=== PATIENT | male | born 1950 | race Caucasian/White ===

== ENCOUNTER 2016-11-04 14:41 | Emergency (ER) | payer OTHER, MEDICARE ==
--- NOTE | 2016-11-04 15:11 | ER Document Report ---
ED Medical Screen (RME) - General Chief Complaint: Possible Kidney Stone Stated Complaint: FLANK PAIN Notes: Patient states he started having left flank pain 3 days ago. Pain is now radiating around to the left side down towards the left groin. Denies nausea or vomiting. Patient states he has stage III kidney disease, and has also had a history of kidney stones. Denies fever. He was sent to the emergency room by the [place] [facility]. I have greeted and performed a rapid initial assessment of this patient. A comprehensive ED assessment and evaluation of the patient, analysis of test results and completion of the medical decision making process will be conducted by additional ED providers. - Related Data Allergies/Adverse Reactions: No Known Allergies Allergy (Unverified 03/01/11 22:25) Physical Exam - Vital signs Vitals: Temp Pulse Resp BP Pulse Ox 98.3 F 85 20 160/66 H 92 11/04/16 14:44 11/04/16 14:44 11/04/16 14:44 11/04/16 14:44 11/04/16 14:44 - General General appearance: Appears well, Alert In distress: None Notes: Patient in no acute distress at this time states, pain to left flank is mild. Course - Vital Signs Vital signs: Temp Pulse Resp BP Pulse Ox 98.3 F 85 20 160/66 H 92 11/04/16 14:44 11/04/16 14:44 11/04/16 14:44 11/04/16 14:44 11/04/16 14:44
[2016-11-04 16:47] LABS: ABSOLUTE BASOPHILS # (AUTO) 0.1 10^3/uL (0.0-0.2); ABSOLUTE EOSINOPHILS # (AUTO) 0.2 10^3/uL (0.0-0.6); ABSOLUTE LYMPHOCYTES (AUTO) 2.1 10^3/uL (0.5-4.7); ABSOLUTE MONOCYTES (AUTO) 0.6 10^3/uL (0.1-1.4); ABSOLUTE NEUT (AUTO) 5.3 10^3/uL (1.7-8.2); BASOPHILS % (AUTO) 0.7 % (0-2); EOSINOPHILS % (AUTO) 2.5 % (0-6); HEMATOCRIT 45.8 % (37.9-51.0); HEMOGLOBIN 15.7 g/dL (13.5-17.0); HGB HCT DIFFERENCE 1.3; LYMPHOCYTES % (AUTO) 25.2 % (13-45); MEAN CORPUSCULAR HEMOGLOBIN 30.1 pg (27.0-33.4); MEAN CORPUSCULAR HGB CONC 34.4 g/dL (32.0-36.0); MEAN CORPUSCULAR VOLUME 88 fl (80-97); MONOCYTES % (AUTO) 7.5 % (3-13); RED BLOOD COUNT 5.22 10^6/uL (4.35-5.55); RED CELL DISTRIBUTION WIDTH 15.1 % (11.5-14.0); SEGMENTED NEUTROPHILS % (AUTO) 64.1 % (42-78); WHITE BLOOD COUNT 8.3 10^3/uL (4.0-10.5)
[2016-11-04 17:02] LABS: ALANINE AMINOTRANSFERASE 73 U/L (21-72); ALBUMIN 4.6 g/dL (3.5-5.0); ALKALINE PHOSPHATASE 66 U/L (38-126); ANION GAP 15 (5-19); ASPARTATE AMINO TRANSFERASE 70 U/L (17-59); BILIRUBIN,TOTAL 0.9 mg/dL (0.2-1.3); BLOOD UREA NITROGEN 27 mg/dL (7-20); CALCIUM 10.3 mg/dL (8.4-10.2); CARBON DIOXIDE 28 mmol/L (22-30); CHLORIDE 103 mmol/L (98-107); CREATININE RESULT 1.57 mg/dL (0.52-1.25); GLUCOSE 129 mg/dL (75-110); POTASSIUM 4.4 mmol/L (3.6-5.0); TOTAL PROTEIN 7.7 g/dL (6.3-8.2)
[2016-11-04 18:30] LABS: APPEARANCE,URINE CLEAR; BILIRUBIN,URINE NEGATIVE (NEGATIVE); GLUCOSE, URINE 50 mg/dL (NEGATIVE); KETONES,URINE NEGATIVE (NEGATIVE); LEUKOCYTE ESTERASE,URINE NEGATIVE (NEGATIVE); NITRITE,URINE NEGATIVE (NEGATIVE); PROTEIN,URINE 30 mg/dL (NEGATIVE); URINE SPECIFIC GRAVITY 1.015; UROBILINOGEN,URINE NEGATIVE mg/dL (<2.0)
--- NOTE | 2016-11-04 20:44 | ER Document Report ---
ED General - General Chief Complaint: Possible Kidney Stone Stated Complaint: FLANK PAIN Information source: Patient Notes: 58-year-old male presents with complaints of left flank pain rating to the groin. Patient notes similar episode one year ago, which was imaged and lab work noted no significant abnormality. Patient notes pain has been ongoing for 3 days Flank today went to his groin denies any testicular pain penile discharge TRAVEL OUTSIDE OF THE [place] IN LAST 30 DAYS: No - HPI Onset: Other Onset/Duration: Intermittent Quality of pain: Sharp Severity: Mild Pain Level: 1 Associated symptoms: Other Exacerbated by: Denies Relieved by: Denies Similar symptoms previously: Yes Recently seen / treated by doctor: Yes - Related Data Allergies/Adverse Reactions: No Known Allergies Allergy (Unverified 03/01/11 22:25) Past Medical History - Social History Smoking Status: Never Smoker Cigarette use (# per day): No Chew tobacco use (# tins/day): No Smoking Education Provided: No Frequency of alcohol use: None Drug Abuse: None Family History: Reviewed & Not Pertinent Patient has suicidal ideation: No Patient has homicidal ideation: No Renal/ Medical History: Denies: Hx Peritoneal Dialysis Review of Systems - Review of Systems Notes: REVIEW OF SYSTEMS: CONSTITUTIONAL : Denies fever, chills, or sweats. Denies recent illness. EENT: Denies eye, ear, throat, or mouth pain or symptoms. Denies nasal or sinus congestion or discharge. Denies throat, tongue, or mouth swelling or difficulty swallowing. CARDIOVASCULAR: Denies chest pain. Denies palpitations or racing or irregular heart beat. Denies ankle edema. RESPIRATORY: Denies cough, cold, or chest congestion. Denies shortness of breath, difficulty breathing, or wheezing. GASTROINTESTINAL: Denies abdominal pain or distention. Denies nausea, vomiting , or diarrhea. Denies blood in vomitus, stools, or per rectum. Denies black, tarry stools. Denies constipation. GENITOURINARY: Denies difficulty urinating, painful urination, burning, frequency, blood in urine, or discharge. MUSCULOSKELETAL: Left flank pain rating to the groin SKIN: Denies rash, lesions or sores. HEMATOLOGIC : Denies easy bruising or bleeding. LYMPHATIC: Denies swollen, enlarged glands. NEUROLOGICAL: Denies confusion or altered mental status. Denies passing out or loss of consciousness. Denies dizziness or lightheadedness. Denies headache. Denies weakness or paralysis or loss of use of either side. Denies problems with gait or speech. Denies sensory loss, numbness, or tingling. Denies seizures. PSYCHIATRIC: Denies anxiety or stress. Denies depression, suicidal ideation, or homicidal ideation. ALL OTHER SYSTEMS REVIEWED AND NEGATIVE. Dictation was performed using [employer] voice recognition software PHYSICAL EXAMINATION: GENERAL: Well-appearing, well-nourished and in no acute distress. HEAD: Atraumatic, normocephalic. EYES: Pupils equal round and reactive to light, extraocular movements intact, sclera anicteric, conjunctiva are normal. ENT: Nares patent, oropharynx clear without exudates. Moist mucous membranes. NECK: Normal range of motion, supple without lymphadenopathy LUNGS: Breath sounds clear to auscultation bilaterally and equal. No wheezes rales or rhonchi. HEART: Regular rate and rhythm without murmurs ABDOMEN: Soft, nontender, nondistended abdomen. No guarding, no rebound. No masses appreciated. Musculoskeletal: Normal range of motion, no pitting or edema. No cyanosis. NEUROLOGICAL: Cranial nerves grossly intact. Normal speech, normal gait. Normal sensory, motor exams PSYCH: Normal mood, normal affect. SKIN: Warm, Dry, normal turgor, no rashes or lesions noted. Physical Exam - Vital signs Vitals: Temp Pulse Resp BP Pulse Ox 98.3 F 85 20 160/66 H 92 11/04/16 14:44 11/04/16 14:44 11/04/16 14:44 11/04/16 14:44 11/04/16 14:44 Course - Re-evaluation Re-evalutation: 11/05/16 00:09 Patient is completely pain-free at this time, his creatinine is noted to be consistent with his previous presentations. Patient's otherwise in no distress. A CT was performed acute abnormality was noted. Patient was made aware of these results. I will have him follow-up with his process steward for reevaluation of his renal colic Urinalysis was negative After performing a Medical Screening Examination, I estimate there is LOW risk for ACUTE APPENDICITIS, BOWEL OBSTRUCTION, ACUTE CHOLECYSTITIS, PERFORATED DIVERTICULITIS, INCARCERATED HERNIA, PANCREATITIS, or PERFORATED ULCER, thus I consider the discharge disposition reasonable. Also, there is no evidence or peritonitis, sepsis, or toxicity. The patient and I have discussed the diagnosis and risks, and we agree with discharging home with close follow-up with the understanding that symptoms and presentations can change. We also discussed returning to the Emergency Department immediately if new or worsening symptoms occur. We have discussed the symptoms which are most concerning (e.g., bloody stool, fever, changing or worsening pain, intractable vomiting - standard verbal up date) that necessitate immediate return. - Vital Signs Vital signs: Temp Pulse Resp BP Pulse Ox 98.3 F 85 20 160/66 H 92 11/04/16 14:44 11/04/16 14:44 11/04/16 14:44 11/04/16 14:44 11/04/16 14:44 - Laboratory Result Diagrams: 11/04/16 15:45 11/04/16 15:45 Laboratory results interpreted by me: 11/04/16 11/04/16 11/04/16 15:45 15:45 15:45 RDW 15.1 H Sodium 146.0 H BUN 27 H Creatinine 1.57 H Est GFR ( Amer) 53 L Est GFR (Non-Af Amer) 44 L Glucose 129 H Calcium 10.3 H AST 70 H ALT 73 H Urine Protein 30 H Urine Glucose (UA) 50 H - Diagnostic Test Radiology reviewed: Image reviewed, Reports reviewed - Report given to patient Discharge - Discharge Clinical Impression: Flank pain Chronic kidney disease Qualifiers: Chronic kidney disease stage: stage 2 (mild) Qualified Code(s): N18.2 - Chronic kidney disease, stage 2 (mild) Hypertension Qualifiers: Hypertension type: essential hypertension Qualified Code(s): I10 - Essential ( primary) hypertension Condition: Stable Disposition: HOME, SELF-CARE Instructions: Flank Pain ([facility]) Additional Instructions: Please follow-up with your process steward for reevaluation or return immediately if there are any other concerns Prescriptions: Hydrocodone/Acetaminophen [Orange 5-325 mg Tablet] 1 tab PO Q6 #10 tablet Ondansetron [Zofran Odt] 8 mg PO Q8 #10 tab.rapdis
[2016-11-05 00:19] VITALS: BP 154/60
== END 2016-11-04 22:10 | disposition home or self-care (01) ==
LOC: ER 14:41
DX: N23 Unspecified renal colic (principal); I12.9 Hypertensive chronic kidney disease with stage 1 through stage 4 chronic kidney disease, or unspecified chronic kidney disease; N18.2 Chronic kidney disease, stage 2 (mild)
CPT/HCPCS: 36415; 76380; 80053; 81001; 85025; 99284

== ENCOUNTER 2018-12-11 13:40 | Inpatient (IN) | payer OTHER, MEDICARE ==
--- NOTE | 2018-12-11 14:17 | ER Document Report ---
ED Medical Screen (RME) - General Chief Complaint: Breathing Difficulty Stated Complaint: DIFFICULTY BREATHING Time Seen by Provider: 12/11/18 14:04 Mode of Arrival: Ambulatory Information source: Patient TRAVEL OUTSIDE OF THE [place] IN LAST 30 DAYS: No - HPI Patient complains to provider of: Short of breath Notes: 12/11/18 14:15 Patient here with complaints of shortness of breath. Shortness of breath been going on for the last few days. He also complains of pain in the lower chest/upper abdomen. He has a history of kidney disease, diabetes, hypertension, CAD with stents. He denies any recent long trips or surgeries, he does have bilateral leg swelling, but this is chronic. No known cancer, no history of DVT or PE. He did recently have a a thyroid mass biopsy that came back inconclusive, and further testing is currently be done at this time. No history of COPD. Quit smoking 9 years ago. Exam Mild tachypnea, hypoxia which improved on nasal cannula. Lungs are clear and equal throughout. Heart sounds are normal. +1 pitting edema to the bilateral lower extremities. Plan Patient was placed on oxygen, his O2 levels improved. CBC, CMP, troponin, BNP, chest x-ray, EKG. Patient will be taken to room as soon as possible. An initial examination was made on the patient as part of the triage process, and it was determined a more comprehensive evaluation was necessary. Initial labs were ordered and patient was transferred to another provider in the ED who assumed care and finished evaluation and plan. - Related Data Allergies/Adverse Reactions: No Known Allergies Allergy (Verified 12/11/18 13:42) Past Medical History Renal/ Medical History: Denies: Hx Peritoneal Dialysis Physical Exam - Vital signs Vitals: Temp Pulse Resp BP Pulse Ox 98.3 F 105 H 24 H 125/72 84 L 12/11/18 13:52 12/11/18 13:52 12/11/18 13:52 12/11/18 13:52 12/11/18 13:52 Course - Vital Signs Vital signs: Temp Pulse Resp BP Pulse Ox 98.3 F 105 H 24 H 125/72 84 L 12/11/18 13:52 12/11/18 13:52 12/11/18 13:52 12/11/18 13:52 12/11/18 13:52
[2018-12-11 15:21] LABS: ABSOLUTE BASOPHILS # (AUTO) 0.1 10^3/uL (0.0-0.2); ABSOLUTE EOSINOPHILS # (AUTO) 0.1 10^3/uL (0.0-0.6); ABSOLUTE LYMPHOCYTES (AUTO) 1.2 10^3/uL (0.5-4.7); ABSOLUTE MONOCYTES (AUTO) 0.5 10^3/uL (0.1-1.4); ABSOLUTE NEUT (AUTO) 6.4 10^3/uL (1.7-8.2); BASOPHILS % (AUTO) 0.6 % (0-2); EOSINOPHILS % (AUTO) 0.8 % (0-6); HEMATOCRIT 44.6 % (37.9-51.0); HEMOGLOBIN 15.2 g/dL (13.5-17.0); LYMPHOCYTES % (AUTO) 14.2 % (13-45); MEAN CORPUSCULAR HEMOGLOBIN 30.1 pg (27.0-33.4); MEAN CORPUSCULAR HGB CONC 34.1 g/dL (32.0-36.0); MEAN CORPUSCULAR VOLUME 88 fl (80-97); MONOCYTES % (AUTO) 6.3 % (3-13); PLATELET COUNT 159 10^3/uL (150-450); RED BLOOD COUNT 5.05 10^6/uL (4.35-5.55); RED CELL DISTRIBUTION WIDTH 14.7 % (11.5-14.0); SEGMENTED NEUTROPHILS % (AUTO) 78.1 % (42-78); TOTAL CELLS COUNTED % (AUTO) 100 %; WHITE BLOOD COUNT 8.2 10^3/uL (4.0-10.5)
--- NOTE | 2018-12-11 15:22 | RADIOLOGY REPORT (SQ) ---
EXAM DESCRIPTION: CHEST 2 VIEWS COMPLETED DATE/TIME: 12/11/2018 3:00 pm REASON FOR STUDY: dyspnea, hypoxia COMPARISON: None. EXAM PARAMETERS: NUMBER OF VIEWS: two views TECHNIQUE: Digital Frontal and Lateral radiographic views of the chest acquired. RADIATION DOSE: NA LIMITATIONS: none FINDINGS: LUNGS AND PLEURA: Rounded masslike opacity of the right upper lobe with adjacent heterogen eous airspace opacity. Findings are highly concerning for primary malignancy. MEDIASTINUM AND HILAR STRUCTURES: No masses or contour abnormalities. HEART AND VASCULAR STRUCTURES: Cardiomegaly. BONES: No acute findings. HARDWARE: None in the chest. OTHER: No other significant finding. IMPRESSION: 1. Rounded masslike opacity of the right upper lobe with adjacent heterogeneous airspace opacity. Findings are highly concerning for primary malignancy. Recommend CT to further evaluate. 2. Cardiomegaly. TECHNICAL DOCUMENTATION: JOB ID: [id number] [employer]- All Rights Reserved Reading location - IP/workstation name: [email or web address]
[2018-12-11 15:38] LABS: ALANINE AMINOTRANSFERASE 204 U/L (21-72); ALBUMIN 4.2 g/dL (3.5-5.0); ALKALINE PHOSPHATASE 86 U/L (38-126); ANION GAP 12 (5-19); ASPARTATE AMINO TRANSFERASE 131 U/L (17-59); BILIRUBIN,DIRECT 0.6 mg/dL (0.0-0.4); BILIRUBIN,TOTAL 1.1 mg/dL (0.2-1.3); BLOOD UREA NITROGEN 40 mg/dL (7-20); CALCIUM 9.5 mg/dL (8.4-10.2); CARBON DIOXIDE 26 mmol/L (22-30); CHLORIDE 100 mmol/L (98-107); GLUCOSE 374 mg/dL (75-110); POTASSIUM 5.1 mmol/L (3.6-5.0); SODIUM 137.8 mmol/L (137-145); TOTAL PROTEIN 7.5 g/dL (6.3-8.2)
[2018-12-11 15:51] LABS: TROPONIN I 0.114 ng/mL
--- NOTE | 2018-12-11 16:12 | RADIOLOGY REPORT (SQ) ---
EXAM DESCRIPTION: CHEST 2 VIEWS COMPLETED DATE/TIME: 12/11/2018 4:01 pm REASON FOR STUDY: with nipple markers COMPARISON: 12/11/2018. EXAM PARAMETERS: NUMBER OF VIEWS: two views TECHNIQUE: Digital Frontal and Lateral radiographic views of the chest acquired. RADIATION DOSE: NA LIMITATIONS: none FINDINGS: LUNGS AND PLEURA: Again seen is rounded density in the right mid lung. Left lung clear. No pleural effusion or pneumothorax. MEDIASTINUM AND HILAR STRUCTURES: No masses or contour abnormalities. HEART AND VASCULAR STRUCTURES: Heart upper limits of normal size. No evidence for failure. BONES: No acute findings. HARDWARE: None in the chest. OTHER: No other significant finding. IMPRESSION: ROUNDED DENSITY IN THE RIGHT MIDLUNG AGAIN SEEN. CONCERNING FOR UNDERLYING PULMONARY MA SS. RECOMMEND FOLLOW-UP CHEST CT. TECHNICAL DOCUMENTATION: JOB ID: [id number] [employer]- All Rights Reserved Reading location - IP/workstation name: [email or web address]
--- NOTE | 2018-12-11 16:52 | RADIOLOGY REPORT (SQ) ---
EXAM DESCRIPTION: CT CHEST WITHOUT COMPLETED DATE/TIME: 12/11/2018 4:35 pm REASON FOR STUDY: Suspect right lung airspace disease, RUL mass COMPARISON: Chest x-ray dated 12/11/2018. TECHNIQUE: CT scan performed of the chest without intravenous contrast. Images reviewed with lung, soft tissue and bone windows. Reconstructed coronal and sagittal MPR images reviewed. All images st ored on PACS. All CT scanners at this facility use dose modulation, iterative reconstruction, and/or weight based d osing when appropriate to reduce radiation dose to as low as reasonably achievable (ALARA). [facility]: Dose Right [facility]: CareDose [facility]: Dose Right [facility]: Teradose 4D [facility]: [employer] RADIATION DOSE: CT Rad equipment meets quality standard of care and radiation dose reduction techniq ues were employed. CTDIvol: 21.1 mGy. DLP: 858 mGy-cm. mGy. LIMITATIONS: No technical limitations. FINDINGS: LUNGS AND PLEURA: Nodular lobulated mass in the lateral right lung, measuring 3.0 x 3.6 cm , which corresponds with the finding on chest x-ray. This abuts the pleura. There is mild pleural r etraction. There are additional nodular masses extending medially to the hilum, measuring 1 to 2 cm. Patchy airspace disease in the anterior right middle lobe. Right pleural effusion. Left lung emigdio r. HILAR AND MEDIASTINAL STRUCTURES: Right hilar mass measuring approximately 3 cm. Borderline mediasti nal adenopathy. HEART AND VASCULAR STRUCTURES: No aneurysm. Coronary artery calcifications. No pericardial effusion . UPPER ABDOMEN: No significant findings. Limited exam. THYROID AND OTHER SOFT TISSUES: Heterogenous enlarged left lobe of the thyroid which extends in a sub sternal direction. Transverse measurement 4.2 cm, AP measurement 4.6 cm, and craniocaudal measuremen t 5.0 cm. BONES: No significant finding. Degenerative changes in the spine. HARDWARE: None in the chest. OTHER: No other significant findings. IMPRESSION: 1. LOBULATED MASS IN THE LATERAL RIGHT LUNG CONSISTENT WITH MALIGNANCY. ADDITIONAL SMALLER NODULAR M ASSES EXTENDING MEDIALLY TO THE RIGHT HILUM. RIGHT HILAR MASS PRESUMED SECONDARY TO ADENOPATHY. PAT SANTIAGO AIRSPACE DISEASE IN THE ADJACENT RIGHT LUNG. THIS MAY BE DUE TO PNEUMONITIS OR ATELECTASIS ALTHO UGH LYMPHATIC SPREAD OF TUMOR COULD BE ANOTHER POSSIBILITY. RIGHT PLEURAL EFFUSION. LEFT LUNG CLEAR . 2. HETEROGENOUS ENLARGED LEFT LOBE OF THE THYROID WHICH EXTENDS IN A SUBSTERNAL DIRECTION DESCRIBE D. TECHNICAL DOCUMENTATION: JOB ID: [id number] Quality ID # [id number]: Final reports with documentation of one or more dose reduction techniques (e.g., Au tomated exposure control, adjustment of the mA and/or kV according to patient size, use of iterative reconstruction technique) 2010 [employer]- All Rights Reserved Reading location - IP/workstation name: [email or web address]
--- NOTE | 2018-12-11 17:03 | ER Document Report ---
Entered by PATRICIA JACKMAN SCRIBE 12/11/18 1507 Acting as scribe for:MOODY ARAUJO MD ED Respiratory Problem - General Chief Complaint: Breathing Difficulty Stated Complaint: DIFFICULTY BREATHING Time Seen by Provider: 12/11/18 14:04 Primary Care Provider: DEYSI KENT DO [Primary Care Provider] - Follow up as needed Mode of Arrival: Ambulatory Information source: Patient Notes: 68-year-old male with coronary artery disease, [place] x2, with 2 stents placed that presents to the emergency department today with complaints of shortness of br eath with exertional epigastric/chest pain. Patient states he seems to only notice the pain after exertion. Patient's dyspnea becomes much worse on exertion as well. Patient states that after resting his pain usually goes away after about 5 minutes. Patient denies a cough. TRAVEL OUTSIDE OF THE [place] IN LAST 30 DAYS: No - Related Data Allergies/Adverse Reactions: No Known Allergies Allergy (Verified 12/11/18 13:42) Past Medical History - General Information source: Patient - Social History Smoking Status: Former Smoker Cigarette use (# per day): No Frequency of alcohol use: None Drug Abuse: None Lives with: Family Family History: Reviewed & Not Pertinent Patient has suicidal ideation: No Patient has homicidal ideation: No - Past Medical History Cardiac Medical History: Reports: Hx Coronary Artery Disease, Hx Heart Attack, Hx Hypercholesterolemia, Hx Hypertension Endocrine Medical History: Reports: Hx Diabetes Mellitus Type 2 Past Surgical History: Reports: Other - Thyroid mass biopsy Review of Systems - Review of Systems Constitutional: No symptoms reported EENT: No symptoms reported Cardiovascular: No symptoms reported Respiratory: See HPI, Short of breath. denies: Cough Gastrointestinal: See HPI, Abdominal pain Genitourinary: No symptoms reported Male Genitourinary: No symptoms reported Musculoskeletal: No symptoms reported Skin: No symptoms reported Hematologic/Lymphatic: No symptoms reported Neurological/Psychological: No symptoms reported -: Yes All other systems reviewed and negative Physical Exam - Vital signs Vitals: Temp Pulse Resp BP Pulse Ox 98.3 F 105 H 24 H 125/72 84 L 12/11/18 13:52 12/11/18 13:52 12/11/18 13:52 12/11/18 13:52 12/11/18 13:52 - Notes Notes: Physical Exam: General: Alert, appears well. HEENT: Normocephalic. Atraumatic. PERRL. Extraocular movements intact. Oropharynx clear. Neck: Supple. Non-tender. Respiratory: No respiratory distress. Clear and equal breath sounds bilaterally. Cardiovascular: Regular rate and rhythm. Abdominal: Normal Inspection. Non-tender, no epigastric tenderness with palpation. No distension. Normal Bowel Sounds. Back: Non-tender. No deformity or step off. Extremities: Moves all four extremities. Upper extremities: Normal inspection. Normal ROM. Lower extremities: Pitting edema. Thickened skin to lower extremities. Neurological: Normal cognition. AAOx4. Normal speech. Psychological: Normal affect. Normal Mood. Skin: Warm. Dry. Normal color. Course - Re-evaluation Re-evalutation: 12/11/18 18:54 At this time the patient is sitting up in a chair on monitor. He has oxygen at 2 L by nasal cannula. He is smiling and feels quite well. He has had no further epigastric chest discomfort and no shortness of breath as long as he is sitting at rest. I did review all of the findings with the patient and his family and they understand that at this time the cardiac issue is the primary concern, and the new lung findings can be dealt with later. - Vital Signs Vital signs: Temp Pulse Resp BP Pulse Ox 98.3 F 105 H 16 125/72 95 12/11/18 13:52 12/11/18 13:52 12/11/18 16:00 12/11/18 13:52 12/11/18 14:37 - Laboratory Result Diagrams: 12/11/18 14:45 12/11/18 14:45 Laboratory results interpreted by me: 12/11/18 12/11/18 14:45 14:45 RDW 14.7 H Seg Neutrophils % 78.1 H Potassium 5.1 H BUN 40 H Creatinine 1.80 H Est GFR ( Amer) 45 L Est GFR (Non-Af Amer) 37 L Glucose 374 H Direct Bilirubin 0.6 H AST 131 H ALT 204 H - Diagnostic Test Radiology reviewed: Image reviewed, Reports reviewed - Chest x-ray shows a round masslike opacity in the right upper lung with adjacent airspace disease. - EKG Interpretation by Me EKG shows normal: Sinus rhythm, [place], Intervals, ST-T Waves. abnormal: QRS Complexes - Old anterior, lateral, inferior infarct Rate: Normal - 90 Rhythm: NSR When compared to previous EKG there are: Previous EKG unavailable - Consults Dr. Bergman Time consulted: 18:28 Consulted provider: other - IMCU admission. He will notify the night hospitalis t about the patient. Critical Care Note - Critical Care Note Total time excluding time spent on procedures (mins): 40 Discharge - Discharge Clinical Impression: Unstable angina, Dyspnea on exertion, Elevated troponin, Mass of upper lobe of right lung, Renal insufficiency, Non-ST elevation myocardial infarction (NSTEMI) Condition: Stable Disposition: ADMITTED INPATIENT Admitting Provider: Pacheco (Hospitalist) Unit Admitted: IMCU Referrals: DEYSI KENT DO [Primary Care Provider] - Follow up as needed Scribe Attestation: 12/11/18 15:23 I personally performed the services described in the documentation, reviewed and edited the documentation which was dictated to the scribe in my presence, and it accurately records my words and actions. I personally performed the services described in the documentation, reviewed and edited the documentation which was dictated to the scribe in my presence, and it accurately records my words and actions.
[2018-12-11] MEDS ORDERED: ENOXAPARIN SODIUM INJ 100 MG/1 ML DISP.SYRIN SUBCUT ONE (18:37)
[2018-12-11] MEDS ORDERED: NITROGLYCERIN 2% OINTMENT 1 GM PACKET TP ONE ×2 (18:37→21:00)
[2018-12-11] MEDS ORDERED: ASPIRIN 81 MG TABLET, CHEWABLE PO ONE ×2 (18:38→21:00)
[2018-12-11 19:19] LABS: INTERNATIONAL RATION (INR) 1.06; PROTHROMBIN TIME 14.4 SEC (11.4-15.4)
[2018-12-11] MEDS ORDERED: ONDANSETRON HCL INJ/PF 4 MG/2 ML SDV IV PRN (19:22)
[2018-12-11] MEDS ORDERED: ONDANSETRON 4 MG TAB.RAPDIS PO PRN (19:22)
[2018-12-11] MEDS ORDERED: MAG HYDROX/AL HYDROX/SIMETH SUSP 30 ML UDCUP PO PRN (19:22)
[2018-12-11] MEDS ORDERED: TEMAZEPAM 15 MG CAPSULE PO PRN (19:22)
[2018-12-11] MEDS ORDERED: NICOTINE 21 MG/24 HR PATCH.TD24 TD PRN (19:35)
[2018-12-11] MEDS ORDERED: MORPHINE SULFATE 10 MG/ML INJ IV PRN ×4 (19:35→20:02)
[2018-12-11] MEDS ORDERED: NITROGLYCERIN 0.4 MG/TAB 25 TAB/BOTTLE SL PRN (19:35)
[2018-12-11] MEDS ORDERED: DEXTROSE 40% GEL 15 GM TUBE PO PRN ×2 (19:35)
[2018-12-11] MEDS ORDERED: DEXTROSE 50%-WATER 25 GM/50 ML DISP.SYRIN IV PRN ×2 (19:35)
[2018-12-11] MEDS ORDERED: GLUCAGON,HUMAN RECOMB 1 MG INJ IM PRN (19:35)
[2018-12-11] MEDS ORDERED: ACETAMINOPHEN 325 MG TABLET PO PRN (19:35)
--- NOTE | 2018-12-11 19:49 | EKG REPORT ---
SEVERITY:- ABNORMAL ECG - SINUS RHYTHM PROBABLE LEFT ATRIAL ABNORMALITY INFERIOR INFARCT, AGE INDETERMINATE LATERAL INFARCT, OLD ANTERIOR INFARCT, AGE INDETERMINATE : Confirmed by: Syl Davis MD 11-Dec-2018 19:49:17
[2018-12-11] MEDS ORDERED: NORMAL SALINE 1000 ML 1,000 ML IV ONE (20:00)
[2018-12-11 22:14] LABS: CREATINE KINASE MB 1.36 ng/mL (<4.55); TROPONIN I 0.111 ng/mL
[2018-12-11] MEDS: FAMOTIDINE 20 MG TABLET PO SCH (22:33)
[2018-12-11] MEDS: HEPARIN SOD (PORCINE) 5,000 UNIT/ML 1 ML SYRINGE SUBCUT SCH (22:33)
[2018-12-11] MEDS: INSULIN REG, HUMAN 100 UNIT/ML 3 ML VIAL (PYX) SUBCUT SCH (22:33)
[2018-12-11] MEDS: BUDESONIDE NEB 0.5 MG/2 ML AMPUL NEB SCH (22:50)
[2018-12-11 23:51] LABS: APPEARANCE,URINE CLEAR; BILIRUBIN,URINE NEGATIVE (NEGATIVE); COLOR,URINE YELLOW; GLUCOSE, URINE >=500 mg/dL (NEGATIVE); KETONES,URINE NEGATIVE (NEGATIVE); LEUKOCYTE ESTERASE,URINE NEGATIVE (NEGATIVE); NITRITE,URINE NEGATIVE (NEGATIVE); PROTEIN,URINE 30 mg/dL (NEGATIVE); URINE SPECIFIC GRAVITY 1.018
[2018-12-12] MEDS: IPRATROPIUM BROMIDE 0.02% NEB 0.5 MG/2.5 ML AMPUL NEB SCH ×4 (00:42→23:55)
[2018-12-12] MEDS: LEVALBUTEROL HCL NEB 1.25 MG/3 ML AMPUL NEB SCH ×4 (00:42→23:55)
--- NOTE | 2018-12-12 02:02 | PDOC H&P ---
History of Present Illness Admission Date/PCP: 12/11/18 19:01 DEYSI KENT DO Patient complains of: Epigastric pain and dyspnea History of Present Illness: VICTOR MANUEL HALL is a 68 year old male who presented to the emergency room with a 4-day history of episodic dyspnea at rest and on exertion. Patient acknowledges moderate to severe dyspnea episodes worsened with any exertion, several times per day over the weekend but better on Monday. His symptoms returned again early this morning and were much more severe with the dyspnea and abdominal discomfort being present and not resolving with a short period of rest and controlled breathing. His dyspnea was accompanied by a mild to moderate epigastric/lower anterior chest pressure-like discomfort. Patient's dyspnea and chest/abdomen discomfort was relieved by rest after a few minutes until today when it became persistent resulting in his trip to the emergency room. He also admits an associated symptom of bilateral leg swelling which is a little worse than his normal chronic swelling. He denies prior similar episodes. He denies identification of other aggravating or ameliorating factors for his dyspnea and chest/abdominal pain. In the emergency room he was noted to have dyspnea with exertion and required supplemental oxygen at 2 L/min via nasal cannula to remain dyspnea free and pain-free even at rest. Chest x-ray showed a right midlung mass suspicious for neoplasm with probable right perihilar lymphadenopathy. Because of the patient's acute respiratory failure, chest/abdominal pain, worsening peripheral edema and dyspnea with exertion he was admitted for further evaluation and treatment. Past Medical History Cardiac Medical History: Reports: Congestive Heart Failure, Coronary Artery Disease, Myocardial Infarction, Hyperlipidema, Hypertension Pulmonary Medical History: Denies: Asthma, Chronic Obstructive Pulmonary Disease (COPD) Neurological Medical History: Denies: Hemorrhagic CVA, Ischemic CVA, Seizures Endocrine Medical History: Reports: Diabetes Mellitus Type 2 Denies: Diabetes Mellitus Type 1, Hyperthyroidism, Hypothyroidism Renal/ Medical History: Reports: Chronic Kidney Disease Denies: Nephrolithiasis Malignancy Medical History: Reports: None GI Medical History: Denies: Cirrhosis, Hepatitis Musculoskeltal Medical History: Denies: Arthritis, Gout Skin Medical History: Denies: Eczema, Psoriasis Psychiatric Medical History: Denies: Alcohol Dependency, Substance Abuse, Tobacco Dependency Traumatic Medical History: Reports: None Hematology: Denies: Anemia, Bleeding Tendencies Infectious Medical History: Reports: None Past Surgical History Past Surgical History: Reports: Other - Thyroid mass biopsy Social History Information Source: Patient Lives with: Family Smoking Status: Former Smoker Frequency of Alcohol Use: None Hx Recreational Drug Use: No Drugs: None Hx Prescription Drug Abuse: No - Advance Directive Resuscitation Status: Full Code Surrogate healthcare decision maker:: Barbie Bravo, daughter Family History Family History: Hypertension, Malignancy. denies: CAD, DM Parental Family History Reviewed: Yes Children Family History Reviewed: No Sibling(s) Family History Reviewed.: Yes Medication/Allergy Allergies/Adverse Reactions: No Known Allergies Allergy (Verified 12/11/18 13:42) Review of Systems Constitutional: ABSENT: chills, fever(s) Eyes: ABSENT: visual disturbances, other - Eye pain Ears: ABSENT: hearing changes, other - Ear pain Nose, Mouth, and Throat: ABSENT: headache(s), mouth pain, sore throat Cardiovascular: PRESENT: as per HPI, chest pain, dyspnea on exertion, edema. ABSENT: orthropnea, palpitations Respiratory: PRESENT: as per HPI, dyspnea. ABSENT: cough, hemoptysis Gastrointestinal: PRESENT: abdominal pain. ABSENT: as per HPI, constipation, diarrhea, nausea, vomiting Genitourinary: ABSENT: dysuria, hematuria Musculoskeletal: ABSENT: joint swelling, muscle weakness Integumentary: ABSENT: pruritus, rash Neurological: ABSENT: confusion, convulsions, focal weakness, memory loss Psychiatric: ABSENT: anxiety, depression Endocrine: ABSENT: cold intolerance, heat intolerance Hematologic/Lymphatic: ABSENT: easy bleeding, easy bruising Physical Exam Vital Signs: Temp Pulse Resp BP Pulse Ox 98.3 F 105 H 16 125/72 95 12/11/18 13:52 12/11/18 13:52 12/11/18 16:00 12/11/18 13:52 12/11/18 14:37 Intake & Output 12/09/18 12/10/18 12/11/18 23:59 23:59 23:59 Weight 142.7 kg General appearance: PRESENT: no acute distress, cooperative, morbidly obese Head exam: PRESENT: atraumatic, normocephalic Eye exam: ABSENT: conjunctival injection, nystagmus Ear exam: PRESENT: normal external ear exam. ABSENT: drainage Mouth exam: PRESENT: dry mucosa, neck supple Neck exam: ABSENT: JVD, thyromegaly, tracheal deviation Respiratory exam: PRESENT: rhonchi - Scattered in the right lung steinberg, symmetrical, unlabored. ABSENT: prolonged expiratory phas, wheezes Cardiovascular exam: PRESENT: RRR. ABSENT: clicks, gallop, rubs Pulses: PRESENT: normal radial pulses, normal dorsalis pedis pul Vascular exam: PRESENT: normal capillary refill. ABSENT: pallor GI/Abdominal exam: PRESENT: normal bowel sounds, soft. ABSENT: tenderness Rectal exam: PRESENT: deferred Extremities exam: PRESENT: pedal edema, +1 edema - Bilateral pretibial regions. ABSENT: joint swelling Musculoskeletal exam: ABSENT: deformity, dislocation Neurological exam: PRESENT: alert, awake, oriented to person, oriented to place, oriented to time, oriented to situation, CN II-XII grossly intact. ABSENT: motor sensory deficit Psychiatric exam: PRESENT: appropriate affect, normal mood Skin exam: PRESENT: dry, intact, warm. ABSENT: jaundice, rash, urticaria Results Laboratory Results: 12/11/18 14:45 12/11/18 14:45 12/11/18 12/11/18 14:45 14:45 WBC 8.2 RBC 5.05 Hgb 15.2 Hct 44.6 MCV 88 MCH 30.1 MCHC 34.1 RDW 14.7 H Plt Count 159 Seg Neutrophils % 78.1 H Lymphocytes % 14.2 Monocytes % 6.3 Eosinophils % 0.8 Basophils % 0.6 Absolute Neutrophils 6.4 Absolute Lymphocytes 1.2 Absolute Monocytes 0.5 Absolute Eosinophils 0.1 Absolute Basophils 0.1 Sodium 137.8 Potassium 5.1 H Chloride 100 Carbon Dioxide 26 Anion Gap 12 BUN 40 H Creatinine 1.80 H Est GFR ( Amer) 45 L Est GFR (Non-Af Amer) 37 L Glucose 374 H Calcium 9.5 Total Bilirubin 1.1 AST 131 H ALT 204 H Alkaline Phosphatase 86 Total Protein 7.5 Albumin 4.2 12/11/18 12/11/18 14:45 17:14 Troponin I 0.114 0.150 NT-Pro-B Natriuret Pep 749 Impressions: Chest X-Ray 12/11/18 15:38 IMPRESSION: ROUNDED DENSITY IN THE RIGHT MIDLUNG AGAIN SEEN. CONCERNING FOR UNDERLYING PULMONARY MASS. RECOMMEND FOLLOW-UP CHEST CT. Chest CT 12/11/18 16:11 IMPRESSION: 1. LOBULATED MASS IN THE LATERAL RIGHT LUNG CONSISTENT WITH MALIGNANCY. A DDITIONAL SMALLER NODULAR MASSES EXTENDING MEDIALLY TO THE RIGHT HILUM. RIGHT HILAR MASS PRESUMED SECONDARY TO ADENOPATHY. PATCHY AIRSPACE DISEASE IN THE ADJACENT RIGHT LUNG. THIS MAY BE DUE TO PNEUMONITIS OR ATELECTASIS ALTHOUGH LYMPHATIC SPREAD OF TUMOR COULD BE ANOTHER POSSIBILITY. RIGHT PLEURAL EFFUSION. LEFT LUNG CLEAR. 2. HETEROGENOUS ENLARGED LEFT LOBE OF THE THYROID WHICH EXTENDS IN A SUBSTERNAL DIRECTION DESCRIBED. Assessment and Plan - Diagnosis (1) Chest pain Qualifiers: Chest pain type: unspecified Qualified Code(s): R07.9 - Chest pain, unspecified Is this a current diagnosis for this admission?: Yes Plan: We will obtain serial cardiac enzymes and EKG evaluations. Patient will have morphine 2-4 mg IV every 2 hours as needed for chest pain on a sliding scale basis. Further evaluation will be determined based on the results of his cardiac enzymes. (2) Dyspnea on exertion Is this a current diagnosis for this admission?: Yes Plan: Patient will be treated with supplemental oxygen initially and his dyspnea can be further evaluated when pulmonology services are available. (3) Acute respiratory failure Qualifiers: Respiratory failure complication: hypoxia Qualified Code(s): J96.01 - Acute respiratory failure with hypoxia Is this a current diagnosis for this admission?: Yes Plan: Patient be treated with supplemental oxygen as required to maintain an oxygen saturation of 93% or greater. (4) Elevated troponin Is this a current diagnosis for this admission?: Yes Plan: The patient has known renal insufficiency and an elevated troponin is not an expected however serial troponins will be obtained to evaluate for deviation from the baseline or increase to a level of significant concern. (5) Mass of upper lobe of right lung Is this a current diagnosis for this admission?: Yes Plan: Patient will undergo further evaluation of his right midlung mass following his cardiac evaluation. He will need evaluation by pulmonology and a biopsy specimen will need to be obtained to evaluate the mass. (6) Renal insufficiency Is this a current diagnosis for this admission?: Yes Plan: Patient is noted to have chronic renal insufficiency and his renal functions will be evaluated on a regular basis during his hospital course. (7) Morbid obesity Is this a current diagnosis for this admission?: Yes Plan: Patient is advised to eat a heart healthy diet with weight reduction as a goal to improve his overall health. - Time Time Spent with patient: 35 or more minutes Medications reviewed and adjusted accordingly: Yes Anticipated discharge: Home, T[facility] Hospital - Inpatient Certification Based on my medical assessment, after consideration of the patient's comorbidities, presenting symptoms, or acuity I expect that the services needed warrant INPATIENT care.: Yes I certify that my determination is in accordance with my understanding of Medicare's requirements for reasonable and necessary INPATIENT services [42 CFR 412.3e].: Yes Medical Necessity: Significant Comorbidiites Make Outpatient Treatment Too Risky, Need Close Monitoring Due to Risk of Patient Decompensation, Need For Continuous Telemetry Monitoring, Need for Nebulizer Therapy and Monitoring of Response, Risk of Complication if Not Cared For in Hospital
[2018-12-12 03:28] LABS: ABSOLUTE EOSINOPHILS # (AUTO) 0.1 10^3/uL (0.0-0.6); ABSOLUTE LYMPHOCYTES (AUTO) 1.6 10^3/uL (0.5-4.7); ABSOLUTE MONOCYTES (AUTO) 0.6 10^3/uL (0.1-1.4); BASOPHILS % (AUTO) 0.6 % (0-2); EOSINOPHILS % (AUTO) 1.9 % (0-6); HEMATOCRIT 39.3 % (37.9-51.0); HEMOGLOBIN 13.6 g/dL (13.5-17.0); LYMPHOCYTES % (AUTO) 21.7 % (13-45); MEAN CORPUSCULAR HEMOGLOBIN 30.5 pg (27.0-33.4); MEAN CORPUSCULAR HGB CONC 34.6 g/dL (32.0-36.0); MEAN CORPUSCULAR VOLUME 88 fl (80-97); MONOCYTES % (AUTO) 7.7 % (3-13); PLATELET COUNT 133 10^3/uL (150-450); RED BLOOD COUNT 4.46 10^6/uL (4.35-5.55); RED CELL DISTRIBUTION WIDTH 14.5 % (11.5-14.0); SEGMENTED NEUTROPHILS % (AUTO) 68.1 % (42-78); TOTAL CELLS COUNTED % (AUTO) 100 %; WHITE BLOOD COUNT 7.4 10^3/uL (4.0-10.5)
[2018-12-12 03:54] LABS: ANION GAP 11 (5-19); BLOOD UREA NITROGEN 38 mg/dL (7-20); CALCIUM 9.3 mg/dL (8.4-10.2); CARBON DIOXIDE 21 mmol/L (22-30); CHLORIDE 105 mmol/L (98-107); CHOLESTEROL 136.44 mg/dL (0-200); CREATINE KINASE MB 1.37 ng/mL (<4.55); GLUCOSE 290 mg/dL (75-110); LIPASE 38.4 U/L (23-300); POTASSIUM 4.3 mmol/L (3.6-5.0); SODIUM 137.3 mmol/L (137-145); TRIGLYCERIDES 260 mg/dL (<150); TROPONIN I 0.083 ng/mL
[2018-12-12 04:06] LABS: DIRECT LDL 81 mg/dL (<100)
[2018-12-12 04:11] LABS: FREE T3 4.16 pg/mL (2.77-5.27); FREE T4 (FREE THYROXINE) 1.43 ng/dL (0.78-2.19)
[2018-12-12 04:12] LABS: AMYLASE < 30 U/L (30-110)
[2018-12-12 04:24] LABS: THYROID STIMULATING HORMONE 0.72 uIU/mL (0.47-4.68)
[2018-12-12] MEDS: HEPARIN SOD (PORCINE) 5,000 UNIT/ML 1 ML SYRINGE SUBCUT SCH ×3 (05:06→21:18)
[2018-12-12] MEDS: BUDESONIDE NEB 0.5 MG/2 ML AMPUL NEB SCH ×2 (07:50→20:13)
--- NOTE | 2018-12-12 08:31 | EKG REPORT ---
SEVERITY:- DEFECTIVE ECG - UNABLE TO INTERPRET : Confirmed by: Syl Davis MD 12-Dec-2018 08:31:07
[2018-12-12] MEDS: INSULIN REG, HUMAN 100 UNIT/ML 3 ML VIAL (PYX) SUBCUT SCH ×3 (08:52→21:20)
[2018-12-12] MEDS: DOCUSATE SODIUM 100 MG CAPSULE PO SCH ×2 (10:09→17:58)
[2018-12-12] MEDS: FAMOTIDINE 20 MG TABLET PO SCH ×2 (10:09→21:20)
[2018-12-12 10:43] LABS: CREATINE KINASE MB 1.14 ng/mL (<4.55); TROPONIN I 0.059 ng/mL
[2018-12-12] MEDS ORDERED: CILOSTAZOL 100 MG TABLET PO SCH (18:00)
[2018-12-12] MEDS ORDERED: INSULIN, REGULAR 100 UNIT/100 ML NORMAL SALINE IV PRN ×2 (19:00)
--- NOTE | 2018-12-12 19:06 | PDOC PROGRESS REPORT ---
Subjective Progress Note for:: 12/12/18 Subjective:: VICTOR MANUEL HALL is a 68 year old male who presented to the emergency room with a 4-day history of episodic dyspnea at rest and on exertion. Patient acknowledges moderate to severe dyspnea episodes worsened with any exertion, several times per day over the weekend but better on Monday. His symptoms returned again early this morning and were much more severe with the dyspnea and abdominal discomfort being present and not resolving with a short period of rest and c ontrolled breathing. His dyspnea was accompanied by a mild to moderate epigastric/lower anterior chest pressure-like discomfort. Patient's dyspnea and chest/abdomen discomfort was relieved by rest after a few minutes until today when it became persistent resulting in his trip to the emergency room. He also admits an associated symptom of bilateral leg swelling which is a little worse than his normal chronic swelling. He denies prior similar episodes. He denies identification of other aggravating or ameliorating factors for his dyspnea and chest/abdominal pain. In the emergency room he was noted to have dyspnea with exertion and required supplemental oxygen at 2 L/min via nasal cannula to remain dyspnea free and pain-free even at rest. Chest x-ray showed a right midlung mass suspicious for neoplasm with probable right perihilar lymphadenopathy. Because of the patient's acute respiratory failure, chest/abdominal pain, worsening peripheral edema and dyspnea with exertion he was admitted for further evaluation and treatment. 12/12/2018. Shortness of breath with mild improvement but patient still having dyspnea on exertion associated with epigastric pressure-like chest pain. P atient denies any fever, chills, nausea, vomiting, diarrhea, constipation or any urinary symptoms. Reason For Visit: DYSPNEA Physical Exam Vital Signs: Temp Pulse Resp BP Pulse Ox 98.1 F 102 H 16 141/66 H 94 12/12/18 15:06 12/12/18 18:45 12/12/18 16:20 12/12/18 15:06 12/12/18 16:20 Intake & Output 12/11/18 12/12/18 12/13/18 06:59 06:59 06:59 Intake Total 1000 1025 Output Total 400 Balance 600 1025 Weight 135 kg 142.201 kg General appearance: PRESENT: morbidly obese Head exam: PRESENT: atraumatic, normocephalic Respiratory exam: PRESENT: clear to auscultation nancy, prolonged expiratory phas. ABSENT: rales, rhonchi, wheezes Pulses: PRESENT: normal dorsalis pedis pul GI/Abdominal exam: PRESENT: normal bowel sounds, soft. ABSENT: distended, guarding, mass, organolmegaly, rebound, tenderness Extremities exam: PRESENT: full ROM. ABSENT: calf tenderness, clubbing, pedal edema Neurological exam: PRESENT: alert, awake, oriented to person, oriented to place, oriented to time, oriented to situation, CN II-XII grossly intact. ABSENT: motor sensory deficit Results Laboratory Results: 12/12/18 03:00 12/12/18 03:00 12/11/18 12/12/18 12/12/18 23:29 03:00 03:00 WBC 7.4 RBC 4.46 Hgb 13.6 Hct 39.3 MCV 88 MCH 30.5 MCHC 34.6 RDW 14.5 H Plt Count 133 L Seg Neutrophils % 68.1 Lymphocytes % 21.7 Monocytes % 7.7 Eosinophils % 1.9 Basophils % 0.6 Absolute Neutrophils 5.0 Absolute Lymphocytes 1.6 Absolute Monocytes 0.6 Absolute Eosinophils 0.1 Absolute Basophils 0.0 Sodium 137.3 Potassium 4.3 Chloride 105 Carbon Dioxide 21 L Anion Gap 11 BUN 38 H Creatinine 1.42 H Est GFR ( Amer) > 60 Est GFR (Non-Af Amer) 49 L Glucose 290 H Calcium 9.3 Magnesium 2.2 Triglycerides 260 H Cholesterol 136.44 LDL Cholesterol Direct 81 VLDL Cholesterol 52.0 H HDL Cholesterol 21 L Amylase < 30 L Lipase 38.4 TSH Free T4 Free T3 pg/mL Urine Color YELLOW Urine Appearance CLEAR Urine pH 5.0 Ur Specific [place] 1.018 Urine Protein 30 H Urine Glucose (UA) >=500 H Urine Ketones NEGATIVE Urine Blood NEGATIVE Urine Nitrite NEGATIVE Ur Leukocyte Esterase NEGATIVE 12/12/18 03:00 WBC RBC Hgb Hct MCV MCH MCHC RDW Plt Count Seg Neutrophils % Lymphocytes % Monocytes % Eosinophils % Basophils % Absolute Neutrophils Absolute Lymphocytes Absolute Monocytes Absolute Eosinophils Absolute Basophils Sodium Potassium Chloride Carbon Dioxide Anion Gap BUN Creatinine Est GFR ( Amer) Est GFR (Non-Af Amer) Glucose Calcium Magnesium Triglycerides Cholesterol LDL Cholesterol Direct VLDL Cholesterol HDL Cholesterol Amylase Lipase TSH 0.72 Free T4 1.43 Free T3 pg/mL 4.16 Urine Color Urine Appearance Urine pH Ur Specific [place] Urine Protein Urine Glucose (UA) Urine Ketones Urine Blood Urine Nitrite Ur Leukocyte Esterase 12/11/18 12/11/18 12/11/18 14:45 17:14 21:07 Creatine Kinase 59 CK-MB (CK-2) Troponin I 0.114 0.150 NT-Pro-B Natriuret Pep 749 12/11/18 12/12/18 12/12/18 21:07 03:00 03:00 Creatine Kinase 56 CK-MB (CK-2) 1.36 1.37 Troponin I 0.111 0.083 NT-Pro-B Natriuret Pep 12/12/18 12/12/18 09:52 09:52 Creatine Kinase 51 L CK-MB (CK-2) 1.14 Troponin I 0.059 NT-Pro-B Natriuret Pep Impressions: Chest X-Ray 12/11/18 15:38 IMPRESSION: ROUNDED DENSITY IN THE RIGHT MIDLUNG AGAIN SEEN. CONCERNING FOR UNDERLYING PULMONARY MASS. RECOMMEND FOLLOW-UP CHEST CT. Chest CT 12/11/18 16:11 IMPRESSION: 1. LOBULATED MASS IN THE LATERAL RIGHT LUNG CONSISTENT WITH MALIGNANCY. ADDITIONAL SMALLER NODULAR MASSES EXTENDING MEDIALLY TO THE RIGHT HILUM. RIGHT HILAR MASS PRESUMED SECONDARY TO ADENOPATHY. PATCHY AIRSPACE DISEASE IN THE ADJACENT RIGHT LUNG. THIS MAY BE DUE TO PNEUMONITIS OR ATELECTASIS ALTHOUGH LYMPHATIC SPREAD OF TUMOR COULD BE ANOTHER POSSIBILITY. RIGHT PLEURAL EFFUSION. LEFT LUNG CLEAR. 2. HETEROGENOUS ENLARGED LEFT LOBE OF THE THYROID WHICH EXTENDS IN A SUBSTERNAL DIRECTION DESCRIBED. Assessment and Plan - Diagnosis (1) Non-ST elevation myocardial infarction (NSTEMI) Is this a current diagnosis for this admission?: Yes Plan: History of CAD status post stent placement in 2000. Troponins 0.114, 0.150, 0.11, 0.08, 0.05 Aspirin, subcutaneous heparin, beta-blockers, EMORY, high intensity statins. As needed nitrates and morphine. Cardiology consulted. We will not recommendations. (2) Elevated troponin Is this a current diagnosis for this admission?: Yes Plan: The patient has known renal insufficiency and an elevated troponin is not an expected however serial troponins will be obtained to evaluate for deviation from the baseline or increase to a level of significant concern. (3) CKD (chronic kidney disease) stage 2, GFR 60-89 ml/min Is this a current diagnosis for this admission?: No Plan: Stable. Monitor electrolytes and volume status. Avoid nephrotoxic meds. (4) Unstable angina Is this a current diagnosis for this admission?: Yes Plan: As per problem #1. (5) Diabetes type 2, uncontrolled Qualifiers: Glycemic state: with hyperglycemia Qualified Code(s): E11.65 - Type 2 diabetes mellitus with hyperglycemia Is this a current diagnosis for this admission?: Yes Plan: Resistant. Patient is on highly concentrated insulin form. Has been followed by several crystal attacher. Not well managed by sliding scale. We do not carry his form of insulin in the hospital. Will start on insulin drip meanwhile. Cardiac and diabetic diet. (6) CAD (coronary artery disease) Is this a current diagnosis for this admission?: No Plan: Continue ASA, statins, EMORY, beta-blockers.
[2018-12-12] MEDS: LOSARTAN POTASSIUM 50 MG TABLET PO SCH (20:19)
[2018-12-12 20:27] LABS: ANION GAP 10 (5-19); BLOOD UREA NITROGEN 28 mg/dL (7-20); CALCIUM 9.7 mg/dL (8.4-10.2); CARBON DIOXIDE 26 mmol/L (22-30); CHLORIDE 100 mmol/L (98-107); GLUCOSE 386 mg/dL (75-110); POTASSIUM 4.8 mmol/L (3.6-5.0)
[2018-12-12] MEDS ORDERED: DEXTROSE 40% GEL 15 GM TUBE X 2 PO PRN (21:00)
[2018-12-12] MEDS ORDERED: GLUCAGON,HUMAN RECOMB 1 MG INJ IM PRN (21:00)
[2018-12-12] MEDS ORDERED: DEXTROSE 50%-WATER SYRINGE 12.5 GM/25 ML DOSE IV PRN (21:00)
[2018-12-12] MEDS ORDERED: DEXTROSE 50%-WATER SYRINGE 25 GM/50 ML DOSE IV PRN (21:00)
[2018-12-12] MEDS ORDERED: DEXTROSE 40% GEL 15 GM TUBE PO PRN (21:00)
[2018-12-12] MEDS: GABAPENTIN 300 MG CAPSULE PO SCH (21:20)
[2018-12-12] MEDS: MONTELUKAST SODIUM 10 MG TABLET PO SCH (21:20)
[2018-12-12] MEDS: ATORVASTATIN CALCIUM 40 MG TABLET PO SCH (21:20)
--- NOTE | 2018-12-12 21:52 | EKG REPORT ---
SEVERITY:- ABNORMAL ECG - SINUS RHYTHM INFERIOR INFARCT, AGE INDETERMINATE APICAL LATERAL INFARCT, AGE INDETERMINATE ANTERIOR INFARCT, AGE INDETERMINATE BORDERLINE PROLONGED QT INTERVAL : Confirmed by: Syl Davis MD 12-Dec-2018 21:51:42
[2018-12-12] MEDS ORDERED: METOPROLOL SUCCINATE 25 MG TAB.SR.24H PO SCH (22:00)
--- NOTE | 2018-12-12 23:08 | PDOC CONSULTATION ---
Consultation-Blank Consultation: CARDIOLOGY CONSULTATION by Dr. Syl Davis on 12/12/2018. Patient seen at 7:45 PM on 12/12/2018. 60 minutes spent on this patient with more than 50% time spent in direct patient care. REASON FOR CONSULTATION: Patient with history of coronary artery disease, prior history of TX and history of proximal and mid LAD stents in 2001, with recent exertional shortness of breath and chest pain/pressure and elevated troponin I consistent with a non-ST elevation TX. HISTORY of PRESENT ILLNESS: Small TX prior to that, with the stent in the proximal and mid LAD in 2001 after the second TX, history of hypertension and diabetes mellitus who states he stopped smoking a few years ago. He states since the past 1 year he has been feeling without energy and had stopped exercising and has gained weight. Recently the patient states that [facility] and [facility] told that [facility] was okay and was said was okay for him to begin exercising to lose weight. The patient states that last Monday night he started having exertional shortness of breath with severe chest pressure and pain lasting for several minutes at a time occurring only with exertion and relieved at rest. He also did not sleep on Monday night. Subsequently the pain subsided and the patient went to sleep the whole day on Monday and woke up on Monday morning and he felt fine. Subsequently again after some time he had similar exertional shortness of breath without wheezing, and with chest pain/pressure like an elephant sitting on his chest, and diaphoresis especially with exertion and relieved with rest. His daughter asked him to ski seek medical advice attention, but he did not seek medical attention since he felt better on Monday. Subsequently on Monday, that is yesterday, he started having similar symptoms and came to the emergency room where his initial troponin was slightly elevated and subsequently peaked at 0.150. Incidentally he also had a CT scan of the chest which showed a right lung mass suspicious for malignancy. Note that the patient is a smoker and quit smoking some years ago. He has symptoms suggestive of sleep apnea, and this is watched by the patient's daughter, but has not had a sleep study, and does not want a CPAP or BiPAP. He has no history of TIA or CVA. There is no history of anxiety or depression. There is no history of thyroid disease, but recent CAT scan shows an enlarged left lobe of the thyroid. He also has a history of chronic kidney disease stage III. His medical illness is followed by the [place] [facility]. He denies any palpitations or syncope. There is orthopnea present but no PND. The patient does have some mild leg edema especially if he walks a lot. But the patient denies any history of congestive heart failure. PAST MEDICAL HISTORY: He states in the remote in the he had a mild heart attack when he was in [place]. He was treated medically at that time. Subsequently had a second TX in 2001 which was severe with the severe chest pressure and subsequently had a cardiac catheterization which led to a Cordis stent being placed in the proximal and mid LAD. Since then he has been pain- free. As mentioned earlier about a year ago he had decreased energy levels, and stopped exercising and gained weight. He has a history of hypertension. He has a history of diabetes mellitus. There is no history of thyroid disease. He also has a history of chronic kidney disease stage III. He has no history of TIA or CVA. There is no history of asthma or COPD. The patient quit smoking some years ago. PAST SURGICAL HISTORY is possible cardiac catheterization and stent placement. Also had a biopsy of a thyroid mass. SOCIAL HISTORY: Former smoker. There is no history of EtOH abuse. FAMILY HISTORY: Is positive for hypertension and malignancy. Denies CAD or diabetes. ALLERGIES: He has no known allergies. DISPOSITION: The patient is a full code. His daughter Ms. Barbie Bravo his surrogate healthcare decision maker. REVIEW SYSTEMS: CONSTITUTIONAL: Denies any fever chills or rigors. COMPLAINS OF GENERALIZED FATIGUE AND WEAKNESS. HEAD: DENIES HEADACHES OR HEAD INJURY. EYES: No amblyopia or diplopia. No history of amaurosis fugax. EARS: No history of tinnitus. No history of vertigo. No history of hearing loss. NOSE: No history of deviated nasal septum. No nosebleeds. No bleeding from the nose. No history of hayfever. MOUTH: No history of altered taste sensation. No ulcers in the mouth. No bleeding from the gums. THROAT: No odynophagia or dysphagia. No recurrent sore throats. SKIN: No history of skin cancer. No history of psoriasis. No history of pruritus. No history of yellowish discoloration of th e skin. NECK: History of enlarged left lobe of thyroid. No neck pain. MUSCULOSKELETAL: No history of arthritis or collagen vascular disease. LUNGS: No history of asthma or COPD. No recent cough or sputum production. No wheezing. No pleuritic chest pain. No hemoptysis. Recent finding of a lung mass as mentioned in above. The patient is a former smoker. No history of pulmonary embolism. Symptoms suggestive of sleep apnea. HEART: History of coronary artery disease, history of prior MIs, history of stents in the proximal mid LAD in 2001. Denies history of congestive heart failure. No history of palpitations or syncope. Recent symptoms of exertional shortness of breath and exertional chest pressure/heaviness consistent with unstable angina, with non-ST elevation TX with the patient's biomarkers be going up. GI: No history of GI bleed. No history of ascites. No history of jaundice. No history of hepatitis. No history of fatty food intolerance.. No history of altered bowel movements. ENDOCRINE: Although he has had a thyroid mass in the past which he said was benign by biopsy, he has no history of hypo-or hyperthyroidism. He has a history of diabetes mellitus with diabetic kidney complication. No polydipsia polyuria. No history of heat or cold intolerance. RENAL: The patient has chronic kidney disease stage III. No symptoms of UTI. No hematuria pyuria or dysuria. 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 No history of headaches migraines or seizures. PSYCHIATRIC: No history of anxiety or depression. No history of suicidal ideation. No history of homicidal ideation. METABOLIC: History of morbid obesity present. History of hyperlipidemia present. No history of gout. VASCULAR: No history of calf or buttock claudication. No history of DVT. HEMATOLOGICAL: No history of bleeding diathesis. No history of clotting disorders. Rest of the review of symptoms are positive for since the past 1 year is as he has had decreased energy levels and decreased effort tolerance. PHYSICAL EXAMINATION: The patient is morbidly obese. At present in no acute distress with no symptoms at rest. The patient states that if he walks to the bathroom then he gets his shortness of breath and also his chest pressure/heaviness. He is well-groomed. Selected Entries 12/12/18 19:55 Temperature 98.3 F Temperature Oral Source Pulse Rate 107 H Respiratory 20 Rate Blood Pressure 148/93 H Blood Pressure 111 Mean BP Location Left Arm BP Position Sitting O2 Sat by Pulse 97 Oximetry Oxygen Flow 3.00 Rate Oxygen Delivery Nasal Cannula Method HEAD: Is atraumatic normocephalic. EYES: Pupils are equal round regular reactive to light accommodation. Extraocular movements are normal. There is no conjunctival pallor. There is no scleral icterus. EARS: Tympanic memories are intact. External auditory canals are clear. NOSE: There is no deviated nasal septum. There is no inflammation of the nasal mucous membranes. MOUTH: Mucous membranes of mouth are moist. Tongue is moist. There is no bleeding from the gums. THROAT: There is no redness of the oropharynx. There is no exudates. SKIN: There is no skin rashes or skin lesions. There is no petechia or ecchymosis. NECK: Is supple. There is no JVD. Carotids are equal there is no bruit there is fullness in the left thyroid lobe area. There is no lymphadenopathy. There is no accessory muscles of respiration use. Trachea central. LUNGS: Left lung is clear without any rhonchi rales or wheezing. There is diffuse dry crackles in the right upper lobe with a few scattered rhonchi. There is no wheezing. On palpation there is no chest wall tenderness. HEART: S1-S2 is heard. S1 is of normal intensity. There is no S3 gallop. There is no S4 gallop. There is systolic murmur left sternal border and the apex there is no rub. ABDOMEN: Is obese. Nontender. There is no hepatosplenic megaly. Bowel sounds are well heard. There is no tender areas masses. EXTRE MITIES: Femorals are deep. Femorals are diminished. There is no femoral bruits. Leg pulses slightly diminished. There is trace pedal edema. There is no DVT or cellulitis. There is no calf tenderness. There is no cyanosis or clubbing. 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 PSYCHIATRIC: The patient judgment insight are intact his affect is normal. Current Medications Discontinued Medications Generic Name Dose Route Start Last Admin Trade Name Freq PRN Reason Stop Dose Admin Aspirin 324 mg 12/11/18 18:38 Aspirin 81 Mg Chewable Tablet PO 12/11/18 18:39 NOW ONE Aspirin 324 mg 12/11/18 21:00 12/11/18 20:57 Aspirin 81 Mg Chewable Tablet PO 12/11/18 21:01 324 mg NOW ONE Administration Cilostazol 50 mg 12/12/18 18:00 Pletal 100 Mg Tablet PO 01/11/19 17:59 BID JESSICA Dextrose 12.5 gm 12/11/18 19:35 Dextrose Inj 50% Syringe (25 Gm/50 Ml) IV 01/10/19 19:34 PRN PRN FOR BG 50-69 IN ALERT PATIENT Protocol Dextrose 25 gm 12/11/18 19:35 Dextrose Inj 50% Syringe (25 Gm/50 Ml) IV 01/10/19 19:34 PRN PRN PER PROTOCOL Protocol Enoxaparin Sodium 100 mg 12/11/18 18:37 12/11/18 20:44 Lovenox Inj 100 Mg/1 Ml Disp.Syrin SUBCUT 12/11/18 18:38 Not Given NOW ONE Glucagon 1 mg 12/11/18 19:35 Glucagen Inj 1 Mg Vial IM 01/10/19 19:34 PRN PRN Evaluate for BG < 70 Protocol Glucose 30 gm 12/11/18 19:35 Glutose 40% Gel 15 Gm Tube PO 01/10/19 19:34 PRN PRN FOR BG < 50 IN ALERT PATIENT Protocol Glucose 15 gm 12/11/18 19:35 Glutose 40% Gel 15 Gm Tube PO 01/10/19 19:34 PRN PRN FOR BG 50-69 IN ALERT PATIENT Protocol Sodium Chloride 1,000 mls @ 0 mls/hr 12/11/18 20:00 12/11/18 22:44 Nacl 0.9% 1000 Ml Iv Soln IV 12/11/18 20:01 Infused BOLUS ONE Infusion Wide Open Insulin Human Regular 100 unit 100 mls @ mls/hr 12/12/18 19:00 / Sodium Chloride IV 01/11/19 18:59 .CONTINUOUS PRN THIS MED IS NOT "PRN" Protocol Titrate Insulin Human Regular 0 - 15 unit 12/11/18 22:00 12/12/18 12:01 Humulin R (Pyxis) Insulin 100 Unit/Ml 3ml SUBCUT 01/10/19 21:59 9 unit ACHS JESSICA Administration Protocol Isosorbide Mononitrate 30 mg 12/13/18 10:00 Imdur 30 Mg Tablet.Er PO 01/12/19 09:59 DAILY JESSICA Nitroglycerin 1 gm 12/11/18 18:37 Nitrol 2% Ointment 1gm Packet TP 12/11/18 18:38 NOW ONE Nitroglycerin 1 gm 12/11/18 21:00 12/11/18 20:56 Nitrol 2% Ointment 1gm Packet TP 12/11/18 21:01 1 gm NOW ONE Administration Patient Own Medication 175 units 12/13/18 16:00 Insulin Regular, Human [Humulin R U-500 Kwikpen] SQ 01/12/19 15:59 [facility] Patient Own Medication 175 units 12/13/18 12:00 Insulin Regular, Human [Humulin R U-500 Kwikpen] SQ 01/12/19 11:59 [facility] Patient Own Medication 225 unit 12/13/18 08:00 Insulin Regular, Human [Humulin R U-500 Kwikpen] SQ 01/12/19 07:59 [facility] MEDICATIONS: Acetaminophen with Codeine [Tylenol #3 Tablet] 1 each PO Q8HP PRN 12/12/18 Aspirin [Ecotrin] 81 mg PO DAILY 12/12/18 Atorvastatin Calcium [Lipitor 40 mg Tablet] 40 mg PO QHS 12/12/18 Calcitriol [Rocaltrol 0.25 Mcg Capsule] 2 cap PO NOON 12/12/18 Cilostazol [Pletal 100 Mg Tablet] 50 mg PO BID 12/12/18 Fluticasone Propionate [Flonase Nasal [place] 50 Mcg/[place] 16 gm] 2 sprays NASL DAILY 12/12/18 Furosemide [Lasix 20 mg Tablet] 60 mg PO QAM 12/12/18 Gabapentin [Neurontin 300 mg Capsule] 300 mg PO Q8 12/12/18 Insulin Regular, Human [Humulin R U-500 Kwikpen] 175 units SQ [facility] 12/12/18 Insulin Regular, Human [Humulin R U-500 Kwikpen] 175 units SQ [facility] 12/12/18 Insulin Regular, Human [Humulin R U-500 Kwikpen] 225 unit SQ QA 12/12/18 Isosorbide Mononitrate [Imdur 30 mg Tablet.er] 30 mg PO DAILY 12/12/18 Loratadine [Claritin 10 mg Tablet] 10 mg PO DAILY 12/12/18 Losartan Potassium [Cozaar 100 mg Tablet] 100 mg PO DAILY 12/12/18 Metoprolol Succinate [Toprol Xl] 200 mg PO BID 12/12/18 Montelukast Sodium [Singulair 10 mg Tablet] 10 mg PO QHS 12/12/18 Potassium Chloride [Klor-Con 10 Meq Capsule ER] 10 meq PO DAILY 12/12/18 Sodium Fluoride [Prevident] 1 applic PO .TO BRUSH TEETH 12/12/18 Labs- Entire Visit 12/11/18 12/11/18 12/11/18 14:45 14:45 14:45 WBC 8.2 RBC 5.05 Hgb 15.2 Hct 44.6 MCV 88 MCH 30.1 MCHC 34.1 RDW 14.7 H Plt Count 159 Seg Neutrophils % 78.1 H Lymphocytes % 14.2 Monocytes % 6.3 Eosinophils % 0.8 Basophils % 0.6 Absolute Neutrophils 6.4 Absolute Lymphocytes 1.2 Absolute Monocytes 0.5 Absolute Eosinophils 0.1 Absolute Basophils 0.1 PT INR Sodium 137.8 Potassium 5.1 H Chloride 100 Carbon Dioxide 26 Anion Gap 12 BUN 40 H Creatinine 1.80 H Est GFR ( Amer) 45 L Est GFR (Non-Af Amer) 37 L Glucose 374 H POC Glucose Hemoglobin A1c % Calcium 9.5 Magnesium Total Bilirubin 1.1 Direct Bilirubin 0.6 H Neonat Total Bilirubin Not Reportable Neonat Direct Bilirubin Not Reportable Neonat Indirect Bili Not Reportable AST 131 H ALT 204 H Alkaline Phosphatase 86 Creatine Kinase CK-MB (CK-2) Troponin I 0.114 NT-Pro-B Natriuret Pep 749 Total Protein 7.5 Albumin 4.2 Triglycerides Cholesterol LDL Cholesterol Direct VLDL Cholesterol HDL Cholesterol Amylase Lipase TSH Free T4 Free T3 pg/mL Urine Color Urine Appearance Urine pH Ur Specific [place] Urine Protein Urine Glucose (UA) Urine Ketones Urine Blood Urine Nitrite Urine Bilirubin Urine Urobilinogen Ur Leukocyte Esterase U Hyaline Cast (Auto) Urine Mucus (Auto) Urine Ascorbic Acid 12/11/18 12/11/18 12/11/18 14:45 17:14 21:07 WBC RBC Hgb Hct MCV MCH MCHC RDW Plt Count Seg Neutrophils % Lymphocytes % Monocytes % Eosinophils % Basophils % Absolute Neutrophils Absolute Lymphocytes Absolute Monocytes Absolute Eosinophils Absolute Basophils PT 14.4 INR 1.06 Sodium Potassium Chloride Carbon Dioxide Anion Gap BUN Creatinine Est GFR ( Amer) Est GFR (Non-Af Amer) Glucose POC Glucose Hemoglobin A1c % Calcium Magnesium Total Bilirubin Direct Bilirubin Neonat Total Bilirubin Neonat Direct Bilirubin Neonat Indirect Bili AST ALT Alkaline Phosphatase Creatine Kinase 59 CK-MB (CK-2) Troponin I 0.150 NT-Pro-B Natriuret Pep Total Protein Albumin Triglycerides Cholesterol LDL Cholesterol Direct VLDL Cholesterol HDL Cholesterol Amylase Lipase TSH Free T4 Free T3 pg/mL Urine Color Urine Appearance Urine pH Ur Specific [place] Urine Protein Urine Glucose (UA) Urine Ketones Urine Blood Urine Nitrite Urine Bilirubin Urine Urobilinogen Ur Leukocyte Esterase U Hyaline Cast (Auto) Urine Mucus (Auto) Urine Ascorbic Acid 12/11/18 12/11/18 12/11/18 21:07 22:22 23:29 WBC RBC Hgb Hct MCV MCH MCHC RDW Plt Count Seg Neutrophils % Lymphocytes % Monocytes % Eosinophils % Basophils % Absolute Neutrophils Absolute Lymphocytes Absolute Monocytes Absolute Eosinophils Absolute Basophils PT INR Sodium Potassium Chloride Carbon Dioxide Anion Gap BUN Creatinine Est GFR ( Amer) Est GFR (Non-Af Amer) Glucose POC Glucose 394 H Hemoglobin A1c % Calcium Magnesium Total Bilirubin Direct Bilirubin Neonat Total Bilirubin Neonat Direct Bilirubin Neonat Indirect Bili AST ALT Alkaline Phosphatase Creatine Kinase CK-MB (CK-2) 1.36 Troponin I 0.111 NT-Pro-B Natriuret Pep Total Protein Albumin Triglycerides Cholesterol LDL Cholesterol Direct VLDL Cholesterol HDL Cholesterol Amylase Lipase TSH Free T4 Free T3 pg/mL Urine Color YELLOW Urine Appearance CLEAR Urine pH 5.0 Ur Specific [place] 1.018 Urine Protein 30 H Urine Glucose (UA) >=500 H Urine Ketones NEGATIVE Urine Blood NEGATIVE Urine Nitrite NEGATIVE Urine Bilirubin NEGATIVE Urine Urobilinogen 2.0 H Ur Leukocyte Esterase NEGATIVE U Hyaline Cast (Auto) 1 Urine Mucus (Auto) RARE Urine Ascorbic Acid NEGATIVE 12/12/18 12/12/18 12/12/18 03:00 03:00 03:00 WBC 7.4 RBC 4.46 Hgb 13.6 Hct 39.3 MCV 88 MCH 30.5 MCHC 34.6 RDW 14.5 H Plt Count 133 L Seg Neutrophils % 68.1 Lymphocytes % 21.7 Monocytes % 7.7 Eosinophils % 1.9 Basophils % 0.6 Absolute Neutrophils 5.0 Absolute Lymphocytes 1.6 Absolute Monocytes 0.6 Absolute Eosinophils 0.1 Absolute Basophils 0.0 PT INR Sodium Potassium Chloride Carbon Dioxide Anion Gap BUN Creatinine Est GFR ( Amer) Est GFR (Non-Af Amer) Glucose POC Glucose Hemoglobin A1c % Calcium Magnesium Total Bilirubin Direct Bilirubin Neonat Total Bilirubin Neonat Direct Bilirubin Neonat Indirect Bili AST ALT Alkaline Phosphatase Creatine Kinase 56 CK-MB (CK-2) 1.37 Troponin I 0.083 NT-Pro-B Natriuret Pep Total Protein Albumin Triglycerides Cholesterol LDL Cholesterol Direct VLDL Cholesterol HDL Cholesterol Amylase Lipase TSH Free T4 Free T3 pg/mL Urine Color Urine Appearance Urine pH Ur Specific [place] Urine Protein Urine Glucose (UA) Urine Ketones Urine Blood Urine Nitrite Urine Bilirubin Urine Urobilinogen Ur Leukocyte Esterase U Hyaline Cast (Auto) Urine Mucus (Auto) Urine Ascorbic Acid 12/12/18 12/12/18 12/12/18 03:00 03:00 03:00 WBC RBC Hgb Hct MCV MCH MCHC RDW Plt Count Seg Neutrophils % Lymphocytes % Monocytes % Eosinophils % Basophils % Absolute Neutrophils Absolute Lymphocytes Absolute Monocytes Absolute Eosinophils Absolute Basophils PT INR Sodium 137.3 Potassium 4.3 Chloride 105 Carbon Dioxide 21 L Anion Gap 11 BUN 38 H Creatinine 1.42 H Est GFR ( Amer) > 60 Est GFR (Non-Af Amer) 49 L Glucose 290 H POC Glucose Hemoglobin A1c % 8.2 H Calcium 9.3 Magnesium 2.2 Total Bilirubin Direct Bilirubin Neonat Total Bilirubin Neonat Direct Bilirubin Neonat Indirect Bili AST ALT Alkaline Phosphatase Creatine Kinase CK-MB (CK-2) Troponin I NT-Pro-B Natriuret Pep Total Protein Albumin Triglycerides 260 H Cholesterol 136.44 LDL Cholesterol Direct 81 VLDL Cholesterol 52.0 H HDL Cholesterol 21 L Amylase < 30 L Lipase 38.4 TSH 0.72 Free T4 1.43 Free T3 pg/mL 4.16 Urine Color Urine Appearance Urine pH Ur Specific [place] Urine Protein Urine Glucose (UA) Urine Ketones Urine Blood Urine Nitrite Urine Bilirubin Urine Urobilinogen Ur Leukocyte Esterase U Hyaline Cast (Auto) Urine Mucus (Auto) Urine Ascorbic Acid 12/12/18 12/12/18 12/12/18 08:45 09:52 09:52 WBC RBC Hgb Hct MCV MCH MCHC RDW Plt Count Seg Neutrophils % Lymphocytes % Monocytes % Eosinophils % Basophils % Absolute Neutrophils Absolute Lymphocytes Absolute Monocytes Absolute Eosinophils Absolute Basophils PT INR Sodium Potassium Chloride Carbon Dioxide Anion Gap BUN Creatinine Est GFR ( Amer) Est GFR (Non-Af Amer) Glucose POC Glucose 334 H Hemoglobin A1c % Calcium Magnesium Total Bilirubin Direct Bilirubin Neonat Total Bilirubin Neonat Direct Bilirubin Neonat Indirect Bili AST ALT Alkaline Phosphatase Creatine Kinase 51 L CK-MB (CK-2) 1.14 Troponin I 0.059 NT-Pro-B Natriuret Pep Total Protein Albumin Triglycerides Cholesterol LDL Cholesterol Direct VLDL Cholesterol HDL Cholesterol Amylase Lipase TSH Free T4 Free T3 pg/mL Urine Color Urine Appearance Urine pH Ur Specific [place] Urine Protein Urine Glucose (UA) Urine Ketones Urine Blood Urine Nitrite Urine Bilirubin Urine Urobilinogen Ur Leukocyte Esterase U Hyaline Cast (Auto) Urine Mucus (Auto) Urine Ascorbic Acid 12/12/18 12/12/18 12/12/18 10:58 19:14 19:50 WBC RBC Hgb Hct MCV MCH MCHC RDW Plt Count Seg Neutrophils % Lymphocytes % Monocytes % Eosinophils % Basophils % Absolute Neutrophils Absolute Lymphocytes Absolute Monocytes Absolute Eosinophils Absolute Basophils PT INR Sodium Potassium Chloride Carbon Dioxide Anion Gap BUN Creatinine Est GFR ( Amer) Est GFR (Non-Af Amer) Glucose POC Glucose 337 H 386 H Hemoglobin A1c % Calcium Magnesium Total Bilirubin Direct Bilirubin Neonat Total Bilirubin Neonat Direct Bilirubin Neonat Indirect Bili AST ALT Alkaline Phosphatase Creatine Kinase CK-MB (CK-2) Troponin I 0.066 NT-Pro-B Natriuret Pep Total Protein Albumin Triglycerides Cholesterol LDL Cholesterol Direct VLDL Cholesterol HDL Cholesterol Amylase Lipase TSH Free T4 Free T3 pg/mL Urine Color Urine Appearance Urine pH Ur Specific [place] Urine Protein Urine Glucose (UA) Urine Ketones Urine Blood Urine Nitrite Urine Bilirubin Urine Urobilinogen Ur Leukocyte Esterase U Hyaline Cast (Auto) Urine Mucus (Auto) Urine Ascorbic Acid 12/12/18 12/12/18 19:50 21:00 WBC RBC Hgb Hct MCV MCH MCHC RDW Plt Count Seg Neutrophils % Lymphocytes % Monocytes % Eosinophils % Basophils % Absolute Neutrophils Absolute Lymphocytes Absolute Monocytes Absolute Eosinophils Absolute Basophils PT INR Sodium 136.0 L Potassium 4.8 Chloride 100 Carbon Dioxide 26 Anion Gap 10 BUN 28 H Creatinine 1.45 H Est GFR ( Amer) 58 L Est GFR (Non-Af Amer) 48 L Glucose 386 H POC Glucose 390 H Hemoglobin A1c % Calcium 9.7 Magnesium Total Bilirubin Direct Bilirubin Neonat Total Bilirubin Neonat Direct Bilirubin Neonat Indirect Bili AST ALT Alkaline Phosphatase Creatine Kinase CK-MB (CK-2) Troponin I NT-Pro-B Natriuret Pep Total Protein Albumin Triglycerides Cholesterol LDL Cholesterol Direct VLDL Cholesterol HDL Cholesterol Amylase Lipase TSH Free T4 Free T3 pg/mL Urine Color Urine Appearance Urine pH Ur Specific [place] Urine Protein Urine Glucose (UA) Urine Ketones Urine Blood Urine Nitrite Urine Bilirubin Urine Urobilinogen Ur Leukocyte Esterase U Hyaline Cast (Auto) Urine Mucus (Auto) Urine Ascorbic Acid Chest X-Ray 12/11/18 14:11 IMPRESSION: 1. Rounded masslike opacity of the right upper lobe with adjacent heterogeneous airspace opacity. Findings are highly concerning for primary malignancy. Recommend CT to further evaluate. 2. Cardiomegaly. Chest X-Ray 12/11/18 15:38 IMPRESSION: ROUNDED DENSITY IN THE RIGHT MIDLUNG AGAIN SEEN. CONCERNING FOR UNDERLYING PULMONARY MASS. RECOMMEND FOLLOW-UP CHEST CT. Chest CT 12/11/18 16:11 IMPRESSION: 1. LOBULATED MASS IN THE LATERAL RIGHT LUNG CONSISTENT WITH MALIGNANCY. ADDITIONAL SMALLER NODULAR MASSES EXTENDING MEDIALLY TO THE RIGHT HILUM. RIGHT HILAR MASS PRESUMED SECONDARY TO ADENOPATHY. PATCHY AIRSPACE DISEASE IN THE ADJACENT RIGHT LUNG. THIS MAY BE DUE TO PNEUMONITIS OR ATELECTASIS ALTHOUGH LYMPHATIC SPREAD OF TUMOR COULD BE ANOTHER POSSIBILITY. RIGHT PLEURAL EFFUSION. LEFT LUNG CLEAR. 2. HETEROGENOUS ENLARGED LEFT LOBE OF THE THYROID WHICH EXTENDS IN A SUBSTERNAL DIRECTION DESCRIBED. SINUS RHYTHM PROBABLE LEFT ATRIAL ABNORMALITY INFERIOR INFARCT, AGE INDETERMINATE Apical LATERAL INFARCT, OLD ANTERIOR INFARCT, AGE INDETERMINATE His EKG of today is similar. IMPRESSION/RECOMMENDATION: 1. Non-ST elevation TX: Patient with exertional chest pressure/shortness of breath. At present at rest the patient is stable. Will restart the patient's metoprolol at her lower dose. Will increase the patient's Imdur. Continue the patient's aspirin. Since the patient is not acutely having any chest pains at rest, and since the patient's troponin is trending down. Would recommend to hold off on full dose Lovenox, especially in view of the patient's renal disease. Will discuss with tertiary care center key worker asked to whether the patient should undergo cardiac catheterization, especially in the light of the fact that the patient also has a right lung mass which even though has not been fully worked up, most likely is malignant with metastasis. 2.Coronary artery disease: History of prior to myocardial infarctions. History of proximal and mid LAD stent in 2001. Continue medications as mentioned above. 3. Right lung mass, most likely malignant, especially since the patient is a former smoker. With possible metastasis.. Would recommend pulmonary and oncology consults. 4. Hypertension: Continue the patient on beta-fredo and losartan. 5. Diabetes mellitus type 2 with chronic kidney disease: Avoid nephrotoxic d rugs 6. History of smoking the past. Would recommend discontinuing the patient's NicoDerm patch. 7. Chronic kidney disease stage III: Avoid nephrotoxic drug. This would make the patient high risk for contrast-induced nephropathy if cardiac catheterization is done. 8. Hyperlipidemia: With low HDL level, good LDL level, and high triglyceride level. Recommend continue the patient on statin. 9. Morbid obesity. 10. Symptoms highly suggestive of obstructive sleep apnea. Would recommend empiric use of BiPAP here in the hospital. Later as an outpatient the patient would be recommended to have a sleep study. Occasions reviewed medications added and adjusted. Medical decision making is of high complexity. 60 minutes spent on this patient more than 50% of time spent in direct patient care. Discussed the patient's current condition labs and EKGs and CT scan reports with the patient and patient's daughter with the patient's permission. Discussed management plan with attending physician. Will discuss the case with the tertiary care center key worker, as to the timing of the cardiac catheterization on this patient. Will follow.
[2018-12-13] MEDS: INSULIN REG, HUMAN 100 UNIT/ML 3 ML VIAL (PYX) SUBCUT SCH ×3 (01:05→09:46)
[2018-12-13] MEDS: HEPARIN SOD (PORCINE) 5,000 UNIT/ML 1 ML SYRINGE SUBCUT SCH ×3 (05:07→22:00)
[2018-12-13] MEDS: GABAPENTIN 300 MG CAPSULE PO SCH ×3 (05:10→21:31)
[2018-12-13 06:15] LABS: ABSOLUTE EOSINOPHILS # (AUTO) 0.1 10^3/uL (0.0-0.6); ABSOLUTE MONOCYTES (AUTO) 0.6 10^3/uL (0.1-1.4); ABSOLUTE NEUT (AUTO) 6.9 10^3/uL (1.7-8.2); BASOPHILS % (AUTO) 0.6 % (0-2); EOSINOPHILS % (AUTO) 0.7 % (0-6); HEMATOCRIT 42.5 % (37.9-51.0); HEMOGLOBIN 14.5 g/dL (13.5-17.0); LYMPHOCYTES % (AUTO) 11.7 % (13-45); MEAN CORPUSCULAR HGB CONC 34.2 g/dL (32.0-36.0); MEAN CORPUSCULAR VOLUME 88 fl (80-97); MONOCYTES % (AUTO) 6.9 % (3-13); PLATELET COUNT 136 10^3/uL (150-450); RED BLOOD COUNT 4.85 10^6/uL (4.35-5.55); RED CELL DISTRIBUTION WIDTH 14.3 % (11.5-14.0); SEGMENTED NEUTROPHILS % (AUTO) 80.1 % (42-78); TOTAL CELLS COUNTED % (AUTO) 100 %; WHITE BLOOD COUNT 8.6 10^3/uL (4.0-10.5)
[2018-12-13 06:39] LABS: ALANINE AMINOTRANSFERASE 116 U/L (21-72); ALKALINE PHOSPHATASE 80 U/L (38-126); ANION GAP 13 (5-19); ASPARTATE AMINO TRANSFERASE 44 U/L (17-59); BILIRUBIN,DIRECT 0.5 mg/dL (0.0-0.4); BLOOD UREA NITROGEN 25 mg/dL (7-20); CALCIUM 9.4 mg/dL (8.4-10.2); CARBON DIOXIDE 23 mmol/L (22-30); CHLORIDE 101 mmol/L (98-107); GLUCOSE 315 mg/dL (75-110); POTASSIUM 4.6 mmol/L (3.6-5.0); SODIUM 137.2 mmol/L (137-145); TOTAL PROTEIN 7.2 g/dL (6.3-8.2)
[2018-12-13] MEDS ORDERED: INSULIN REGULAR HUMAN SQ SCH (08:00)
[2018-12-13] MEDS ORDERED: [UNRECOGNIZED DRUG - OTHER] SQ SCH (08:00)
[2018-12-13] MEDS ORDERED: INSULIN REGULAR SQ SCH ×3 (08:00→16:00)
[2018-12-13] MEDS: BUDESONIDE NEB 0.5 MG/2 ML AMPUL NEB SCH ×2 (08:31→21:24)
[2018-12-13] MEDS: IPRATROPIUM BROMIDE 0.02% NEB 0.5 MG/2.5 ML AMPUL NEB SCH ×2 (08:31→16:45)
[2018-12-13] MEDS: LEVALBUTEROL HCL NEB 1.25 MG/3 ML AMPUL NEB SCH ×2 (08:31→16:45)
[2018-12-13] MEDS: METOPROLOL SUCCINATE 50 MG TAB.SR.24H PO SCH ×2 (09:44→21:31)
[2018-12-13] MEDS: LOSARTAN POTASSIUM 50 MG TABLET PO SCH (09:44)
[2018-12-13] MEDS: FAMOTIDINE 20 MG TABLET PO SCH ×2 (09:44→21:30)
[2018-12-13] MEDS: ISOSORBIDE MONONITRATE 30 MG TAB.ER.24H PO SCH (09:45)
[2018-12-13] MEDS: ASPIRIN 81 MG TABLET, CHEWABLE PO SCH (09:45)
[2018-12-13] MEDS: DOCUSATE SODIUM 100 MG CAPSULE PO SCH ×2 (09:47→17:17)
[2018-12-13] MEDS ORDERED: ISOSORBIDE MONONITRATE 30 MG TAB.ER.24H PO SCH (10:00)
[2018-12-13] MEDS ORDERED: [UNRECOGNIZED DRUG - OTHER] SQ SCH ×2 (12:00→16:00)
[2018-12-13] MEDS ORDERED: INSULIN, REGULAR 100 UNIT/100 ML NORMAL SALINE IV PRN ×2 (12:00)
[2018-12-13] MEDS ORDERED: CALCITRIOL 0.25 MCG CAPSULE PO SCH (12:00)
[2018-12-13] MEDS ORDERED: INSULIN REGULAR HUMAN 130 UNIT SQ SCH ×2 (12:00→16:00)
[2018-12-13] MEDS: CALCITRIOL 0.25 MCG CAPSULE PO SCH (13:35)
--- NOTE | 2018-12-13 17:01 | PDOC PROGRESS REPORT ---
Subjective Progress Note for:: 12/13/18 Subjective:: VICTOR MANUEL HALL is a 68 year old male who presented to the emergency room with a 4-day history of episodic dyspnea at rest and on exertion. Patient acknowledges moderate to severe dyspnea episodes worsened with any exertion, several times per day over the weekend but better on Monday. His symptoms returned again early this morning and were much more severe with the dyspnea and abdominal discomfort being present and not resolving with a short period of rest and c ontrolled breathing. His dyspnea was accompanied by a mild to moderate epigastric/lower anterior chest pressure-like discomfort. Patient's dyspnea and chest/abdomen discomfort was relieved by rest after a few minutes until today when it became persistent resulting in his trip to the emergency room. He also admits an associated symptom of bilateral leg swelling which is a little worse than his normal chronic swelling. He denies prior similar episodes. He denies identification of other aggravating or ameliorating factors for his dyspnea and chest/abdominal pain. In the emergency room he was noted to have dyspnea with exertion and required supplemental oxygen at 2 L/min via nasal cannula to remain dyspnea free and pain-free even at rest. Chest x-ray showed a right midlung mass suspicious for neoplasm with probable right perihilar lymphadenopathy. Because of the patient's acute respiratory failure, chest/abdominal pain, worsening peripheral edema and dyspnea with exertion he was admitted for further evaluation and treatment. 12/12/2018. Shortness of breath with mild improvement but patient still having dyspnea on exertion associated with pressure-like chest pain. Patient denies any fever, chills, nausea, vomiting, diarrhea, constipation or any urinary symptoms. 12/13/2018. Patient still having dyspnea on exertion, chest pain has not recurred since yesterday. Was able to ambulate to the bathroom having any chest pain. Denies any fever, chills, nausea, vomiting, diarrhea, constipation or any urinary symptoms. Reason For Visit: DYSPNEA Physical Exam Vital Signs: Temp Pulse Resp BP Pulse Ox 98.4 F 86 16 137/67 H 95 12/13/18 15:48 12/13/18 15:48 12/13/18 15:48 12/13/18 15:48 12/13/18 15:48 Intake & Output 12/12/18 12/13/18 12/14/18 06:59 06:59 06:59 Intake Total 1000 1425 16 Output Total 400 Balance 600 1425 16 Weight 135 kg 142.201 kg General appearance: PRESENT: mild distress, morbidly obese Head exam: PRESENT: atraumatic, normocephalic Respiratory exam: PRESENT: accessory muscle use, clear to auscultation nancy, symmetrical. ABSENT: rales, rhonchi, wheezes Cardiovascular exam: PRESENT: RRR. ABSENT: diastolic murmur, rubs, systolic murmur GI/Abdominal exam: PRESENT: normal bowel sounds, soft. ABSENT: distended, guarding, mass, organolmegaly, rebound, tenderness Extremities exam: PRESENT: +1 edema Neurological exam: PRESENT: alert, awake, oriented to person, oriented to place, oriented to time, oriented to situation, CN II-XII grossly intact. ABSENT: motor sensory deficit Results Laboratory Results: 12/13/18 05:13 12/13/18 14:45 12/12/18 12/13/18 12/13/18 19:50 05:13 05:13 WBC 8.6 RBC 4.85 Hgb 14.5 Hct 42.5 MCV 88 MCH 30.0 MCHC 34.2 RDW 14.3 H Plt Count 136 L Seg Neutrophils % 80.1 H Lymphocytes % 11.7 L Monocytes % 6.9 Eosinophils % 0.7 Basophils % 0.6 Absolute Neutrophils 6.9 Absolute Lymphocytes 1.0 Absolute Monocytes 0.6 Absolute Eosinophils 0.1 Absolute Basophils 0.0 Sodium 136.0 L 137.2 Potassium 4.8 4.6 Chloride 100 101 Carbon Dioxide 26 23 Anion Gap 10 13 BUN 28 H 25 H Creatinine 1.45 H 1.27 H Est GFR ( Amer) 58 L > 60 Est GFR (Non-Af Amer) 48 L 56 L Glucose 386 H 315 H Calcium 9.7 9.4 Magnesium 2.3 Total Bilirubin 1.0 AST 44 ALT 116 H Alkaline Phosphatase 80 Total Protein 7.2 Albumin 4.0 12/13/18 14:45 WBC RBC Hgb Hct MCV MCH MCHC RDW Plt Count Seg Neutrophils % Lymphocytes % Monocytes % Eosinophils % Basophils % Absolute Neutrophils Absolute Lymphocytes Absolute Monocytes Absolute Eosinophils Absolute Basophils Sodium Potassium Chloride Carbon Dioxide Anion Gap BUN Creatinine Est GFR ( Amer) Est GFR (Non-Af Amer) Glucose 419 H* Calcium Magnesium Total Bilirubin AST ALT Alkaline Phosphatase Total Protein Albumin 04/12/11/18 12/11/18 14:45 17:14 21:07 Creatine Kinase 59 CK-MB (CK-2) Troponin I 0.114 0.150 NT-Pro-B Natriuret Pep 749 12/11/18 12/12/18 12/12/18 21:07 03:00 03:00 Creatine Kinase 56 CK-MB (CK-2) 1.36 1.37 Troponin I 0.111 0.083 NT-Pro-B Natriuret Pep 12/12/18 12/12/18 12/12/18 09:52 09:52 19:50 Creatine Kinase 51 L CK-MB (CK-2) 1.14 Troponin I 0.059 0.066 NT-Pro-B Natriuret Pep Impressions: Chest X-Ray 12/11/18 15:38 IMPRESSION: ROUNDED DENSITY IN THE RIGHT MIDLUNG AGAIN SEEN. CONCERNING FOR UNDERLYING PULMONARY MASS. RECOMMEND FOLLOW-UP CHEST CT. Chest CT 12/11/18 16:11 IMPRESSION: 1. LOBULATED MASS IN THE LATERAL RIGHT LUNG CONSISTENT WITH MALIGNANCY. ADDITIONAL SMALLER NODULAR MASSES EXTENDING MEDIALLY TO THE RIGHT HILUM. RIGHT HILAR MASS PRESUMED SECONDARY TO ADENOPATHY. PATCHY AIRSPACE DISEASE IN THE ADJACENT RIGHT LUNG. THIS MAY BE DUE TO PNEUMONITIS OR ATELECTASIS ALTHOUGH LYMPHATIC SPREAD OF TUMOR COULD BE ANOTHER POSSIBILITY. RIGHT PLEURAL EFFUSION. LEFT LUNG CLEAR. 2. HETEROGENOUS ENLARGED LEFT LOBE OF THE THYROID WHICH EXTENDS IN A SUBSTERNAL DIRECTION DESCRIBED. Assessment and Plan - Diagnosis (1) Non-ST elevation myocardial infarction (NSTEMI) Is this a current diagnosis for this admission?: Yes Plan: Chest pain has resolved still complaining of dyspnea on exertion and orthopnea. History of CAD status post stent placement in 2000. Troponins 0.114, 0.150, 0.11, 0.08, 0.05 Aspirin, subcutaneous heparin, beta-blockers, EMORY, high intensity statins. As needed nitrates and morphine. Cardiology consulted, considering possible transfer to tertiary care for left heart cath. We will follow-up cardiology recommendation. (2) Unstable angina Is this a current diagnosis for this admission?: Yes Plan: As per problem #1. (3) Mass of upper lobe of right lung Is this a current diagnosis for this admission?: Yes Plan: Denies any history of previous malignancy. Positive family history of colon cancer. Last colonoscopy 5 years ago status post polypectomy reported as normal per patient. PTHrP pending. Pulmonary and oncology consulted. Pending recommendations. Maryfaviola will order CT abdomen and pelvis for staging. (4) CKD (chronic kidney disease) stage 2, GFR 60-89 ml/min Is this a current diagnosis for this admission?: No Plan: Stable. Monitor electrolytes and volume status. Avoid nephrotoxic meds. (5) Diabetes type 2, uncontrolled Qualifiers: Glycemic state: with hyperglycemia Qualified Code(s): E11.65 - Type 2 diabetes mellitus with hyperglycemia Is this a current diagnosis for this admission?: Yes Plan: Resistant. Patient is on highly concentrated insulin form. Has been followed by several poultry hatchery man in the past. Not well managed by sliding scale. We do not carry his form of insulin in the hospital. Patient brought his own insulin supplies pending pharmacy confirmation. Meanwhile we will continue insulin drip. Cardiac and diabetic diet. (6) CAD (coronary artery disease) Is this a current diagnosis for this admission?: No Plan: Continue ASA, statins, EMORY, beta-blockers. (7) PADMINI (obstructive sleep apnea) Is this a current diagnosis for this admission?: No Plan: Has not been evaluated by pulmonology. Nocturnal CPAP. Outpatient nocturnal polysomnography. Pulmonology follow-up. Weight loss advised. (8) Morbid obesity with BMI of 40.0-44.9, adult Is this a current diagnosis for this admission?: No Plan: Diet and lifestyle modifications.
[2018-12-13] MEDS ORDERED: DEXTROSE 40% GEL 15 GM TUBE PO PRN (19:00)
[2018-12-13] MEDS ORDERED: DEXTROSE 50%-WATER SYRINGE 12.5 GM/25 ML DOSE IV PRN (19:00)
[2018-12-13] MEDS ORDERED: DEXTROSE 50%-WATER SYRINGE 25 GM/50 ML DOSE IV PRN (19:00)
[2018-12-13] MEDS ORDERED: GLUCAGON,HUMAN RECOMB 1 MG INJ IM PRN (19:00)
[2018-12-13] MEDS ORDERED: DEXTROSE 40% GEL 15 GM TUBE X 2 PO PRN (19:00)
[2018-12-13 19:13] LABS: ANION GAP 13 (5-19); BLOOD UREA NITROGEN 23 mg/dL (7-20); CALCIUM 9.5 mg/dL (8.4-10.2); CARBON DIOXIDE 25 mmol/L (22-30); CHLORIDE 100 mmol/L (98-107); GLUCOSE 339 mg/dL (75-110); POTASSIUM 4.5 mmol/L (3.6-5.0); SODIUM 137.6 mmol/L (137-145)
--- NOTE | 2018-12-13 20:13 | PDOC CONSULTATION ---
Consultation Consult Date: 12/13/18 Consult reason:: Hematology/Oncology consultation was requested for patient with new lung mass. History of Present Illness Admission Date/PCP: 12/11/18 19:01 DEYSI KENT DO History of Present Illness: VICTOR MANUEL HALL is a 68 year old male with no prior history of cancer who was found to have a thyroid mass a few months ago. He underwent a thyroid biopsy about 3 weeks ago, but pathology is still pending. He states that 6 days ago, he had a very restless night. He has insomnia, but no other significant complaints. 4 days ago, he developed chest pain which was unlike prior pain f rom [place]. He then also developed extreme fatigue and weakness with dyspnea. He presented to the hospital and was found to have an acute [place] and a new lung mass highly suspicious for cancer. Today, he is feeling better, but is still weak. 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 Past Medical History Cardiac Medical History: Reports: Congestive Heart Failure, Coronary Artery Disease, Myocardial Infarction, Hyperlipidema, Hypertension Pulmonary Medical History: Denies: Asthma, Chronic Obstructive Pulmonary Disease (COPD) Neurological Medical History: Denies: Hemorrhagic CVA, Ischemic CVA, Seizures Endocrine Medical History: Reports: Diabetes Mellitus Type 2 Denies: Diabetes Mellitus Type 1, Hyperthyroidism, Hypothyroidism Renal/ Medical History: Reports: Chronic Kidney Disease Denies: Nephrolithiasis Malignancy Medical History: Reports: None GI Medical History: Denies: Cirrhosis, Hepatitis Musculoskeltal Medical History: Denies: Arthritis, Gout Skin Medical History: Denies: Eczema, Psoriasis Psychiatric Medical History: Denies: Alcohol Dependency, Substance Abuse, Tobacco Dependency Traumatic Medical History: Reports: None Hematology: Denies: Anemia, Bleeding Tendencies Infectious Medical History: Reports: None Past Surgical History Past Surgical History: Reports: Other - Thyroid mass biopsy. Catarct surgery Social History Information Source: Patient Lives with: Alone Smoking Status: Former Smoker Last Time Smoked: 8 1/2 years ago Frequency of Alcohol Use: None Hx Recreational Drug Use: No Drugs: None Hx Prescription Drug Abuse: No - Advance Directive Resuscitation Status: Full Code Family History Family History: Hypertension, Malignancy. denies: CAD, DM Parental Family History Reviewed: Yes - Mom cancer. Children Family History Reviewed: Yes - 1 daughter, good health Sibling(s) Family History Reviewed.: No Medication/Allergy Home Medications: Acetaminophen with Codeine [Tylenol #3 Tablet] 1 each PO Q8HP PRN 12/12/18 Aspirin [Ecotrin] 81 mg PO DAILY 12/12/18 Atorvastatin Calcium [Lipitor 40 mg Tablet] 40 mg PO QHS 12/12/18 Calcitriol [Rocaltrol 0.25 Mcg Capsule] 2 cap PO NOON 12/12/18 Cilostazol [Pletal 100 Mg Tablet] 50 mg PO BID 12/12/18 Fluticasone Propionate [Flonase Nasal Prospect 50 Mcg/Prospect 16 gm] 2 sprays NASL DAILY 12/12/18 Furosemide [Lasix 20 mg Tablet] 60 mg PO QAM 12/12/18 Gabapentin [Neurontin 300 mg Capsule] 300 mg PO Q8 12/12/18 Insulin Regular, Human [Humulin R U-500 Kwikpen] 175 units SQ ACSUPPER 12/12/18 Insulin Regular, Human [Humulin R U-500 Kwikpen] 175 units SQ WLUNCH 12/12/18 Insulin Regular, Human [Humulin R U-500 Kwikpen] 225 unit SQ QAM 12/12/18 Isosorbide Mononitrate [Imdur 30 mg Tablet.er] 30 mg PO DAILY 12/12/18 Loratadine [Claritin 10 mg Tablet] 10 mg PO DAILY 12/12/18 Losartan Potassium [Cozaar 100 mg Tablet] 100 mg PO DAILY 12/12/18 Metoprolol Succinate [Toprol Xl] 200 mg PO BID 12/12/18 Montelukast Sodium [Singulair 10 mg Tablet] 10 mg PO QHS 12/12/18 Potassium Chloride [Klor-Con 10 Meq Capsule ER] 10 meq PO DAILY 12/12/18 Sodium Fluoride [Prevident] 1 applic PO .TO BRUSH TEETH 12/12/18 Allergies/Adverse Reactions: No Known Allergies Allergy (Verified 12/11/18 13:42) Review of Systems Constitutional: PRESENT: weakness. ABSENT: fever(s), headache(s) Eyes: ABSENT: visual disturbances Ears: ABSENT: hearing changes Nose, Mouth, and Throat: ABSENT: sore throat Cardiovascular: PRESENT: chest pain, dyspnea on exertion Respiratory: PRESENT: dyspnea Gastrointestinal: ABSENT: diarrhea, nausea Genitourinary: ABSENT: dysuria Musculoskeletal: ABSENT: back pain Integumentary: ABSENT: rash Neurological: PRESENT: weakness. ABSENT: dizziness Hematologic/Lymphatic: ABSENT: lymphadenopathy Physical Exam Vital Signs: Temp Pulse Resp BP Pulse Ox 98.4 F 88 16 137/67 H 97 12/13/18 15:48 12/13/18 16:45 12/13/18 16:45 12/13/18 15:48 12/13/18 16:45 Intake & Output 12/12/18 12/13/18 12/14/18 06:59 06:59 06:59 Intake Total 1000 1425 748 Output Total 400 Balance 600 1425 748 Weight 135 kg 142.201 kg General appearance: PRESENT: no acute distress, obese, well-developed Head exam: PRESENT: normocephalic Eye exam: PRESENT: EOMI Mouth exam: PRESENT: tongue midline Neck exam: ABSENT: lymphadenopathy, tenderness Respiratory exam: PRESENT: clear to auscultation nancy, unlabored Cardiovascular exam: PRESENT: RRR GI/Abdominal exam: PRESENT: soft. ABSENT: tenderness Extremities exam: PRESENT: +1 edema Musculoskeletal exam: PRESENT: normal inspection Neurological exam: PRESENT: alert, awake, oriented to person, oriented to place, oriented to time, oriented to situation, normal gait Psychiatric exam: PRESENT: appropriate affect Skin exam: PRESENT: normal color Results Laboratory Results: 12/13/18 05:13 12/13/18 18:19 12/12/18 12/13/18 12/13/18 19:50 05:13 05:13 WBC 8.6 RBC 4.85 Hgb 14.5 Hct 42.5 MCV 88 MCH 30.0 MCHC 34.2 RDW 14.3 H Plt Count 136 L Seg Neutrophils % 80.1 H Lymphocytes % 11.7 L Monocytes % 6.9 Eosinophils % 0.7 Basophils % 0.6 Absolute Neutrophils 6.9 Absolute Lymphocytes 1.0 Absolute Monocytes 0.6 Absolute Eosinophils 0.1 Absolute Basophils 0.0 Sodium 136.0 L 137.2 Potassium 4.8 4.6 Chloride 100 101 Carbon Dioxide 26 23 Anion Gap 10 13 BUN 28 H 25 H Creatinine 1.45 H 1.27 H Est GFR ( Amer) 58 L > 60 Est GFR (Non-Af Amer) 48 L 56 L Glucose 386 H 315 H Calcium 9.7 9.4 Magnesium 2.3 Total Bilirubin 1.0 AST 44 ALT 116 H Alkaline Phosphatase 80 Total Protein 7.2 Albumin 4.0 12/13/18 12/13/18 14:45 18:19 WBC RBC Hgb Hct MCV MCH MCHC RDW Plt Count Seg Neutrophils % Lymphocytes % Monocytes % Eosinophils % Basophils % Absolute Neutrophils Absolute Lymphocytes Absolute Monocytes Absolute Eosinophils Absolute Basophils Sodium 137.6 Potassium 4.5 Chloride 100 Carbon Dioxide 25 Anion Gap 13 BUN 23 H Creatinine 1.35 H Est GFR ( Amer) > 60 Est GFR (Non-Af Amer) 52 L Glucose 419 H* 339 H Calcium 9.5 Magnesium Total Bilirubin AST ALT Alkaline Phosphatase Total Protein Albumin 12/11/18 12/11/18 12/11/18 14:45 17:14 21:07 Creatine Kinase 59 CK-MB (CK-2) Troponin I 0.114 0.150 NT-Pro-B Natriuret Pep 749 12/11/18 12/12/18 12/12/18 21:07 03:00 03:00 Creatine Kinase 56 CK-MB (CK-2) 1.36 1.37 Troponin I 0.111 0.083 NT-Pro-B Natriuret Pep 12/12/18 12/12/18 12/12/18 09:52 09:52 19:50 Creatine Kinase 51 L CK-MB (CK-2) 1.14 Troponin I 0.059 0.066 NT-Pro-B Natriuret Pep Impressions: Chest X-Ray 12/11/18 15:38 IMPRESSION: ROUNDED DENSITY IN THE RIGHT MIDLUNG AGAIN SEEN. CONCERNING FOR UNDERLYING PULMONARY MASS. RECOMMEND FOLLOW-UP CHEST CT. Chest CT 12/11/18 16:11 IMPRESSION: 1. LOBULATED MASS IN THE LATERAL RIGHT LUNG CONSISTENT WITH MALIGNANCY. ADDITIONAL SMALLER NODULAR MASSES EXTENDING MEDIALLY TO THE RIGHT HILUM. RIGHT HILAR MASS PRESUMED SECONDARY TO ADENOPATHY. PATCHY AIRSPACE DISEASE IN THE ADJACENT RIGHT LUNG. THIS MAY BE DUE TO PNEUMONITIS OR ATELECTASIS ALTHOUGH LYMPHATIC SPREAD OF TUMOR COULD BE ANOTHER POSSIBILITY. RIGHT PLEURAL EFFUSION. LEFT LUNG CLEAR. 2. HETEROGENOUS ENLARGED LEFT LOBE OF THE THYROID WHICH EXTENDS IN A SUBSTERNAL DIRECTION DESCRIBED. Status: Image reviewed by me Assessment & Plan - Diagnosis (1) Mass of upper lobe of right lung Is this a current diagnosis for this admission?: Yes Plan: We discussed he fact that this is very suspicious for cancer, but I cannot be sure without biopsy. He has also had a thyroid biopsy recently. This may be metastatic thyroid or primary lung, or other diagnosis entirely. Patient is agreeable to having biopsy in interventional radiology of the lung mass. I discussed this with Dr. Farias. He will try to arrange this in the morning. (2) Non-ST elevation myocardial infarction (NSTEMI) Is this a current diagnosis for this admission?: Yes Plan: Per Cardiology. Will check with them before ordering the biopsy of the lung. (3) Morbid obesity Is this a current diagnosis for this admission?: Yes Plan: He has started a new exercise program. He understands he needs to loose weight.
[2018-12-13] MEDS: MONTELUKAST SODIUM 10 MG TABLET PO SCH (21:31)
[2018-12-13] MEDS: ATORVASTATIN CALCIUM 40 MG TABLET PO SCH (21:31)
--- NOTE | 2018-12-13 21:58 | RADIOLOGY REPORT (SQ) ---
EXAM DESCRIPTION: [facility]: CT ABDOMEN PELVIS WITH IV CONTRAST CLINICAL HISTORY: 68 years Male; Rt Lung Mass TECHNIQUE: CT of the abdomen and pelvis using intravenous 100 mL Omnip[address] scans at this facility use dose modulation, iterative reconstruction, and/or weight based dosing when appropriate to reduce radiation dose to as low as reasonably achievable. COMPARISON: CT chest without contrast 12/11/2018. CT abdomen pelvis without contrast 11/04/2016 FINDINGS: Right pleural effusion is approximately 1.5 cm thick. There are filling defects in right lower lobe pulmonary arteries. Right hilar mass is partially visualized Abdomen: Liver:No focal lesions. No intrahepatic ductal distention. Gallbladder: Nondistended. Pancreas:Within normal limits Spleen:Within normal limits Right kidney:No hydronephrosis. No focal lesion. Left kidney:No hydronephrosis. No focal lesion. Adrenal glands:Within normal limits Vascular structures: Scattered aortic and branch calcifications. No aneurysm or dissection. No major branch occlusion. Pelvis: Small bowel:No significant distention. Appendix:Within normal limits Colon:No distention or acute pericolonic edema. No free intraperitoneal fluid or air. No pelvic adenopathy. Chronic degenerative changes are noted throughout the lumbar spine. No focal suspicious bone lesion. IMPRESSION: 1. Partially visualized filling defects in right lower lobe arteries, suspicious for pulmonary embolism. Consider CTA chest. 2. Small right pleural effusion as on prior exam. Right hilar mass is partially visualized, as on 12/11/[address] evidence for metastatic disease in the abdomen or pelvis. 4. No acute findings in the abdomen or pelvis.
[2018-12-13] MEDS ORDERED: INSULIN REG, HUMAN 100 UNIT/ML 3 ML VIAL (PYX) SUBCUT SCH (22:00)
[2018-12-13 23:21] LABS: ANION GAP 10 (5-19); BLOOD UREA NITROGEN 23 mg/dL (7-20); CALCIUM 9.5 mg/dL (8.4-10.2); CARBON DIOXIDE 24 mmol/L (22-30); CHLORIDE 102 mmol/L (98-107); GLUCOSE 252 mg/dL (75-110); POTASSIUM 4.6 mmol/L (3.6-5.0); SODIUM 136.2 mmol/L (137-145)
[2018-12-14] MEDS: LEVALBUTEROL HCL NEB 1.25 MG/3 ML AMPUL NEB SCH ×3 (00:31→16:21)
[2018-12-14] MEDS: IPRATROPIUM BROMIDE 0.02% NEB 0.5 MG/2.5 ML AMPUL NEB SCH ×3 (00:31→16:21)
[2018-12-14] MEDS ORDERED: ENOXAPARIN SODIUM INJ 150 MG/1 ML DISP.SYRIN SUBCUT ONE (01:00)
[2018-12-14 03:25] LABS: ANION GAP 10 (5-19); BLOOD UREA NITROGEN 22 mg/dL (7-20); CALCIUM 9.4 mg/dL (8.4-10.2); CARBON DIOXIDE 26 mmol/L (22-30); CHLORIDE 104 mmol/L (98-107); GLUCOSE 197 mg/dL (75-110); POTASSIUM 4.4 mmol/L (3.6-5.0); SODIUM 139.9 mmol/L (137-145)
[2018-12-14] MEDS: GABAPENTIN 300 MG CAPSULE PO SCH ×3 (05:12→22:27)
[2018-12-14 07:34] LABS: ABSOLUTE EOSINOPHILS # (AUTO) 0.2 10^3/uL (0.0-0.6); ABSOLUTE LYMPHOCYTES (AUTO) 1.3 10^3/uL (0.5-4.7); ABSOLUTE MONOCYTES (AUTO) 0.6 10^3/uL (0.1-1.4); ABSOLUTE NEUT (AUTO) 5.4 10^3/uL (1.7-8.2); BASOPHILS % (AUTO) 0.6 % (0-2); EOSINOPHILS % (AUTO) 2.4 % (0-6); HEMATOCRIT 40.2 % (37.9-51.0); HEMOGLOBIN 13.8 g/dL (13.5-17.0); LYMPHOCYTES % (AUTO) 16.7 % (13-45); MEAN CORPUSCULAR HEMOGLOBIN 30.1 pg (27.0-33.4); MEAN CORPUSCULAR HGB CONC 34.4 g/dL (32.0-36.0); MEAN CORPUSCULAR VOLUME 87 fl (80-97); MONOCYTES % (AUTO) 7.9 % (3-13); PLATELET COUNT 138 10^3/uL (150-450); RED CELL DISTRIBUTION WIDTH 14.4 % (11.5-14.0); SEGMENTED NEUTROPHILS % (AUTO) 72.4 % (42-78); TOTAL CELLS COUNTED % (AUTO) 100 %; WHITE BLOOD COUNT 7.5 10^3/uL (4.0-10.5)
[2018-12-14 08:00] LABS: ALANINE AMINOTRANSFERASE 88 U/L (21-72); ALBUMIN 3.6 g/dL (3.5-5.0); ALKALINE PHOSPHATASE 68 U/L (38-126); ANION GAP 8 (5-19); ASPARTATE AMINO TRANSFERASE 30 U/L (17-59); BILIRUBIN,DIRECT 0.4 mg/dL (0.0-0.4); BILIRUBIN,TOTAL 0.7 mg/dL (0.2-1.3); BLOOD UREA NITROGEN 21 mg/dL (7-20); CALCIUM 9.6 mg/dL (8.4-10.2); CARBON DIOXIDE 26 mmol/L (22-30); CHLORIDE 105 mmol/L (98-107); GLUCOSE 155 mg/dL (75-110); POTASSIUM 4.3 mmol/L (3.6-5.0); SODIUM 138.8 mmol/L (137-145); TOTAL PROTEIN 6.6 g/dL (6.3-8.2)
[2018-12-14] MEDS: BUDESONIDE NEB 0.5 MG/2 ML AMPUL NEB SCH ×2 (08:36→20:26)
[2018-12-14] MEDS: INSULIN REG, HUMAN 100 UNIT/ML 3 ML VIAL (PYX) SUBCUT SCH ×4 (09:30→22:28)
[2018-12-14] MEDS ORDERED: ENOXAPARIN SODIUM INJ 150 MG/1 ML DISP.SYRIN SUBCUT SCH (10:00)
[2018-12-14 10:27] LABS: INTERNATIONAL RATION (INR) 1.08; PROTHROMBIN TIME 14.6 SEC (11.4-15.4)
[2018-12-14 10:28] LABS: PARTIAL THROMBOPLASTIN TIME 30.7 SEC (23.5-35.8)
[2018-12-14] MEDS: HEPARIN SODIUM,PORCINE/D5W 25,000 UNIT/250 ML RTUINJ IV PRN ×2 (11:34→22:45)
[2018-12-14] MEDS: LOSARTAN POTASSIUM 50 MG TABLET PO SCH (11:38)
[2018-12-14] MEDS: ISOSORBIDE MONONITRATE 30 MG TAB.ER.24H PO SCH (11:39)
[2018-12-14] MEDS: FAMOTIDINE 20 MG TABLET PO SCH ×2 (11:39→22:27)
[2018-12-14] MEDS: CALCITRIOL 0.25 MCG CAPSULE PO SCH (11:39)
[2018-12-14] MEDS: ASPIRIN 81 MG TABLET, CHEWABLE PO SCH (11:39)
[2018-12-14] MEDS: METOPROLOL SUCCINATE 50 MG TAB.SR.24H PO SCH ×2 (11:39→22:28)
[2018-12-14] MEDS: DOCUSATE SODIUM 100 MG CAPSULE PO SCH ×2 (11:43→18:00)
--- NOTE | 2018-12-14 11:54 | PDOC PROGRESS REPORT ---
Subjective Progress Note for:: 12/14/18 Subjective:: Reviewed CT of the abdomen pelvis read, there is PE noted, CT of the chest is pending today. Patient is about to be started on heparin drip. Clinically seems a little bit better, still short of breath and having other issues. But looks better today. Reason For Visit: DYSPNEA Physical Exam Vital Signs: Temp Pulse Resp BP Pulse Ox 97.6 F 82 16 128/71 H 94 12/14/18 07:35 12/14/18 08:36 12/14/18 08:36 12/14/18 07:35 12/14/18 08:36 Intake & Output 12/13/18 12/14/18 12/15/18 06:59 06:59 06:59 Intake Total 1425 1398 Balance 1425 1398 Weight 142.201 kg 135.6 kg General appearance: PRESENT: no acute distress, well-developed, well-nourished Head exam: PRESENT: atraumatic, normocephalic Eye exam: PRESENT: conjunctiva pink, EOMI, PERRLA. ABSENT: scleral icterus Ear exam: PRESENT: normal external ear exam Mouth exam: PRESENT: moist, tongue midline Neck exam: ABSENT: carotid bruit, JVD, lymphadenopathy, thyromegaly Respiratory exam: PRESENT: clear to auscultation nancy. ABSENT: rales, rhonchi, wheezes Cardiovascular exam: PRESENT: RRR. ABSENT: diastolic murmur, rubs, systolic murmur Pulses: PRESENT: normal dorsalis pedis pul Vascular exam: PRESENT: normal capillary refill GI/Abdominal exam: PRESENT: normal bowel sounds, soft. ABSENT: distended, guarding, mass, organolmegaly, rebound, tenderness Rectal exam: PRESENT: deferred Extremities exam: PRESENT: full ROM. ABSENT: calf tenderness, clubbing, pedal edema Neurological exam: PRESENT: alert, awake, oriented to person, oriented to place, oriented to time, oriented to situation, CN II-XII grossly intact. ABSENT: motor sensory deficit Psychiatric exam: PRESENT: appropriate affect, normal mood. ABSENT: homicidal ideation, suicidal ideation Skin exam: PRESENT: dry, intact, warm. ABSENT: cyanosis, rash Results Laboratory Results: 12/14/18 07:10 12/14/18 07:10 12/13/18 12/13/18 12/13/18 14:45 18:19 22:48 WBC RBC Hgb Hct MCV MCH MCHC RDW Plt Count Seg Neutrophils % Lymphocytes % Monocytes % Eosinophils % Basophils % Absolute Neutrophils Absolute Lymphocytes Absolute Monocytes Absolute Eosinophils Absolute Basophils Sodium 137.6 136.2 L Potassium 4.5 4.6 Chloride 100 102 Carbon Dioxide 25 24 Anion Gap 13 10 BUN 23 H 23 H Creatinine 1.35 H 1.32 H Est GFR ( Amer) > 60 > 60 Est GFR (Non-Af Amer) 52 L 54 L Glucose 419 H* 339 H 252 H Calcium 9.5 9.5 Magnesium Total Bilirubin AST ALT Alkaline Phosphatase Total Protein Albumin 12/14/18 12/14/18 12/14/18 02:58 07:10 07:10 WBC 7.5 RBC 4.60 Hgb 13.8 Hct 40.2 MCV 87 MCH 30.1 MCHC 34.4 RDW 14.4 H Plt Count 138 L Seg Neutrophils % 72.4 Lymphocytes % 16.7 Monocytes % 7.9 Eosinophils % 2.4 Basophils % 0.6 Absolute Neutrophils 5.4 Absolute Lymphocytes 1.3 Absolute Monocytes 0.6 Absolute Eosinophils 0.2 Absolute Basophils 0.0 Sodium 139.9 138.8 Potassium 4.4 4.3 Chloride 104 105 Carbon Dioxide 26 26 Anion Gap 10 8 BUN 22 H 21 H Creatinine 1.27 H 1.24 Est GFR ( Amer) > 60 > 60 Est GFR (Non-Af Amer) 56 L 58 L Glucose 197 H 155 H Calcium 9.4 9.6 Magnesium 2.4 H Total Bilirubin 0.7 AST 30 ALT 88 H Alkaline Phosphatase 68 Total Protein 6.6 Albumin 3.6 12/11/18 12/11/18 12/11/18 14:45 17:14 21:07 Creatine Kinase 59 CK-MB (CK-2) Troponin I 0.114 0.150 NT-Pro-B Natriuret Pep 749 12/11/18 12/12/18 12/12/18 21:07 03:00 03:00 Creatine Kinase 56 CK-MB (CK-2) 1.36 1.37 Troponin I 0.111 0.083 NT-Pro-B Natriuret Pep 12/12/18 12/12/18 12/12/18 09:52 09:52 19:50 Creatine Kinase 51 L CK-MB (CK-2) 1.14 Troponin I 0.059 0.066 NT-Pro-B Natriuret Pep Impressions: Chest X-Ray 12/11/18 15:38 IMPRESSION: ROUNDED DENSITY IN THE RIGHT MIDLUNG AGAIN SEEN. CONCERNING FOR UNDERLYING PULMONARY MASS. RECOMMEND FOLLOW-UP CHEST CT. Chest CT 12/11/18 16:11 IMPRESSION: 1. LOBULATED MASS IN THE LATERAL RIGHT LUNG CONSISTENT WITH MALIGNANCY. ADDITIONAL SMALLER NODULAR MASSES EXTENDING MEDIALLY TO THE RIGHT HILUM. RIGHT HILAR MASS PRESUMED SECONDARY TO ADENOPATHY. PATCHY AIRSPACE DISEASE IN THE ADJACENT RIGHT LUNG. THIS MAY BE DUE TO PNEUMONITIS OR ATELECTASIS ALTHOUGH LYMPHATIC SPREAD OF TUMOR COULD BE ANOTHER POSSIBILITY. RIGHT PLEURAL EFFUSION. LEFT LUNG CLEAR. 2. HETEROGENOUS ENLARGED LEFT LOBE OF THE THYROID WHICH EXTENDS IN A SUBSTERNAL DIRECTION DESCRIBED. Abdomen/Pelvis CT 12/13/18 00:00 IMPRESSION: 1. Partially visualized filling defects in right lower lobe arteries, suspicious for pulmonary embolism. Consider CTA chest. 2. Small right pleural effusion as on prior exam. Right hilar mass is partially visualized, as on 12/11/[address] evidence for metastatic disease in the abdomen or pelvis. 4. No acute findings in the abdomen or pelvis. Status: Image reviewed by me Assessment & Plan - Diagnosis (1) Mass of upper lobe of right lung Is this a current diagnosis for this admission?: Yes Plan: Concerning for either primary lung cancer, he does have a [id number] history of tobacco, or possibly something related to the thyroid issue that is ongoing, we do not have the pathology from the thyroid yet but if there is a thyroid carcinoma ongoing, the possibility of a metastatic deposit from the lung surely would be there. Agree with CT-guided biopsy. (2) Other pulmonary embolism without acute cor pulmonale Qualifiers: Chronicity: acute Qualified Code(s): I26.99 - Other pulmonary embolism without acute cor pulmonale Is this a current diagnosis for this admission?: Yes Plan: Patient does appear to have a PE, agree with heparin drip, agree with CTA of the chest. - Time Time Spent with patient: 35 or more minutes - Inpatient Certification Based on my medical assessment, after consideration of the patient's comorbidities, presenting symptoms, or acuity I expect that the services needed warrant INPATIENT care.: Yes I certify that my determination is in accordance with my understanding of Medicare's requirements for reasonable and necessary INPATIENT services [42 CFR 412.3e].: Yes Medical Necessity: Need For Continuous Telemetry Monitoring, Need for Surgery, Risk of Complication if Not Cared For in Hospital
--- NOTE | 2018-12-14 14:03 | PDOC PROGRESS REPORT ---
Subjective Progress Note for:: 12/14/18 Subjective:: VICTOR MANUEL HALL is a 68 year old male who presented to the emergency room with a 4-day history of episodic dyspnea at rest and on exertion. Patient acknowledges moderate to severe dyspnea episodes worsened with any exertion, several times per day over the weekend but better on Monday. His symptoms returned again early this morning and were much more severe with the dyspnea and abdominal discomfort being present and not resolving with a short period of rest and c ontrolled breathing. His dyspnea was accompanied by a mild to moderate epigastric/lower anterior chest pressure-like discomfort. Patient's dyspnea and chest/abdomen discomfort was relieved by rest after a few minutes until today when it became persistent resulting in his trip to the emergency room. He also admits an associated symptom of bilateral leg swelling which is a little worse than his normal chronic swelling. He denies prior similar episodes. He denies identification of other aggravating or ameliorating factors for his dyspnea and chest/abdominal pain. In the emergency room he was noted to have dyspnea with exertion and required supplemental oxygen at 2 L/min via nasal cannula to remain dyspnea free and pain-free even at rest. Chest x-ray showed a right midlung mass suspicious for neoplasm with probable right perihilar lymphadenopathy. Because of the patient's acute respiratory failure, chest/abdominal pain, worsening peripheral edema and dyspnea with exertion he was admitted for further evaluation and treatment. 12/12/2018. Shortness of breath with mild improvement but patient still having dyspnea on exertion associated with pressure-like chest pain. Patient denies any fever, chills, nausea, vomiting, diarrhea, constipation or any urinary symptoms. 12/13/2018. Patient still having dyspnea on exertion, chest pain has not recurred since yesterday. Was able to ambulate to the bathroom having any chest pain. Denies any fever, chills, nausea, vomiting, diarrhea, constipation or any urinary symptoms. 12/14/2018. No acute events overnight. Patient is very pleasant cooperative with physical examination. Shortness of breath has improved since yesterday s till requiring supplemental oxygen. Has not had any more chest pain since yesterday. Able to ambulate to the restroom on supplemental oxygen does not report any chest pain on ambulation. Denies any fever, chills, nausea, vomiting, diarrhea, constipation or any urinary symptoms. Reason For Visit: DYSPNEA Physical Exam Vital Signs: Temp Pulse Resp BP Pulse Ox 97.6 F 82 16 128/71 H 94 12/14/18 07:35 12/14/18 08:36 12/14/18 08:36 12/14/18 07:35 12/14/18 08:36 Intake & Output 12/13/18 12/14/18 12/15/18 06:59 06:59 06:59 Intake Total 1425 1398 Balance 1425 1398 Weight 142.201 kg 135.6 kg General appearance: PRESENT: mild distress, obese Head exam: PRESENT: atraumatic, normocephalic Respiratory exam: PRESENT: decreased breath sounds, prolonged expiratory phas. ABSENT: rales, rhonchi, wheezes Cardiovascular exam: PRESENT: RRR. ABSENT: diastolic murmur, rubs, systolic murmur GI/Abdominal exam: PRESENT: normal bowel sounds, soft. ABSENT: distended, guarding, mass, organolmegaly, rebound, tenderness Neurological exam: PRESENT: alert, awake, oriented to person, oriented to place, oriented to time, oriented to situation, CN II-XII grossly intact. ABSENT: motor sensory deficit Results Laboratory Results: 12/14/18 07:10 12/14/18 07:10 12/13/18 12/13/18 12/13/18 14:45 18: 22:48 WBC RBC Hgb Hct MCV MCH MCHC RDW Plt Count Seg Neutrophils % Lymphocytes % Monocytes % Eosinophils % Basophils % Absolute Neutrophils Absolute Lymphocytes Absolute Monocytes Absolute Eosinophils Absolute Basophils Sodium 137.6 136.2 L Potassium 4.5 4.6 Chloride 100 102 Carbon Dioxide 25 24 Anion Gap 13 10 BUN 23 H 23 H Creatinine 1.35 H 1.32 H Est GFR ( Amer) > 60 > 60 Est GFR (Non-Af Amer) 52 L 54 L Glucose 419 H* 339 H 252 H Calcium 9.5 9.5 Magnesium Total Bilirubin AST ALT Alkaline Phosphatase Total Protein Albumin 12/14/18 12/14/18 12/14/18 02:58 07:10 07:10 WBC 7.5 RBC 4.60 Hgb 13.8 Hct 40.2 MCV 87 MCH 30.1 MCHC 34.4 RDW 14.4 H Plt Count 138 L Seg Neutrophils % 72.4 Lymphocytes % 16.7 Monocytes % 7.9 Eosinophils % 2.4 Basophils % 0.6 Absolute Neutrophils 5.4 Absolute Lymphocytes 1.3 Absolute Monocytes 0.6 Absolute Eosinophils 0.2 Absolute Basophils 0.0 Sodium 139.9 138.8 Potassium 4.4 4.3 Chloride 104 105 Carbon Dioxide 26 26 Anion Gap 10 8 BUN 22 H 21 H Creatinine 1.27 H 1.24 Est GFR ( Amer) > 60 > 60 Est GFR (Non-Af Amer) 56 L 58 L Glucose 197 H 155 H Calcium 9.4 9.6 Magnesium 2.4 H Total Bilirubin 0.7 AST 30 ALT 88 H Alkaline Phosphatase 68 Total Protein 6.6 Albumin 3.6 12/11/18 12/11/18 12/11/18 14:45 17:14 21:07 Creatine Kinase 59 CK-MB (CK-2) Troponin I 0.114 0.150 NT-Pro-B Natriuret Pep 749 12/11/18 12/12/18 12/12/18 21:07 03:00 03:00 Creatine Kinase 56 CK-MB (CK-2) 1.36 1.37 Troponin I 0.111 0.083 NT-Pro-B Natriuret Pep 12/12/18 12/12/18 12/12/18 09:52 09:52 19:50 Creatine Kinase 51 L CK-MB (CK-2) 1.14 Troponin I 0.059 0.066 NT-Pro-B Natriuret Pep Impressions: Chest X-Ray 12/11/18 15:38 IMPRESSION: ROUNDED DENSITY IN THE RIGHT MIDLUNG AGAIN SEEN. CONCERNING FOR UNDERLYING PULMONARY MASS. RECOMMEND FOLLOW-UP CHEST CT. Chest CT 12/11/18 16:11 IMPRESSION: 1. LOBULATED MASS IN THE LATERAL RIGHT LUNG CONSISTENT WITH MALIGNANCY. ADDITIONAL SMALLER NODULAR MASSES EXTENDING MEDIALLY TO THE RIGHT HILUM. RIGHT HILAR MASS PRESUMED SECONDARY TO ADENOPATHY. PATCHY AIRSPACE DISEASE IN THE ADJACENT RIGHT LUNG. THIS MAY BE DUE TO PNEUMONITIS OR ATELECTASIS ALTHOUGH LYM PHATIC SPREAD OF TUMOR COULD BE ANOTHER POSSIBILITY. RIGHT PLEURAL EFFUSION. LEFT LUNG CLEAR. 2. HETEROGENOUS ENLARGED LEFT LOBE OF THE THYROID WHICH EXTENDS IN A SUBSTERNAL DIRECTION DESCRIBED. Abdomen/Pelvis CT 12/13/18 00:00 IMPRESSION: 1. Partially visualized filling defects in right lower lobe arteries, suspicious for pulmonary embolism. Consider CTA chest. 2. Small right pleural effusion as on prior exam. Right hilar mass is partially visualized, as on 12/11/[address] evidence for metastatic disease in the abdomen or pelvis. 4. No acute findings in the abdomen or pelvis. Assessment and Plan - Diagnosis (1) Non-ST elevation myocardial infarction (NSTEMI) Is this a current diagnosis for this admission?: Yes Plan: Chest pain has resolved still complaining of dyspnea on exertion and orthopnea. History of CAD status post stent placement in 2000. Troponins 0.114, 0.150, 0.11, 0.08, 0.05 Aspirin, heparin drip, beta-blockers, EMORY, high intensity statins. As needed nitrates and morphine. . He is scheduled to have a CT-guided biopsy on Monday as per my conversation with Dr. 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 (2) Pulmonary emboli Qualifiers: Chronicity: unspecified Is this a current diagnosis for this admission?: Yes Plan: This was observed on CT abdomen pelvis with and without contrast for restaging of his lung mass. On admission patient had a CT chest without contrast. Patient will need a CTA to confirm and localize his pulmonary emboli, but because of the fact that he had received IV contrast yesterday for CT abdomen and pelvis and he may receive IV contrast on Monday for CT-guided biopsy a possible left heart cath on Monday at [facility], would be safer to treat his PE empirically and get a bilateral lower extremity ultrasound order to minimize risk of contrast-induced nephropathy. (3) Unstable angina Is this a current diagnosis for this admission?: Yes Plan: As per problem #1. (4) Mass of upper lobe of right lung Is this a current diagnosis for this admission?: Yes Plan: Denies any history of previous malignancy. Former heavy smoker. Status post thyroid mass biopsy as outpatient. Pathology pending. Positive family history of colon cancer. Last colonoscopy 5 years ago status post polypectomy reported as normal per patient. PTHrP pending. Pulmonary consulted unfortunately no coverage available at this week. Oncology on board agrees with CT-guided biopsy. Scheduled for CT-guided biopsy on Monday as radiology is not able to do a biopsy today due to staff shortage. CT abdomen and pelvis contrast did not show any abdominal metastasis. (5) CKD (chronic kidney disease) stage 2, GFR 60-89 ml/min Is this a current diagnosis for this admission?: No Plan: Stable. Improving. Monitor electrolytes and volume status. Avoid nephrotoxic meds. (6) Diabetes type 2, uncontrolled Qualifiers: Glycemic state: with hyperglycemia Qualified Code(s): E11.65 - Type 2 diabetes mellitus with hyperglycemia Is this a current diagnosis for this admission?: Yes Plan: Resistant. Patient is on highly concentrated insulin form. Has been followed by several b2b sales professional in the past. Not well managed by sliding scale. We do not carry his form of insulin in the hospital. Patient brought his own insulin supplies, verified by pharmacy and restarted. DC insulin drip. Continue sliding scale insulin. Cardiac and diabetic diet. (7) CAD (coronary artery disease) Is this a current diagnosis for this admission?: No Plan: Continue ASA, statins, EMORY, beta-blockers. (8) PADMINI (obstructive sleep apnea) Is this a current diagnosis for this admission?: No Plan: Has not been evaluated by pulmonology. Nocturnal CPAP. Outpatient nocturnal polysomnography. Pulmonology follow-up. Weight loss advised. (9) Morbid obesity with BMI of 40.0-44.9, adult Is this a current diagnosis for this admission?: No Plan: Diet and lifestyle modifications.
[2018-12-14] MEDS: NORMAL SALINE 1000 ML 1,000 ML IV PRN (15:00)
[2018-12-14] MEDS: HEPARIN SOD (PORCINE) 1,000 UNIT/ML 10 ML VIAL IV PRN (18:32)
--- NOTE | 2018-12-14 20:15 | XCELERA REPORT ---
[address] [address] Transthoracic Echocardiogram Report Name: VICTOR MANUEL HALL Age: 68 yrs Gender: Male : 1950 Patient Status: Inpatient Patient Location: [address] [place] [address] Study Date: 12/14/2018 03:19 PM Height: 71 in Weight: 298 lb BSA: 2.5 m2 Procedure: A two-dimensional transthoracic echocardiogram with color flow and Doppler was performed. Study Quality: Poor. The study was technically difficult with many images being suboptimal in quality. Images were not obtained from all of the standard acoustic windows due to the limited scope of the study. Reason For Study: CAD / NSTEMI / MURMUR History: CAD / NSTEMI / MURMUR. Ordering Physician: SYL LEONARDO Performed By: Coby Linton Interpretation Summary The left ventricle is normal in size. There is mild concentric left ventricular hypertrophy. LV diastolic function not assessed. No True apical 2 chamber views obtained.Hence cannot comment on the apical anterior , the basal anterior, the basal inferior and apical inferior burdick.The mid anterior , the mid inferior and the rest of the LV burdick contract normally. .Normal LVEF is normal and is normal and greater than 60%,in the limited views. There is no thrombus. The right ventricle is not well visualized secondary to technical limitations Suspect a RV enlargement.There is an artifact in RV.Doubt that this is a clot.But cannot entirely exclude this. There is an artifact in the RA.Ra is mildly dilated. The left atrial size is normal. Unable to asses for ASD,VSD , or PFO. There is no evidence of mitral valve prolapse. There is no mitral valve stenosis. There is no vegetation seen on the mitral valve. There is no mitral regurgitation noted. There is no aortic valvular vegetation. There is no aortic valve stenosis There is aortic sclerosis without aortic stenosis. No aortic regurgitation is present. There is no tricuspid stenosis. There is a mild amount of tricuspid regurgitation There is moderate pulmonary hypertension by echo RVSP is 49 mm of Hg , with RA mean of 10. There is no pulmonic valvular stenosis. There is no pulmonic valvular regurgitation. The aortic root is not well visualized but is probably normal size. The inferior vena cava was not well visualized Cannot exclude trace pericardial effusion i behind the RA. MMode/2D Measurements & Calculations RVDd: 2.9 cm LVIDd: 4.3 cm FS: 28.7 % Ao root diam: 2.8 cm IVSd: 1.2 cm LVIDs: 3.1 cm EDV(Teich): 84.4 ml Ao root area: 6.0 cm2 LVPWd: 1.3 cm ESV(Teich): 37.5 ml LA dimension: 3.5 cm EF(Teich): 55.6 % Doppler Measurements & Calculations MV E max frankie: MV P1/2t max frankie: Ao V2 max: LV V1 max P.4 cm/sec 129.1 cm/sec 130.3 cm/sec 2.8 mmHg MV P1/2t: 51.4 msec Ao max P.8 mmHgLV V1 max: MVA(P1/2t): 4.3 cm2 83.9 cm/sec MV dec slope: 735.3 cm/sec2 MV dec time: 0.15 sec PA V2 max: TR max frankie: MV P1/2t-pr_phl: 58.5 cm/sec 312.5 cm/sec 51.4 msec PA max P.4 mmHg TR max P.1 mmHg Left Ventricle The left ventricle is normal in size. There is mild concentric left ventricular hypertrophy. No True apical 2 chamber views obtained.Hence cannot comment on the apical anterior , the basal anterior, the basal inferior and apical inferior burdick.The mid anterior , the mid inferior and the rest of the LV burdick contract normally. .Normal LVEF is normal and is normal and greater than 60%,in the limited views. LV diastolic function not assessed. There is no thrombus. Right Ventricle The right ventricle is not well visualized secondary to technical limitations. Suspect a RV enlargement.There is an artifact in RV.Doubt that this is a clot.But cannot entirely exclude this. Atria There is an artifact in the RA.Ra is mildly dilated. The left atrial size is normal. Unable to asses for ASD,VSD , or PFO. Mitral Valve There is no evidence of mitral valve prolapse. There is no vegetation seen on the mitral valve. There is no mitral valve stenosis. There is no mitral regurgitation noted. Aortic Valve There is no aortic valvular vegetation. There is no LVOT obstruction. There is no aortic valve stenosis. There is aortic sclerosis without aortic stenosis. No aortic regurgitation is present. Tricuspid Valve There is no tricuspid stenosis. There is a mild amount of tricuspid regurgitation. There is moderate pulmonary hypertension by echo. RVSP is 49 mm of Hg , with RA mean of 10. Pulmonic Valve There is no pulmonic valvular stenosis. There is no pulmonic valvular regurgitation. Great Vessels The aortic root is not well visualized but is probably normal size. The inferior vena cava was not well visualized. Effusions Cannot exclude trace pericardial effusion i behind the RA. : SYL LEONARDO > Syl Leonardo
[2018-12-14] MEDS: MONTELUKAST SODIUM 10 MG TABLET PO SCH (22:27)
[2018-12-14] MEDS: ATORVASTATIN CALCIUM 40 MG TABLET PO SCH (22:27)
--- NOTE | 2018-12-14 23:08 | Progress Note ---
Provider Note Provider Note: CARDIOLOGY PROGRESS NOTE by Dr. Syl Henderson on 12/14/2018. SUBJECTIVE: The patient states he has no further chest pressure with exertion, and his shortness of breath with exertion is much improved. He states he has minimal shortness of breath on exertion on walking to the bathroom, and has some discomfort in the front of the right chest is CT of the chest with contrast shows that the lung mass has not better metastasized. Also there is high suspicion for pulmonary emboli. In view of the patient's multiple risk factors for his having a pulmonary emboli namely the malignancy, namely the patient's sedentary lifestyle would treat the patient with full dose heparin, and have the biopsy done on Monday on a heparin free window. There is no arrhythmia seen on the monitor. The patient does have orthopnea which is chronic. There is no PND. He denies any leg pain or leg swelling although there is trace pedal edema bilaterally. PHYSICAL EXAMINATION: The patient is morbidly obese. In no acute distress. He is asymptomatic sitting on the recliner. Selected Entries 12/14/18 11:38 Temperature 98.2 F Temperature Oral Source Pulse Rate 102 H Respiratory 16 Rate Blood Pressure 125/63 Blood Pressure 83 Mean BP Location Right Arm BP Position Supine O2 Sat by Pulse 92 Oximetry Oxygen Flow 4.00 Rate Oxygen Delivery Nasal Cannula Method HEAD: Is atraumatic normocephalic. EYES: Pupils are equal round regular reactive to light accommodation. Extraocular movements are normal. There is no conjunctival pallor. There is no scleral icterus. EARS: Tympanic memories are intact. External auditory canals are clear. NOSE: There is no deviated nasal septum. There is no inflammation of the nasal mucous membranes. MOUTH: Mucous membranes of mouth are moist. Tongue is moist. There is no bleeding from the gums. THROAT: There is no redness of the oropharynx. There is no exudates. SKIN: There is no skin rashes or skin lesions. There is no petechia or ecchymosis. NECK: Is supple. There is no JVD. Carotids are equal there is no bruit there is fullness in the left thyroid lobe area. There is no lymphadenopathy. There is no accessory muscles of respiration use. Trachea central. LUNGS: Left lung is clear without any rhonchi rales or wheezing. T here is diffuse dry crackles in the right upper lobe with a few scattered rhonchi. There is no wheezing. On palpation there is no chest wall tenderness. HEART: S1-S2 is heard. S1 is of normal intensity. There is no S3 gallop. There is no S4 gallop. There is systolic murmur left sternal border and the apex there is no rub. ABDOMEN: Is obese. Nontender. There is no hepatosplenic megaly. Bowel sounds are well heard. There is no tender areas masses. EXTREMITIES: Femorals are deep. Femorals are diminished. There is no femoral bruits. Leg pulses slightly diminished. There is trace pedal edema. There is no DVT or cellulitis. There is no calf tenderness. There is no cyanosis or clubbing. 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 PSYCHIATRIC: The patient judgment insight are intact his affect is normal. Labs- All tests 24 hr 12/14/18 12/14/18 12/14/18 02:58 07:10 07:10 WBC 7.5 RBC 4.60 Hgb 13.8 Hct 40.2 MCV 87 MCH 30.1 MCHC 34.4 RDW 14.4 H Plt Count 138 L Seg Neutrophils % 72.4 Lymphocytes % 16.7 Monocytes % 7.9 Eosinophils % 2.4 Basophils % 0.6 Absolute Neutrophils 5.4 Absolute Lymphocytes 1.3 Absolute Monocytes 0.6 Absolute Eosinophils 0.2 Absolute Basophils 0.0 PT INR APTT Sodium 139.9 138.8 Potassium 4.4 4.3 Chloride 104 105 Carbon Dioxide 26 26 Anion Gap 10 8 BUN 22 H 21 H Creatinine 1.27 H 1.24 Est GFR ( Amer) > 60 > 60 Est GFR (Non-Af Amer) 56 L 58 L Glucose 197 H 155 H POC Glucose Calcium 9.4 9.6 Magnesium 2.4 H Total Bilirubin 0.7 Direct Bilirubin 0.4 Neonat Total Bilirubin Not Reportable Neonat Direct Bilirubin Not Reportable Neonat Indirect Bili Not Reportable AST 30 ALT 88 H Alkaline Phosphatase 68 Total Protein 6.6 Albumin 3.6 12/14/18 12/14/18 12/14/18 07:36 09:17 11:39 WBC RBC Hgb Hct MCV MCH MCHC RDW Plt Count Seg Neutrophils % Lymphocytes % Monocytes % Eosinophils % Basophils % Absolute Neutrophils Absolute Lymphocytes Absolute Monocytes Absolute Eosinophils Absolute Basophils PT 14.6 INR 1.08 APTT 30.7 Sodium Potassium Chloride Carbon Dioxide Anion Gap BUN Creatinine Est GFR ( Amer) Est GFR (Non-Af Amer) Glucose POC Glucose 154 H 329 H Calcium Magnesium Total Bilirubin Direct Bilirubin Neonat Total Bilirubin Neonat Direct Bilirubin Neonat Indirect Bili AST ALT Alkaline Phosphatase Total Protein Albumin 12/14/18 12/14/18 12/14/18 16:00 17:28 21:16 WBC RBC Hgb Hct MCV MCH MCHC RDW Plt Count Seg Neutrophils % Lymphocytes % Monocytes % Eosinophils % Basophils % Absolute Neutrophils Absolute Lymphocytes Absolute Monocytes Absolute Eosinophils Absolute Basophils PT INR APTT 51.4 H Sodium Potassium Chloride Carbon Dioxide Anion Gap BUN Creatinine Est GFR ( Amer) Est GFR (Non-Af Amer) Glucose POC Glucose 359 H 310 H Calcium Magnesium Total Bilirubin Direct Bilirubin Neonat Total Bilirubin Neonat Direct Bilirubin Neonat Indirect Bili AST ALT Alkaline Phosphatase Total Protein Albumin Chest X-Ray 12/11/18 14:11 IMPRESSION: 1. Rounded masslike opacity of the right upper lobe with adjacent heterogeneous airspace opacity. Findings are highly concerning for primary malignancy. Recommend CT to further evaluate. 2. Cardiomegaly. Chest X-Ray 12/11/18 15:38 IMPRESSION: ROUNDED DENSITY IN THE RIGHT MIDLUNG AGAIN SEEN. CONCERNING FOR UNDERLYING PULMONARY MASS. RECOMMEND FOLLOW-UP CHEST CT. Chest CT 12/11/18 16:11 IMPRESSION: 1. LOBULATED MASS IN THE LATERAL RIGHT LUNG CONSISTENT WITH MALIGNANCY. ADDITIONAL SMALLER NODULAR MASSES EXTENDING MEDIALLY TO THE RIGHT HILUM. RIGHT HILAR MASS PRESUMED SECONDARY TO ADENOPATHY. PATCHY AIRSPACE DISEASE IN THE ADJACENT RIGHT LUNG. THIS MAY BE DUE TO PNEUMONITIS OR ATELECTASIS ALTHOUGH LYMPHATIC SPREAD OF TUMOR COULD BE ANOTHER POSSIBILITY. RIGHT PLEURAL EFFUSION. LEFT LUNG CLEAR. 2. HETEROGENOUS ENLARGED LEFT LOBE OF THE THYROID WHICH EXTENDS IN A SUBSTERNAL DIRECTION DESCRIBED. Abdomen/Pelvis CT 12/13/18 00:00 IMPRESSION: 1. Partially visualized filling defects in right lower lobe arteries, suspicious for pulmonary embolism. Consider CTA chest. 2. Small right pleural effusion as on prior exam. Right hilar mass is partially visualized, as on 12/11/[address] evidence for metastatic disease in the abdomen or pelvis. 4. No acute findings in the abdomen or pelvis. Patient's echocardiogram: There is no true apical 2 chamber views. Hence cannot comment of the apical anterior, basal anterior, apical inferior, and the basal inferior burdick. The mid anterior of the mid inferior and rest of the LV wall contract normally in the LV ejection fraction is greater than. There is moderate pulmonary hypertension. This seems to be an artifact in the right ventricle, doubt that this is a clot. There is also artifact in the right atrium. This has been discussed in detail with the patient. IMPRESSION/RECOMMENDATION: 1. Non-ST elevation [place]: Patient with exertional chest pressure/shortness of breath. Now rethinking the case probably this is not a non-ST elevation [place], and just a leak from the pulmonary emboli and the lung mass. This is due to the fact that at present the patient has no exertional chest pressure. He has still some degree of shortness of breath, but much less than before, and also has discomfort in the right side of the chest. Hence this may be a type 2 myocardial infarction due to supply demand mismatch. But in view of the patient's significant coronary artery disease will maximize the patient's anti- CAD medication. 2.Coronary artery disease: History of prior to myocardial infarctions. History of proximal and mid LAD stent in 2001. Continue medications as mentioned above. 3. Right lung mass, most likely malignant, especially since the patient is a former smoker. With possible metastasis.. Would recommend pulmonary and oncology consults. 4. Hypertension: Continue the patient on beta-fredo and losartan. 5. Diabetes mellitus type 2 with chronic kidney disease: Avoid nephrotoxic drugs 6. History of smoking the past. Would recommend discontinuing the patient's NicoDerm patch. 7. Chronic kidney disease stage III: Avoid nephrotoxic drug. His GFR is improved. The patient did have a CT of the chest with contrast. Hence would try to avoid another CTA. 8. Hyperlipidemia: With low HDL level, good LDL level, and high triglyceride level. Recommend continue the patient on statin. 9. High suspicion for pulmonary embolism by CT of the chest. I feel that the patient does have risk factors for PE and hence we will go ahead and treat the patient with heparin. Would do the biopsy of the lung mass on a heparin free window., And restart the patient's heparin when safe after the biopsy. 10. Left thyroid mass: Status post biopsy. The patient states that the initial results were said to be inconclusive, and the slides have been sent to pathology for review. The results of this have not been obtained. The patient will try to get [facility] to see if he can get any further information on the tissue diagnosis of the thyroid mass. 11. Morbid obesity. 12 the patient states he has no further chest pressure on exertion or walking to the bathroom. He shortness of breath with the exertion is much improved. He states that he has a discomfort in the right front of the chest, but this is not pleuritic. Most likely this is due to the lung mass and possible pulmonary embolism.. Symptoms highly suggestive of obstructive sleep apnea. Would recommend empiric use of BiPAP here in the hospital. Later as an outpatient the patient would be recommended to have a sleep study. Medications reviewed. Management plan discussed with the attending physician and other caregiving providers on the case. Medical decision making is of high complexity. Discussed this complex case with the interventional cardiology chief in [facility] in [place]. He agrees that the patient should be on heparin, and a biopsy needs to be done as to this is paramount to further management plan in treating the patient's coronary artery disease. We need to know a tissue biopsy of the lung mass. We will not subject the patient to cardiac catheterization unless the biopsy of the lung mass is noted.
[2018-12-15] MEDS: LEVALBUTEROL HCL NEB 1.25 MG/3 ML AMPUL NEB SCH ×3 (00:46→15:59)
[2018-12-15] MEDS: IPRATROPIUM BROMIDE 0.02% NEB 0.5 MG/2.5 ML AMPUL NEB SCH ×3 (00:46→15:59)
[2018-12-15] MEDS: NORMAL SALINE 1000 ML 1,000 ML IV PRN ×2 (05:56→19:30)
[2018-12-15] MEDS: GABAPENTIN 300 MG CAPSULE PO SCH ×3 (06:35→21:30)
[2018-12-15 06:39] LABS: ABSOLUTE BASOPHILS # (AUTO) 0.1 10^3/uL (0.0-0.2); ABSOLUTE EOSINOPHILS # (AUTO) 0.1 10^3/uL (0.0-0.6); ABSOLUTE LYMPHOCYTES (AUTO) 1.5 10^3/uL (0.5-4.7); ABSOLUTE MONOCYTES (AUTO) 0.8 10^3/uL (0.1-1.4); ABSOLUTE NEUT (AUTO) 7.9 10^3/uL (1.7-8.2); BASOPHILS % (AUTO) 0.9 % (0-2); EOSINOPHILS % (AUTO) 0.6 % (0-6); HEMATOCRIT 41.9 % (37.9-51.0); HEMOGLOBIN 14.2 g/dL (13.5-17.0); LYMPHOCYTES % (AUTO) 14.4 % (13-45); MEAN CORPUSCULAR HEMOGLOBIN 30.1 pg (27.0-33.4); MEAN CORPUSCULAR HGB CONC 33.8 g/dL (32.0-36.0); MEAN CORPUSCULAR VOLUME 89 fl (80-97); PLATELET COUNT 145 10^3/uL (150-450); RED BLOOD COUNT 4.71 10^6/uL (4.35-5.55); RED CELL DISTRIBUTION WIDTH 14.4 % (11.5-14.0); SEGMENTED NEUTROPHILS % (AUTO) 76.1 % (42-78); TOTAL CELLS COUNTED % (AUTO) 100 %; WHITE BLOOD COUNT 10.4 10^3/uL (4.0-10.5)
[2018-12-15] MEDS: BUDESONIDE NEB 0.5 MG/2 ML AMPUL NEB SCH ×2 (08:23→20:25)
[2018-12-15] MEDS: INSULIN REG, HUMAN 100 UNIT/ML 3 ML VIAL (PYX) SUBCUT SCH ×4 (08:42→21:29)
[2018-12-15 08:52] LABS: ALANINE AMINOTRANSFERASE 82 U/L (21-72); ALBUMIN 3.6 g/dL (3.5-5.0); ALKALINE PHOSPHATASE 76 U/L (38-126); ANION GAP 10 (5-19); ASPARTATE AMINO TRANSFERASE 38 U/L (17-59); BILIRUBIN,DIRECT 0.4 mg/dL (0.0-0.4); BILIRUBIN,TOTAL 0.8 mg/dL (0.2-1.3); BLOOD UREA NITROGEN 24 mg/dL (7-20); CALCIUM 9.4 mg/dL (8.4-10.2); CARBON DIOXIDE 26 mmol/L (22-30); CHLORIDE 103 mmol/L (98-107); GLUCOSE 117 mg/dL (75-110); POTASSIUM 4.4 mmol/L (3.6-5.0); SODIUM 138.7 mmol/L (137-145); TOTAL PROTEIN 6.7 g/dL (6.3-8.2)
[2018-12-15 09:21] LABS: APPEARANCE,URINE CLOUDY; BILIRUBIN,URINE NEGATIVE (NEGATIVE); COLOR,URINE AMBER; GLUCOSE, URINE 150 mg/dL (NEGATIVE); KETONES,URINE NEGATIVE (NEGATIVE); LEUKOCYTE ESTERASE,URINE NEGATIVE (NEGATIVE); NITRITE,URINE NEGATIVE (NEGATIVE); PROTEIN,URINE 100 mg/dL (NEGATIVE); URINE SPECIFIC GRAVITY 1.027
[2018-12-15] MEDS: ASPIRIN 81 MG TABLET, CHEWABLE PO SCH (09:40)
[2018-12-15] MEDS: LOSARTAN POTASSIUM 50 MG TABLET PO SCH (09:40)
[2018-12-15] MEDS: FAMOTIDINE 20 MG TABLET PO SCH ×2 (09:40→21:30)
[2018-12-15] MEDS: ISOSORBIDE MONONITRATE 30 MG TAB.ER.24H PO SCH (09:40)
[2018-12-15] MEDS: DOCUSATE SODIUM 100 MG CAPSULE PO SCH ×2 (09:42→19:00)
[2018-12-15] MEDS ORDERED: METOPROLOL SUCCINATE 50 MG TAB.SR.24H PO SCH (10:00)
[2018-12-15] MEDS ORDERED: INSULIN GLARGINE,HUM.REC.ANLOG 1,000 UNIT/10 ML VIAL SUBCUT SCH (10:00)
--- NOTE | 2018-12-15 10:28 | PDOC PROGRESS REPORT ---
Subjective Progress Note for:: 12/15/18 Subjective:: Patient without new complaints. He is anxious to go home. He is currently undergoing doppler US of LE and is scheduled for lung biopsy on Monday morning. Reason For Visit: DYSPNEA Physical Exam Vital Signs: Temp Pulse Resp BP Pulse Ox 97.7 F 89 22 H 119/69 100 12/15/18 07:36 12/15/18 07:36 12/15/18 07:36 12/15/18 07:36 12/15/18 07:36 Intake & Output 12/14/18 12/15/18 12/16/18 06:59 06:59 06:59 Intake Total 1398 3179 Output Total 0 Balance 1398 3179 Weight 135.6 kg 144 kg General appearance: PRESENT: morbidly obese Head exam: PRESENT: normocephalic Respiratory exam: PRESENT: unlabored Neurological exam: PRESENT: alert, awake Psychiatric exam: PRESENT: appropriate affect Skin exam: PRESENT: normal color Results Laboratory Results: 12/15/18 06:23 12/15/18 07:57 12/14/18 12/15/18 12/15/18 07:55 06:23 06:23 WBC 10.4 RBC 4.71 Hgb 14.2 Hct 41.9 MCV 89 MCH 30.1 MCHC 33.8 RDW 14.4 H Plt Count 145 L Seg Neutrophils % 76.1 Lymphocytes % 14.4 Monocytes % 8.0 Eosinophils % 0.6 Basophils % 0.9 Absolute Neutrophils 7.9 Absolute Lymphocytes 1.5 Absolute Monocytes 0.8 Absolute Eosinophils 0.1 Absolute Basophils 0.1 Sodium Cancelled Potassium Cancelled Chloride Cancelled Carbon Dioxide Cancelled Anion Gap Cancelled BUN Cancelled Creatinine Cancelled Est GFR ( Amer) Cancelled Est GFR (Non-Af Amer) Cancelled Glucose Cancelled Calcium Cancelled Magnesium Cancelled Total Bilirubin Cancelled AST Cancelled ALT Cancelled Alkaline Phosphatase Cancelled Total Protein Cancelled Albumin Cancelled Urine Color PIPO Urine Appearance CLOUDY Urine pH 5.0 Ur Specific [place] 1.027 Urine Protein 100 H Urine Glucose (UA) 150 H Urine Ketones NEGATIVE Urine Blood NEGATIVE Urine Nitrite NEGATIVE Ur Leukocyte Esterase NEGATIVE Urine WBC (Auto) 1 Urine RBC (Auto) 0 12/15/18 07:57 WBC RBC Hgb Hct MCV MCH MCHC RDW Plt Count Seg Neutrophils % Lymphocytes % Monocytes % Eosinophils % Basophils % Absolute Neutrophils Absolute Lymphocytes Absolute Monocytes Absolute Eosinophils Absolute Basophils Sodium 138.7 Potassium 4.4 Chloride 103 Carbon Dioxide 26 Anion Gap 10 BUN 24 H Creatinine 1.47 H Est GFR ( Amer) 57 L Est GFR (Non-Af Amer) 47 L Glucose 117 H Calcium 9.4 Magnesium 2.2 Total Bilirubin 0.8 AST 38 ALT 82 H Alkaline Phosphatase 76 Total Protein 6.7 Albumin 3.6 Urine Color Urine Appearance Urine pH Ur Specific [place] Urine Protein Urine Glucose (UA) Urine Ketones Urine Blood Urine Nitrite Ur Leukocyte Esterase Urine WBC (Auto) Urine RBC (Auto) 12/11/18 12/11/18 12/11/18 14:45 17:14 21:07 Creatine Kinase 59 CK-MB (CK-2) Troponin I 0.114 0.150 NT-Pro-B Natriuret Pep 749 12/11/18 12/12/18 12/12/18 21:07 03:00 03:00 Creatine Kinase 56 CK-MB (CK-2) 1.36 1.37 Troponin I 0.111 0.083 NT-Pro-B Natriuret Pep 12/12/18 12/12/18 12/12/18 09:52 09:52 19:50 Creatine Kinase 51 L CK-MB (CK-2) 1.14 Troponin I 0.059 0.066 NT-Pro-B Natriuret Pep Impressions: Chest X-Ray 12/11/18 15:38 IMPRESSION: ROUNDED DENSITY IN THE RIGHT MIDLUNG AGAIN SEEN. CONCERNING FOR UNDERLYING PULMONARY MASS. RECOMMEND FOLLOW-UP CHEST CT. Chest CT 12/11/18 16:11 IMPRESSION: 1. LOBULATED MASS IN THE LATERAL RIGHT LUNG CONSISTENT WITH MALIGNANCY. ADDITIONAL SMALLER NODULAR MASSES EXTENDING MEDIALLY TO THE RIGHT HILUM. RIGHT HILAR MASS PRESUMED SECONDARY TO ADENOPATHY. PATCHY AIRSPACE DISEASE IN THE ADJACENT RIGHT LUNG. THIS MAY BE DUE TO PNEUMONITIS OR ATELECTASIS ALTHOUGH LYMPHATIC SPREAD OF TUMOR COULD BE ANOTHER POSSIBILITY. RIGHT PLEURAL EFFUSION. LEFT LUNG CLEAR. 2. HETEROGENOUS ENLARGED LEFT LOBE OF THE THYROID WHICH EXTENDS IN A SUBSTERNAL DIRECTION DESCRIBED. Abdomen/Pelvis CT 12/13/18 00:00 IMPRESSION: 1. Partially visualized filling defects in right lower lobe arteries, suspicious for pulmonary embolism. Consider CTA chest. 2. Small right pleural effusion as on prior exam. Right hilar mass is partially visualized, as on 12/11/[address] evidence for metastatic disease in the abdomen or pelvis. 4. No acute findings in the abdomen or pelvis. Assessment & Plan - Diagnosis (1) Mass of upper lobe of right lung Is this a current diagnosis for this admission?: Yes Plan: For CT guided biopsy on Monday. (2) Non-ST elevation myocardial infarction (NSTEMI) Is this a current diagnosis for this admission?: Yes (3) Morbid obesity Is this a current diagnosis for this admission?: Yes Plan: undergoing US of lower extremities to rule out DVT. Currently on heparin drip for recent OK. - Plan Summary Plan Summary: Await path from biopsy. OK for discharge after biopsy from our standpoint to review path results in the office. Please call if needed.
[2018-12-15] MEDS: FLUTICASONE NASAL SPRAY 50 MCG/SPRY 120 SPRAY/16 GM NASL SCH (11:44)
--- NOTE | 2018-12-15 11:54 | RADIOLOGY REPORT (SQ) ---
EXAM DESCRIPTION: VENOUS BILATERAL LOWER COMPLETED DATE/TIME: 12/15/2018 10:40 am REASON FOR STUDY: PE COMPARISON: None. TECHNIQUE: Dynamic and static haywood scale and color images acquired of both lower extremity venous sy stems. Selected spectral images acquired with additional compression and augmentation maneuvers. Imag es stored on PACS. LIMITATIONS: Large patient, difficult to penetrate with the ultrasound beam FINDINGS: RIGHT LEG COMMON FEMORAL AND FEMORAL: Normal phasicity, compression and augmentation. No visualized echogenic m aterial on haywood scale. No defects on color images. POPLITEAL: Normal compression and augmentation. No visualized echogenic material on haywood scale. No de fects on color images. POSTERIOR TIBIAL AND PERONEAL VEINS: Normal compression and augmentation. No visualized echogenic mat erial on haywood scale. No defects on color image. GSV AND SSV: Normal compression. No visualized echogenic material on haywood scale. No defects on color images. ANY DEEP VENOUS INSUFFICIENCY: Not evaluated. ANY EVIDENCE OF POPLITEAL CYST: No. OTHER: No other significant finding. LEFT LEG COMMON FEMORAL AND FEMORAL: Normal phasicity, compression and augmentation. No visualized echogenic m aterial on haywood scale. No defects on color images. POPLITEAL: Normal compression and augmentation. No visualized echogenic material on haywood scale. No de fects on color images. PERONEAL and POSTERIOR TIBIAL VEINS: There is hypoechoic acute clot in the paired posterior tibial v eins, which are non compressible. GSV : Normal compression. No visualized echogenic material on haywood scale. No defects on color images. SSV: The distal lesser saphenous vein in the calf is occluded by hypoechoic acute clot. Unable to c ompress the distal lesser saphenous vein ANY DEEP VENOUS INSUFFICIENCY: Not evaluated. ANY EVIDENCE POPLITEAL CYST: No. OTHER: No other significant finding. IMPRESSION: No venous thrombosis in the right leg Acute hypoechoic clot in the paired peroneal and posterior tibial veins in the left calf, acute hypoe choic clot in the left lesser saphenous vein in the calf COMMENT: Pertinent findings on the imaging study reported as a CRITICAL RESULT to JULISSA PERRY MD at 11:47 on 12/15/2018. Category of Critical Result: Acute DVT in the calf TECHNICAL DOCUMENTATION: JOB ID: [id number] [employer]- All Rights Reserved Reading location - IP/workstation name: [email or web address]
--- NOTE | 2018-12-15 13:07 | PDOC PROGRESS REPORT ---
Subjective Progress Note for:: 12/15/18 Subjective:: VICTOR MANUEL HALL is a 68 year old male who presented to the emergency room with a 4-day history of episodic dyspnea at rest and on exertion. Patient acknowledges moderate to severe dyspnea episodes worsened with any exertion, several times per day over the weekend but better on Monday. His symptoms returned again early this morning and were much more severe with the dyspnea and abdominal discomfort being present and not resolving with a short period of rest and c ontrolled breathing. His dyspnea was accompanied by a mild to moderate epigastric/lower anterior chest pressure-like discomfort. Patient's dyspnea and chest/abdomen discomfort was relieved by rest after a few minutes until today when it became persistent resulting in his trip to the emergency room. He also admits an associated symptom of bilateral leg swelling which is a little worse than his normal chronic swelling. He denies prior similar episodes. He denies identification of other aggravating or ameliorating factors for his dyspnea and chest/abdominal pain. In the emergency room he was noted to have dyspnea with exertion and required supplemental oxygen at 2 L/min via nasal cannula to remain dyspnea free and pain-free even at rest. Chest x-ray showed a right midlung mass suspicious for neoplasm with probable right perihilar lymphadenopathy. Because of the patient's acute respiratory failure, chest/abdominal pain, worsening peripheral edema and dyspnea with exertion he was admitted for further evaluation and treatment. 12/12/2018. Shortness of breath with mild improvement but patient still having dyspnea on exertion associated with pressure-like chest pain. Patient denies any fever, chills, nausea, vomiting, diarrhea, constipation or any urinary symptoms. 12/13/2018. Patient still having dyspnea on exertion, chest pain has not recurred since yesterday. Was able to ambulate to the bathroom having any chest pain. Denies any fever, chills, nausea, vomiting, diarrhea, constipation or any urinary symptoms. 12/14/2018. No acute events overnight. Patient is very pleasant cooperative with physical examination. Shortness of breath has improved since yesterday s till requiring supplemental oxygen. Has not had any more chest pain since yesterday. Able to ambulate to the restroom on supplemental oxygen does not report any chest pain on ambulation. Denies any fever, chills, nausea, vomiting, diarrhea, constipation or any urinary symptoms. 10/17/2018. Patient was having some respiratory distress overnight and was started on BiPAP with significant symptoms. Still complaining of dyspnea on exertion is not had any recurrence of his chest pain. Denies any fever, chills, nausea, vomiting, diarrhea, constipation or any urinary symptoms. Had a venous Doppler of lower extremities which was positive for DVT. Reason For Visit: DYSPNEA Physical Exam Vital Signs: Temp Pulse Resp BP Pulse Ox 97.7 F 101 H 20 119/69 95 12/15/18 07:36 12/15/18 08:25 12/15/18 08:25 12/15/18 07:36 12/15/18 08:25 Intake & Output 12/14/18 12/15/18 12/16/18 06:59 06:59 06:59 Intake Total 1398 3179 Output Total 0 Balance 1398 3179 Weight 135.6 kg 144 kg General appearance: PRESENT: mild distress, morbidly obese Head exam: PRESENT: atraumatic, normocephalic Neck exam: ABSENT: carotid bruit, JVD, lymphadenopathy, thyromegaly Respiratory exam: PRESENT: accessory muscle use, clear to auscultation nancy. ABSENT: rales, rhonchi, wheezes Cardiovascular exam: PRESENT: RRR. ABSENT: diastolic murmur, rubs, systolic murmur Extremities exam: PRESENT: full ROM. ABSENT: calf tenderness, clubbing, pedal edema Neurological exam: PRESENT: alert, awake, oriented to person, oriented to place, oriented to time, oriented to situation, CN II-XII grossly intact. ABSENT: m otor sensory deficit Results Laboratory Results: 12/15/18 06:23 12/15/18 07:57 12/14/18 12/15/18 12/15/18 07:55 06:23 06:23 WBC 10.4 RBC 4.71 Hgb 14.2 Hct 41.9 MCV 89 MCH 30.1 MCHC 33.8 RDW 14.4 H Plt Count 145 L Seg Neutrophils % 76.1 Lymphocytes % 14.4 Monocytes % 8.0 Eosinophils % 0.6 Basophils % 0.9 Absolute Neutrophils 7.9 Absolute Lymphocytes 1.5 Absolute Monocytes 0.8 Absolute Eosinophils 0.1 Absolute Basophils 0.1 Sodium Cancelled Potassium Cancelled Chloride Cancelled Carbon Dioxide Cancelled Anion Gap Cancelled BUN Cancelled Creatinine Cancelled Est GFR ( Amer) Cancelled Est GFR (Non-Af Amer) Cancelled Glucose Cancelled Calcium Cancelled Magnesium Cancelled Total Bilirubin Cancelled AST Cancelled ALT Cancelled Alkaline Phosphatase Cancelled Total Protein Cancelled Albumin Cancelled Urine Color PIPO Urine Appearance CLOUDY Urine pH 5.0 Ur Specific [place] 1.027 Urine Protein 100 H Urine Glucose (UA) 150 H Urine Ketones NEGATIVE Urine Blood NEGATIVE Urine Nitrite NEGATIVE Ur Leukocyte Esterase NEGATIVE Urine WBC (Auto) 1 Urine RBC (Auto) 0 12/15/18 07:57 WBC RBC Hgb Hct MCV MCH MCHC RDW Plt Count Seg Neutrophils % Lymphocytes % Monocytes % Eosinophils % Basophils % Absolute Neutrophils Absolute Lymphocytes Absolute Monocytes Absolute Eosinophils Absolute Basophils Sodium 138.7 Potassium 4.4 Chloride 103 Carbon Dioxide 26 Anion Gap 10 BUN 24 H Creatinine 1.47 H Est GFR ( Amer) 57 L Est GFR (Non-Af Amer) 47 L Glucose 117 H Calcium 9.4 Magnesium 2.2 Total Bilirubin 0.8 AST 38 ALT 82 H Alkaline Phosphatase 76 Total Protein 6.7 Albumin 3.6 Urine Color Urine Appearance Urine pH Ur Specific [place] Urine Protein Urine Glucose (UA) Urine Ketones Urine Blood Urine Nitrite Ur Leukocyte Esterase Urine WBC (Auto) Urine RBC (Auto) 12/11/18 12/11/18 12/11/18 14:45 17:14 21:07 Creatine Kinase 59 CK-MB (CK-2) Troponin I 0.114 0.150 NT-Pro-B Natriuret Pep 749 12/11/18 12/12/18 12/12/18 21:07 03:00 03:00 Creatine Kinase 56 CK-MB (CK-2) 1.36 1.37 Troponin I 0.111 0.083 NT-Pro-B Natriuret Pep 12/12/18 12/12/18 12/12/18 09:52 09:52 19:50 Creatine Kinase 51 L CK-MB (CK-2) 1.14 Troponin I 0.059 0.066 NT-Pro-B Natriuret Pep Impressions: Chest X-Ray 12/11/18 15:38 IMPRESSION: ROUNDED DENSITY IN THE RIGHT MIDLUNG AGAIN SEEN. CONCERNING FOR UNDERLYING PULMONARY MASS. RECOMMEND FOLLOW-UP CHEST CT. Chest CT 12/11/18 16:11 IMPRESSION: 1. LOBULATED MASS IN THE LATERAL RIGHT LUNG CONSISTENT WITH MALIGNANCY. ADDITIONAL SMALLER NODULAR MASSES EXTENDING MEDIALLY TO THE RIGHT HILUM. RIGHT HILAR MASS PRESUMED SECONDARY TO ADENOPATHY. PATCHY AIRSPACE DISEASE IN THE ADJACENT RIGHT LUNG. THIS MAY BE DUE TO PNEUMONITIS OR ATELECTASIS ALTHOUGH LYMPHATIC SPREAD OF TUMOR COULD BE ANOTHER POSSIBILITY. RIGHT PLEURAL EFFUSION. LEFT LUNG CLEAR. 2. HETEROGENOUS ENLARGED LEFT LOBE OF THE THYROID WHICH EXTENDS IN A SUBSTERNAL DIRECTION DESCRIBED. Abdomen/Pelvis CT 12/13/18 00:00 IMPRESSION: 1. Partially visualized filling defects in right lower lobe arteries, suspicious for pulmonary embolism. Consider CTA chest. 2. Small right pleural effusion as on prior exam. Right hilar mass is partially visualized, as on 12/11/[address] evidence for metastatic disease in the abdomen or pelvis. 4. No acute findings in the abdomen or pelvis. Venous Doppler Study 12/15/18 00:00 IMPRESSION: No venous thrombosis in the right leg Acute hypoechoic clot in the paired peroneal and posterior tibial veins in the left calf, acute hypoechoic clot in the left lesser saphenous vein in the calf Assessment and Plan - Diagnosis (1) Pulmonary emboli Qualifiers: Chronicity: unspecified Is this a current diagnosis for this admission?: Yes Plan: This was observed on CT abdomen pelvis with and without contrast for restaging of his lung mass. On admission patient had a CT chest without contrast. 12/14/2018 patient will need a CTA to confirm and localize his pulmonary emboli, but because of the fact that he had received IV contrast yesterday for CT abdomen and pelvis and he may receive IV contrast on Monday for CT-guided biopsy and possible left heart cath on Monday at [facility], would be safer to treat his PE empirically. 12/15/2018 venous Doppler of lower extremities showed acute hypoechoic clock in the paired peroneal and posterior tibial veins in the left calf acute hypoechoic clock in the left lesser saphenous vein in the calf. Continue heparin drip, patient may be transitioned to Coumadin or NOACs once his lung biopsy is done. (2) Non-ST elevation myocardial infarction (NSTEMI) Is this a current diagnosis for this admission?: Yes Plan: Right-sided chest pain has resolved still complaining of dyspnea on exertion and orthopnea. Patient is positive for acute DVT and PE which may explain his dyspnea on exertion and chest pain. As per cardiology note patient may not have had an NSTEMI I but rather NSTEMI II due to mismatch demand caused by acute PE. History of CAD status post stent placement in 2000. Troponins 0.114, 0.150, 0.11, 0.08, 0.05 Aspirin, heparin drip, beta-blockers, EMORY, high intensity statins. As needed nitrates and morphine. . He is scheduled to have a CT-guided biopsy on Monday as per cardiology note he will possibly be transferred to [facility] possible left heart cath after his biopsy result is in. (3) DVT of axillary vein, acute left Is this a current diagnosis for this admission?: Yes Plan: Provoked. High risk due to underlying lung malignancy. 12/15/2018. Venous Doppler of lower extremities showed acute hypoechoic clock in the paired peroneal and posterior tibial veins in the left calf acute hypoechoic clock in the left lesser saphenous vein in the calf. Continue heparin drip, patient may be transitioned to Coumadin or NOACs once his lung biopsy is done. (4) Unstable angina Is this a current diagnosis for this admission?: Yes Plan: As per problem #1. (5) Mass of upper lobe of right lung Is this a current diagnosis for this admission?: Yes Plan: Denies any history of previous malignancy. Former heavy smoker. Status post thyroid mass biopsy as outpatient. Pathology pending. Positive family history of colon cancer. Last colonoscopy 5 years ago status post polypectomy reported as normal per patient. PTHrP pending. Pulmonary consulted unfortunately no coverage available at this week. Oncology on board agrees with CT-guided biopsy. Scheduled for CT-guided biopsy on Monday as radiology is not able to do a biopsy today due to staff shortage. CT abdomen and pelvis contrast did not show any abdominal metastasis. (6) CKD (chronic kidney disease) stage 2, GFR 60-89 ml/min Is this a current diagnosis for this admission?: No Plan: Stable. Improving. Monitor electrolytes and volume status. Avoid nephrotoxic meds. (7) Diabetes type 2, uncontrolled Qualifiers: Glycemic state: with hyperglycemia Qualified Code(s): E11.65 - Type 2 diabetes mellitus with hyperglycemia Is this a current diagnosis for this admission?: Yes Plan: Resistant. Patient is on highly concentrated insulin form. Has been followed by several [facility]eman in the past. Not well managed by sliding scale. We do not carry his form of insulin in the hospital. Patient brought his own insulin supplies, verified by pharmacy and restarted. DC insulin drip. Continue sliding scale insulin. Cardiac and diabetic diet. (8) CAD (coronary artery disease) Is this a current diagnosis for this admission?: No Plan: Continue ASA, statins, EMORY, beta-blockers. (9) PADMINI (obstructive sleep apnea) Is this a current diagnosis for this admission?: No Plan: Has not been evaluated by pulmonology. Nocturnal CPAP. Outpatient nocturnal polysomnography. Pulmonology follow-up. Weight loss advised. (10) Morbid obesity with BMI of 40.0-44.9, adult Is this a current diagnosis for this admission?: No Plan: Diet and lifestyle modifications.
[2018-12-15] MEDS: CALCITRIOL 0.25 MCG CAPSULE PO SCH (13:27)
--- NOTE | 2018-12-15 13:44 | Progress Note ---
Provider Note Provider Note: CARDIOLOGY PROGRESS NOTE by Dr. Syl Davis on 12/15/2018. SUBJECTIVE: Note that the patient denies any chest pain or discomfort. He has no shortness of breath on walking to the bathroom. There is no chest pain or discomfort on walking to the bathroom and back. He denies any palpitations. There is no TIA CVA symptoms. There is no bleeding on heparin. The patient's venous Dopplers of the leg does show DVT in the left lower extremity. There is no TIA CVA symptoms. The patient has no further anginal symptoms. Note at times the patient's heart rate goes up. The patient does have BiPAP off and on. PHYSICAL EXAMINATION: The patient is morbidly obese. He is in no acute distress. He is well-groomed. Selected Entries 12/15/18 12/15/18 07:36 08:25 Temperature 97.7 F Temperature Axillary Source Pulse Rate 89 101 H Respiratory 22 H 20 Rate Blood Pressure 119/69 Blood Pressure 85 Mean BP Location Right Arm BP Position Sitting O2 Sat by Pulse 100 95 Oximetry Fraction of 40 Inspired Oxygen (FIO2) Oxygen Flow 5 Rate Oxygen Delivery Bipap Method HEAD: Is atraumatic normocephalic. EYES: Pupils are equal round regular reactive to light accommodation. Extraocular movements are normal. There is no conjunctival pallor. There is no scleral icterus. EARS: Tympanic memories are intact. External auditory canals are clear. NOSE: There is no deviated nasal septum. There is no inflammation of the nasal mucous membranes. MOUTH: Mucous membranes of mouth are moist. Tongue is moist. There is no bleeding from the gums. THROAT: There is no redness of the oropharynx. There is no exudates. SKIN: There is no skin rashes or skin lesions. There is no petechia or ecchymosis. NECK: Is supple. There is no JVD. Carotids are equal there is no bruit there is fullness in the left thyroid lobe area. There is no lymphadenopathy. There is no accessory muscles of respiration use. Trachea central. LUNGS: Left lung is clear without any rhonchi rales or wheezing. There is diffuse dry crackles in the right upper lobe with a few scattered rhonchi. There is no wheezing. On palpation there is no chest wall tenderness. HEART: S1-S2 is heard. S1 is of normal intensity. There is no S3 gallop. There is no S4 gallop. There is systolic murmur left sternal border and the apex there is no rub. ABDOMEN: Is obese. Nontender. There is no hepatosplenic megaly. Bowel sounds are well heard. There is no tender areas masses. EXTREMITIES: Femorals are deep. Femorals are diminished. There is no femoral bruits. Leg pulses slightly diminished. There is trace pedal edema. There is no DVT or cellulitis. There is no calf tenderness. There is no cyanosis or clubbing. 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 PSYCHIATRIC: The patient judgment insight are intact his affect is normal. Labs- All tests 24 hr 12/14/18 12/14/18 12/14/18 07:55 16:00 17:28 WBC RBC Hgb Hct MCV MCH MCHC RDW Plt Count Seg Neutrophils % Lymphocytes % Monocytes % Eosinophils % Basophils % Absolute Neutrophils Absolute Lymphocytes Absolute Monocytes Absolute Eosinophils Absolute Basophils APTT 51.4 H Sodium Potassium Chloride Carbon Dioxide Anion Gap BUN Creatinine Est GFR ( Amer) Est GFR (Non-Af Amer) Glucose POC Glucose 359 H Calcium Magnesium Total Bilirubin Direct Bilirubin Neonat Total Bilirubin Neonat Direct Bilirubin Neonat Indirect Bili AST ALT Alkaline Phosphatase Total Protein Albumin Urine Color PIPO Urine Appearance CLOUDY Urine pH 5.0 Ur Specific [place] 1.027 Urine Protein 100 H Urine Glucose (UA) 150 H Urine Ketones NEGATIVE Urine Blood NEGATIVE Urine Nitrite NEGATIVE Urine Bilirubin NEGATIVE Urine Urobilinogen 2.0 H Ur Leukocyte Esterase NEGATIVE Urine WBC (Auto) 1 Urine RBC (Auto) 0 Urine Mucus (Auto) RARE Urine Ascorbic Acid NEGATIVE 12/14/18 12/14/18 12/15/18 21:16 23:52 00:40 WBC RBC Hgb Hct MCV MCH MCHC RDW Plt Count Seg Neutrophils % Lymphocytes % Monocytes % Eosinophils % Basophils % Absolute Neutrophils Absolute Lymphocytes Absolute Monocytes Absolute Eosinophils Absolute Basophils APTT 90.3 H Sodium Potassium Chloride Carbon Dioxide Anion Gap BUN Creatinine Est GFR ( Amer) Est GFR (Non-Af Amer) Glucose POC Glucose 310 H 131 H Calcium Magnesium Total Bilirubin Direct Bilirubin Neonat Total Bilirubin Neonat Direct Bilirubin Neonat Indirect Bili AST ALT Alkaline Phosphatase Total Protein Albumin Urine Color Urine Appearance Urine pH Ur Specific [place] Urine Protein Urine Glucose (UA) Urine Ketones Urine Blood Urine Nitrite Urine Bilirubin Urine Urobilinogen Ur Leukocyte Esterase Urine WBC (Auto) Urine RBC (Auto) Urine Mucus (Auto) Urine Ascorbic Acid 12/15/18 12/15/18 12/15/18 01:13 06:23 06:23 WBC 10.4 RBC 4.71 Hgb 14.2 Hct 41.9 MCV 89 MCH 30.1 MCHC 33.8 RDW 14.4 H Plt Count 145 L Seg Neutrophils % 76.1 Lymphocytes % 14.4 Monocytes % 8.0 Eosinophils % 0.6 Basophils % 0.9 Absolute Neutrophils 7.9 Absolute Lymphocytes 1.5 Absolute Monocytes 0.8 Absolute Eosinophils 0.1 Absolute Basophils 0.1 APTT Sodium Cancelled Potassium Cancelled Chloride Cancelled Carbon Dioxide Cancelled Anion Gap Cancelled BUN Cancelled Creatinine Cancelled Est GFR ( Amer) Cancelled Est GFR (Non-Af Amer) Cancelled Glucose Cancelled POC Glucose 147 H Calcium Cancelled Magnesium Cancelled Total Bilirubin Cancelled Direct Bilirubin Cancelled Neonat Total Bilirubin Cancelled Neonat Direct Bilirubin Cancelled Neonat Indirect Bili Cancelled AST Cancelled ALT Cancelled Alkaline Phosphatase Cancelled Total Protein Cancelled Albumin Cancelled Urine Color Urine Appearance Urine pH Ur Specific [place] Urine Protein Urine Glucose (UA) Urine Ketones Urine Blood Urine Nitrite Urine Bilirubin Urine Urobilinogen Ur Leukocyte Esterase Urine WBC (Auto) Urine RBC (Auto) Urine Mucus (Auto) Urine Ascorbic Acid 12/15/18 12/15/18 12/15/18 06:23 07:37 07:57 WBC RBC Hgb Hct MCV MCH MCHC RDW Plt Count Seg Neutrophils % Lymphocytes % Monocytes % Eosinophils % Basophils % Absolute Neutrophils Absolute Lymphocytes Absolute Monocytes Absolute Eosinophils Absolute Basophils APTT 71.1 H Sodium 138.7 Potassium 4.4 Chloride 103 Carbon Dioxide 26 Anion Gap 10 BUN 24 H Creatinine 1.47 H Est GFR ( Amer) 57 L Est GFR (Non-Af Amer) 47 L Glucose 117 H POC Glucose 149 H Calcium 9.4 Magnesium 2.2 Total Bilirubin 0.8 Direct Bilirubin 0.4 Neonat Total Bilirubin Not Reportable Neonat Direct Bilirubin Not Reportable Neonat Indirect Bili Not Reportable AST 38 ALT 82 H Alkaline Phosphatase 76 Total Protein 6.7 Albumin 3.6 Urine Color Urine Appearance Urine pH Ur Specific [place] Urine Protein Urine Glucose (UA) Urine Ketones Urine Blood Urine Nitrite Urine Bilirubin Urine Urobilinogen Ur Leukocyte Esterase Urine WBC (Auto) Urine RBC (Auto) Urine Mucus (Auto) Urine Ascorbic Acid 12/15/18 12/15/18 12/15/18 11:25 12:26 13:31 WBC RBC Hgb Hct MCV MCH MCHC RDW Plt Count Seg Neutrophils % Lymphocytes % Monocytes % Eosinophils % Basophils % Absolute Neutrophils Absolute Lymphocytes Absolute Monocytes Absolute Eosinophils Absolute Basophils APTT 69.4 H Sodium Potassium Chloride Carbon Dioxide Anion Gap BUN Creatinine Est GFR ( Amer) Est GFR (Non-Af Amer) Glucose POC Glucose 88 122 H Calcium Magnesium Total Bilirubin Direct Bilirubin Neonat Total Bilirubin Neonat Direct Bilirubin Neonat Indirect Bili AST ALT Alkaline Phosphatase Total Protein Albumin Urine Color Urine Appearance Urine pH Ur Specific [place] Urine Protein Urine Glucose (UA) Urine Ketones Urine Blood Urine Nitrite Urine Bilirubin Urine Urobilinogen Ur Leukocyte Esterase Urine WBC (Auto) Urine RBC (Auto) Urine Mucus (Auto) Urine Ascorbic Acid Chest X-Ray 12/11/18 14:11 IMPRESSION: 1. Rounded masslike opacity of the right upper lobe with adjacent heterogeneous airspace opacity. Findings are highly concerning for primary malignancy. Recommend CT to further evaluate. 2. Cardiomegaly. Chest X-Ray 12/11/18 15:38 IMPRESSION: ROUNDED DENSITY IN THE RIGHT MIDLUNG AGAIN SEEN. CONCERNING FOR UNDERLYING PULMONARY MASS. RECOMMEND FOLLOW-UP CHEST CT. Chest CT 12/11/18 16:11 IMPRESSION: 1. LOBULATED MASS IN THE LATERAL RIGHT LUNG CONSISTENT WITH MALIGNANCY. ADDITIONAL SMALLER NODULAR MASSES EXTENDING MEDIALLY TO THE RIGHT HILUM. RIGHT HILAR MASS PRESUMED SECONDARY TO ADENOPATHY. PATCHY AIRSPACE DISEASE IN THE ADJACENT RIGHT LUNG. THIS MAY BE DUE TO PNEUMONITIS OR ATELECTASIS ALTHOUGH LYMPHATIC SPREAD OF TUMOR COULD BE ANOTHER POSSIBILITY. RIGHT PLEURAL EFFUSION. LEFT LUNG CLEAR. 2. HETEROGENOUS ENLARGED LEFT LOBE OF THE THYROID WHICH EXTENDS IN A SUBSTERNAL DIRECTION DESCRIBED. Abdomen/Pelvis CT 12/13/18 00:00 IMPRESSION: 1. Partially visualized filling defects in right lower lobe arteries, suspicious for pulmonary embolism. Consider CTA chest. 2. Small right pleural effusion as on prior exam. Right hilar mass is partially visualized, as on 12/11/[address] evidence for metastatic disease in the abdomen or pelvis. 4. No acute findings in the abdomen or pelvis. Venous Doppler Study 12/15/18 00:00 IMPRESSION: No venous thrombosis in the right leg Acute hypoechoic clot in the paired peroneal and posterior tibial veins in the left calf, acute hypoechoic clot in the left lesser saphenous vein in the calf IMPRESSION/RECOMMENDATION: 1. Non-ST elevation [place] versus type II myocardial infarction secondary to supply demand mismatch.: Patient with exertional chest pressure/shortness of breath. Now rethinking the case probably this is not a non-ST elevation [place], and just a leak from the pulmonary emboli and the lung mass. This is due to the fact that at present the patient has no exertional chest pressure. He has still some degree of shortness of breath, but much less than before, and also has discomfort in the right side of the chest. Hence this may be a type 2 myocardial infarction due to supply demand mismatch. But in view of the patient's significant coronary artery disease will maximize the patient's anti- CAD medication. 2. Pulmonary embolism: The patient also has DVT in the left leg. Hence continue the patient on IV heparin, and patient scheduled for biopsy on Monday on a heparin free window, and subsequently will be placed on a oral anticoagulation medication. 3. Coronary artery disease: History of prior to myocardial infarctions. History of proximal and mid LAD stent in 2001. Continue medications as mentioned above. 4. Right lung mass, most likely malignant, especially since the patient is a former smoker. With possible metastasis.. Would recommend pulmonary and oncology consults. 4. Hypertension: Continue the patient on beta-fredo and losartan. 5. Diabetes mellitus type 2 with chronic kidney disease: Avoid nephrotoxic drugs 6. Chronic kidney disease stage III: Avoid nephrotoxic drug. His GFR is slightly worse. We will continue hydration. His GFR is 47 mL/min today 7. Hyperlipidemia: With low HDL level, good LDL level, and high triglyceride level. Recommend continue the patient on statin. 8. Left thyroid mass: Status post biopsy. The patient states that the initial results were said to be inconclusive, and the slides have been sent to pathology for review. The results of this have not been obtained. The patient will try to get [facility] to see if he can get any further information on the tissue diagnosis of the thyroid mass. 9. the patient states he has no further chest pressure on exertion or walking to the bathroom. He shortness of breath with the exertion is much improved. He states that he has a discomfort in the right front of the chest, but this is not pleuritic. Most likely this is due to the lung mass and possible pulmonary embolism.. Symptoms highly suggestive of obstructive sleep apnea. Would recommend empiric use of BiPAP here in the hospital. Later as an outpatient the patient would be recommended to have a sleep study. 10. DVT left lower extremity. Continue heparin, and later switch to oral anticoagulation agent. 11. Morbid Obesity. We will increase the patient's beta-fredo 200 mg p.o. every 12 hours. We will check the patient's EKG in the morning. Medications reviewed. Management plan discussed with the attending physician and other caregiving providers on the case. Medical decision making is of high complexity. 40 minutes spent on the patient. With more than 50% of time spent in direct patient care. The findings of the region stopped have been discussed with the patient. Discussed this complex case with the interventional cardiology chief in [facility] in [place]. He agrees that the patient should be on heparin, and a biopsy needs to be done as to this is paramount to further management plan in treating the patient's coronary artery disease. We need to know a tissue biopsy of the lung mass. We will not subject the patient to cardiac catheterization unless the biopsy of the lung mass is done, and the pathology noted.
[2018-12-15] MEDS: HEPARIN SODIUM,PORCINE/D5W 25,000 UNIT/250 ML RTUINJ IV PRN (20:12)
[2018-12-15] MEDS: MONTELUKAST SODIUM 10 MG TABLET PO SCH (21:30)
[2018-12-15] MEDS: ATORVASTATIN CALCIUM 40 MG TABLET PO SCH (21:30)
[2018-12-15] MEDS: METOPROLOL SUCCINATE 50 MG TAB.SR.24H PO SCH (21:30)
[2018-12-16] MEDS: LEVALBUTEROL HCL NEB 1.25 MG/3 ML AMPUL NEB SCH ×3 (00:37→15:53)
[2018-12-16] MEDS: IPRATROPIUM BROMIDE 0.02% NEB 0.5 MG/2.5 ML AMPUL NEB SCH ×3 (00:37→15:53)
[2018-12-16] MEDS: GABAPENTIN 300 MG CAPSULE PO SCH ×3 (05:16→21:33)
[2018-12-16 06:06] LABS: ABSOLUTE EOSINOPHILS # (AUTO) 0.1 10^3/uL (0.0-0.6); ABSOLUTE LYMPHOCYTES (AUTO) 1.1 10^3/uL (0.5-4.7); ABSOLUTE MONOCYTES (AUTO) 0.8 10^3/uL (0.1-1.4); BASOPHILS % (AUTO) 0.4 % (0-2); EOSINOPHILS % (AUTO) 0.6 % (0-6); HEMATOCRIT 37.2 % (37.9-51.0); HEMOGLOBIN 12.9 g/dL (13.5-17.0); LYMPHOCYTES % (AUTO) 11.2 % (13-45); MEAN CORPUSCULAR HEMOGLOBIN 30.6 pg (27.0-33.4); MEAN CORPUSCULAR HGB CONC 34.8 g/dL (32.0-36.0); MEAN CORPUSCULAR VOLUME 88 fl (80-97); PLATELET COUNT 160 10^3/uL (150-450); RED BLOOD COUNT 4.22 10^6/uL (4.35-5.55); RED CELL DISTRIBUTION WIDTH 14.7 % (11.5-14.0); SEGMENTED NEUTROPHILS % (AUTO) 79.8 % (42-78); TOTAL CELLS COUNTED % (AUTO) 100 %
[2018-12-16 06:26] LABS: ALANINE AMINOTRANSFERASE 72 U/L (21-72); ALBUMIN 3.3 g/dL (3.5-5.0); ALKALINE PHOSPHATASE 75 U/L (38-126); ANION GAP 10 (5-19); ASPARTATE AMINO TRANSFERASE 39 U/L (17-59); BILIRUBIN,DIRECT 0.6 mg/dL (0.0-0.4); BILIRUBIN,TOTAL 1.2 mg/dL (0.2-1.3); BLOOD UREA NITROGEN 21 mg/dL (7-20); CALCIUM 9.1 mg/dL (8.4-10.2); CARBON DIOXIDE 21 mmol/L (22-30); CHLORIDE 107 mmol/L (98-107); GLUCOSE 93 mg/dL (75-110); POTASSIUM 4.3 mmol/L (3.6-5.0); SODIUM 137.8 mmol/L (137-145); TOTAL PROTEIN 6.3 g/dL (6.3-8.2)
[2018-12-16] MEDS: HEPARIN SODIUM,PORCINE/D5W 25,000 UNIT/250 ML RTUINJ IV PRN ×2 (07:20→17:30)
[2018-12-16] MEDS: INSULIN REG, HUMAN 100 UNIT/ML 3 ML VIAL (PYX) SUBCUT SCH ×4 (07:57→21:43)
[2018-12-16] MEDS: BUDESONIDE NEB 0.5 MG/2 ML AMPUL NEB SCH ×2 (08:23→20:47)
[2018-12-16] MEDS: DOCUSATE SODIUM 100 MG CAPSULE PO SCH ×2 (09:23→17:22)
[2018-12-16] MEDS: ISOSORBIDE MONONITRATE 30 MG TAB.ER.24H PO SCH (09:23)
[2018-12-16] MEDS: FLUTICASONE NASAL SPRAY 50 MCG/SPRY 120 SPRAY/16 GM NASL SCH (09:23)
[2018-12-16] MEDS: ASPIRIN 81 MG TABLET, CHEWABLE PO SCH (09:24)
[2018-12-16] MEDS: FAMOTIDINE 20 MG TABLET PO SCH ×2 (09:24→21:33)
[2018-12-16] MEDS: LOSARTAN POTASSIUM 50 MG TABLET PO SCH (09:24)
[2018-12-16] MEDS: METOPROLOL SUCCINATE 50 MG TAB.SR.24H PO SCH ×2 (09:24→21:34)
[2018-12-16] MEDS: NORMAL SALINE 1000 ML 1,000 ML IV PRN (09:57)
--- NOTE | 2018-12-16 10:10 | PDOC PROGRESS REPORT ---
Subjective Progress Note for:: 12/16/18 Subjective:: VICTOR MANUEL HALL is a 68 year old male who presented to the emergency room with a 4-day history of episodic dyspnea at rest and on exertion. Patient acknowledges moderate to severe dyspnea episodes worsened with any exertion, several times per day over the weekend but better on Monday. His symptoms returned again early this morning and were much more severe with the dyspnea and abdominal discomfort being present and not resolving with a short period of rest and c ontrolled breathing. His dyspnea was accompanied by a mild to moderate epigastric/lower anterior chest pressure-like discomfort. Patient's dyspnea and chest/abdomen discomfort was relieved by rest after a few minutes until today when it became persistent resulting in his trip to the emergency room. He also admits an associated symptom of bilateral leg swelling which is a little worse than his normal chronic swelling. He denies prior similar episodes. He denies identification of other aggravating or ameliorating factors for his dyspnea and chest/abdominal pain. In the emergency room he was noted to have dyspnea with exertion and required supplemental oxygen at 2 L/min via nasal cannula to remain dyspnea free and pain-free even at rest. Chest x-ray showed a right midlung mass suspicious for neoplasm with probable right perihilar lymphadenopathy. Because of the patient's acute respiratory failure, chest/abdominal pain, worsening peripheral edema and dyspnea with exertion he was admitted for further evaluation and treatment. 12/12/2018. Shortness of breath with mild improvement but patient still having dyspnea on exertion associated with pressure-like chest pain. Patient denies any fever, chills, nausea, vomiting, diarrhea, constipation or any urinary symptoms. 12/13/2018. Patient still having dyspnea on exertion, chest pain has not recurred since yesterday. Was able to ambulate to the bathroom having any chest pain. Denies any fever, chills, nausea, vomiting, diarrhea, constipation or any urinary symptoms. 12/14/2018. No acute events overnight. Patient is very pleasant cooperative with physical examination. Shortness of breath has improved since yesterday s till requiring supplemental oxygen. Has not had any more chest pain since yesterday. Able to ambulate to the restroom on supplemental oxygen does not report any chest pain on ambulation. Denies any fever, chills, nausea, vomiting, diarrhea, constipation or any urinary symptoms. 12/15/2018. Patient was having some respiratory distress overnight and was started on BiPAP with significant symptoms. Still complaining of dyspnea on exertion is not had any recurrence of his chest pain. Denies any fever, chills, nausea, vomiting, diarrhea, constipation or any urinary symptoms. Had a venous Doppler of lower extremities which was positive for DVT. 12/16/2018. No acute events overnight. EMR patient has T-max of 100.8 and 2 episodes upon my conversation with him today he denies having any fever or chills, still complaining of dyspnea on exertion, has not had any recurrence of his chest pain, p.o. tolerant, ambulatory, having normal bowel and bladder function. Denies any nausea, vomiting, diarrhea, constipation, urinary symptoms. Scheduled for CT-guided biopsy of lung mass tomorrow. Reason For Visit: DYSPNEA Physical Exam Vital Signs: Temp Pulse Resp BP Pulse Ox 98.5 F 89 20 124/67 95 12/16/18 07:47 12/16/18 07:47 12/16/18 07:47 12/16/18 07:47 12/16/18 07:47 Intake & Output 12/15/18 12/16/18 12/17/18 06:59 06:59 06:59 Intake Total 3179 3173 1250 Output Total 0 Balance 3179 3173 1250 Weight 144 kg 145.6 kg General appearance: PRESENT: no acute distress, obese Head exam: PRESENT: atraumatic, normocephalic Respiratory exam: PRESENT: clear to auscultation nancy. ABSENT: rales, rhonchi, wheezes Cardiovascular exam: PRESENT: RRR. ABSENT: diastolic murmur, rubs, systolic murmur Extremities exam: PRESENT: full ROM, +1 edema. ABSENT: calf tenderness, clubbing, pedal edema Neurological exam: PRESENT: alert, awake, oriented to person, oriented to place, oriented to time, oriented to situation, CN II-XII grossly intact. ABSENT: motor sensory deficit Skin exam: PRESENT: dry, intact, warm. ABSENT: cyanosis, rash Results Laboratory Results: 12/16/18 04:43 12/16/18 04:43 12/16/18 12/16/18 04:43 04:43 WBC 10.0 RBC 4.22 L Hgb 12.9 L Hct 37.2 L MCV 88 MCH 30.6 MCHC 34.8 RDW 14.7 H Plt Count 160 Seg Neutrophils % 79.8 H Lymphocytes % 11.2 L Monocytes % 8.0 Eosinophils % 0.6 Basophils % 0.4 Absolute Neutrophils 8.0 Absolute Lymphocytes 1.1 Absolute Monocytes 0.8 Absolute Eosinophils 0.1 Absolute Basophils 0.0 Sodium 137.8 Potassium 4.3 Chloride 107 Carbon Dioxide 21 L Anion Gap 10 BUN 21 H Creatinine 1.40 H Est GFR ( Amer) > 60 Est GFR (Non-Af Amer) 50 L Glucose 93 Calcium 9.1 Magnesium 2.1 Total Bilirubin 1.2 AST 39 ALT 72 Alkaline Phosphatase 75 Total Protein 6.3 Albumin 3.3 L 12/11/18 12/11/18 12/11/18 14:45 17:14 21:07 Creatine Kinase 59 CK-MB (CK-2) Troponin I 0.114 0.150 NT-Pro-B Natriuret Pep 749 12/11/18 12/12/18 12/12/18 21:07 03:00 03:00 Creatine Kinase 56 CK-MB (CK-2) 1.36 1.37 Troponin I 0.111 0.083 NT-Pro-B Natriuret Pep 12/12/18 12/12/18 12/12/18 09:52 09:52 19:50 Creatine Kinase 51 L CK-MB (CK-2) 1.14 Troponin I 0.059 0.066 NT-Pro-B Natriuret Pep Impressions: Chest X-Ray 12/11/18 15:38 IMPRESSION: ROUNDED DENSITY IN THE RIGHT MIDLUNG AGAIN SEEN. CONCERNING FOR UNDERLYING PULMONARY MASS. RECOMMEND FOLLOW-UP CHEST CT. Chest CT 12/11/18 16:11 IMPRESSION: 1. LOBULATED MASS IN THE LATERAL RIGHT LUNG CONSISTENT WITH MALIGNANCY. ADDITIONAL SMALLER NODULAR MASSES EXTENDING MEDIALLY TO THE RIGHT HILUM. RIGHT HILAR MASS PRESUMED SECONDARY TO ADENOPATHY. PATCHY AIRSPACE DISEASE IN THE ADJACENT RIGHT LUNG. THIS MAY BE DUE TO PNEUMONITIS OR ATELECTASIS ALTHOUGH LYMPHATIC SPREAD OF TUMOR COULD BE ANOTHER POSSIBILITY. RIGHT PLEURAL EFFUSION. LEFT LUNG CLEAR. 2. HETEROGENOUS ENLARGED LEFT LOBE OF THE THYROID WHICH EXTENDS IN A SUBSTERNAL DIRECTION DESCRIBED. Abdomen/Pelvis CT 12/13/18 00:00 IMPRESSION: 1. Partially visualized filling defects in right lower lobe arteries, suspicious for pulmonary embolism. Consider CTA chest. 2. Small right pleural effusion as on prior exam. Right hilar mass is partially visualized, as on 12/11/[address] evidence for metastatic disease in the abdomen or pelvis. 4. No acute findings in the abdomen or pelvis. Venous Doppler Study 12/15/18 00:00 IMPRESSION: No venous thrombosis in the right leg Acute hypoechoic clot in the paired peroneal and posterior tibial veins in the left calf, acute hypoechoic clot in the left lesser saphenous vein in the calf Assessment and Plan - Diagnosis (1) Pulmonary emboli Qualifiers: Chronicity: unspecified Is this a current diagnosis for this admission?: Yes Plan: This was observed on CT abdomen pelvis with and without contrast for restaging of his lung mass. On admission patient had a CT chest without contrast. 12/14/2018 patient will need a CTA to confirm and localize his pulmonary emboli, but because of the fact that he had received IV contrast yesterday for CT abdomen and pelvis and he may receive IV contrast on Monday for CT-guided biopsy and possible left heart cath on Monday at [place], would be safer to treat his PE empirically. 12/15/2018 venous Doppler of lower extremities showed acute hypoechoic clock in the paired peroneal and posterior tibial veins in the left calf acute hypoechoic clock in the left lesser saphenous vein in the calf. Continue heparin drip, patient may be transitioned to Coumadin or NOACs once his lung biopsy is done. (2) Non-ST elevation myocardial infarction (NSTEMI) Is this a current diagnosis for this admission?: Yes Plan: Right-sided chest pain has resolved still complaining of dyspnea on exertion and orthopnea. Patient is positive for acute DVT and PE which may explain his dyspnea on exertion and chest pain. As per cardiology note patient may not have had an NSTEMI I but rather NSTEMI II due to mismatch demand caused by acute PE. History of CAD status post stent placement in 2000. Troponins 0.114, 0.150, 0.11, 0.08, 0.05 Aspirin, heparin drip, beta-blockers, EMORY, high intensity statins. As needed nitrates and morphine. . He is scheduled to have a CT-guided biopsy on Monday as per cardiology note he will possibly be transferred to [place] possible left heart cath after his biopsy result is in. (3) DVT of axillary vein, acute left Is this a current diagnosis for this admission?: Yes Plan: Provoked. High risk due to underlying lung malignancy. 12/15/2018. Venous Doppler of lower extremities showed acute hypoechoic clock in the paired peroneal and posterior tibial veins in the left calf acute hypoechoic clock in the left lesser saphenous vein in the calf. Continue heparin drip, patient may be transitioned to Coumadin or NOACs once his lung biopsy is done. (4) Unstable angina Is this a current diagnosis for this admission?: Yes Plan: As per problem #2. (5) Mass of upper lobe of right lung Is this a current diagnosis for this admission?: Yes Plan: Denies any history of previous malignancy. Former heavy smoker. Status post thyroid mass biopsy as outpatient. Pathology pending. Positive family history of colon cancer. Last colonoscopy 5 years ago status post polypectomy reported as normal per patient. PTHrP pending. Pulmonary consulted unfortunately no coverage available at this week. Oncology on board agrees with CT-guided biopsy. Scheduled for CT-guided biopsy on Monday as radiology is not able to do a biopsy today due to staff shortage. CT abdomen and pelvis contrast did not show any abdominal metastasis. (6) CKD (chronic kidney disease) stage 2, GFR 60-89 ml/min Is this a current diagnosis for this admission?: No Plan: Stable. Improving. Monitor electrolytes and volume status. Avoid nephrotoxic meds. (7) Diabetes type 2, uncontrolled Qualifiers: Glycemic state: with hyperglycemia Qualified Code(s): E11.65 - Type 2 diabetes mellitus with hyperglycemia Is this a current diagnosis for this admission?: Yes Plan: Improving. Hx of highly resistant DM. Patient is on highly concentrated insulin form. Has been followed by several senior hydrogeologist in the past. Not well managed by sliding scale. We do not carry his form of insulin in the hospital. Patient brought his own insulin supplies, verified by pharmacy and restarted. DC insulin drip. Continue sliding scale insulin. Cardiac and diabetic diet. (8) CAD (coronary artery disease) Is this a current diagnosis for this admission?: No Plan: Continue ASA, statins, EMORY, beta-blockers. (9) PADMINI (obstructive sleep apnea) Is this a current diagnosis for this admission?: No Plan: Has not been evaluated by pulmonology. Nocturnal CPAP. Outpatient nocturnal po lysomnography. Pulmonology follow-up. Weight loss advised. (10) Morbid obesity with BMI of 40.0-44.9, adult Is this a current diagnosis for this admission?: No Plan: Diet and lifestyle modifications.
[2018-12-16] MEDS: CALCITRIOL 0.25 MCG CAPSULE PO SCH (12:06)
--- NOTE | 2018-12-16 12:15 | Progress Note ---
Provider Note Provider Note: CARDIOLOGY PROGRESS NOTE by Dr. Syl Davis on 12/16/2018. SUBJECTIVE: Note that the patient denies any chest pain or discomfort. He has no shortness of breath on walking to the bathroom. There is no chest pain or discomfort on walking to the bathroom and back. He denies any palpitations. There is no TIA CVA symptoms. There is no bleeding on heparin. The patient's venous Dopplers of the leg does show DVT in the left lower extremity. There is no TIA CVA symptoms. The patient has no further anginal symptoms. Note at times the patient's heart rate goes up. The patient does have BiPAP off and on. PHYSICAL EXAMINATION: The patient is morbidly obese. At present in no acute distress he is well-groomed. Selected Entries 12/16/18 11:08 Temperature 98.2 F Temperature Oral Source Pulse Rate 81 Respiratory 20 Rate Blood Pressure 103/79 Blood Pressure 87 Mean BP Location Right Arm BP Position Sitting O2 Sat by Pulse 93 Oximetry Oxygen Flow 5.00 Rate Oxygen Delivery Nasal Cannula Method HEAD: Is atraumatic normocephalic. EYES: Pupils are equal round regular reactive to light accommodation. Extraocular movements are normal. There is no conjunctival pallor. There is no scleral icterus. EARS: Tympanic memories are intact. External auditory canals are clear. NOSE: There is no deviated nasal septum. There is no inflammation of the nasal mucous membranes. MOUTH: Mucous membranes of mouth are moist. Tongue is moist. There is no bleeding from the gums. THROAT: There is no redness of the oropharynx. There is no exudates. SKIN: There is no skin rashes or skin lesions. There is no petechia or ecchymosis. NECK: Is supple. There is no JVD. Carotids are equal there is no bruit there is fullness in the left thyroid lobe area. There is no lymphadenopathy. There is no accessory muscles of respiration use. Trachea central. LUNGS: Left lung is clear without any rhonchi rales or wheezing. There is diffuse dry crackles in the right upper lobe with a few scattered rhonchi. There is no wheezing. On palpation there is no chest wall tenderness. HEART: S1-S2 is heard. S1 is of normal intensity. There is no S3 gallop. There is no S4 gallop. There is systolic murmur left sternal border and the apex there is no rub. ABDOMEN: Is obese. Nontender. There is no hepatosplenic megaly. Bowel sounds are well heard. There is no tender areas masses. EXTREMITIES: Femorals are deep. Femorals are diminished. There is no femoral bruits. Leg pulses slightly diminished. There is trace pedal edema. There is no DVT or cellulitis. There is no calf tenderness. There is no cyanosis or clubbing. C D STRIPPER: The patient is conscious awake alert oriented x3 with no focal deficits. PSYCHIATRIC: The patient judgment insight are intact his affect is normal. Labs- All tests 24 hr 12/15/18 12/15/18 12/15/18 12:26 13:31 15:31 WBC RBC Hgb Hct MCV MCH MCHC RDW Plt Count Seg Neutrophils % Lymphocytes % Monocytes % Eosinophils % Basophils % Absolute Neutrophils Absolute Lymphocytes Absolute Monocytes Absolute Eosinophils Absolute Basophils APTT 69.4 H Sodium Potassium Chloride Carbon Dioxide Anion Gap BUN Creatinine Est GFR ( Amer) Est GFR (Non-Af Amer) Glucose POC Glucose 122 H 147 H Calcium Magnesium Total Bilirubin Direct Bilirubin Neonat Total Bilirubin Neonat Direct Bilirubin Neonat Indirect Bili AST ALT Alkaline Phosphatase Total Protein Albumin 12/15/18 12/16/18 12/16/18 20:49 04:43 04:43 WBC 10.0 RBC 4.22 L Hgb 12.9 L Hct 37.2 L MCV 88 MCH 30.6 MCHC 34.8 RDW 14.7 H Plt Count 160 Seg Neutrophils % 79.8 H Lymphocytes % 11.2 L Monocytes % 8.0 Eosinophils % 0.6 Basophils % 0.4 Absolute Neutrophils 8.0 Absolute Lymphocytes 1.1 Absolute Monocytes 0.8 Absolute Eosinophils 0.1 Absolute Basophils 0.0 APTT 82.4 H Sodium Potassium Chloride Carbon Dioxide Anion Gap BUN Creatinine Est GFR ( Amer) Est GFR (Non-Af Amer) Glucose POC Glucose 161 H Calcium Magnesium Total Bilirubin Direct Bilirubin Neonat Total Bilirubin Neonat Direct Bilirubin Neonat Indirect Bili AST ALT Alkaline Phosphatase Total Protein Albumin 12/16/18 12/16/18 12/16/18 04:43 07:48 11:09 WBC RBC Hgb Hct MCV 89740 MCH MCHC RDW Plt Count Seg Neutrophils % Lymphocytes % Monocytes % Eosinophils % Basophils % Absolute Neutrophils Absolute Lymphocytes Absolute Monocytes Absolute Eosinophils Absolute Basophils APTT Sodium 137.8 Potassium 4.3 Chloride 107 Carbon Dioxide 21 L Anion Gap 10 BUN 21 H Creatinine 1.40 H Est GFR ( Amer) > 60 Est GFR (Non-Af Amer) 50 L Glucose 93 POC Glucose 137 H 281 H Calcium 9.1 Magnesium 2.1 Total Bilirubin 1.2 Direct Bilirubin 0.6 H Neonat Total Bilirubin Not Reportable Neonat Direct Bilirubin Not Reportable Neonat Indirect Bili Not Reportable AST 39 ALT 72 Alkaline Phosphatase 75 Total Protein 6.3 Albumin 3.3 L Chest X-Ray 12/11/18 14:11 IMPRESSION: 1. Rounded masslike opacity of the right upper lobe with adjacent heterogeneous airspace opacity. Findings are highly concerning for primary malignancy. Recommend CT to further evaluate. 2. Cardiomegaly. Chest X-Ray 12/11/18 15:38 IMPRESSION: ROUNDED DENSITY IN THE RIGHT MIDLUNG AGAIN SEEN. CONCERNING FOR UNDERLYING PULMONARY MASS. RECOMMEND FOLLOW-UP CHEST CT. Chest CT 12/11/18 16:11 IMPRESSION: 1. LOBULATED MASS IN THE LATERAL RIGHT LUNG CONSISTENT WITH MALIGNANCY. ADDITIONAL SMALLER NODULAR MASSES EXTENDING MEDIALLY TO THE RIGHT HILUM. RIGHT HILAR MASS PRESUMED SECONDARY TO ADENOPATHY. PATCHY AIRSPACE DISEASE IN THE A DJACENT RIGHT LUNG. THIS MAY BE DUE TO PNEUMONITIS OR ATELECTASIS ALTHOUGH LYMPHATIC SPREAD OF TUMOR COULD BE ANOTHER POSSIBILITY. RIGHT PLEURAL EFFUSION. LEFT LUNG CLEAR. 2. HETEROGENOUS ENLARGED LEFT LOBE OF THE THYROID WHICH EXTENDS IN A SUBSTERNAL DIRECTION DESCRIBED. Abdomen/Pelvis CT 12/13/18 00:00 IMPRESSION: 1. Partially visualized filling defects in right lower lobe arteries, suspicious for pulmonary embolism. Consider CTA chest. 2. Small right pleural effusion as on prior exam. Right hilar mass is partially visualized, as on 12/11/[address] evidence for metastatic disease in the abdomen or pelvis. 4. No acute findings in the abdomen or pelvis. Venous Doppler Study 12/15/18 00:00 IMPRESSION: No venous thrombosis in the right leg Acute hypoechoic clot in the paired peroneal and posterior tibial veins in the left calf, acute hypoechoic clot in the left lesser saphenous vein in the calf EKG: Sinus rhythm. Old inferior and old anterior and old appendectomy apical anterior AL. IMPRESSION/RECOMMENDATION: 1. Non-ST elevation AL versus type II myocardial infarction secondary to supply demand mismatch.: Patient with exertional chest pressure/shortness of breath. Now rethinking the case probably this is not a non-ST elevation AL, and just a leak from the pulmonary emboli and the lung mass. This is due to the fact that at present the patient has no exertional chest pressure. He has still some degree of shortness of breath, but much less than before, and also has discomfort in the right side of the chest. Hence this may be a type 2 myocardial infarction due to supply demand mismatch. But in view of the patient's significant coronary artery disease will maximize the patient's anti- CAD medication. 2. Pulmonary embolism: The patient also has DVT in the left leg. Hence continue the patient on IV heparin, and patient scheduled for biopsy on Monday on a heparin free window, and subsequently will be placed on a oral anticoagulation medication. 3. Coronary artery disease: History of prior to myocardial infarctions. History of proximal and mid LAD stent in 2001. Continue medications as mentioned above. 4. Right lung mass, most likely malignant, especially since the patient is a former smoker. With possible metastasis.. Would recommend pulmonary and oncology consults. 4. Hypertension: Continue the patient on beta-fredo and losartan. 5. Diabetes mellitus type 2 with chronic kidney disease: Avoid nephrotoxic drugs 6. Chronic kidney disease stage III: Avoid nephrotoxic drug. His GFR is slightly worse. We will continue hydration. His GFR is 47 mL/min today 7. Hyperlipidemia: With low HDL level, good LDL level, and high triglyceride level. Recommend continue the patient on statin. 8. Left thyroid mass: Status post biopsy. The patient states that the initial results were said to be inconclusive, and the slides have been sent to pathology for review. The results of this have not been obtained. The patient will try to get [facility] to see if he can get any further information on the tissue diagnosis of the thyroid mass. 9. the patient states he has no further chest pressure on exertion or walking to the bathroom. He shortness of breath with the exertion is much improved. He states that he has a discomfort in the right front of the chest, but this is not pleuritic. Most likely this is due to the lung mass and possible pulmonary embolism.. Symptoms highly suggestive of obstructive sleep apnea. Would recommend empiric use of BiPAP here in the hospital. Later as an outpatient the patient would be recommended to have a sleep study. 10. DVT left lower extremity. Continue heparin, and later switch to oral an ticoagulation agent. 11. Morbid Obesity. Medications reviewed. Medications adjusted. 40 minutes spent on this patient with more than 50% of time spent in direct patient care. Medical decision making is of high complexity. Discussed with attending physicians managing the case and other caregiving providers on the case. Discussed with the patient and patient's daughter. 40 minutes spent on this patient more than 50% of time spent in direct patient care. Will follow
--- NOTE | 2018-12-16 12:58 | PDOC PROGRESS REPORT ---
Subjective Progress Note for:: 12/16/18 Subjective:: Clinically patient is doing well, he was found to have DVT, I had long discussions with Dr. Davis over last 48 hours, plan to continue with heparin drip until biopsy tomorrow and then decide on further intervention thereafter. Reason For Visit: DYSPNEA Physical Exam Vital Signs: Temp Pulse Resp BP Pulse Ox 98.2 F 81 20 103/79 93 12/16/18 11:08 12/16/18 11:08 12/16/18 11:08 12/16/18 11:08 12/16/18 11:08 Intake & Output 12/15/18 12/16/18 12/17/18 06:59 06:59 06:59 Intake Total 3179 3173 1295 Output Total 0 Balance 3179 3173 1295 Weight 144 kg 145.6 kg General appearance: PRESENT: no acute distress, well-developed, well-nourished Head exam: PRESENT: atraumatic, normocephalic Eye exam: PRESENT: conjunctiva pink, EOMI, PERRLA. ABSENT: scleral icterus Ear exam: PRESENT: normal external ear exam Mouth exam: PRESENT: moist, tongue midline Neck exam: ABSENT: carotid bruit, JVD, lymphadenopathy, thyromegaly Respiratory exam: PRESENT: clear to auscultation nancy. ABSENT: rales, rhonchi, wheezes Cardiovascular exam: PRESENT: RRR. ABSENT: diastolic murmur, rubs, systolic murmur Pulses: PRESENT: normal dorsalis pedis pul Vascular exam: PRESENT: normal capillary refill GI/Abdominal exam: PRESENT: normal bowel sounds, soft. ABSENT: distended, guarding, mass, organolmegaly, rebound, tenderness Rectal exam: PRESENT: deferred Extremities exam: PRESENT: full ROM. ABSENT: calf tenderness, clubbing, pedal edema Neurological exam: PRESENT: alert, awake, oriented to person, oriented to place, oriented to time, oriented to situation, CN II-XII grossly intact. ABSENT: motor sensory deficit Psychiatric exam: PRESENT: appropriate affect, normal mood. ABSENT: homicidal ideation, suicidal ideation Skin exam: PRESENT: dry, intact, warm. ABSENT: cyanosis, rash Results Laboratory Results: 12/16/18 04:43 12/16/18 04:43 12/16/18 12/16/18 04:43 04:43 WBC 10.0 RBC 4.22 L Hgb 12.9 L Hct 37.2 L MCV 88 MCH 30.6 MCHC 34.8 RDW 14.7 H Plt Count 160 Seg Neutrophils % 79.8 H Lymphocytes % 11.2 L Monocytes % 8.0 Eosinophils % 0.6 Basophils % 0.4 Absolute Neutrophils 8.0 Absolute Lymphocytes 1.1 Absolute Monocytes 0.8 Absolute Eosinophils 0.1 Absolute Basophils 0.0 Sodium 137.8 Potassium 4.3 Chloride 107 Carbon Dioxide 21 L Anion Gap 10 BUN 21 H Creatinine 1.40 H Est GFR ( Amer) > 60 Est GFR (Non-Af Amer) 50 L Glucose 93 Calcium 9.1 Magnesium 2.1 Total Bilirubin 1.2 AST 39 ALT 72 Alkaline Phosphatase 75 Total Protein 6.3 Albumin 3.3 L 12/11/18 12/11/18 12/11/18 14:45 17:14 21:07 Creatine Kinase 59 CK-MB (CK-2) Troponin I 0.114 0.150 NT-Pro-B Natriuret Pep 749 12/11/18 12/12/18 12/12/18 21:07 03:00 03:00 Creatine Kinase 56 CK-MB (CK-2) 1.36 1.37 Troponin I 0.111 0.083 NT-Pro-B Natriuret Pep 12/12/18 12/12/18 12/12/18 09:52 09:52 19:50 Creatine Kinase 51 L CK-MB (CK-2) 1.14 Troponin I 0.059 0.066 NT-Pro-B Natriuret Pep Impressions: Chest X-Ray 12/11/18 15:38 IMPRESSION: ROUNDED DENSITY IN THE RIGHT MIDLUNG AGAIN SEEN. CONCERNING FOR UNDERLYING PULMONARY MASS. RECOMMEND FOLLOW-UP CHEST CT. Chest CT 12/11/18 16:11 IMPRESSION: 1. LOBULATED MASS IN THE LATERAL RIGHT LUNG CONSISTENT WITH MALIGNANCY. ADDITIONAL SMALLER NODULAR MASSES EXTENDING MEDIALLY TO THE RIGHT HILUM. RIGHT HILAR MASS PRESUMED SECONDARY TO ADENOPATHY. PATCHY AIRSPACE DISEASE IN THE ADJACENT RIGHT LUNG. THIS MAY BE DUE TO PNEUMONITIS OR ATELECTASIS ALTHOUGH L YMPHATIC SPREAD OF TUMOR COULD BE ANOTHER POSSIBILITY. RIGHT PLEURAL EFFUSION. LEFT LUNG CLEAR. 2. HETEROGENOUS ENLARGED LEFT LOBE OF THE THYROID WHICH EXTENDS IN A SUBSTERNAL DIRECTION DESCRIBED. Abdomen/Pelvis CT 12/13/18 00:00 IMPRESSION: 1. Partially visualized filling defects in right lower lobe arteries, suspicious for pulmonary embolism. Consider CTA chest. 2. Small right pleural effusion as on prior exam. Right hilar mass is partially visualized, as on 12/11/[address] evidence for metastatic disease in the abdomen or pelvis. 4. No acute findings in the abdomen or pelvis. Venous Doppler Study 12/15/18 00:00 IMPRESSION: No venous thrombosis in the right leg Acute hypoechoic clot in the paired peroneal and posterior tibial veins in the left calf, acute hypoechoic clot in the left lesser saphenous vein in the calf Assessment & Plan - Diagnosis (1) Mass of upper lobe of right lung Is this a current diagnosis for this admission?: Yes Plan: Biopsy pending tomorrow (2) Other pulmonary embolism without acute cor pulmonale Qualifiers: Chronicity: acute Qualified Code(s): I26.99 - Other pulmonary embolism without acute cor pulmonale Is this a current diagnosis for this admission?: Yes Plan: Continue with heparin drip for now
--- NOTE | 2018-12-16 20:54 | EKG REPORT ---
SEVERITY:- ABNORMAL ECG - SINUS RHYTHM SINUS PAUSE/ARREST WITH ATRIAL ESCAPE INFERIOR INFARCT, AGE INDETERMINATE LATERAL INFARCT, OLD ANTERIOR INFARCT, AGE INDETERMINATE BORDERLINE PROLONGED QT INTERVAL : Confirmed by: Syl Davis MD 16-Dec-2018 20:53:49
[2018-12-16] MEDS: MONTELUKAST SODIUM 10 MG TABLET PO SCH (21:33)
[2018-12-16] MEDS: ATORVASTATIN CALCIUM 40 MG TABLET PO SCH (21:34)
[2018-12-17] MEDS: IPRATROPIUM BROMIDE 0.02% NEB 0.5 MG/2.5 ML AMPUL NEB SCH ×3 (00:41→16:01)
[2018-12-17] MEDS: LEVALBUTEROL HCL NEB 1.25 MG/3 ML AMPUL NEB SCH ×3 (00:41→16:01)
[2018-12-17] MEDS: HEPARIN SODIUM,PORCINE/D5W 25,000 UNIT/250 ML RTUINJ IV PRN ×2 (04:30→19:47)
[2018-12-17] MEDS: GABAPENTIN 300 MG CAPSULE PO SCH ×3 (05:07→21:43)
[2018-12-17 05:47] LABS: INTERNATIONAL RATION (INR) 1.13; PROTHROMBIN TIME 15.1 SEC (11.4-15.4)
[2018-12-17 05:48] LABS: PARTIAL THROMBOPLASTIN TIME 89.1 SEC (23.5-35.8)
[2018-12-17 06:01] LABS: ABSOLUTE EOSINOPHILS # (AUTO) 0.1 10^3/uL (0.0-0.6); ABSOLUTE LYMPHOCYTES (AUTO) 1.2 10^3/uL (0.5-4.7); ABSOLUTE MONOCYTES (AUTO) 0.7 10^3/uL (0.1-1.4); ABSOLUTE NEUT (AUTO) 7.2 10^3/uL (1.7-8.2); BASOPHILS % (AUTO) 0.5 % (0-2); EOSINOPHILS % (AUTO) 0.8 % (0-6); HEMATOCRIT 37.6 % (37.9-51.0); HEMOGLOBIN 12.9 g/dL (13.5-17.0); LYMPHOCYTES % (AUTO) 13.4 % (13-45); MEAN CORPUSCULAR HGB CONC 34.4 g/dL (32.0-36.0); MEAN CORPUSCULAR VOLUME 87 fl (80-97); MONOCYTES % (AUTO) 7.3 % (3-13); PLATELET COUNT 169 10^3/uL (150-450); RED CELL DISTRIBUTION WIDTH 14.6 % (11.5-14.0); TOTAL CELLS COUNTED % (AUTO) 100 %; WHITE BLOOD COUNT 9.2 10^3/uL (4.0-10.5)
[2018-12-17 06:11] LABS: ALANINE AMINOTRANSFERASE 92 U/L (21-72); ALBUMIN 3.4 g/dL (3.5-5.0); ALKALINE PHOSPHATASE 79 U/L (38-126); ANION GAP 10 (5-19); ASPARTATE AMINO TRANSFERASE 60 U/L (17-59); BILIRUBIN,DIRECT 0.8 mg/dL (0.0-0.4); BILIRUBIN,TOTAL 1.2 mg/dL (0.2-1.3); BLOOD UREA NITROGEN 23 mg/dL (7-20); CALCIUM 9.5 mg/dL (8.4-10.2); CARBON DIOXIDE 22 mmol/L (22-30); CHLORIDE 106 mmol/L (98-107); POTASSIUM 4.6 mmol/L (3.6-5.0); SODIUM 138.1 mmol/L (137-145); TOTAL PROTEIN 6.6 g/dL (6.3-8.2)
[2018-12-17 06:16] LABS: GLUCOSE 60 mg/dL (75-110)
[2018-12-17] MEDS: INSULIN REG, HUMAN 100 UNIT/ML 3 ML VIAL (PYX) SUBCUT SCH ×4 (07:54→21:41)
[2018-12-17] MEDS: BUDESONIDE NEB 0.5 MG/2 ML AMPUL NEB SCH (08:05)
[2018-12-17] MEDS: ASPIRIN 81 MG TABLET, CHEWABLE PO SCH (09:12)
[2018-12-17] MEDS: DOCUSATE SODIUM 100 MG CAPSULE PO SCH ×2 (09:12→18:41)
[2018-12-17] MEDS: FAMOTIDINE 20 MG TABLET PO SCH ×2 (09:13→21:43)
[2018-12-17] MEDS: FLUTICASONE NASAL SPRAY 50 MCG/SPRY 120 SPRAY/16 GM NASL SCH (10:07)
[2018-12-17] MEDS: METOPROLOL SUCCINATE 50 MG TAB.SR.24H PO SCH ×2 (10:08→21:43)
[2018-12-17] MEDS: LOSARTAN POTASSIUM 50 MG TABLET PO SCH (10:08)
[2018-12-17] MEDS: ISOSORBIDE MONONITRATE 60 MG TAB.ER.24H PO SCH (10:08)
[2018-12-17] MEDS: FLUTICASONE/VILANTEROL 100-25 MCG/DOSE IH SCH (10:08)
[2018-12-17] MEDS ORDERED: DEXTROSE 5%-WATER 1000 ML 1,000 ML IV PRN (10:19)
[2018-12-17] MEDS ORDERED: FENTANYL CITRATE INJ/PF 100 MCG/2 ML AMPUL ONE (11:22)
[2018-12-17] MEDS ORDERED: LIDOCAINE 1% INJ-PF (10 MG/ML) 30 ML SDV ONE (11:22)
[2018-12-17] MEDS ORDERED: MIDAZOLAM 2 MG/2 ML INJ ONE (11:22)
--- NOTE | 2018-12-17 12:41 | RADIOLOGY REPORT (SQ) ---
EXAM DESCRIPTION: CHEST SINGLE VIEW COMPLETED DATE/TIME: 12/17/2018 12:20 pm REASON FOR STUDY: POST LUNG BIOPSY *2 HOUR FILM* COMPARISON: Chest film 12/11/2018 CT chest 12/11/2018 CT-guided lung biopsy 12/17/2018 EXAM PARAMETERS: NUMBER OF VIEWS: One view. TECHNIQUE: Single frontal radiographic view of the chest acquired. RADIATION DOSE: NA LIMITATIONS: None. FINDINGS: LUNGS AND PLEURA: No right-sided pneumothorax post right lung biopsy. Mass along the righ t upper lobe near the minor fissure unchanged from prior exams. There is now patchy alveolar and interstitial infiltrate in the left mid lung and bilateral lower lob es, question mild fluid overload or congestive failure with pulmonary edema. Trace pleural effusions are present on CT biopsy planning images today. Pleural fluid is difficult t o visualize on this AP portable chest film. MEDIASTINUM AND HILAR STRUCTURES: No masses. Contour normal. HEART AND VASCULAR STRUCTURES: Mild cardiomegaly BONES: No acute findings. HARDWARE: None in the chest. OTHER: No other significant finding. IMPRESSION: No pneumothorax post right lung biopsy. Bilateral alveolar and interstitial infiltrates worrisome for pulmonary edema. TECHNICAL DOCUMENTATION: JOB ID: [id number] [employer]- All Rights Reserved Reading location - IP/workstation name: [email or web address]
--- NOTE | 2018-12-17 12:45 | RADIOLOGY REPORT (SQ) ---
EXAM DESCRIPTION: CT BIOPSY LUNG/MEDIASTINUM; CT NEEDLE PLACEMENT COMPLETED DATE/TIME: 12/17/2018 12:18 pm; 12/17/2018 12:20 pm REASON FOR STUDY: R lung mass; LUNG BIOPSY COMPARISON: CT chest 12/11/2018 TECHNIQUE: CT guided biopsy of the right upper lobe mass performed with conscious sedation. CT Fluoroscopy Time: [address] scanners at this facility use dose modulation, iterative reconstruction, and/or weight based d osing when appropriate to reduce radiation dose to as low as reasonably achievable (ALARA). [facility]: Dose Right [facility]: CareDose [facility]: Dose Right [facility]: Teradose 4D [facility]: Smart [employer] RADIATION DOSE: mGy. FINDINGS: After obtaining informed consent and explaining the risks and benefits of conscious sedati on,the patient agreed to the procedure. Prior to the procedure, a time out was performed to verify th e patient's identity and planned procedure. IV pain control was administered and physician direction by the registered nurse using 50 micrograms of fentanyl, for conscious sedation. Physiologic monitoring was provided before, during, and after se dation. The total pain control observation time was 30 minutes. Documentation face to face time, the performing proceduralist, spent monitoring the patient: [address] scanning was performed to localize the percutaneous site for the biopsy approach. After sterile skin prep and local lidocaine for skin and deep tissue anesthesia, a coaxial biopsy nee dle was used to obtain multiple cores of tissue. Biopsy tract was embolized with a Bios[employer] closure device The biopsy tissue was submitted to the lab in formalin. There were no immediate complications. Pathology is pending at the time of dictation. The CT scan for biopsy planning today shows small bilateral pleural effusions and bilateral ground-gl ass opacities in both lungs left greater than right worrisome for pulmonary edema. Incidental finding of a 5 x 5 cm left lobe thyroid mass at the thoracic inlet. Right hilar adenopath y is present similar compared to prior CT. IMPRESSION: CT GUIDED BIOPSY OF THE RIGHT UPPER LOBE LUNG MASS PERFORMED WITHOUT IMMEDIATE COMPLICAT ION. PATHOLOGY PENDING. FLUID OVERLOAD OR CONGESTIVE FAILURE WITH TRACE BILATERAL PLEURAL EFFUSIONS AND BILATERAL ALVEOLAR/IN TERSTITIAL PULMONARY EDEMA ON BIOPSY PLANNING CT TODAY COMMENT: Quality ID 145: Final reports for procedures using fluoroscopy that document radiation exp osure indices, or exposure time and number of fluorographic images (if radiation exposure indices are not available) Patient medication list reviewed: Yes- Quality ID# [id number]:Eligible professional attests to documenting i n the medical record they obtained, updated, or reviewed the patient's current medications.. TECHNICAL DOCUMENTATION: JOB ID: [id number] Quality ID# [id number]: Final reports with documentation of one or more dose reduction techniques (e.g., Aut omated exposure control, adjustment of the mA and/or kV according to patient size, use of iterative r econstruction technique) 2010 [employer]- All Rights Reserved Reading location - IP/workstation name: [facility]-
--- NOTE | 2018-12-17 12:45 | RADIOLOGY REPORT (SQ) ---
EXAM DESCRIPTION: CT BIOPSY LUNG/MEDIASTINUM; CT NEEDLE PLACEMENT COMPLETED DATE/TIME: 12/17/2018 12:18 pm; 12/17/2018 12:20 pm REASON FOR STUDY: R lung mass; LUNG BIOPSY COMPARISON: CT chest 12/11/2018 TECHNIQUE: CT guided biopsy of the right upper lobe mass performed with conscious sedation. CT Fluoroscopy Time: [address] scanners at this facility use dose modulation, iterative reconstruction, and/or weight based d osing when appropriate to reduce radiation dose to as low as reasonably achievable (ALARA). [facility]: Dose Right [facility]: CareDose [facility]: Dose Right [facility]: Teradose 4D [facility]: Smart [employer] RADIATION DOSE: mGy. FINDINGS: After obtaining informed consent and explaining the risks and benefits of conscious sedati on,the patient agreed to the procedure. Prior to the procedure, a time out was performed to verify th e patient's identity and planned procedure. IV pain control was administered and physician direction by the registered nurse using 50 micrograms of fentanyl, for conscious sedation. Physiologic monitoring was provided before, during, and after se dation. The total pain control observation time was 30 minutes. Documentation face to face time, the performing proceduralist, spent monitoring the patient: [address] scanning was performed to localize the percutaneous site for the biopsy approach. After sterile skin prep and local lidocaine for skin and deep tissue anesthesia, a coaxial biopsy nee dle was used to obtain multiple cores of tissue. Biopsy tract was embolized with a Biosentry closure device The biopsy tissue was submitted to the lab in formalin. There were no immediate complications. Pathology is pending at the time of dictation. The CT scan for biopsy planning today shows small bilateral pleural effusions and bilateral ground-gl ass opacities in both lungs left greater than right worrisome for pulmonary edema. Incidental finding of a 5 x 5 cm left lobe thyroid mass at the thoracic inlet. Right hilar adenopath y is present similar compared to prior CT. IMPRESSION: CT GUIDED BIOPSY OF THE RIGHT UPPER LOBE LUNG MASS PERFORMED WITHOUT IMMEDIATE COMPLICAT ION. PATHOLOGY PENDING. FLUID OVERLOAD OR CONGESTIVE FAILURE WITH TRACE BILATERAL PLEURAL EFFUSIONS AND BILATERAL ALVEOLAR/IN TERSTITIAL PULMONARY EDEMA ON BIOPSY PLANNING CT TODAY COMMENT: Quality ID 145: Final reports for procedures using fluoroscopy that document radiation exp osure indices, or exposure time and number of fluorographic images (if radiation exposure indices are not available) Patient medication list reviewed: Yes- Quality ID# [id number]:Eligible professional attests to documenting i n the medical record they obtained, updated, or reviewed the patient's current medications.. TECHNICAL DOCUMENTATION: JOB ID: [id number] Quality ID# [id number]: Final reports with documentation of one or more dose reduction techniques (e.g., Aut omated exposure control, adjustment of the mA and/or kV according to patient size, use of iterative r econstruction technique) 2010 [employer]- All Rights Reserved Reading location - IP/workstation name: [facility]
[2018-12-17] MEDS: CALCITRIOL 0.25 MCG CAPSULE PO SCH (14:43)
--- NOTE | 2018-12-17 14:44 | PDOC PROGRESS REPORT ---
Subjective Progress Note for:: 12/17/18 Subjective:: VICTOR MANUEL HALL is a 68 year old male who presented to the emergency room with a 4-day history of episodic dyspnea at rest and on exertion. Patient acknowledges moderate to severe dyspnea episodes worsened with any exertion, several times per day over the weekend but better on Monday. His symptoms returned again early this morning and were much more severe with the dyspnea and abdominal discomfort being present and not resolving with a short period of rest and c ontrolled breathing. His dyspnea was accompanied by a mild to moderate epigastric/lower anterior chest pressure-like discomfort. Patient's dyspnea and chest/abdomen discomfort was relieved by rest after a few minutes until today when it became persistent resulting in his trip to the emergency room. He also admits an associated symptom of bilateral leg swelling which is a little worse than his normal chronic swelling. He denies prior similar episodes. He denies identification of other aggravating or ameliorating factors for his dyspnea and chest/abdominal pain. In the emergency room he was noted to have dyspnea with exertion and required supplemental oxygen at 2 L/min via nasal cannula to remain dyspnea free and pain-free even at rest. Chest x-ray showed a right midlung mass suspicious for neoplasm with probable right perihilar lymphadenopathy. Because of the patient's acute respiratory failure, chest/abdominal pain, worsening peripheral edema and dyspnea with exertion he was admitted for further evaluation and treatment. 12/12/2018. Shortness of breath with mild improvement but patient still having dyspnea on exertion associated with pressure-like chest pain. Patient denies any fever, chills, nausea, vomiting, diarrhea, constipation or any urinary symptoms. 12/13/2018. Patient still having dyspnea on exertion, chest pain has not recurred since yesterday. Was able to ambulate to the bathroom having any chest pain. Denies any fever, chills, nausea, vomiting, diarrhea, constipation or any urinary symptoms. 12/14/2018. No acute events overnight. Patient is very pleasant cooperative with physical examination. Shortness of breath has improved since yesterday s till requiring supplemental oxygen. Has not had any more chest pain since yesterday. Able to ambulate to the restroom on supplemental oxygen does not report any chest pain on ambulation. Denies any fever, chills, nausea, vomiting, diarrhea, constipation or any urinary symptoms. 12/15/2018. Patient was having some respiratory distress overnight and was started on BiPAP with significant symptoms. Still complaining of dyspnea on exertion is not had any recurrence of his chest pain. Denies any fever, chills, nausea, vomiting, diarrhea, constipation or any urinary symptoms. Had a venous Doppler of lower extremities which was positive for DVT. 12/16/2018. No acute events overnight. EMR patient has T-max of 100.8 and 2 episodes upon my conversation with him today he denies having any fever or chills, still complaining of dyspnea on exertion, has not had any recurrence of his chest pain, p.o. tolerant, ambulatory, having normal bowel and bladder function. Denies any nausea, vomiting, diarrhea, constipation, urinary symptoms. Scheduled for CT-guided biopsy of lung mass tomorrow. 12/17/2018. No acute events overnight. No recurrence of chest pain. Shortness of breath has improved. Patient gets short of breath only when exerting himself. Denies any fever, chills, nausea, vomiting, diarrhea, constipation or any urinary symptoms. Status post CT-guided right lung biopsy. Reason For Visit: DYSPNEA Physical Exam Vital Signs: Temp Pulse Resp BP Pulse Ox 98.3 F 79 16 119/59 L 96 12/17/18 10:43 12/17/18 10:43 12/17/18 10:43 12/17/18 10:43 12/17/18 10:43 Intake & Output 12/16/18 12/17/18 12/18/18 06:59 06:59 06:59 Intake Total 3173 2760 102 Balance 3173 2760 102 Weight 145.6 kg 145.8 kg General appearance: PRESENT: no acute distress, obese Respiratory exam: PRESENT: clear to auscultation nancy. ABSENT: rales, rhonchi, wheezes Cardiovascular exam: PRESENT: RRR. ABSENT: diastolic murmur, rubs, systolic murmur Extremities exam: PRESENT: full ROM, +1 edema. ABSENT: calf tenderness, clubbing, pedal edema Neurological exam: PRESENT: alert, awake, oriented to person, oriented to place, oriented to time, oriented to situation, CN II-XII grossly intact. ABSENT: motor sensory deficit Results Laboratory Results: 12/17/18 05:12 12/17/18 05:12 12/17/18 12/17/18 05:12 05:12 WBC 9.2 RBC 4.30 L Hgb 12.9 L Hct 37.6 L MCV 87 MCH 30.0 MCHC 34.4 RDW 14.6 H Plt Count 169 Seg Neutrophils % 78.0 Lymphocytes % 13.4 Monocytes % 7.3 Eosinophils % 0.8 Basophils % 0.5 Absolute Neutrophils 7.2 Absolute Lymphocytes 1.2 Absolute Monocytes 0.7 Absolute Eosinophils 0.1 Absolute Basophils 0.0 Sodium 138.1 Potassium 4.6 Chloride 106 Carbon Dioxide 22 Anion Gap 10 BUN 23 H Creatinine 1.40 H Est GFR ( Amer) > 60 Est GFR (Non-Af Amer) 50 L Glucose 60 L Calcium 9.5 Magnesium 2.3 Total Bilirubin 1.2 AST 60 H ALT 92 H Alkaline Phosphatase 79 Total Protein 6.6 Albumin 3.4 L 12/11/18 12/11/18 12/11/18 14:45 17:14 21:07 Creatine Kinase 59 CK-MB (CK-2) Troponin I 0.114 0.150 NT-Pro-B Natriuret Pep 749 12/11/18 12/12/18 12/12/18 21:07 03:00 03:00 Creatine Kinase 56 CK-MB (CK-2) 1.36 1.37 Troponin I 0.111 0.083 NT-Pro-B Natriuret Pep 12/12/18 12/12/18 12/12/18 09:52 09:52 19:50 Creatine Kinase 51 L CK-MB (CK-2) 1.14 Troponin I 0.059 0.066 NT-Pro-B Natriuret Pep Impressions: Chest CT 12/11/18 16:11 IMPRESSION: 1. LOBULATED MASS IN THE LATERAL RIGHT LUNG CONSISTENT WITH MALIGNANCY. ADDITIONAL SMALLER NODULAR MASSES EXTENDING MEDIALLY TO THE RIGHT HILUM. RIGHT HILAR MASS PRESUMED SECONDARY TO ADENOPATHY. PATCHY AIRSPACE DISEASE IN THE ADJACENT RIGHT LUNG. THIS MAY BE DUE TO PNEUMONITIS OR ATELECTASIS ALTHOUGH LYMPHATIC SPREAD OF TUMOR COULD BE ANOTHER POSSIBILITY. RIGHT PLEURAL EFFUSION. LEFT LUNG CLEAR. 2. HETEROGENOUS ENLARGED LEFT LOBE OF THE THYROID WHICH EXTENDS IN A SUBSTERNAL DIRECTION DESCRIBED. Abdomen/Pelvis CT 12/13/18 00:00 IMPRESSION: 1. Partially visualized filling defects in right lower lobe arteries, suspicious for pulmonary embolism. Consider CTA chest. 2. Small right pleural effusion as on prior exam. Right hilar mass is partially visualized, as on 12/11/[address] evidence for metastatic disease in the abdomen or pelvis. 4. No acute findings in the abdomen or pelvis. Venous Doppler Study 12/15/18 00:00 IMPRESSION: No venous thrombosis in the right leg Acute hypoechoic clot in the paired peroneal and posterior tibial veins in the left calf, acute hypoechoic clot in the left lesser saphenous vein in the calf Guidance Needle Placement CT 12/17/18 00:00 IMPRESSION: CT GUIDED BIOPSY OF THE RIGHT UPPER LOBE LUNG MASS PERFORMED WI THOUT IMMEDIATE COMPLICATION. PATHOLOGY PENDING. FLUID OVERLOAD OR CONGESTIVE FAILURE WITH TRACE BILATERAL PLEURAL EFFUSIONS AND BILATERAL ALVEOLAR/INTERSTITIAL PULMONARY EDEMA ON BIOPSY PLANNING CT TODAY Lung Biopsy CT 12/17/18 00:00 IMPRESSION: CT GUIDED BIOPSY OF THE RIGHT UPPER LOBE LUNG MASS PERFORMED WITHOUT IMMEDIATE COMPLICATION. PATHOLOGY PENDING. FLUID OVERLOAD OR CONGESTIVE FAILURE WITH TRACE BILATERAL PLEURAL EFFUSIONS AND BILATERAL ALVEOLAR/INTERSTITIAL PULMONARY EDEMA ON BIOPSY PLANNING CT TODAY Assessment and Plan - Diagnosis (1) Pulmonary emboli Qualifiers: Chronicity: unspecified Is this a current diagnosis for this admission?: Yes Plan: This was observed on CT abdomen pelvis with and without contrast for restaging of his lung mass. On admission patient had a CT chest without contrast. 12/14/2018 patient will need a CTA to confirm and localize his pulmonary emboli, but because of the fact that he had received IV contrast yesterday for CT abdomen and pelvis and he may receive IV contrast on Monday for CT-guided biopsy and possible left heart cath on Monday at [place], would be safer to treat his PE empirically. 12/15/2018 venous Doppler of lower extremities showed acute hypoechoic clock in the paired peroneal and posterior tibial veins in the left calf acute hypoechoic clock in the left lesser saphenous vein in the calf. Continue heparin drip, patient may be transitioned to Coumadin or NOACs once his lung biopsy is done. (2) Non-ST elevation myocardial infarction (NSTEMI) Is this a current diagnosis for this admission?: Yes Plan: Right-sided chest pain has resolved still complaining of dyspnea on exertion. Patient is positive for acute DVT and PE which may explain his dyspnea on exertion and chest pain. As per cardiology note patient may not have had an NSTEMI I but rather NSTEMI II due to mismatch demand caused by acute PE. History of CAD status post stent placement in 2000. Troponins 0.114, 0.150, 0.11, 0.08, 0.05 Aspirin, heparin drip, beta-blockers, EMORY, high intensity statins. As needed nitrates and morphine. . He is scheduled to have a CT-guided biopsy on 12/17/2018 and as per cardiology note he will possibly be transferred to [place] possible left heart cath after his biopsy result is in. (3) DVT of axillary vein, acute left Is this a current diagnosis for this admission?: Yes Plan: Provoked. High risk due to underlying lung malignancy. 12/15/2018. Venous Doppler of lower extremities showed acute hypoechoic clock in the paired peroneal and posterior tibial veins in the left calf acute hypoechoic clock in the left lesser saphenous vein in the calf. Continue heparin drip, patient may be transitioned to Coumadin or NOACs once his lung biopsy is done. (4) Unstable angina Is this a current diagnosis for this admission?: Yes Plan: As per problem #2. (5) Mass of upper lobe of right lung Is this a current diagnosis for this admission?: Yes Plan: Denies any history of previous malignancy. Former heavy smoker. Status post thyroid mass biopsy as outpatient. Pathology pending. Positive family history of colon cancer. Last colonoscopy 5 years ago status post polypectomy reported as normal per patient. PTHrP pending. Pulmonary consulted unfortunately no coverage available at this week. Oncology on board agrees with CT-guided biopsy. Scheduled for CT-guided biopsy on Monday as radiology is not able to do a biopsy today due to staff shortage. CT abdomen and pelvis contrast did not show any abdominal metastasis. (6) CKD (chronic kidney disease) stage 2, GFR 60-89 ml/min Is this a current diagnosis for this admission?: No Plan: Stable. Improving. Monitor electrolytes and volume status. Avoid nephrotoxic meds. (7) Diabetes type 2, uncontrolled Qualifiers: Glycemic state: with hyperglycemia Qualified Code(s): E11.65 - Type 2 diabetes mellitus with hyperglycemia Is this a current diagnosis for this admission?: Yes Plan: Improving. Hx of highly resistant DM. Patient is on highly concentrated insulin form. Has been followed by several funeral sales manager in the past. Not well managed by sliding scale. We do not carry his form of insulin in the hospital. Patient brought his own insulin supplies, verified by pharmacy and restarted. DC insulin drip. Continue sliding scale insulin. Cardiac and diabetic diet. (8) CAD (coronary artery disease) Is this a current diagnosis for this admission?: No Plan: Continue ASA, statins, EMORY, beta-blockers. (9) PADMINI (obstructive sleep apnea) Is this a current diagnosis for this admission?: No Plan: Has not been evaluated by pulmonology. Nocturnal CPAP. Outpatient nocturnal polysomnography. Pulmonology follow-up. Weight loss advised. (10) Morbid obesity with BMI of 40.0-44.9, adult Is this a current diagnosis for this admission?: No Plan: Diet and lifestyle modifications.
--- NOTE | 2018-12-17 15:18 | RADIOLOGY REPORT (SQ) ---
EXAM DESCRIPTION: CHEST SINGLE VIEW COMPLETED DATE/TIME: 12/17/2018 3:03 pm REASON FOR STUDY: POST LUNG BIOPSY 2 HOUR COMPARISON: CT chest 12/11/2018 AP chest 12/17/2018, 1228 hours EXAM PARAMETERS: NUMBER OF VIEWS: One view. TECHNIQUE: Single frontal radiographic view of the chest acquired. RADIATION DOSE: NA LIMITATIONS: None. FINDINGS: LUNGS AND PLEURA: No pneumothorax post right upper lobe lung nodule biopsy. Right upper lobe nodule is unchanged. Patchy alveolar and interstitial infiltrates in the right and left mid and lower lungs likely pulmonary edema. MEDIASTINUM AND HILAR STRUCTURES: No masses. Contour normal. HEART AND VASCULAR STRUCTURES: Cardiomegaly, stable BONES: No acute findings. HARDWARE: None in the chest. OTHER: No other significant finding. IMPRESSION: No pneumothorax 2 hours post right upper lobe CT-guided lung mass biopsy TECHNICAL DOCUMENTATION: JOB ID: [id number] [email or web address] All Rights Reserved Reading location - IP/workstation name: [email or web address]
[2018-12-17 18:13] LABS: INTERNATIONAL RATION (INR) 1.12
[2018-12-17 18:27] LABS: ABSOLUTE EOSINOPHILS # (AUTO) 0.1 10^3/uL (0.0-0.6); ABSOLUTE MONOCYTES (AUTO) 0.6 10^3/uL (0.1-1.4); ABSOLUTE NEUT (AUTO) 6.6 10^3/uL (1.7-8.2); BASOPHILS % (AUTO) 0.5 % (0-2); EOSINOPHILS % (AUTO) 0.7 % (0-6); HEMATOCRIT 37.7 % (37.9-51.0); HEMOGLOBIN 12.9 g/dL (13.5-17.0); LYMPHOCYTES % (AUTO) 12.3 % (13-45); MEAN CORPUSCULAR HEMOGLOBIN 30.1 pg (27.0-33.4); MEAN CORPUSCULAR HGB CONC 34.1 g/dL (32.0-36.0); MEAN CORPUSCULAR VOLUME 88 fl (80-97); MONOCYTES % (AUTO) 6.8 % (3-13); PLATELET COUNT 188 10^3/uL (150-450); RED BLOOD COUNT 4.27 10^6/uL (4.35-5.55); RED CELL DISTRIBUTION WIDTH 14.5 % (11.5-14.0); SEGMENTED NEUTROPHILS % (AUTO) 79.7 % (42-78); TOTAL CELLS COUNTED % (AUTO) 100 %; WHITE BLOOD COUNT 8.3 10^3/uL (4.0-10.5)
[2018-12-17] MEDS: HEPARIN SOD (PORCINE) 1,000 UNIT/ML 10 ML VIAL IV PRN (19:46)
[2018-12-17] MEDS: ATORVASTATIN CALCIUM 40 MG TABLET PO SCH (21:42)
[2018-12-17] MEDS: MONTELUKAST SODIUM 10 MG TABLET PO SCH (21:43)
--- NOTE | 2018-12-17 22:25 | Progress Note ---
Provider Note Provider Note: CARDIOLOGY PROGRESS NOTE by Dr. Syl Davis on 12/17/2018. SUBJECTIVE: The patient denies any chest pain or discomfort. He. He has no shortness of breath or any other symptoms when he walks and comes back from the bathroom. The patient did have a lung biopsy done today which has had no complications. The patient will be later on put back on IV heparin. Subsequently the plan is to put the patient on a oral anticoagulation medication. The patient denies any anginal symptoms. There is no PND. He has chronic orthopnea. There is no leg edema. There is no arrhythmia seen on the monitor. There is no bleeding on heparin. There is no TIA CVA symptoms. There is no cough or hemoptysis. There is no pleuritic chest pain. Physical EXAMINATION: The patient morbidly obese. He is well-groomed. He is in no acute distress. Selected Entries 12/17/18 15:33 Temperature 98.9 F Temperature Oral Source Pulse Rate 94 Respiratory 16 Rate Blood Pressure 141/67 H Blood Pressure 91 Mean BP Location Right Arm BP Position Sitting O2 Sat by Pulse 93 Oximetry Oxygen Flow 5.00 Rate Oxygen Delivery Nasal Cannula Method HEAD: Is atraumatic normocephalic. EYES: Pupils are equal round regular reactive to light accommodation. Extraocular movements are normal. There is no conjunctival pallor. There is no scleral icterus. EARS: Tympanic memories are intact. External auditory canals are clear. NOSE: There is no deviated nasal septum. There is no inflammation of the nasal mucous membranes. MOUTH: Mucous membranes of mouth are moist. Tongue is moist. There is no bleeding from the gums. THROAT: There is no redness of the oropharynx. There is no exudates. SKIN: There is no skin rashes or skin lesions. There is no petechia or ecchymosis. NECK: Is supple. There is no JVD. Carotids are equal there is no bruit there is fullness in the left thyroid lobe area. There is no lymphadenopathy. There is no accessory muscles of respiration use. Trachea central. LUNGS: Left lung is clear without any rhonchi rales or wheezing. There is diffuse dry crackles in the right upper lobe with a few scattered rhonchi. There is no wheezing. On palpation there is no chest wall tenderness. HEART: S1-S2 is heard. S1 is of normal intensity. There is no S3 gallop. There is no S4 gallop. There is systolic murmur left sternal border and the apex there is no rub. ABDOMEN: Is obese. Nontender. There is no hepatosplenic megaly. Bowel sounds are well heard. There is no tender areas masses. EXTREMITIES: Femorals are deep. Femorals are diminished. There is no femoral bruits. Leg pulses slightly diminished. There is trace pedal edema. There is no DVT or cellulitis. There is no calf tenderness. There is no cyanosis or clubbing. DIRECTOR REACTOR PROJECTS: The patient is conscious awake alert oriented x3 with no focal deficits. PSYCHIATRIC: The patient judgment insight are intact his affect is normal. 12/16/18 12/17/18 12/17/18 04:43 05:12 05:12 WBC 10.0 RBC 4.22 L Hgb 12.9 L Hct 37.2 L MCV 88 MCH 30.6 MCHC 34.8 RDW 14.7 H Plt Count 160 Seg Neutrophils % 79.8 H Lymphocytes % 11.2 L PT 15.1 INR 1.13 APTT 89.1 H Sodium 138.1 Potassium 4.6 Chloride 106 Carbon Dioxide 22 Anion Gap 10 BUN 23 H Creatinine 1.40 H Est GFR (Non-Af Amer) 50 L Glucose 60 L Calcium 9.5 Magnesium 2.3 Total Bilirubin 1.2 Direct Bilirubin 0.8 H Neonat Total Bilirubin Not Reportable Neonat Direct Bilirubin Not Reportable Neonat Indirect Bili Not Reportable AST 60 H ALT 92 H Alkaline Phosphatase 79 Total Protein 6.6 Albumin 3.4 L 12/17/18 12/17/18 17:40 17:40 WBC 8.3 RBC 4.27 L Hgb 12.9 L Hct 37.7 L MCV 88 MCH 30.1 MCHC 34.1 RDW 14.5 H Plt Count 188 Seg Neutrophils % 79.7 H Lymphocytes % 12.3 L PT 15.0 INR 1.12 APTT 33.0 Sodium Potassium Chloride Carbon Dioxide Anion Gap BUN Creatinine Est GFR (Non-Af Amer) Glucose Calcium Magnesium Total Bilirubin Direct Bilirubin Neonat Total Bilirubin Neonat Direct Bilirubin Neonat Indirect Bili AST ALT Alkaline Phosphatase Total Protein Albumin Chest X-Ray 12/11/18 14:11 IMPRESSION: 1. Rounded masslike opacity of the right upper lobe with adjacent heterogeneous airspace opacity. Findings are highly concerning for primary malignancy. Recommend CT to further evaluate. 2. Cardiomegaly. Chest X-Ray 12/11/18 15:38 IMPRESSION: ROUNDED DENSITY IN THE RIGHT MIDLUNG AGAIN SEEN. CONCERNING FOR UNDERLYING PULMONARY MASS. RECOMMEND FOLLOW-UP CHEST CT. Chest CT 12/11/18 16:11 IMPRESSION: 1. LOBULATED MASS IN THE LATERAL RIGHT LUNG CONSISTENT WITH MALIGNANCY. ADDITIONAL SMALLER NODULAR MASSES EXTENDING MEDIALLY TO THE RIGHT HILUM. RIGHT HILAR MASS PRESUMED SECONDARY TO ADENOPATHY. PATCHY AIRSPACE DISEASE IN THE ADJACENT RIGHT LUNG. THIS MAY BE DUE TO PNEUMONITIS OR ATELECTASIS ALTHOUGH LYMPHATIC SPREAD OF TUMOR COULD BE ANOTHER POSSIBILITY. RIGHT PLEURAL EFFUSION. LEFT LUNG CLEAR. 2. HETEROGENOUS ENLARGED LEFT LOBE OF THE THYROID WHICH EXTENDS IN A SUBSTERNAL DIRECTION DESCRIBED. Abdomen/Pelvis CT 12/13/18 00:00 IMPRESSION: 1. Partially visualized filling defects in right lower lobe arteries, suspicious for pulmonary embolism. Consider CTA chest. 2. Small right pleural effusion as on prior exam. Right hilar mass is partially visualized, as on 12/11/[address] evidence for metastatic disease in the abdomen or pelvis. 4. No acute findings in the abdomen or pelvis. Venous Doppler Study 12/15/18 00:00 IMPRESSION: No venous thrombosis in the right leg Acute hypoechoic clot in the paired peroneal and posterior tibial veins in the left calf, acute hypoechoic clot in the left lesser saphenous vein in the calf Chest X-Ray 12/17/18 00:00 IMPRESSION: No pneumothorax 2 hours post right upper lobe CT-guided lung mass biopsy Chest X-Ray 12/17/18 00:00 IMPRESSION: No pneumothorax post right lung biopsy. Bilateral alveolar and interstitial infiltrates worrisome for pulmonary edema. Guidance Needle Placement CT 12/17/18 00:00 IMPRESSION: CT GUIDED BIOPSY OF THE RIGHT UPPER LOBE LUNG MASS PERFORMED WITHOUT IMMEDIATE COMPLICATION. PATHOLOGY PENDING. FLUID OVERLOAD OR CONGESTIVE FAILURE WITH TRACE BILATERAL PLEURAL EFFUSIONS AND BILATERAL ALVEOLAR/INTERSTITIAL PULMONARY EDEMA ON BIOPSY PLANNING CT TODAY Lung Biopsy CT 12/17/18 00:00 IMPRESSION: CT GUIDED BIOPSY OF THE RIGHT UPPER LOBE LUNG MASS PERFORMED WITHOUT IMMEDIATE COMPLICATION. PATHOLOGY PENDING. FLUID OVERLOAD OR CONGESTIVE FAILURE WITH TRACE BILATERAL PLEURAL EFFUSIONS AND BILATERAL ALVEOLAR/INTERSTITIAL PULMONARY EDEMA ON BIOPSY PLANNING CT TODAY IMPRESSION/RECOMMENDATION: 1. Non-ST elevation PR versus type II myocardial infarction secondary to supply demand mismatch.: Patient with exertional chest pressure/shortness of breath. Now rethinking the case probably this is not a non-ST elevation PR, and just a leak from the pulmonary emboli and the lung mass. This is due to the fact that at present the patient has no exertional chest pressure. He has still some degree of shortness of breath, but much less than before, and also has discomfort in the right side of the chest. Hence this may be a type 2 myocardial infarction due to supply demand mismatch. But in view of the patient's significant coronary artery disease will maximize the patient's anti- CAD medication. 2. Pulmonary embolism: The patient also has DVT in the left leg. The patient had lung biopsy on a heparin free window. Heparin will be restarted. Later would recommend patient the patient on oral anticoagulation agent. 3. Coronary artery disease: History of prior to myocardial infarctions. History of proximal and mid LAD stent in 2001. Continue medications as mentioned above. 4. Right lung mass, most likely malignant, especially since the patient is a former smoker. The patient had a right lung biopsy. Pathology awaited. The patient be placed back on IV heparin when safe. Would recommend placing the patient on oral antibiotic anticoagulation. 4. Hypertension: Continue the patient on beta-fredo and losartan. 5. Diabetes mellitus type 2 with chronic kidney disease: Avoid nephrotoxic drugs 6. Chronic kidney disease stage III: Avoid nephrotoxic drug. His GFR is slightly worse. We will continue hydration. His GFR is 47 mL/min today 7. Hyperlipidemia: With low HDL level, good LDL level, and high triglyceride level. Recommend continue the patient on statin. 8. Left thyroid mass: Status post biopsy. The patient states that the initial results were said to be inconclusive, and the slides have been sent to pathology for review. The results of this have not been obtained. The patient will try to get [facility] to see if he can get any further information on the tissue diagnosis of the thyroid mass. 9. the patient states he has no further chest pressure on exertion or walking to the bathroom. He shortness of breath with the exertion is much improved. He states that he has a discomfort in the right front of the chest, but this is not pleuritic. Most likely this is due to the lung mass and possible pulmonary embolism.. Symptoms highly suggestive of obstructive sleep apnea. Would recommend empiric use of BiPAP here in the hospital. Later as an outpatient the patient would be recommended to have a sleep study. 10. DVT left lower extremity. Continue heparin, and later switch to oral anticoagulation agent. 11. Morbid Obesity. Medications reviewed. Medications adjusted. 40 minutes spent on this patient with more than 50% of time spent in direct patient care. Medical decision making is of moderate complexity. Discussed with attending physicians managing the case and other caregiving providers on the case. Discussed with the patient and patient's daughter. 40 minutes spent on this patient more than 50% of time spent in direct patient care. Will follow
[2018-12-17 23:34] LABS: APPEARANCE,URINE CLEAR; BILIRUBIN,URINE NEGATIVE (NEGATIVE); COLOR,URINE YELLOW; GLUCOSE, URINE >=500 mg/dL (NEGATIVE); KETONES,URINE NEGATIVE (NEGATIVE); LEUKOCYTE ESTERASE,URINE NEGATIVE (NEGATIVE); NITRITE,URINE NEGATIVE (NEGATIVE); PROTEIN,URINE NEGATIVE (NEGATIVE)
[2018-12-18] MEDS: IPRATROPIUM BROMIDE 0.02% NEB 0.5 MG/2.5 ML AMPUL NEB SCH ×4 (01:00→23:44)
[2018-12-18] MEDS: LEVALBUTEROL HCL NEB 1.25 MG/3 ML AMPUL NEB SCH ×4 (01:00→23:44)
[2018-12-18 02:42] LABS: ABSOLUTE EOSINOPHILS # (AUTO) 0.1 10^3/uL (0.0-0.6); ABSOLUTE LYMPHOCYTES (AUTO) 1.3 10^3/uL (0.5-4.7); ABSOLUTE MONOCYTES (AUTO) 0.6 10^3/uL (0.1-1.4); ABSOLUTE NEUT (AUTO) 6.3 10^3/uL (1.7-8.2); BASOPHILS % (AUTO) 0.5 % (0-2); EOSINOPHILS % (AUTO) 1.1 % (0-6); HEMATOCRIT 38.6 % (37.9-51.0); HEMOGLOBIN 13.3 g/dL (13.5-17.0); LYMPHOCYTES % (AUTO) 15.5 % (13-45); MEAN CORPUSCULAR HEMOGLOBIN 29.9 pg (27.0-33.4); MEAN CORPUSCULAR HGB CONC 34.4 g/dL (32.0-36.0); MEAN CORPUSCULAR VOLUME 87 fl (80-97); MONOCYTES % (AUTO) 7.7 % (3-13); PLATELET COUNT 212 10^3/uL (150-450); RED BLOOD COUNT 4.44 10^6/uL (4.35-5.55); RED CELL DISTRIBUTION WIDTH 14.6 % (11.5-14.0); SEGMENTED NEUTROPHILS % (AUTO) 75.2 % (42-78); TOTAL CELLS COUNTED % (AUTO) 100 %; WHITE BLOOD COUNT 8.4 10^3/uL (4.0-10.5)
[2018-12-18 02:56] LABS: ALANINE AMINOTRANSFERASE 186 U/L (21-72); ALBUMIN 3.6 g/dL (3.5-5.0); ALKALINE PHOSPHATASE 100 U/L (38-126); ANION GAP 10 (5-19); ASPARTATE AMINO TRANSFERASE 179 U/L (17-59); BILIRUBIN,DIRECT 0.6 mg/dL (0.0-0.4); BILIRUBIN,TOTAL 1.3 mg/dL (0.2-1.3); BLOOD UREA NITROGEN 24 mg/dL (7-20); CALCIUM 9.7 mg/dL (8.4-10.2); CARBON DIOXIDE 27 mmol/L (22-30); CHLORIDE 104 mmol/L (98-107); GLUCOSE 107 mg/dL (75-110); POTASSIUM 4.6 mmol/L (3.6-5.0); SODIUM 140.6 mmol/L (137-145); TOTAL PROTEIN 6.9 g/dL (6.3-8.2)
[2018-12-18] MEDS: HEPARIN SODIUM,PORCINE/D5W 25,000 UNIT/250 ML RTUINJ IV PRN ×2 (04:52→16:50)
[2018-12-18] MEDS: GABAPENTIN 300 MG CAPSULE PO SCH ×3 (05:01→21:33)
[2018-12-18] MEDS: INSULIN REG, HUMAN 100 UNIT/ML 3 ML VIAL (PYX) SUBCUT SCH ×4 (08:00→21:32)
[2018-12-18] MEDS: FLUTICASONE NASAL SPRAY 50 MCG/SPRY 120 SPRAY/16 GM NASL SCH (09:55)
[2018-12-18] MEDS: ASPIRIN 81 MG TABLET, CHEWABLE PO SCH (09:56)
[2018-12-18] MEDS: METOPROLOL SUCCINATE 50 MG TAB.SR.24H PO SCH ×2 (09:56→21:33)
[2018-12-18] MEDS: FAMOTIDINE 20 MG TABLET PO SCH ×2 (09:56→21:33)
[2018-12-18] MEDS: FLUTICASONE/VILANTEROL 100-25 MCG/DOSE IH SCH (09:56)
[2018-12-18] MEDS: DOCUSATE SODIUM 100 MG CAPSULE PO SCH ×2 (09:57→17:01)
[2018-12-18] MEDS: ISOSORBIDE MONONITRATE 60 MG TAB.ER.24H PO SCH (09:57)
[2018-12-18] MEDS: LOSARTAN POTASSIUM 50 MG TABLET PO SCH (09:58)
--- NOTE | 2018-12-18 10:20 | RADIOLOGY REPORT (SQ) ---
EXAM DESCRIPTION: CHEST SINGLE VIEW COMPLETED DATE/TIME: 12/18/2018 10:08 am REASON FOR STUDY: Right side chest pain with inhalation COMPARISON: 12/17/2018 EXAM PARAMETERS: NUMBER OF VIEWS: One view. TECHNIQUE: Single frontal radiographic view of the chest acquired. RADIATION DOSE: NA LIMITATIONS: None. FINDINGS: Stable AP examination with right upper lobe mass. There is no significant pneumothorax or pleural effusion status post biopsy. Unchanged minimal diffuse interstitial pulmonary opacity and c ardiomegaly, likely edema. IMPRESSION: Stable AP examination with right upper lobe mass. There is no significant pneumothorax or pleural effusion status post biopsy. Unchanged minimal diffuse interstitial pulmonary opacity and cardiomegaly, likely edema. TECHNICAL DOCUMENTATION: JOB ID: [id number] [employer]- All Rights Reserved Reading location - IP/workstation name: [email or web address]
[2018-12-18] MEDS: LIDOCAINE 5% (700 MG) TRANSDERMAL ADH..PATCH TP SCH (11:56)
[2018-12-18] MEDS: CALCITRIOL 0.25 MCG CAPSULE PO SCH (12:16)
[2018-12-18] MEDS: APIXABAN 5 MG TABLET PO SCH (17:01)
--- NOTE | 2018-12-18 17:07 | PDOC PROGRESS REPORT ---
Subjective Progress Note for:: 12/18/18 Subjective:: VICTOR MANUEL HALL is a 68 year old male who presented to the emergency room with a 4-day history of episodic dyspnea at rest and on exertion. Patient acknowledges moderate to severe dyspnea episodes worsened with any exertion, several times per day over the weekend but better on Monday. His symptoms returned again early this morning and were much more severe with the dyspnea and abdominal discomfort being present and not resolving with a short period of rest and c ontrolled breathing. His dyspnea was accompanied by a mild to moderate epigastric/lower anterior chest pressure-like discomfort. Patient's dyspnea and chest/abdomen discomfort was relieved by rest after a few minutes until today when it became persistent resulting in his trip to the emergency room. He also admits an associated symptom of bilateral leg swelling which is a little worse than his normal chronic swelling. He denies prior similar episodes. He denies identification of other aggravating or ameliorating factors for his dyspnea and chest/abdominal pain. In the emergency room he was noted to have dyspnea with exertion and required supplemental oxygen at 2 L/min via nasal cannula to remain dyspnea free and pain-free even at rest. Chest x-ray showed a right midlung mass suspicious for neoplasm with probable right perihilar lymphadenopathy. Because of the patient's acute respiratory failure, chest/abdominal pain, worsening peripheral edema and dyspnea with exertion he was admitted for further evaluation and treatment. 12/12/2018. Shortness of breath with mild improvement but patient still having dyspnea on exertion associated with pressure-like chest pain. Patient denies any fever, chills, nausea, vomiting, diarrhea, constipation or any urinary symptoms. 12/13/2018. Patient still having dyspnea on exertion, chest pain has not recurred since yesterday. Was able to ambulate to the bathroom having any chest pain. Denies any fever, chills, nausea, vomiting, diarrhea, constipation or any urinary symptoms. 12/14/2018. No acute events overnight. Patient is very pleasant cooperative with physical examination. Shortness of breath has improved since yesterday s till requiring supplemental oxygen. Has not had any more chest pain since yesterday. Able to ambulate to the restroom on supplemental oxygen does not report any chest pain on ambulation. Denies any fever, chills, nausea, vomiting, diarrhea, constipation or any urinary symptoms. 12/15/2018. Patient was having some respiratory distress overnight and was started on BiPAP with significant symptoms. Still complaining of dyspnea on exertion is not had any recurrence of his chest pain. Denies any fever, chills, nausea, vomiting, diarrhea, constipation or any urinary symptoms. Had a venous Doppler of lower extremities which was positive for DVT. 12/16/2018. No acute events overnight. EMR patient has T-max of 100.8 and 2 episodes upon my conversation with him today he denies having any fever or chills, still complaining of dyspnea on exertion, has not had any recurrence of his chest pain, p.o. tolerant, ambulatory, having normal bowel and bladder function. Denies any nausea, vomiting, diarrhea, constipation, urinary symptoms. Scheduled for CT-guided biopsy of lung mass tomorrow. 12/17/2018. No acute events overnight. No recurrence of chest pain. Shortness of breath has improved. Patient gets short of breath only when exerting himself. Denies any fever, chills, nausea, vomiting, diarrhea, constipation or any urinary symptoms. Status post CT-guided right lung biopsy. 12/18/2018. Patient complaining of right-sided pleuritic chest pain at the site of the biopsy. Chest pain exacerbated by breathing, sharp, nonradiating. Repeat chest x-ray was negative for any pneumothorax or hemothorax. Denies any fever, chills, nausea, vomiting, liver, constipation or any other sex. At rest he is not short of breath but is still having dyspnea on exertion. Reason For Visit: DYSPNEA Physical Exam Vital Signs: Temp Pulse Resp BP Pulse Ox 98.7 F 78 18 126/57 H 93 12/18/18 11:28 12/18/18 16:03 12/18/18 16:03 12/18/18 11:28 12/18/18 16:03 Intake & Output 12/17/18 12/18/18 12/19/18 06:59 06:59 06:59 Intake Total 2760 399 339 Output Total 700 200 Balance 2760 -301 139 Weight 145.8 kg General appearance: PRESENT: no acute distress, obese, well-developed, well- nourished Head exam: PRESENT: atraumatic, normocephalic Respiratory exam: PRESENT: clear to auscultation nancy, other - TTP over right side of the chest at the site of biopsy.. ABSENT: rales, rhonchi, wheezes Cardiovascular exam: PRESENT: RRR. ABSENT: diastolic murmur, rubs, systolic murmur GI/Abdominal exam: PRESENT: normal bowel sounds, soft. ABSENT: distended, guarding, mass, organolmegaly, rebound, tenderness Extremities exam: PRESENT: +1 edema Neurological exam: PRESENT: alert, awake, oriented to person, oriented to place, oriented to time, oriented to situation, CN II-XII grossly intact. ABSENT: motor sensory deficit Results Laboratory Results: 12/18/18 02:20 12/18/18 02:20 12/17/18 12/17/18 12/18/18 17:40 23:05 02:20 WBC 8.3 8.4 RBC 4.27 L 4.44 Hgb 12.9 L 13.3 L Hct 37.7 L 38.6 MCV 88 87 MCH 30.1 29.9 MCHC 34.1 34.4 RDW 14.5 H 14.6 H Plt Count 188 212 Seg Neutrophils % 79.7 H 75.2 Lymphocytes % 12.3 L 15.5 Monocytes % 6.8 7.7 Eosinophils % 0.7 1.1 Basophils % 0.5 0.5 Absolute Neutrophils 6.6 6.3 Absolute Lymphocytes 1.0 1.3 Absolute Monocytes 0.6 0.6 Absolute Eosinophils 0.1 0.1 Absolute Basophils 0.0 0.0 Sodium Potassium Chloride Carbon Dioxide Anion Gap BUN Creatinine Est GFR ( Amer) Est GFR (Non-Af Amer) Glucose Calcium Magnesium Total Bilirubin AST ALT Alkaline Phosphatase Total Protein Albumin Urine Color YELLOW Urine Appearance CLEAR Urine pH 6.0 Ur Specific [place] 1.010 Urine Protein NEGATIVE Urine Glucose (UA) >=500 H Urine Ketones NEGATIVE Urine Blood NEGATIVE Urine Nitrite NEGATIVE Ur Leukocyte Esterase NEGATIVE Urine WBC (Auto) 0 Stool Occult Blood 12/18/18 12/18/18 02:20 10:26 WBC RBC Hgb Hct MCV MCH MCHC RDW Plt Count Seg Neutrophils % Lymphocytes % Monocytes % Eosinophils % Basophils % Absolute Neutrophils Absolute Lymphocytes Absolute Monocytes Absolute Eosinophils Absolute Basophils Sodium 140.6 Potassium 4.6 Chloride 104 Carbon Dioxide 27 Anion Gap 10 BUN 24 H Creatinine 1.43 H Est GFR ( Amer) 59 L Est GFR (Non-Af Amer) 49 L Glucose 107 Calcium 9.7 Magnesium 2.3 Total Bilirubin 1.3 AST 179 H ALT 186 H Alkaline Phosphatase 100 Total Protein 6.9 Albumin 3.6 Urine Color Urine Appearance Urine pH Ur Specific [place] Urine Protein Urine Glucose (UA) Urine Ketones Urine Blood Urine Nitrite Ur Leukocyte Esterase Urine WBC (Auto) Stool Occult Blood NEGATIVE 12/11/18 12/11/18 12/11/18 14:45 17:14 21:07 Creatine Kinase 59 CK-MB (CK-2) Troponin I 0.114 0.150 NT-Pro-B Natriuret Pep 749 12/11/18 12/12/18 12/12/18 21:07 03:00 03:00 Creatine Kinase 56 CK-MB (CK-2) 1.36 1.37 Troponin I 0.111 0.083 NT-Pro-B Natriuret Pep 12/12/18 12/12/18 12/12/18 09:52 09:52 19:50 Creatine Kinase 51 L CK-MB (CK-2) 1.14 Troponin I 0.059 0.066 NT-Pro-B Natriuret Pep Impressions: Chest CT 12/11/18 16:11 IMPRESSION: 1. LOBULATED MASS IN THE LATERAL RIGHT LUNG CONSISTENT WITH MALIGNANCY. ADDITIONAL SMALLER NODULAR MASSES EXTENDING MEDIALLY TO THE RIGHT HILUM. RIGHT HILAR MASS PRESUMED SECONDARY TO ADENOPATHY. PATCHY AIRSPACE DISEASE IN THE ADJACENT RIGHT LUNG. THIS MAY BE DUE TO PNEUMONITIS OR ATELECTASIS ALTHOUGH LYMPHATIC SPREAD OF TUMOR COULD BE ANOTHER POSSIBILITY. RIGHT PLEURAL EFFUSION. LEFT LUNG CLEAR. 2. HETEROGENOUS ENLARGED LEFT LOBE OF THE THYROID WHICH EXTENDS IN A SUBSTERNAL DIRECTION DESCRIBED. Abdomen/Pelvis CT 12/13/18 00:00 IMPRESSION: 1. Partially visualized filling defects in right lower lobe arteries, suspicious for pulmonary embolism. Consider CTA chest. 2. Small right pleural effusion as on prior exam. Right hilar mass is partially visualized, as on 12/11/[address] evidence for metastatic disease in the abdomen or pelvis. 4. No acute findings in the abdomen or pelvis. Venous Doppler Study 12/15/18 00:00 IMPRESSION: No venous thrombosis in the right leg Acute hypoechoic clot in the paired peroneal and posterior tibial veins in the left calf, acute hypoechoic clot in the left lesser saphenous vein in the calf Guidance Needle Placement CT 12/17/18 00:00 IMPRESSION: CT GUIDED BIOPSY OF THE RIGHT UPPER LOBE LUNG MASS PERFORMED WITHOUT IMMEDIATE COMPLICATION. PATHOLOGY PENDING. FLUID OVERLOAD OR CONGESTIVE FAILURE WITH TRACE BILATERAL PLEURAL EFFUSIONS AND BILATERAL ALVEOLAR/INTERSTITIAL PULMONARY EDEMA ON BIOPSY PLANNING CT TODAY Lung Biopsy CT 12/17/18 00:00 IMPRESSION: CT GUIDED BIOPSY OF THE RIGHT UPPER LOBE LUNG MASS PERFORMED WITHOUT IMMEDIATE COMPLICATION. PATHOLOGY PENDING. FLUID OVERLOAD OR CONGESTIVE FAILURE WITH TRACE BILATERAL PLEURAL EFFUSIONS AND BILATERAL ALVEOLAR/INTERSTITIAL PULMONARY EDEMA ON BIOPSY PLANNING CT TODAY Chest X-Ray 12/18/18 00:00 IMPRESSION: Stable AP examination with right upper lobe mass. There is no significant pneumothorax or pleural effusion status post biopsy. Unchanged minimal diffuse interstitial pulmonary opacity and cardiomegaly, likely edema. Assessment and Plan - Diagnosis (1) Pulmonary emboli Qualifiers: Chronicity: unspecified Is this a current diagnosis for this admission?: Yes Plan: This was observed on CT abdomen pelvis with and without contrast for restaging of his lung mass. On admission patient had a CT chest without contrast. 12/14/2018 patient will need a CTA to confirm and localize his pulmonary emboli, but because of the fact that he had received IV contrast yesterday for CT abdomen and pelvis and he may receive IV contrast on Monday for CT-guided biopsy and possible left heart cath on Monday at [facility], would be safer to treat his PE empirically. 12/15/2018 venous Doppler of lower extremities showed acute hypoechoic clock in the paired peroneal and posterior tibial veins in the left calf acute hypoechoic clock in the left lesser saphenous vein in the calf. Day 2 status post right lung biopsy. Repeat chest x-ray negative for any hemopneumothorax. We will switch to Eliquis 10 mg bid for 7 days then switch to 5 mg twice daily. (2) Non-ST elevation myocardial infarction (NSTEMI) Is this a current diagnosis for this admission?: Yes Plan: Right-sided chest pain has resolved still complaining of dyspnea on exertion. Patient is positive for acute DVT and PE which may explain his dyspnea on exertion and chest pain. As per cardiology note patient may not have had an NSTEMI I but rather NSTEMI II due to mismatch demand caused by acute PE. History of CAD status post stent placement in 2000. Troponins 0.114, 0.150, 0.11, 0.08, 0.05 Aspirin, Eliquis, beta-blockers, EMORY, high intensity statins. As needed nitrates and morphine. . Status post lung biopsy on 12/17/2018. No plan on transferring to tertiary care at this point. (3) DVT of axillary vein, acute left Is this a current diagnosis for this admission?: Yes Plan: Provoked. High risk due to underlying lung malignancy. 12/15/2018. Venous Doppler of lower extremities showed acute hypoechoic clock in the paired peroneal and posterior tibial veins in the left calf acute hypoechoic clock in the left lesser saphenous vein in the calf. Switch heparin to Xarelto 10 mg p.o. twice daily for 7 days then 5 mg p.o. twice daily. Patient was initially placed on heparin drip pending lung biopsy and possible transfer to tertiary care for left heart cath. (4) Unstable angina Is this a current diagnosis for this admission?: Yes Plan: As per problem #2. (5) Mass of upper lobe of right lung Is this a current diagnosis for this admission?: Yes Plan: Status post right lung biopsy on 12/15/2018. Oncology and pulmonary on board. Denies any history of previous malignancy. Former heavy smoker. Status post thyroid mass biopsy as outpatient. Pathology pending. Positive family history of colon cancer. Last colonoscopy 5 years ago status post polypectomy reported as normal per patient. PTHrP pending. CT abdomen and pelvis contrast did not show any abdominal metastasis. (6) CKD (chronic kidney disease) stage 2, GFR 60-89 ml/min Is this a current diagnosis for this admission?: No Plan: Stable. Improving. Monitor electrolytes and volume status. Avoid nephrotoxic meds. (7) Diabetes type 2, uncontrolled Qualifiers: Glycemic state: with hyperglycemia Qualified Code(s): E11.65 - Type 2 diabetes mellitus with hyperglycemia Is this a current diagnosis for this admission?: Yes Plan: Improving. Hx of highly resistant DM. Patient is on highly concentrated insulin form. Has been followed by several adult live in caregiver in the past. Not well managed by sliding scale. We do not carry his form of insulin in the hospital. Patient brought his own insulin supplies, verified by pharmacy and restarted. DC insulin drip. Continue sliding scale insulin. Cardiac and diabetic diet. (8) CAD (coronary artery disease) Is this a current diagnosis for this admission?: No Plan: Continue ASA, statins, EMORY, beta-blockers. (9) PADMINI (obstructive sleep apnea) Is this a current diagnosis for this admission?: No Plan: Has not been evaluated by pulmonology. Nocturnal CPAP. Outpatient nocturnal polysomnography. Pulmonology follow-up. Weight loss advised. (10) Morbid obesity with BMI of 40.0-44.9, adult Is this a current diagnosis for this admission?: No Plan: Diet and lifestyle modifications.
[2018-12-18] MEDS: FUROSEMIDE 20 MG TABLET PO SCH (17:48)
[2018-12-18] MEDS: ATORVASTATIN CALCIUM 40 MG TABLET PO SCH (21:33)
[2018-12-18] MEDS: MONTELUKAST SODIUM 10 MG TABLET PO SCH (21:33)
[2018-12-19] MEDS: GABAPENTIN 300 MG CAPSULE PO SCH ×3 (05:09→21:33)
[2018-12-19] MEDS: INSULIN REG, HUMAN 100 UNIT/ML 3 ML VIAL (PYX) SUBCUT SCH ×4 (08:17→21:29)
[2018-12-19] MEDS: IPRATROPIUM BROMIDE 0.02% NEB 0.5 MG/2.5 ML AMPUL NEB SCH ×3 (08:38→23:54)
[2018-12-19] MEDS: LEVALBUTEROL HCL NEB 1.25 MG/3 ML AMPUL NEB SCH ×3 (08:38→23:54)
--- NOTE | 2018-12-19 09:14 | PDOC PROGRESS REPORT ---
Subjective Progress Note for:: 12/19/18 Subjective:: Patient symptomatically better but still on 5 L of oxygen Reason For Visit: DYSPNEA Physical Exam Vital Signs: Temp Pulse Resp BP Pulse Ox 98.3 F 73 16 132/67 H 93 12/19/18 07:53 12/19/18 07:53 12/19/18 07:53 12/19/18 07:53 12/19/18 07:53 Intake & Output 12/18/18 12/19/18 12/20/18 06:59 06:59 06:59 Intake Total 503 860 Output Total 700 200 Balance -197 660 Weight 138.3 kg General appearance: PRESENT: no acute distress, well-developed, well-nourished Head exam: PRESENT: atraumatic, normocephalic Eye exam: PRESENT: conjunctiva pink, EOMI, PERRLA. ABSENT: scleral icterus Ear exam: PRESENT: normal external ear exam Mouth exam: PRESENT: moist, tongue midline Neck exam: ABSENT: carotid bruit, JVD, lymphadenopathy, thyromegaly Respiratory exam: PRESENT: clear to auscultation nancy. ABSENT: rales, rhonchi, wheezes Cardiovascular exam: PRESENT: RRR. ABSENT: diastolic murmur, rubs, systolic murmur Pulses: PRESENT: normal dorsalis pedis pul Vascular exam: PRESENT: normal capillary refill GI/Abdominal exam: PRESENT: normal bowel sounds, soft. ABSENT: distended, guarding, mass, organolmegaly, rebound, tenderness Rectal exam: PRESENT: deferred Extremities exam: PRESENT: full ROM. ABSENT: calf tenderness, clubbing, pedal edema Neurological exam: PRESENT: alert, awake, oriented to person, oriented to place, oriented to time, oriented to situation, CN II-XII grossly intact. ABSENT: motor sensory deficit Psychiatric exam: PRESENT: appropriate affect, normal mood. ABSENT: homicidal ideation, suicidal ideation Skin exam: PRESENT: dry, intact, warm. ABSENT: cyanosis, rash Results Laboratory Results: 12/18/18 02:20 12/18/18 02:20 12/18/18 10:26 Stool Occult Blood NEGATIVE 12/11/18 12/11/18 12/11/18 14:45 17:14 21:07 Creatine Kinase 59 CK-MB (CK-2) Troponin I 0.114 0.150 NT-Pro-B Natriuret Pep 749 12/11/18 12/12/18 12/12/18 21:07 03:00 03:00 Creatine Kinase 56 CK-MB (CK-2) 1.36 1.37 Troponin I 0.111 0.083 NT-Pro-B Natriuret Pep 12/12/18 12/12/18 12/12/18 09:52 09:52 19:50 Creatine Kinase 51 L CK-MB (CK-2) 1.14 Troponin I 0.059 0.066 NT-Pro-B Natriuret Pep Impressions: Chest CT 12/11/18 16:11 IMPRESSION: 1. LOBULATED MASS IN THE LATERAL RIGHT LUNG CONSISTENT WITH MALIGNANCY. ADDITIONAL SMALLER NODULAR MASSES EXTENDING MEDIALLY TO THE RIGHT HILUM. RIGHT HILAR MASS PRESUMED SECONDARY TO ADENOPATHY. PATCHY AIRSPACE DISEASE IN THE ADJACENT RIGHT LUNG. THIS MAY BE DUE TO PNEUMONITIS OR ATELECTASIS ALTHOUGH LYM PHATIC SPREAD OF TUMOR COULD BE ANOTHER POSSIBILITY. RIGHT PLEURAL EFFUSION. LEFT LUNG CLEAR. 2. HETEROGENOUS ENLARGED LEFT LOBE OF THE THYROID WHICH EXTENDS IN A SUBSTERNAL DIRECTION DESCRIBED. Abdomen/Pelvis CT 12/13/18 00:00 IMPRESSION: 1. Partially visualized filling defects in right lower lobe arteries, suspicious for pulmonary embolism. Consider CTA chest. 2. Small right pleural effusion as on prior exam. Right hilar mass is partially visualized, as on 12/11/[address] evidence for metastatic disease in the abdomen or pelvis. 4. No acute findings in the abdomen or pelvis. Venous Doppler Study 12/15/18 00:00 IMPRESSION: No venous thrombosis in the right leg Acute hypoechoic clot in the paired peroneal and posterior tibial veins in the left calf, acute hypoechoic clot in the left lesser saphenous vein in the calf Guidance Needle Placement CT 12/17/18 00:00 IMPRESSION: CT GUIDED BIOPSY OF THE RIGHT UPPER LOBE LUNG MASS PERFORMED WITHOUT IMMEDIATE COMPLICATION. PATHOLOGY PENDING. FLUID OVERLOAD OR CONGESTIVE FAILURE WITH TRACE BILATERAL PLEURAL EFFUSIONS AND BILATERAL ALVEOLAR/INTERSTITIAL PULMONARY EDEMA ON BIOPSY PLANNING CT TODAY Lung Biopsy CT 12/17/18 00:00 IMPRESSION: CT GUIDED BIOPSY OF THE RIGHT UPPER LOBE LUNG MASS PERFORMED WITHOUT IMMEDIATE COMPLICATION. PATHOLOGY PENDING. FLUID OVERLOAD OR CONGESTIVE FAILURE WITH TRACE BILATERAL PLEURAL EFFUSIONS AND BILATERAL ALVEOLAR/INTERSTITIAL PULMONARY EDEMA ON BIOPSY PLANNING CT TODAY Chest X-Ray 12/18/18 00:00 IMPRESSION: Stable AP examination with right upper lobe mass. There is no significant pneumothorax or pleural effusion status post biopsy. Unchanged minimal diffuse interstitial pulmonary opacity and cardiomegaly, likely edema. Assessment & Plan - Diagnosis (1) Mass of upper lobe of right lung Is this a current diagnosis for this admission?: Yes Plan: CT-guided biopsy done, I have ordered follow-up in our office in 1 week. (2) Other pulmonary embolism without acute cor pulmonale Qualifiers: Chronicity: acute Qualified Code(s): I26.99 - Other pulmonary embolism without acute cor pulmonale Is this a current diagnosis for this admission?: Yes Plan: Switch to Eliquis, will continue on Eliquis 10 mg twice daily for 7 days then switch to 5 mg twice daily.
[2018-12-19] MEDS: LOSARTAN POTASSIUM 50 MG TABLET PO SCH (10:01)
[2018-12-19] MEDS: LIDOCAINE 5% (700 MG) TRANSDERMAL ADH..PATCH TP SCH (10:02)
[2018-12-19] MEDS: ISOSORBIDE MONONITRATE 60 MG TAB.ER.24H PO SCH (10:02)
[2018-12-19] MEDS: APIXABAN 5 MG TABLET PO SCH ×2 (10:03→17:28)
[2018-12-19] MEDS: METOPROLOL SUCCINATE 50 MG TAB.SR.24H PO SCH ×2 (10:03→21:34)
[2018-12-19] MEDS: FLUTICASONE/VILANTEROL 100-25 MCG/DOSE IH SCH (10:03)
[2018-12-19] MEDS: DOCUSATE SODIUM 100 MG CAPSULE PO SCH ×2 (10:03→18:38)
[2018-12-19] MEDS: FLUTICASONE NASAL SPRAY 50 MCG/SPRY 120 SPRAY/16 GM NASL SCH (10:05)
[2018-12-19] MEDS: ASPIRIN 81 MG TABLET, CHEWABLE PO SCH (10:05)
[2018-12-19] MEDS: FAMOTIDINE 20 MG TABLET PO SCH ×2 (10:05→21:33)
[2018-12-19] MEDS: FUROSEMIDE 20 MG TABLET PO SCH (10:05)
--- NOTE | 2018-12-19 11:45 | CONSULTATION REPORT E ---
Consultation Report NAME: VICTOR MANUEL HALL : 1950 AGE: 68Y DATE: 12/17/2018 321 B TO: SYDNEE MIRANDA M.D. FROM: NÉSTOR BENAVIDES MD Requesting Physician HISTORY OF PRESENT ILLNESS: The patient is a 68-year-old male who came in with right upper lobe lung mass. Underwent CT-guided fine needle biopsy today and tolerated the procedure well. No residual pneumothorax. The patient denies any fever, chills, increased cough or purulent sputum production or hemoptysis. Denies any worsening dyspnea. PAST MEDICAL HISTORY: 1. History of congestive heart failure. 2. Coronary artery disease. 3. Myocardial infarction. 4. Hyperlipidemia. 5. Hypertension. He denies any asthma, COPD. Denies any hemorrhagic stroke or ischemic stroke or seizures. Reported diabetes mellitus type 2. Complained about chronic kidney disease. PAST SURGICAL HISTORY: muscle biopsy in 2002. SOCIAL HISTORY: He lives alone. Former smoker. Smoked about 1 pack a day for about 40 years and quit about 8 years ago. He denies alcohol abuse or illicit drug use. FAMILY HISTORY: Hypertension, malignancy. Denies any stroke or coronary artery disease. Mother of cancer. One daughter in good health. MEDICATIONS: Include: 1. Tylenol with codeine. 2. Aspirin. 3. Atorvastatin. 4. Rocaltrol. 7. Fluticasone nasal spray. 8. Lasix. 9. Gabapentin. 10. Regular insulin. 11. Imdur. 12. Claritin. 13. Cozaar. 14. Metoprolol. 15. Singulair. 16. Potassium chloride. ALLERGIES OR ADVERSE DRUG REACTIONS: No known drug allergies or wheezing. REVIEW OF SYSTEMS: CONSTITUTIONAL: No fever or chills. EYES: No jaundice or pallor. EARS, NOSE, AND THROAT: No ear drainage. No nasal discharge. CHEST AND LUNGS: No wheezing. No rhonci or coarse crackles. CARDIOVASCULAR: no chest delacruz or palpitations or heart attack. RESPIRATORY: Complained about SOB and chest tightness. Denies any purulent sputum production, hemoptysis, or worsening dyspnea. GASTROINTESTINAL: No nausea, vomiting, diarrhea. GENITOURINARY: No dysuria. PHYSICAL EXAMINATION: GENERAL: The patient is awake, alert, oriented x3. VITAL SIGNS: Temperature 98.9, with a T-maximum of 100.9. The pulse are is 75, blood pressure 141/67, respiratory rate 16. Saturation is 90% on 2.5 L. EYES: No jaundice or pallor. EARS, NOSE, AND THROAT: No ear drainage. No nasal discharge. CHEST AND LUNGS: No wheezing. No rhonchi. No course crackles. CARDIOVASCULAR: S1, S2 distinct. Normal rate and regular rhythm. ABDOMEN: Flabby. Positive bowel sounds. Soft, nondistended, nontender. EXTREMITIES: No joint swelling or cellulitis. LABORATORY DATA: CBC done today shows a white count of 8.7, hemoglobin is 12.9, hematocrit is 37.7. Platelet count is 188. Chemistry: Sodium is 138, potassium 4.6, chloride 106, CO2 is 32, BUN is 23, creatinine is 1.4, glucose 60, and the calcium is 9.5, magnesium is 2.3. Direct bilirubin is 0.8 and SGOT is 60, SGPT is 92, and alkaline phosphatase is 79. ASSESSMENT: 1. Lung nodule, large, right upper lobe, status post CT-guided biopsy. 2. History of smoking. 3. COPD, currently stable and not in acute bronchospasm. PLAN AND RECOMMENDATIONS: 1. Continue the BREO 100 inhaler 1 puff once daily. 2. Continue albuterol and Atrovent nebulizer treatment every 6 hours as needed for wheezing or severe bronchospasm. DICTATING PHYSICIAN: SYDNEE MIRANDA MD,ELLI,MPH [id number] PHY#: [id number] ID: [id number] JOB#: [id number] ACCT: [id number] cc:SYDNEE MIRANDA M.D. > MTDD
[2018-12-19] MEDS: CALCITRIOL 0.25 MCG CAPSULE PO SCH (11:55)
--- NOTE | 2018-12-19 16:44 | PDOC PROGRESS REPORT ---
Subjective Progress Note for:: 12/19/18 Subjective:: VICTOR MANUEL HALL is a 68 year old male who presented to the emergency room with a 4-day history of episodic dyspnea at rest and on exertion. Patient acknowledges moderate to severe dyspnea episodes worsened with any exertion, several times per day over the weekend but better on Monday. His symptoms returned again early this morning and were much more severe with the dyspnea and abdominal discomfort being present and not resolving with a short period of rest and c ontrolled breathing. His dyspnea was accompanied by a mild to moderate epigastric/lower anterior chest pressure-like discomfort. Patient's dyspnea and chest/abdomen discomfort was relieved by rest after a few minutes until today when it became persistent resulting in his trip to the emergency room. He also admits an associated symptom of bilateral leg swelling which is a little worse than his normal chronic swelling. He denies prior similar episodes. He denies identification of other aggravating or ameliorating factors for his dyspnea and chest/abdominal pain. In the emergency room he was noted to have dyspnea with exertion and required supplemental oxygen at 2 L/min via nasal cannula to remain dyspnea free and pain-free even at rest. Chest x-ray showed a right midlung mass suspicious for neoplasm with probable right perihilar lymphadenopathy. Because of the patient's acute respiratory failure, chest/abdominal pain, worsening peripheral edema and dyspnea with exertion he was admitted for further evaluation and treatment. 12/12/2018. Shortness of breath with mild improvement but patient still having dyspnea on exertion associated with pressure-like chest pain. Patient denies any fever, chills, nausea, vomiting, diarrhea, constipation or any urinary symptoms. 12/13/2018. Patient still having dyspnea on exertion, chest pain has not recurred since yesterday. Was able to ambulate to the bathroom having any chest pain. Denies any fever, chills, nausea, vomiting, diarrhea, constipation or any urinary symptoms. 12/14/2018. No acute events overnight. Patient is very pleasant cooperative with physical examination. Shortness of breath has improved since yesterday s till requiring supplemental oxygen. Has not had any more chest pain since yesterday. Able to ambulate to the restroom on supplemental oxygen does not report any chest pain on ambulation. Denies any fever, chills, nausea, vomiting, diarrhea, constipation or any urinary symptoms. 12/15/2018. Patient was having some respiratory distress overnight and was started on BiPAP with significant symptoms. Still complaining of dyspnea on exertion is not had any recurrence of his chest pain. Denies any fever, chills, nausea, vomiting, diarrhea, constipation or any urinary symptoms. Had a venous Doppler of lower extremities which was positive for DVT. 12/16/2018. No acute events overnight. EMR patient has T-max of 100.8 and 2 episodes upon my conversation with him today he denies having any fever or chills, still complaining of dyspnea on exertion, has not had any recurrence of his chest pain, p.o. tolerant, ambulatory, having normal bowel and bladder function. Denies any nausea, vomiting, diarrhea, constipation, urinary symptoms. Scheduled for CT-guided biopsy of lung mass tomorrow. 12/17/2018. No acute events overnight. No recurrence of chest pain. Shortness of breath has improved. Patient gets short of breath only when exerting himself. Denies any fever, chills, nausea, vomiting, diarrhea, constipation or any urinary symptoms. Status post CT-guided right lung biopsy. 12/18/2018. Patient complaining of right-sided pleuritic chest pain at the site of the biopsy. Chest pain exacerbated by breathing, sharp, nonradiating. Repeat chest x-ray was negative for any pneumothorax or hemothorax. Denies any fever, chills, nausea, vomiting, liver, constipation or any other sex. At rest he is not short of breath but is still having dyspnea on exertion. 12/19/2018. No acute events overnight. Has been refusing BiPAP. Denies any chest pain or shortness of breath at rest. Dyspnea on exertion. No fever, chills, nausea, vomiting, diarrhea, constipation or any urinary symptoms. Reason For Visit: DYSPNEA Physical Exam Vital Signs: Temp Pulse Resp BP Pulse Ox 98.0 F 69 18 115/55 L 96 12/19/18 11:47 12/19/18 16:00 12/19/18 16:00 12/19/18 11:47 12/19/18 16:00 Intake & Output 12/18/18 12/19/18 12/20/18 06:59 06:59 06:59 Intake Total 503 860 237 Output Total 700 200 Balance -197 660 237 Weight 138.3 kg General appearance: PRESENT: no acute distress, morbidly obese, well-developed, well-nourished Head exam: PRESENT: atraumatic, normocephalic Respiratory exam: PRESENT: clear to auscultation nancy. ABSENT: rales, rhonchi, wheezes GI/Abdominal exam: PRESENT: normal bowel sounds, soft. ABSENT: distended, guarding, mass, organolmegaly, rebound, tenderness Extremities exam: PRESENT: +1 edema Neurological exam: PRESENT: alert, awake, oriented to person, oriented to place, oriented to time, oriented to situation, CN II-XII grossly intact. ABSENT: motor sensory deficit Results Laboratory Results: 12/18/18 02:20 12/18/18 02:20 12/11/18 12/11/18 12/11/18 14:45 17:14 21:07 Creatine Kinase 59 CK-MB (CK-2) Troponin I 0.114 0.150 NT-Pro-B Natriuret Pep 749 12/11/18 12/12/18 12/12/18 21:07 03:00 03:00 Creatine Kinase 56 CK-MB (CK-2) 1.36 1.37 Troponin I 0.111 0.083 NT-Pro-B Natriuret Pep 12/12/18 12/12/18 12/12/18 09:52 09:52 19:50 Creatine Kinase 51 L CK-MB (CK-2) 1.14 Troponin I 0.059 0.066 NT-Pro-B Natriuret Pep Impressions: Chest CT 12/11/18 16:11 IMPRESSION: 1. LOBULATED MASS IN THE LATERAL RIGHT LUNG CONSISTENT WITH MALIGNANCY. ADDITIONAL SMALLER NODULAR MASSES EXTENDING MEDIALLY TO THE RIGHT HILUM. RIGHT HILAR MASS PRESUMED SECONDARY TO ADENOPATHY. PATCHY AIRSPACE DISEASE IN THE ADJACENT RIGHT LUNG. THIS MAY BE DUE TO PNEUMONITIS OR ATELECTASIS ALTHOUGH LYMPHATIC SPREAD OF TUMOR COULD BE ANOTHER POSSIBILITY. RIGHT PLEURAL EFFUSION. LEFT LUNG CLEAR. 2. HETEROGENOUS ENLARGED LEFT LOBE OF THE THYROID WHICH EXTENDS IN A SUBSTERNAL DIRECTION DESCRIBED. Abdomen/Pelvis CT 12/13/18 00:00 IMPRESSION: 1. Partially visualized filling defects in right lower lobe arteries, suspicious for pulmonary embolism. Consider CTA chest. 2. Small right pleural effusion as on prior exam. Right hilar mass is partially visualized, as on 12/11/[address] evidence for metastatic disease in the abdomen or pelvis. 4. No acute findings in the abdomen or pelvis. Venous Doppler Study 12/15/18 00:00 IMPRESSION: No venous thrombosis in the right leg Acute hypoechoic clot in the paired peroneal and posterior tibial veins in the left calf, acute hypoechoic clot in the left lesser saphenous vein in the calf Guidance Needle Placement CT 12/17/18 00:00 IMPRESSION: CT GUIDED BIOPSY OF THE RIGHT UPPER LOBE LUNG MASS PERFORMED WITHOUT IMMEDIATE COMPLICATION. PATHOLOGY PENDING. FLUID OVERLOAD OR CONGESTIVE FAILURE WITH TRACE BILATERAL PLEURAL EFFUSIONS AND BILATERAL ALVEOLAR/INTERSTITIAL PULMONARY EDEMA ON BIOPSY PLANNING CT TODAY Lung Biopsy CT 12/17/18 00:00 IMPRESSION: CT GUIDED BIOPSY OF THE RIGHT UPPER LOBE LUNG MASS PERFORMED WITHOUT IMMEDIATE COMPLICATION. PATHOLOGY PENDING. FLUID OVERLOAD OR CONGESTIVE FAILURE WITH TRACE BILATERAL PLEURAL EFFUSIONS AND BILATERAL ALVEOLAR/INTERSTITIAL PULMONARY EDEMA ON BIOPSY PLANNING CT TODAY Chest X-Ray 12/18/18 00:00 IMPRESSION: Stable AP examination with right upper lobe mass. There is no significant pneumothorax or pleural effusion status post biopsy. Unchanged minimal diffuse interstitial pulmonary opacity and cardiomegaly, likely edema. Assessment and Plan - Diagnosis (1) Pulmonary emboli Qualifiers: Chronicity: unspecified Is this a current diagnosis for this admission?: Yes Plan: This was observed on CT abdomen pelvis with and without contrast for restaging of his lung mass. On admission patient had a CT chest without contrast. 12/14/2018 patient will need a CTA to confirm and localize his pulmonary emboli, but because of the fact that he had received IV contrast yesterday for CT abdomen and pelvis and he may receive IV contrast on Monday for CT-guided biopsy and possible left heart cath on Monday at [facility], would be safer to treat his PE empirically. 12/15/2018 venous Doppler of lower extremities showed acute hypoechoic clock in the paired peroneal and posterior tibial veins in the left calf acute hypoechoic clock in the left lesser saphenous vein in the calf. Day 3 status post right lung biopsy. Repeat chest x-ray negative for any hemopneumothorax. We will switch to Eliquis 10 mg bid for 7 days then switch to 5 mg twice daily. (2) Non-ST elevation myocardial infarction (NSTEMI) Is this a current diagnosis for this admission?: Yes Plan: Right-sided chest pain has resolved still complaining of dyspnea on exertion. Patient is positive for acute DVT and PE which may explain his dyspnea on exertion and chest pain. As per cardiology note patient may not have had an NSTEMI I but rather NSTEMI II due to mismatch demand caused by acute PE. History of CAD status post stent placement in 2000. Troponins 0.114, 0.150, 0.11, 0.08, 0.05 Aspirin, Eliquis, beta-blockers, EMORY, high intensity statins. As needed nitrates and morphine. . Status post lung biopsy on 12/17/2018. No plan on transferring to tertiary care at this point. (3) DVT of axillary vein, acute left Is this a current diagnosis for this admission?: Yes Plan: Provoked. High risk due to underlying lung malignancy. 12/15/2018. Venous Doppler of lower extremities showed acute hypoechoic clock in the paired peroneal and posterior tibial veins in the left calf acute hypoechoic clock in the left lesser saphenous vein in the calf. Switch heparin to Xarelto 10 mg p.o. twice daily for 7 days then 5 mg p.o. twice daily. Patient was initially placed on heparin drip pending lung biopsy and possible transfer to tertiary care for left heart cath. (4) Unstable angina Is this a current diagnosis for this admission?: Yes Plan: As per problem #2. (5) Mass of upper lobe of right lung Is this a current diagnosis for this admission?: Yes Plan: Status post right lung biopsy on 12/15/2018. Oncology and pulmonary on board. Denies any history of previous malignancy. Former heavy smoker. Status post thyroid mass biopsy as outpatient. Pathology pending. Positive family history of colon cancer. Last colonoscopy 5 years ago status post polypectomy reported as normal per patient. PTHrP pending. CT abdomen and pelvis contrast did not show any abdominal metastasis. (6) CKD (chronic kidney disease) stage 2, GFR 60-89 ml/min Is this a current diagnosis for this admission?: No Plan: Stable. Improving. Monitor electrolytes and volume status. Avoid nephrotoxic meds. (7) Diabetes type 2, uncontrolled Qualifiers: Glycemic state: with hyperglycemia Qualified Code(s): E11.65 - Type 2 diabetes mellitus with hyperglycemia Is this a current diagnosis for this admission?: Yes Plan: Improving. Hx of highly resistant DM. Patient is on highly concentrated insulin form. Has been followed by several agent telegrapher in the past. Not well managed by sliding scale. We do not carry his form of insulin in the hospital. Patient brought his own insulin supplies, verified by pharmacy and restarted. DC insulin drip. Continue sliding scale insulin. Cardiac and diabetic diet. (8) CAD (coronary artery disease) Is this a current diagnosis for this admission?: No Plan: Continue ASA, statins, EMORY, beta-blockers. (9) PADMINI (obstructive sleep apnea) Is this a current diagnosis for this admission?: No Plan: Has not been evaluated by pulmonology. Nocturnal CPAP. Outpatient nocturnal polysomnography. Pulmonology follow-up. Weight loss advised. (10) Morbid obesity with BMI of 40.0-44.9, adult Is this a current diagnosis for this admission?: No Plan: Diet and lifestyle modifications.
[2018-12-19] MEDS: FUROSEMIDE INJ/PF 40 MG/4 ML SDV IV SCH (17:27)
--- NOTE | 2018-12-19 20:50 | Progress Note ---
Provider Note Provider Note: CARDIOLOGY PROGRESS NOTE by Dr. Syl Henderson on 12/19/2018. SUBJECTIVE: The patient denies any chest pain or discomfort. There is no shortness of breath. He has chronic orthopnea. But no PND. He has only trace leg edema. There is no ventricular arrhythmias or atrial arrhythmia seen on the monitor. The patient states when he walks to the bathroom and back. But in spite of this history and still requires 5 L of oxygen by nasal cannula. Biopsy report of the lung mass is awaited. There is no hemoptysis. There is no TIA CVA symptoms. PHYSICAL EXAMINATION: The patient is morbidly obese, and in no acute distress. He is well-groomed Selected Entries 12/19/18 12/19/18 15:43 16:00 Temperature 98.2 F Temperature Oral Source Pulse Rate 74 Respiratory 18 Rate Respiratory Normal Depth Respiratory Normal Pattern Respiratory Non-Labored Effort Blood Pressure 130/65 H Blood Pressure 86 Mean BP Location Right Arm BP Position Sitting O2 Sat by Pulse 96 Oximetry Oxygen Flow 5 Rate HEAD: Is atraumatic normocephalic. EYES: Pupils are equal round regular reactive to light accommodation. Extraocular movements are normal. There is no conjunctival pallor. There is no scleral icterus. EARS: Tympanic memories are intact. External auditory canals are clear. NOSE: There is no deviated nasal septum. There is no inflammation of the nasal mucous membranes. MOUTH: Mucous membranes of mouth are moist. Tongue is moist. There is no bleeding from the gums. THROAT: There is no redness of the oropharynx. There is no exudates. SKIN: There is no skin rashes or skin lesions. There is no petechia or ecchymosis. NECK: Is supple. There is no JVD. Carotids are equal there is no bruit there is fullness in the left thyroid lobe area. There is no lymphadenopathy. There is no accessory muscles of respiration use. Trachea central. LUNGS: Left lung is clear without any rhonchi rales or wheezing. There is diffuse dry crackles in the right upper lobe with a few scattered rhonchi. There is no wheezing. On palpation there is no chest wall tenderness. HEART: S1-S2 is heard. S1 is of normal intensity. There is no S3 gallop. There is no S4 gallop. There is systolic murmur left sternal border and the apex there is no rub. ABDOMEN: Is obese. Nontender. There is no hepatosplenic megaly. Bowel sounds are well heard. There is no tender areas masses. EXTREMITIES: Femorals are deep. Femorals are diminished. There is no femoral bruits. Leg pulses slightly diminished. There is trace pedal edema. There is no DVT or cellulitis. There is no calf tenderness. There is no cyanosis or clubbing. SIGNAL REPAIRER: The patient is conscious awake alert oriented x3 with no focal deficits. PSYCHIATRIC: The patient judgment insight are intact his affect is normal. Labs- All tests 24 hr 12/19/18 12/19/18 12/19/18 07:54 11:12 16:53 POC Glucose 117 H 243 H 213 H 12/19/18 21:11 POC Glucose 148 H IMPRESSION/RECOMMENDATION: 1. Non-ST elevation MA versus type II myocardial infarction secondary to supply demand mismatch.: Patient with exertional chest pressure/shortness of breath. Now rethinking the case probably this is not a non-ST elevation MA, and just a leak from the pulmonary emboli and the lung mass. This is due to the fact that at present the patient has no exertional chest pressure. He has still some degree of shortness of breath, but much less than before, and also has discomfort in the right side of the chest. Hence this may be a type 2 myocardial infarction due to supply demand mismatch. But in view of the patient's significant coronary artery disease will maximize the patient's anti- CAD medication. 2. Pulmonary embolism: The patient also has DVT in the left leg. The patient had lung biopsy on a heparin free window. Heparin will be restarted. Later would recommend patient the patient on oral anticoagulation agent. 3. Coronary artery disease: History of prior to myocardial infarctions. History of proximal and mid LAD stent in 2001. Continue medications as mentioned above. The patient states in the recent past within a few months, he has had a [facility]. We will try to get these records. Further management of his coronary artery disease depends on the findings of the biopsy of the lung mass. 4. Right lung mass, most likely malignant, especially since the patient is a former smoker. The patient had a right lung biopsy. Pathology awaited. The patient is off heparin infusion. 4. Hypertension: Continue the patient on beta-fredo and losartan. 5. Diabetes mellitus type 2 with chronic kidney disease: Avoid nephrotoxic drugs 6. Chronic kidney disease stage III: Avoid nephrotoxic drug. His GFR is slightly worse. We will continue hydration. His GFR is 47 mL/min today 7. Hyperlipidemia: With low HDL level, good LDL level, and high triglyceride level. Recommend continue the patient on statin. 8. Left thyroid mass: Status post biopsy. The patient states that the initial results were said to be inconclusive, and the slides have been sent to pathology for review. The results of this have not been obtained. The patient will try to get [facility] to see if he can get any further information on the tissue diagnosis of the thyroid mass. 9. the patient states he has no further chest pressure on exertion or walking to the bathroom. He shortness of breath with the exertion is much improved. He states that he has a discomfort in the right front of the chest, but this is not pleuritic. Most likely this is due to the lung mass and possible pulmonary emb olism.. Symptoms highly suggestive of obstructive sleep apnea. Would recommend empiric use of BiPAP here in the hospital. Later as an outpatient the patient would be recommended to have a sleep study. 10. DVT left lower extremity. Continue heparin, and later switch to oral anticoagulation agent. 11. Morbid Obesity. Medications reviewed. Management plan discussed with the Dr. Powell, the hospitalist, and the oncologist on the case. Medical decision making is now of moderate complexity. 40 minutes spent on this patient, with more than 50% of direct patient care
[2018-12-19] MEDS: ATORVASTATIN CALCIUM 40 MG TABLET PO SCH (21:33)
[2018-12-19] MEDS: MONTELUKAST SODIUM 10 MG TABLET PO SCH (21:33)
[2018-12-20 04:50] LABS: APPEARANCE,URINE CLEAR; BILIRUBIN,URINE NEGATIVE (NEGATIVE); COLOR,URINE YELLOW; GLUCOSE, URINE NEGATIVE (NEGATIVE); KETONES,URINE NEGATIVE (NEGATIVE); LEUKOCYTE ESTERASE,URINE NEGATIVE (NEGATIVE); NITRITE,URINE NEGATIVE (NEGATIVE); PROTEIN,URINE NEGATIVE (NEGATIVE); URINE SPECIFIC GRAVITY 1.013
[2018-12-20] MEDS: FUROSEMIDE INJ/PF 40 MG/4 ML SDV IV SCH ×2 (05:17→17:32)
[2018-12-20] MEDS: GABAPENTIN 300 MG CAPSULE PO SCH ×3 (05:17→21:07)
[2018-12-20] MEDS: INSULIN REG, HUMAN 100 UNIT/ML 3 ML VIAL (PYX) SUBCUT SCH ×4 (09:12→21:07)
[2018-12-20] MEDS: LOSARTAN POTASSIUM 50 MG TABLET PO SCH (09:14)
[2018-12-20] MEDS: METOPROLOL SUCCINATE 50 MG TAB.SR.24H PO SCH ×2 (09:14→21:08)
[2018-12-20] MEDS: FLUTICASONE NASAL SPRAY 50 MCG/SPRY 120 SPRAY/16 GM NASL SCH (09:15)
[2018-12-20] MEDS: DOCUSATE SODIUM 100 MG CAPSULE PO SCH ×2 (09:16→17:30)
[2018-12-20] MEDS: ISOSORBIDE MONONITRATE 60 MG TAB.ER.24H PO SCH (09:17)
[2018-12-20] MEDS: ASPIRIN 81 MG TABLET, CHEWABLE PO SCH (09:17)
[2018-12-20] MEDS: APIXABAN 5 MG TABLET PO SCH ×2 (09:17→17:30)
[2018-12-20] MEDS: LIDOCAINE 5% (700 MG) TRANSDERMAL ADH..PATCH TP SCH (09:18)
[2018-12-20] MEDS: FLUTICASONE/VILANTEROL 100-25 MCG/DOSE IH SCH (09:18)
[2018-12-20] MEDS: FAMOTIDINE 20 MG TABLET PO SCH ×2 (09:19→21:07)
[2018-12-20] MEDS: LEVALBUTEROL HCL NEB 1.25 MG/3 ML AMPUL NEB SCH ×2 (09:23→16:36)
[2018-12-20] MEDS: IPRATROPIUM BROMIDE 0.02% NEB 0.5 MG/2.5 ML AMPUL NEB SCH ×2 (09:23→16:36)
[2018-12-20] MEDS: CALCITRIOL 0.25 MCG CAPSULE PO SCH (13:22)
--- NOTE | 2018-12-20 18:31 | PDOC PROGRESS REPORT ---
Subjective Progress Note for:: 12/20/18 Subjective:: VICTOR MANUEL HALL is a 68 year old male who presented to the emergency room with a 4-day history of episodic dyspnea at rest and on exertion. Patient acknowledges moderate to severe dyspnea episodes worsened with any exertion, several times per day over the weekend but better on Monday. His symptoms returned again early this morning and were much more severe with the dyspnea and abdominal discomfort being present and not resolving with a short period of rest and c ontrolled breathing. His dyspnea was accompanied by a mild to moderate epigastric/lower anterior chest pressure-like discomfort. Patient's dyspnea and chest/abdomen discomfort was relieved by rest after a few minutes until today when it became persistent resulting in his trip to the emergency room. He also admits an associated symptom of bilateral leg swelling which is a little worse than his normal chronic swelling. He denies prior similar episodes. He denies identification of other aggravating or ameliorating factors for his dyspnea and chest/abdominal pain. In the emergency room he was noted to have dyspnea with exertion and required supplemental oxygen at 2 L/min via nasal cannula to remain dyspnea free and pain-free even at rest. Chest x-ray showed a right midlung mass suspicious for neoplasm with probable right perihilar lymphadenopathy. Because of the patient's acute respiratory failure, chest/abdominal pain, worsening peripheral edema and dyspnea with exertion he was admitted for further evaluation and treatment. 12/12/2018. Shortness of breath with mild improvement but patient still having dyspnea on exertion associated with pressure-like chest pain. Patient denies any fever, chills, nausea, vomiting, diarrhea, constipation or any urinary symptoms. 12/13/2018. Patient still having dyspnea on exertion, chest pain has not recurred since yesterday. Was able to ambulate to the bathroom having any chest pain. Denies any fever, chills, nausea, vomiting, diarrhea, constipation or any urinary symptoms. 12/14/2018. No acute events overnight. Patient is very pleasant cooperative with physical examination. Shortness of breath has improved since yesterday s till requiring supplemental oxygen. Has not had any more chest pain since yesterday. Able to ambulate to the restroom on supplemental oxygen does not report any chest pain on ambulation. Denies any fever, chills, nausea, vomiting, diarrhea, constipation or any urinary symptoms. 12/15/2018. Patient was having some respiratory distress overnight and was started on BiPAP with significant symptoms. Still complaining of dyspnea on exertion is not had any recurrence of his chest pain. Denies any fever, chills, nausea, vomiting, diarrhea, constipation or any urinary symptoms. Had a venous Doppler of lower extremities which was positive for DVT. 12/16/2018. No acute events overnight. EMR patient has T-max of 100.8 and 2 episodes upon my conversation with him today he denies having any fever or chills, still complaining of dyspnea on exertion, has not had any recurrence of his chest pain, p.o. tolerant, ambulatory, having normal bowel and bladder function. Denies any nausea, vomiting, diarrhea, constipation, urinary symptoms. Scheduled for CT-guided biopsy of lung mass tomorrow. 12/17/2018. No acute events overnight. No recurrence of chest pain. Shortness of breath has improved. Patient gets short of breath only when exerting himself. Denies any fever, chills, nausea, vomiting, diarrhea, constipation or any urinary symptoms. Status post CT-guided right lung biopsy. 12/18/2018. Patient complaining of right-sided pleuritic chest pain at the site of the biopsy. Chest pain exacerbated by breathing, sharp, nonradiating. Repeat chest x-ray was negative for any pneumothorax or hemothorax. Denies any fever, chills, nausea, vomiting, liver, constipation or any other sex. At rest he is not short of breath but is still having dyspnea on exertion. 12/19/2018. No acute events overnight. Has been refusing BiPAP. Denies any chest pain or shortness of breath at rest. Dyspnea on exertion. No fever, chills, nausea, vomiting, diarrhea, constipation or any urinary symptoms. 12/20/2018. No acute events overnight. Has been refusing BiPAP. Denies any chest pain or shortness of breath at rest. Dyspnea on exertion. No fever, chills, nausea, vomiting, diarrhea, constipation or any urinary symptoms. Patient needs supplemental oxygen on discharge. DC tomorrow once that has been taken care of. Reason For Visit: DYSPNEA Physical Exam Vital Signs: Temp Pulse Resp BP Pulse Ox 97.5 F 73 18 108/73 94 12/20/18 15:19 12/20/18 16:37 12/20/18 16:37 12/20/18 15:19 12/20/18 16:37 Intake & Output 12/19/18 12/20/18 12/21/18 06:59 06:59 06:59 Intake Total 860 674 708 Output Total 200 150 Balance 660 524 708 Weight 138.3 kg General appearance: PRESENT: morbidly obese Head exam: PRESENT: atraumatic, normocephalic Respiratory exam: PRESENT: clear to auscultation nancy. ABSENT: rales, rhonchi, wheezes Cardiovascular exam: PRESENT: irregular rhythm. ABSENT: diastolic murmur, rubs, systolic murmur GI/Abdominal exam: PRESENT: normal bowel sounds, soft. ABSENT: distended, guarding, mass, organolmegaly, rebound, tenderness Neurological exam: PRESENT: alert, awake, oriented to person, oriented to place, oriented to time, oriented to situation, CN II-XII grossly intact. ABSENT: motor sensory deficit Results Laboratory Results: 12/18/18 02:20 12/18/18 02:20 12/20/18 04:15 Urine Color YELLOW Urine Appearance CLEAR Urine pH 5.0 Ur Specific [place] 1.013 Urine Protein NEGATIVE Urine Glucose (UA) NEGATIVE Urine Ketones NEGATIVE Urine Blood NEGATIVE Urine Nitrite NEGATIVE Ur Leukocyte Esterase NEGATIVE Urine WBC (Auto) 4 Urine RBC (Auto) 1 12/11/18 12/11/18 12/11/18 14:45 17:14 21:07 Creatine Kinase 59 CK-MB (CK-2) Troponin I 0.114 0.150 NT-Pro-B Natriuret Pep 749 12/11/18 12/12/18 12/12/18 21:07 03:00 03:00 Creatine Kinase 56 CK-MB (CK-2) 1.36 1.37 Troponin I 0.111 0.083 NT-Pro-B Natriuret Pep 12/12/18 12/12/18 12/12/18 09:52 09:52 19:50 Creatine Kinase 51 L CK-MB (CK-2) 1.14 Troponin I 0.059 0.066 NT-Pro-B Natriuret Pep Impressions: Chest CT 12/11/18 16:11 IMPRESSION: 1. LOBULATED MASS IN THE LATERAL RIGHT LUNG CONSISTENT WITH MALIGNANCY. ADDITIONAL SMALLER NODULAR MASSES EXTENDING MEDIALLY TO THE RIGHT HILUM. RIGHT HILAR MASS PRESUMED SECONDARY TO ADENOPATHY. PATCHY AIRSPACE DISEASE IN THE ADJACENT RIGHT LUNG. THIS MAY BE DUE TO PNEUMONITIS OR ATELECTASIS ALTHOUGH LYMPHATIC SPREAD OF TUMOR COULD BE ANOTHER POSSIBILITY. RIGHT PLEURAL EFFUSION. LEFT LUNG CLEAR. 2. HETEROGENOUS ENLARGED LEFT LOBE OF THE THYROID WHICH EXTENDS IN A SUBSTERNAL DIRECTION DESCRIBED. Abdomen/Pelvis CT 12/13/18 00:00 IMPRESSION: 1. Partially visualized filling defects in right lower lobe arteries, suspicious for pulmonary embolism. Consider CTA chest. 2. Small right pleural effusion as on prior exam. Right hilar mass is partially visualized, as on 12/11/[address] evidence for metastatic disease in the abdomen or pelvis. 4. No acute findings in the abdomen or pelvis. Venous Doppler Study 12/15/18 00:00 IMPRESSION: No venous thrombosis in the right leg Acute hypoechoic clot in the paired peroneal and posterior tibial veins in the left calf, acute hypoechoic clot in the left lesser saphenous vein in the calf Guidance Needle Placement CT 12/17/18 00:00 IMPRESSION: CT GUIDED BIOPSY OF THE RIGHT UPPER LOBE LUNG MASS PERFORMED WITHOUT IMMEDIATE COMPLICATION. PATHOLOGY PENDING. FLUID OVERLOAD OR CONGESTIVE FAILURE WITH TRACE BILATERAL PLEURAL EFFUSIONS AND BILATERAL ALVEOLAR/INTERSTITIAL PULMONARY EDEMA ON BIOPSY PLANNING CT TODAY Lung Biopsy CT 12/17/18 00:00 IMPRESSION: CT GUIDED BIOPSY OF THE RIGHT UPPER LOBE LUNG MASS PERFORMED WITHOUT IMMEDIATE COMPLICATION. PATHOLOGY PENDING. FLUID OVERLOAD OR CONGESTIVE FAILURE WITH TRACE BILATERAL PLEURAL EFFUSIONS AND BILATERAL ALVEOLAR/INTERSTITIAL PULMONARY EDEMA ON BIOPSY PLANNING CT TODAY Chest X-Ray 12/18/18 00:00 IMPRESSION: Stable AP examination with right upper lobe mass. There is no significant pneumothorax or pleural effusion status post biopsy. Unchanged minimal diffuse interstitial pulmonary opacity and cardiomegaly, likely edema. Assessment and Plan - Diagnosis (1) Pulmonary emboli Qualifiers: Chronicity: unspecified Is this a current diagnosis for this admission?: Yes Plan: This was observed on CT abdomen pelvis with and without contrast for restaging of his lung mass. On admission patient had a CT chest without contrast. 12/14/2018 patient will need a CTA to confirm and localize his pulmonary emboli, but because of the fact that he had received IV contrast yesterday for CT abdomen and pelvis and he may receive IV contrast on Monday for CT-guided biopsy and possible left heart cath on Monday at [facility], would be safer to treat his PE empirically. 12/15/2018 venous Doppler of lower extremities showed acute hypoechoic clock in the paired peroneal and posterior tibial veins in the left calf acute hypoechoic clock in the left lesser saphenous vein in the calf. Day 3 status post right lung biopsy. Repeat chest x-ray negative for any hemopneumothorax. We will switch to Eliquis 10 mg bid for 7 days then switch to 5 mg twice daily. (2) Non-ST elevation myocardial infarction (NSTEMI) Is this a current diagnosis for this admission?: Yes Plan: Right-sided chest pain has resolved still complaining of dyspnea on exertion. Patient is positive for acute DVT and PE which may explain his dyspnea on exertion and chest pain. As per cardiology note patient may not have had an NSTEMI I but rather NSTEMI II due to mismatch demand caused by acute PE. History of CAD status post stent placement in 2000. Troponins 0.114, 0.150, 0.11, 0.08, 0.05 Aspirin, Eliquis, beta-blockers, EMORY, high intensity statins. As needed nitrates and morphine. . Status post lung biopsy on 12/17/2018. No plan on transferring to tertiary care at this point. (3) DVT of axillary vein, acute left Is this a current diagnosis for this admission?: Yes Plan: Provoked. High risk due to underlying lung malignancy. 12/15/2018. Venous Doppler of lower extremities showed acute hypoechoic clock in the paired peroneal and posterior tibial veins in the left calf acute hypoechoic clock in the left lesser saphenous vein in the calf. Switch heparin to Xarelto 10 mg p.o. twice daily for 7 days then 5 mg p.o. twice daily. Patient was initially placed on heparin drip pending lung biopsy and possible transfer to tertiary care for left heart cath. (4) Unstable angina Is this a current diagnosis for this admission?: Yes Plan: As per problem #2. (5) Mass of upper lobe of right lung Is this a current diagnosis for this admission?: Yes Plan: Status post right lung biopsy on 12/15/2018. Oncology and pulmonary on board. Denies any history of previous malignancy. Former heavy smoker. Status post thyroid mass biopsy as outpatient. Pathology pending. Positive family history of colon cancer. Last colonoscopy 5 years ago status post polypectomy reported as normal per patient. PTHrP pending. CT abdomen and pelvis contrast did not show any abdominal metastasis. (6) CKD (chronic kidney disease) stage 2, GFR 60-89 ml/min Is this a current diagnosis for this admission?: No Plan: Stable. Improving. Monitor electrolytes and volume status. Avoid nephrotoxic meds. (7) Diabetes type 2, uncontrolled Qualifiers: Glycemic state: with hyperglycemia Qualified Code(s): E11.65 - Type 2 diabetes mellitus with hyperglycemia Is this a current diagnosis for this admission?: Yes Plan: Improving. Hx of highly resistant DM. Patient is on highly concentrated insulin form. 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 Not well managed by sliding scale. We do not carry his form of insulin in the hospital. Patient brought his own insulin supplies, verified by pharmacy and restarted. DC insulin drip. Continue sliding scale insulin. Cardiac and diabetic diet. (8) CAD (coronary artery disease) Is this a current diagnosis for this admission?: No Plan: Continue ASA, statins, EMORY, beta-blockers. (9) PADMINI (obstructive sleep apnea) Is this a current diagnosis for this admission?: No Plan: Has not been evaluated by pulmonology. Nocturnal CPAP. Outpatient nocturnal polysomnography. Pulmonology follow-up. Weight loss advised. (10) Morbid obesity with BMI of 40.0-44.9, adult Is this a current diagnosis for this admission?: No Plan: Diet and lifestyle modifications.
[2018-12-20] MEDS: MONTELUKAST SODIUM 10 MG TABLET PO SCH (21:07)
[2018-12-20] MEDS: ATORVASTATIN CALCIUM 40 MG TABLET PO SCH (21:08)
[2018-12-21] MEDS: LEVALBUTEROL HCL NEB 1.25 MG/3 ML AMPUL NEB SCH ×4 (00:30→23:57)
[2018-12-21] MEDS: IPRATROPIUM BROMIDE 0.02% NEB 0.5 MG/2.5 ML AMPUL NEB SCH ×4 (00:30→23:57)
[2018-12-21] MEDS: FUROSEMIDE INJ/PF 40 MG/4 ML SDV IV SCH ×2 (05:06→17:01)
[2018-12-21] MEDS: GABAPENTIN 300 MG CAPSULE PO SCH ×3 (05:06→21:18)
[2018-12-21] MEDS: INSULIN REG, HUMAN 100 UNIT/ML 3 ML VIAL (PYX) SUBCUT SCH ×4 (08:56→21:18)
--- NOTE | 2018-12-21 09:28 | PDOC PROGRESS REPORT ---
Subjective Progress Note for:: 12/21/18 Subjective:: Had a long discussion with patient today, we have final pathology back and this indicates small cell lung cancer. This would be at least a limited stage small cell lung cancer with primary lung mass, right hilar adenopathy as well as possible mediastinal adenopathy. We need to initiate chemotherapy as soon as possible and I discussed with patient that he should be inpatient to initiate treatment. I believe given his history of unstable angina, PE, that treatment in an outpatient setting would be more risky than treatment in an inpatient setting. Although this will increase hospital stay I believe this is necessary for appropriate medical care. Reason For Visit: DYSPNEA Physical Exam Vital Signs: Temp Pulse Resp BP Pulse Ox 98.3 F 65 20 120/50 L 92 12/21/18 07:19 12/21/18 07:19 12/21/18 07:19 12/21/18 07:19 12/21/18 07:19 Intake & Output 12/20/18 12/21/18 12/22/18 06:59 06:59 06:59 Intake Total 674 708 Output Total 150 Balance 524 708 Weight 134.5 kg General appearance: PRESENT: no acute distress, well-developed, well-nourished Head exam: PRESENT: atraumatic, normocephalic Eye exam: PRESENT: conjunctiva pink, EOMI, PERRLA. ABSENT: scleral icterus Ear exam: PRESENT: normal external ear exam Mouth exam: PRESENT: moist, tongue midline Neck exam: ABSENT: carotid bruit, JVD, lymphadenopathy, thyromegaly Respiratory exam: PRESENT: clear to auscultation nancy. ABSENT: rales, rhonchi, wheezes Cardiovascular exam: PRESENT: RRR. ABSENT: diastolic murmur, rubs, systolic murmur Pulses: PRESENT: normal dorsalis pedis pul Vascular exam: PRESENT: normal capillary refill GI/Abdominal exam: PRESENT: normal bowel sounds, soft. ABSENT: distended, guarding, mass, organolmegaly, rebound, tenderness Rectal exam: PRESENT: deferred Extremities exam: PRESENT: full ROM. ABSENT: calf tenderness, clubbing, pedal edema Neurological exam: PRESENT: alert, awake, oriented to person, oriented to place, oriented to time, oriented to situation, CN II-XII grossly intact. ABSENT: motor sensory deficit Psychiatric exam: PRESENT: appropriate affect, normal mood. ABSENT: homicidal ideation, suicidal ideation Skin exam: PRESENT: dry, intact, warm. ABSENT: cyanosis, rash Results Laboratory Results: 12/18/18 02:20 12/18/18 02:20 12/16/18 08:39 Blood Blood Culture - Final NO GROWTH IN 5 DAYS 12/11/18 12/11/18 12/11/18 14:45 17:14 21:07 Creatine Kinase 59 CK-MB (CK-2) Troponin I 0.114 0.150 NT-Pro-B Natriuret Pep 749 12/11/18 12/12/18 12/12/18 21:07 03:00 03:00 Creatine Kinase 56 CK-MB (CK-2) 1.36 1.37 Troponin I 0.111 0.083 NT-Pro-B Natriuret Pep 12/12/18 12/12/18 12/12/18 09:52 09:52 19:50 Creatine Kinase 51 L CK-MB (CK-2) 1.14 Troponin I 0.059 0.066 NT-Pro-B Natriuret Pep Impressions: Chest CT 12/11/18 16:11 IMPRESSION: 1. LOBULATED MASS IN THE LATERAL RIGHT LUNG CONSISTENT WITH MALIGNANCY. ADDITIONAL SMALLER NODULAR MASSES EXTENDING MEDIALLY TO THE RIGHT HILUM. RIGHT HILAR MASS PRESUMED SECONDARY TO ADENOPATHY. PATCHY AIRSPACE DISEASE IN THE ADJACENT RIGHT LUNG. THIS MAY BE DUE TO PNEUMONITIS OR ATELECTASIS ALTHOUGH LYMPHATIC SPREAD OF TUMOR COULD BE ANOTHER POSSIBILITY. RIGHT PLEURAL EFFUSION. LEFT LUNG CLEAR. 2. HETEROGENOUS ENLARGED LEFT LOBE OF THE THYROID WHICH EXTENDS IN A SUBSTERNAL DIRECTION DESCRIBED. Abdomen/Pelvis CT 12/13/18 00:00 IMPRESSION: 1. Partially visualized filling defects in right lower lobe arteries, suspicious for pulmonary embolism. Consider CTA chest. 2. Small right pleural effusion as on prior exam. Right hilar mass is partially visualized, as on 12/11/[address] evidence for metastatic disease in the abdomen or pelvis. 4. No acute findings in the abdomen or pelvis. Venous Doppler Study 12/15/18 00:00 IMPRESSION: No venous thrombosis in the right leg Acute hypoechoic clot in the paired peroneal and posterior tibial veins in the left calf, acute hypoechoic clot in the left lesser saphenous vein in the calf Guidance Needle Placement CT 12/17/18 00:00 IMPRESSION: CT GUIDED BIOPSY OF THE RIGHT UPPER LOBE LUNG MASS PERFORMED WITHOUT IMMEDIATE COMPLICATION. PATHOLOGY PENDING. FLUID OVERLOAD OR CONGESTIVE FAILURE WITH TRACE BILATERAL PLEURAL EFFUSIONS AND BILATERAL ALVEOLAR/INTERSTITIAL PULMONARY EDEMA ON BIOPSY PLANNING CT TODAY Lung Biopsy CT 12/17/18 00:00 IMPRESSION: CT GUIDED BIOPSY OF THE RIGHT UPPER LOBE LUNG MASS PERFORMED WITHOUT IMMEDIATE COMPLICATION. PATHOLOGY PENDING. FLUID OVERLOAD OR CONGESTIVE FAILURE WITH TRACE BILATERAL PLEURAL EFFUSIONS AND BILATERAL ALVEOLAR/INTERSTITIAL PULMONARY EDEMA ON BIOPSY PLANNING CT TODAY Chest X-Ray 12/18/18 00:00 IMPRESSION: Stable AP examination with right upper lobe mass. There is no significant pneumothorax or pleural effusion status post biopsy. Unchanged minimal diffuse interstitial pulmonary opacity and cardiomegaly, likely edema. Assessment & Plan - Diagnosis (1) Other pulmonary embolism without acute cor pulmonale Qualifiers: Chronicity: acute Qualified Code(s): I26.99 - Other pulmonary embolism without acute cor pulmonale Is this a current diagnosis for this admission?: Yes Plan: Continue with Eliquis (2) Primary cancer of right middle lobe of lung Is this a current diagnosis for this admission?: Yes Plan: Small cell lung cancer, limited stage, initiate chemotherapy with carboplatin AUC of 5-day 1 + etoposide 80 mg per metered squared days 1 through 3,[place] day 1, pharmacy needs to order medication and will be in probably by Monday next week. Initiate chemotherapy as soon as possible then. - Time Time Spent with patient: 35 or more minutes - Inpatient Certification Based on my medical assessment, after consideration of the patient's comorbidities, presenting symptoms, or acuity I expect that the services needed warrant INPATIENT care.: Yes I certify that my determination is in accordance with my understanding of Medicare's requirements for reasonable and necessary INPATIENT services [42 CFR 412.3e].: Yes Medical Necessity: Risk of Complication if Not Cared For in Hospital, Other - Need for urgent initiation of chemotherapy
[2018-12-21] MEDS ORDERED: BENZOCAINE/MENTHOL SORE THROAT LOZENGE BUCCAL PRN (10:36)
[2018-12-21] MEDS: ASPIRIN 81 MG TABLET, CHEWABLE PO SCH (10:37)
[2018-12-21] MEDS: FLUTICASONE/VILANTEROL 100-25 MCG/DOSE IH SCH (10:38)
[2018-12-21] MEDS: LOSARTAN POTASSIUM 50 MG TABLET PO SCH (10:38)
[2018-12-21] MEDS: DOCUSATE SODIUM 100 MG CAPSULE PO SCH ×2 (10:38→17:01)
[2018-12-21] MEDS: FLUTICASONE NASAL SPRAY 50 MCG/SPRY 120 SPRAY/16 GM NASL SCH (10:39)
[2018-12-21] MEDS: APIXABAN 5 MG TABLET PO SCH ×2 (10:39→17:01)
[2018-12-21] MEDS: ISOSORBIDE MONONITRATE 60 MG TAB.ER.24H PO SCH (10:39)
[2018-12-21] MEDS: METOPROLOL SUCCINATE 50 MG TAB.SR.24H PO SCH ×2 (10:40→21:18)
[2018-12-21] MEDS: FAMOTIDINE 20 MG TABLET PO SCH ×2 (10:41→21:18)
[2018-12-21] MEDS: LIDOCAINE 5% (700 MG) TRANSDERMAL ADH..PATCH TP SCH (10:41)
[2018-12-21] MEDS: CALCITRIOL 0.25 MCG CAPSULE PO SCH (11:51)
--- NOTE | 2018-12-21 12:48 | PDOC PROGRESS REPORT ---
Subjective Progress Note for:: 12/21/18 Subjective:: VICTOR MANUEL HALL is a 68 year old male who presented to the emergency room with a 4-day history of episodic dyspnea at rest and on exertion. Patient acknowledges moderate to severe dyspnea episodes worsened with any exertion, several times per day over the weekend but better on Monday. His symptoms returned again early this morning and were much more severe with the dyspnea and abdominal discomfort being present and not resolving with a short period of rest and c ontrolled breathing. His dyspnea was accompanied by a mild to moderate epigastric/lower anterior chest pressure-like discomfort. Patient's dyspnea and chest/abdomen discomfort was relieved by rest after a few minutes until today when it became persistent resulting in his trip to the emergency room. He also admits an associated symptom of bilateral leg swelling which is a little worse than his normal chronic swelling. He denies prior similar episodes. He denies identification of other aggravating or ameliorating factors for his dyspnea and chest/abdominal pain. In the emergency room he was noted to have dyspnea with exertion and required supplemental oxygen at 2 L/min via nasal cannula to remain dyspnea free and pain-free even at rest. Chest x-ray showed a right midlung mass suspicious for neoplasm with probable right perihilar lymphadenopathy. Because of the patient's acute respiratory failure, chest/abdominal pain, worsening peripheral edema and dyspnea with exertion he was admitted for further evaluation and treatment. 12/12/2018. Shortness of breath with mild improvement but patient still having dyspnea on exertion associated with pressure-like chest pain. Patient denies any fever, chills, nausea, vomiting, diarrhea, constipation or any urinary symptoms. 12/13/2018. Patient still having dyspnea on exertion, chest pain has not recurred since yesterday. Was able to ambulate to the bathroom having any chest pain. Denies any fever, chills, nausea, vomiting, diarrhea, constipation or any urinary symptoms. 12/14/2018. No acute events overnight. Patient is very pleasant cooperative with physical examination. Shortness of breath has improved since yesterday s till requiring supplemental oxygen. Has not had any more chest pain since yesterday. Able to ambulate to the restroom on supplemental oxygen does not report any chest pain on ambulation. Denies any fever, chills, nausea, vomiting, diarrhea, constipation or any urinary symptoms. 12/15/2018. Patient was having some respiratory distress overnight and was started on BiPAP with significant symptoms. Still complaining of dyspnea on exertion is not had any recurrence of his chest pain. Denies any fever, chills, nausea, vomiting, diarrhea, constipation or any urinary symptoms. Had a venous Doppler of lower extremities which was positive for DVT. 12/16/2018. No acute events overnight. EMR patient has T-max of 100.8 and 2 episodes upon my conversation with him today he denies having any fever or chills, still complaining of dyspnea on exertion, has not had any recurrence of his chest pain, p.o. tolerant, ambulatory, having normal bowel and bladder function. Denies any nausea, vomiting, diarrhea, constipation, urinary symptoms. Scheduled for CT-guided biopsy of lung mass tomorrow. 12/17/2018. No acute events overnight. No recurrence of chest pain. Shortness of breath has improved. Patient gets short of breath only when exerting himself. Denies any fever, chills, nausea, vomiting, diarrhea, constipation or any urinary symptoms. Status post CT-guided right lung biopsy. 12/18/2018. Patient complaining of right-sided pleuritic chest pain at the site of the biopsy. Chest pain exacerbated by breathing, sharp, nonradiating. Repeat chest x-ray was negative for any pneumothorax or hemothorax. Denies any fever, chills, nausea, vomiting, liver, constipation or any other sex. At rest he is not short of breath but is still having dyspnea on exertion. 12/19/2018. No acute events overnight. Has been refusing BiPAP. Denies any chest pain or shortness of breath at rest. Dyspnea on exertion. No fever, chills, nausea, vomiting, diarrhea, constipation or any urinary symptoms. 12/20/2018. No acute events overnight. Has been refusing BiPAP. Denies any chest pain or shortness of breath at rest. Dyspnea on exertion. No fever, chills, nausea, vomiting, diarrhea, constipation or any urinary symptoms. Patient needs supplemental oxygen on discharge. DC tomorrow once that has been taken care of. 12/21/2018. No acute events overnight. Was ready to be DC'd home with oxygen however his lung biopsy result showing small cell carcinoma and oncology would like to keep him until Monday when he will be starting chemotherapy for probably 3 to 4 days and after that he can be discharged home. Patient is still complaining of mild shortness of breath on exertion otherwise does not have any more shortness of breath or chest pain. Denies any fever, chills, nausea, vomiting, diarrhea, constipation or any urinary symptoms. SBP 111-137. T-max 98.3. SPO2 98% on 2 L nasal cannula FiO2 21%. RR 16-20. Reason For Visit: DYSPNEA Physical Exam Vital Signs: Temp Pulse Resp BP Pulse Ox 97.0 F 66 20 111/54 L 96 12/21/18 11:29 12/21/18 11:29 12/21/18 11:29 12/21/18 11:29 12/21/18 11:29 Intake & Output 12/20/18 12/21/18 12/22/18 06:59 06:59 06:59 Intake Total 674 708 Output Total 150 Balance 524 708 Weight 134.5 kg General appearance: PRESENT: no acute distress, obese, well-developed, well-nourished Head exam: PRESENT: atraumatic, normocephalic Eye exam: PRESENT: conjunctiva pink, EOMI, PERRLA. ABSENT: scleral icterus Ear exam: PRESENT: normal external ear exam Mouth exam: PRESENT: moist, tongue midline Neck exam: ABSENT: carotid bruit, JVD, lymphadenopathy, thyromegaly Respiratory exam: PRESENT: clear to auscultation nancy. ABSENT: rales, rhonchi, wheezes Cardiovascular exam: PRESENT: RRR. ABSENT: diastolic murmur, rubs, systolic murmur Pulses: PRESENT: normal dorsalis pedis pul Vascular exam: PRESENT: normal capillary refill GI/Abdominal exam: PRESENT: normal bowel sounds, soft. ABSENT: distended, guarding, mass, organolmegaly, rebound, tenderness Rectal exam: PRESENT: deferred Extremities exam: PRESENT: full ROM. ABSENT: calf tenderness, clubbing, pedal edema Neurological exam: PRESENT: alert, awake, oriented to person, oriented to place, oriented to time, oriented to situation, CN II-XII grossly intact. ABSENT: motor sensory deficit Psychiatric exam: PRESENT: appropriate affect, normal mood. ABSENT: homicidal ideation, suicidal ideation Skin exam: PRESENT: dry, intact, warm. ABSENT: cyanosis, rash Results Laboratory Results: 12/18/18 02:20 12/18/18 02:20 12/16/18 09:52 Blood Blood Culture - Final NO GROWTH IN 5 DAYS 12/16/18 08:39 Blood Blood Culture - Final NO GROWTH IN 5 DAYS 12/11/18 12/11/18 12/11/18 14:45 17:14 21:07 Creatine Kinase 59 CK-MB (CK-2) Troponin I 0.114 0.150 NT-Pro-B Natriuret Pep 749 12/11/18 12/12/18 12/12/18 21:07 03:00 03:00 Creatine Kinase 56 CK-MB (CK-2) 1.36 1.37 Troponin I 0.111 0.083 NT-Pro-B Natriuret Pep 12/12/18 12/12/18 12/12/18 09:52 09:52 19:50 Creatine Kinase 51 L CK-MB (CK-2) 1.14 Troponin I 0.059 0.066 NT-Pro-B Natriuret Pep Impressions: Chest CT 12/11/18 16:11 IMPRESSION: 1. LOBULATED MASS IN THE LATERAL RIGHT LUNG CONSISTENT WITH MALIGNANCY. ADDITIONAL SMALLER NODULAR MASSES EXTENDING MEDIALLY TO THE RIGHT HILUM. RIGHT HILAR MASS PRESUMED SECONDARY TO ADENOPATHY. PATCHY AIRSPACE DISEASE IN THE ADJACENT RIGHT LUNG. THIS MAY BE DUE TO PNEUMONITIS OR ATELECTASIS ALTHOUGH LYMPHATIC SPREAD OF TUMOR COULD BE ANOTHER POSSIBILITY. RIGHT PLEURAL EFFUSION. LEFT LUNG CLEAR. 2. HETEROGENOUS ENLARGED LEFT LOBE OF THE THYROID WHICH EXTENDS IN A SUBSTERNAL DIRECTION DESCRIBED. Abdomen/Pelvis CT 12/13/18 00:00 IMPRESSION: 1. Partially visualized filling defects in right lower lobe arteries, suspicious for pulmonary embolism. Consider CTA chest. 2. Small right pleural effusion as on prior exam. Right hilar mass is partially visualized, as on 12/11/[address] evidence for metastatic disease in the abdomen or pelvis. 4. No acute findings in the abdomen or pelvis. Venous Doppler Study 12/15/18 00:00 IMPRESSION: No venous thrombosis in the right leg Acute hypoechoic clot in the paired peroneal and posterior tibial veins in the left calf, acute hypoechoic clot in the left lesser saphenous vein in the calf Guidance Needle Placement CT 12/17/18 00:00 IMPRESSION: CT GUIDED BIOPSY OF THE RIGHT UPPER LOBE LUNG MASS PERFORMED WITHOUT IMMEDIATE COMPLICATION. PATHOLOGY PENDING. FLUID OVERLOAD OR CONGESTIVE FAILURE WITH TRACE BILATERAL PLEURAL EFFUSIONS AND BILATERAL ALVEOLAR/INTERSTITIAL PULMONARY EDEMA ON BIOPSY PLANNING CT TODAY Lung Biopsy CT 12/17/18 00:00 IMPRESSION: CT GUIDED BIOPSY OF THE RIGHT UPPER LOBE LUNG MASS PERFORMED WITHOUT IMMEDIATE COMPLICATION. PATHOLOGY PENDING. FLUID OVERLOAD OR CONGESTIVE FAILURE WITH TRACE BILATERAL PLEURAL EFFUSIONS AND BILATERAL ALVEOLAR/INTERSTITIAL PULMONARY EDEMA ON BIOPSY PLANNING CT TODAY Chest X-Ray 12/18/18 00:00 IMPRESSION: Stable AP examination with right upper lobe mass. There is no significant pneumothorax or pleural effusion status post biopsy. Unchanged minimal diffuse interstitial pulmonary opacity and cardiomegaly, likely edema. Assessment and Plan - Diagnosis (1) Primary cancer of right middle lobe of lung Is this a current diagnosis for this admission?: Yes Plan: Small cell lung carcinoma. Oncology on board. And to initiate chemotherapy next Monday with carboplatin AUC of 5-day 1 + etoposide 80 mg per metered squared days 1 through 3,[place] day 1 (2) Pulmonary emboli Qualifiers: Chronicity: unspecified Is this a current diagnosis for this admission?: Yes Plan: Eliquis 10 mg twice daily until 12/25/2018. Switch to 5 mg p.o. twice daily on . This was observed on CT abdomen pelvis with and without contrast for restaging of his lung mass. On admission patient had a CT chest without contrast. 12/14/2018 patient will need a CTA to confirm and localize his pulmonary emboli, but because of the fact that he had received IV contrast yesterday for CT abdomen and pelvis and he may receive IV contrast on Monday for CT-guided biopsy and possible left heart cath on Monday at [place], would be safer to treat his PE empirically. 12/15/2018 venous Doppler of lower extremities showed acute hypoechoic clock in the paired peroneal and posterior tibial veins in the left calf acute hypoechoic clock in the left lesser saphenous vein in the calf. Day 4 status post right lung biopsy. Repeat chest x-ray negative for any hemopneumothorax. (3) Non-ST elevation myocardial infarction (NSTEMI) Is this a current diagnosis for this admission?: Yes Plan: Right-sided chest pain has resolved still complaining of dyspnea on exertion. Patient is positive for acute DVT and PE which may explain his dyspnea on exertion and chest pain. As per cardiology note patient may not have had an NSTEMI I but rather NSTEMI II due to mismatch demand caused by acute PE. History of CAD status post stent placement in 2000. Troponins 0.114, 0.150, 0.11, 0.08, 0.05 Aspirin, Eliquis, beta-blockers, EMORY, high intensity statins. As needed nitrates and morphine. . Status post lung biopsy on 12/17/2018. No plan on transferring to tertiary care at this point. (4) DVT of axillary vein, acute left Is this a current diagnosis for this admission?: Yes Plan: Provoked. High risk due to underlying lung malignancy. 12/15/2018. Venous Doppler of lower extremities showed acute hypoechoic clock in the paired peroneal and posterior tibial veins in the left calf acute hypoechoic clock in the left lesser saphenous vein in the calf. Eliquis 10 mg twice daily until 12/25/2018. Switch to 5 mg p.o. twice daily on 12/26/2018. Patient was initially placed on heparin drip pending lung biopsy and possible transfer to tertiary care for left heart cath. (5) Unstable angina Is this a current diagnosis for this admission?: Yes Plan: As per problem #3. (6) Mass of upper lobe of right lung Is this a current diagnosis for this admission?: Yes Plan: Status post right lung biopsy on 12/15/2018. Oncology and pulmonary on board. Denies any history of previous malignancy. Former heavy smoker. Status post thyroid mass biopsy as outpatient. Pathology pending. Positive family history of colon cancer. Last colonoscopy 5 years ago status post polypectomy reported as normal per patient. PTHrP pending. CT abdomen and pelvis contrast did not show any abdominal metastasis. (7) CKD (chronic kidney disease) stage 2, GFR 60-89 ml/min Is this a current diagnosis for this admission?: No Plan: Stable. Improving. Monitor electrolytes and volume status. Avoid nephrotoxic meds. (8) Diabetes type 2, uncontrolled Qualifiers: Glycemic state: with hyperglycemia Qualified Code(s): E11.65 - Type 2 diabetes mellitus with hyperglycemia Is this a current diagnosis for this admission?: Yes Plan: Improving. Hx of highly resistant DM. Patient is on highly concentrated insulin form. Has been followed by several [employer] in the past. Not well managed by sliding scale. We do not carry his form of insulin in the hospital. Patient brought his own insulin supplies, verified by pharmacy and restarted. DC insulin drip. Continue sliding scale insulin. Cardiac and diabetic diet. (9) CAD (coronary artery disease) Is this a current diagnosis for this admission?: No Plan: Continue ASA, statins, EMORY, beta-blockers. (10) PADMINI (obstructive sleep apnea) Is this a current diagnosis for this admission?: No Plan: Has not been evaluated by pulmonology. Nocturnal CPAP. Outpatient nocturnal polysomnography. Pulmonology follow-up. Weight loss advised. (11) Morbid obesity with BMI of 40.0-44.9, adult Is this a current diagnosis for this admission?: No Plan: Diet and lifestyle modifications.
--- NOTE | 2018-12-21 12:54 | RADIOLOGY REPORT (SQ) ---
EXAM DESCRIPTION: NM WHOLE BODY BONE SCAN COMPLETED DATE/TIME: 12/21/2018 12:36 pm REASON FOR STUDY: bone mets COMPARISON: CT chest, abdomen, and pelvis dated 12/13/2018. RADIONUCLIDE AND DOSE: 20.6 millicuries Tc99m MDP. The route of agent administration: Intravenous. ADDITIONAL DRUGS AND DOSES: None. TECHNIQUE: Routine delayed images at 3 hour post radionuclide injection acquired of the bony skeleto n including anterior and posterior whole-body projections and additional focused images as needed. LIMITATIONS: None. FINDINGS: BONES: Small focal area of increased signal in the right acetabulum visualized on the post erior image. Otherwise normal visualization without areas of photopenia or increased bony uptake of radiopharmaceutical. KIDNEYS: Symmetric excretion without obstruction. OTHER: No other significant finding. IMPRESSION: SMALL FOCAL AREA OF INCREASED ACTIVITY IN THE POSTERIOR RIGHT ACETABULUM. THIS MAY BE D UE TO DEGENERATIVE CHANGE RECENT CT DEMONSTRATED NO BONY LESION IN THIS AREA. OTHERWISE UNREMARKA BLE BONE SCAN. COMMENT: Quality measure 147: Current bone scan is compared with any available plain radiographs, p rior bone scans, and CT/MRI. TECHNICAL DOCUMENTATION: JOB ID: [id number] [employer]- All Rights Reserved Reading location - IP/workstation name: [email or web address]
[2018-12-21] MEDS ORDERED: NYSTATIN TOPICAL POWDER 15 GM TP PRN (18:30)
[2018-12-21] MEDS: MONTELUKAST SODIUM 10 MG TABLET PO SCH (21:18)
[2018-12-21] MEDS: ATORVASTATIN CALCIUM 40 MG TABLET PO SCH (21:18)
[2018-12-22] MEDS: GABAPENTIN 300 MG CAPSULE PO SCH ×3 (05:01→21:06)
[2018-12-22] MEDS: FUROSEMIDE INJ/PF 40 MG/4 ML SDV IV SCH ×2 (05:01→17:07)
[2018-12-22 07:28] LABS: APPEARANCE,URINE SLIGHTLY-CLOUDY; BILIRUBIN,URINE NEGATIVE (NEGATIVE); COLOR,URINE YELLOW; GLUCOSE, URINE NEGATIVE (NEGATIVE); KETONES,URINE NEGATIVE (NEGATIVE); LEUKOCYTE ESTERASE,URINE NEGATIVE (NEGATIVE); NITRITE,URINE NEGATIVE (NEGATIVE); PROTEIN,URINE NEGATIVE (NEGATIVE); URINE SPECIFIC GRAVITY 1.013; UROBILINOGEN,URINE NEGATIVE mg/dL (<2.0)
[2018-12-22] MEDS: LEVALBUTEROL HCL NEB 1.25 MG/3 ML AMPUL NEB SCH (07:34)
[2018-12-22] MEDS: IPRATROPIUM BROMIDE 0.02% NEB 0.5 MG/2.5 ML AMPUL NEB SCH (07:34)
[2018-12-22] MEDS: INSULIN REG, HUMAN 100 UNIT/ML 3 ML VIAL (PYX) SUBCUT SCH (08:06)
[2018-12-22] MEDS ORDERED: IPRATROPIUM BROMIDE 0.02% NEB 0.5 MG/2.5 ML AMPUL NEB PRN (08:53)
[2018-12-22] MEDS ORDERED: DEXTROSE 50%-WATER 25 GM/50 ML DISP.SYRIN IV PRN ×2 (08:56)
[2018-12-22] MEDS ORDERED: DEXTROSE 40% GEL 15 GM TUBE PO PRN ×2 (08:56)
[2018-12-22] MEDS ORDERED: GLUCAGON,HUMAN RECOMB 1 MG INJ IM PRN (08:56)
[2018-12-22] MEDS: LIDOCAINE 5% (700 MG) TRANSDERMAL ADH..PATCH TP SCH (09:46)
[2018-12-22] MEDS ORDERED: LEVALBUTEROL HCL NEB 1.25 MG/3 ML AMPUL NEB PRN (09:57)
[2018-12-22] MEDS: FLUTICASONE NASAL SPRAY 50 MCG/SPRY 120 SPRAY/16 GM NASL SCH (10:01)
[2018-12-22] MEDS: FLUTICASONE/VILANTEROL 100-25 MCG/DOSE IH SCH (10:02)
[2018-12-22] MEDS: APIXABAN 5 MG TABLET PO SCH ×2 (10:04→17:06)
[2018-12-22] MEDS: DOCUSATE SODIUM 100 MG CAPSULE PO SCH ×2 (10:04→17:06)
[2018-12-22] MEDS: ASPIRIN 81 MG TABLET, CHEWABLE PO SCH (10:04)
[2018-12-22] MEDS: FAMOTIDINE 20 MG TABLET PO SCH ×2 (10:04→21:06)
[2018-12-22] MEDS: LOSARTAN POTASSIUM 50 MG TABLET PO SCH (10:10)
[2018-12-22] MEDS: METOPROLOL SUCCINATE 50 MG TAB.SR.24H PO SCH ×2 (10:10→21:07)
[2018-12-22] MEDS: ISOSORBIDE MONONITRATE 60 MG TAB.ER.24H PO SCH (10:10)
--- NOTE | 2018-12-22 10:12 | PDOC PROGRESS REPORT ---
Subjective Progress Note for:: 12/22/18 Subjective:: Patient states that he would like better communication with the staff. He does not believe that he needs the breathing treatments and they are causing him to have a sore throat. He also states that his bottom is quite sore but the plain baby powder does not work. He is having his medicated powder brought from home. He is already on nystatin powder as well. Otherwise, he is very accepting of plans for chemo starting Monday. He appreciated the nurse education visit to explain about the chemo. ROS: No dyspnea. No nausea. Cough now resolved. No nausea. 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 Rectal exam: PRESENT: other - External area with erythema inside skin folds. No evidence of pressure ulcer. Extremities exam: ABSENT: pedal edema Neurological exam: PRESENT: alert, awake Psychiatric exam: PRESENT: appropriate affect Skin exam: PRESENT: normal color Results Laboratory Results: 12/18/18 02:20 12/18/18 02:20 12/22/18 07:09 Urine Color YELLOW Urine Appearance SLIGHTLY-CLOUDY Urine pH 5.0 Ur Specific [place] 1.013 Urine Protein NEGATIVE Urine Glucose (UA) NEGATIVE Urine Ketones NEGATIVE Urine Blood NEGATIVE Urine Nitrite NEGATIVE Ur Leukocyte Esterase NEGATIVE Urine WBC (Auto) 1 Urine RBC (Auto) 0 12/16/18 09:52 Blood Blood Culture - Final NO GROWTH IN 5 DAYS 12/16/18 08:39 Blood Blood Culture - Final NO GROWTH IN 5 DAYS 12/11/18 12/11/18 12/11/18 14:45 17:14 21:07 Creatine Kinase 59 CK-MB (CK-2) Troponin I 0.114 0.150 NT-Pro-B Natriuret Pep 749 12/11/18 12/12/18 12/12/18 21:07 03:00 03:00 Creatine Kinase 56 CK-MB (CK-2) 1.36 1.37 Troponin I 0.111 0.083 NT-Pro-B Natriuret Pep 12/12/18 12/12/18 12/12/18 09:52 09:52 19:50 Creatine Kinase 51 L CK-MB (CK-2) 1.14 Troponin I 0.059 0.066 NT-Pro-B Natriuret Pep Impressions: Chest CT 12/11/18 16:11 IMPRESSION: 1. LOBULATED MASS IN THE LATERAL RIGHT LUNG CONSISTENT WITH MALIGNANCY. ADDITIONAL SMALLER NODULAR MASSES EXTENDING MEDIALLY TO THE RIGHT HILUM. RIGHT HILAR MASS PRESUMED SECONDARY TO ADENOPATHY. PATCHY AIRSPACE DISEASE IN THE ADJACENT RIGHT LUNG. THIS MAY BE DUE TO PNEUMONITIS OR ATELECTASIS ALTHOUGH LYMPHATIC SPREAD OF TUMOR COULD BE ANOTHER POSSIBILITY. RIGHT PLEURAL EFFUSION. LEFT LUNG CLEAR. 2. HETEROGENOUS ENLARGED LEFT LOBE OF THE THYROID WHICH EXTENDS IN A SUBSTERNAL DIRECTION DESCRIBED. Abdomen/Pelvis CT 12/13/18 00:00 IMPRESSION: 1. Partially visualized filling defects in right lower lobe arteries, suspicious for pulmonary embolism. Consider CTA chest. 2. Small right pleural effusion as on prior exam. Right hilar mass is partially visualized, as on 12/11/[address] evidence for metastatic disease in the abdomen or pelvis. 4. No acute findings in the abdomen or pelvis. Venous Doppler Study 12/15/18 00:00 IMPRESSION: No venous thrombosis in the right leg Acute hypoechoic clot in the paired peroneal and posterior tibial veins in the left calf, acute hypoechoic clot in the left lesser saphenous vein in the calf Guidance Needle Placement CT 12/17/18 00:00 IMPRESSION: CT GUIDED BIOPSY OF THE RIGHT UPPER LOBE LUNG MASS PERFORMED WITHOUT IMMEDIATE COMPLICATION. PATHOLOGY PENDING. FLUID OVERLOAD OR CONGESTIVE FAILURE WITH TRACE BILATERAL PLEURAL EFFUSIONS AND BILATERAL ALVEOLAR/INTERSTITIAL PULMONARY EDEMA ON BIOPSY PLANNING CT TODAY Lung Biopsy CT 12/17/18 00:00 IMPRESSION: CT GUIDED BIOPSY OF THE RIGHT UPPER LOBE LUNG MASS PERFORMED WITHOU T IMMEDIATE COMPLICATION. PATHOLOGY PENDING. FLUID OVERLOAD OR CONGESTIVE FAILURE WITH TRACE BILATERAL PLEURAL EFFUSIONS AND BILATERAL ALVEOLAR/INTERSTITIAL PULMONARY EDEMA ON BIOPSY PLANNING CT TODAY Chest X-Ray 12/18/18 00:00 IMPRESSION: Stable AP examination with right upper lobe mass. There is no significant pneumothorax or pleural effusion status post biopsy. Unchanged minimal diffuse interstitial pulmonary opacity and cardiomegaly, likely edema. Body Scan Nuclear Medicine 12/21/18 08:49 IMPRESSION: SMALL FOCAL AREA OF INCREASED ACTIVITY IN THE POSTERIOR RIGHT ACETABULUM. THIS MAY BE DUE TO DEGENERATIVE CHANGE RECENT CT DEMONSTRATED NO BONY LESION IN THIS AREA. OTHERWISE UNREMARKABLE BONE SCAN. Assessment & Plan - Diagnosis (1) Mass of upper lobe of right lung Is this a current diagnosis for this admission?: Yes (2) Non-ST elevation myocardial infarction (NSTEMI) Is this a current diagnosis for this admission?: Yes (3) Morbid obesity Is this a current diagnosis for this admission?: Yes (4) Primary cancer of right middle lobe of lung Is this a current diagnosis for this admission?: Yes Plan: Small cell lung cancer. Plan to start chemotherapy Monday. Patient agrees w ith this plan. Will also make sure that Radiation oncology is aware of patient. Plan a few cycles of chemo first, then consider radiation as well. His bone scan did not show any convincing evidence of bone mets. He will need MRI brain at some point to complete staging. This may be done as an outpatient. I will change his breathing treatments to PRN, at his request. (5) Skin rash Is this a current diagnosis for this admission?: Yes Plan: Patient is on nystatin powder BID. I have assured him that he may use his own OTC powder to this area as well. He states that this works the best. (6) Other pulmonary embolism without acute cor pulmonale Qualifiers: Chronicity: acute Qualified Code(s): I26.99 - Other pulmonary embolism without acute cor pulmonale Is this a current diagnosis for this admission?: Yes Plan: Continue Eliquis. - Plan Summary Plan Summary: I will see him again Tu. Please call if needed until then.
[2018-12-22] MEDS: INSULIN LISPRO 100 UNIT/ML 3 ML VIAL SUBCUT SCH ×3 (12:39→21:18)
[2018-12-22] MEDS: CALCITRIOL 0.25 MCG CAPSULE PO SCH (13:03)
--- NOTE | 2018-12-22 16:11 | PDOC PROGRESS REPORT ---
Subjective Progress Note for:: 12/22/18 Subjective:: VICTOR MANUEL HALL is a 68 year old male who presented to the emergency room with a 4-day history of episodic dyspnea at rest and on exertion. Patient acknowledges moderate to severe dyspnea episodes worsened with any exertion, several times per day over the weekend but better on Monday. His symptoms returned again early this morning and were much more severe with the dyspnea and abdominal discomfort being present and not resolving with a short period of rest and c ontrolled breathing. His dyspnea was accompanied by a mild to moderate epigastric/lower anterior chest pressure-like discomfort. Patient's dyspnea and chest/abdomen discomfort was relieved by rest after a few minutes until today when it became persistent resulting in his trip to the emergency room. He also admits an associated symptom of bilateral leg swelling which is a little worse than his normal chronic swelling. He denies prior similar episodes. He denies identification of other aggravating or ameliorating factors for his dyspnea and chest/abdominal pain. In the emergency room he was noted to have dyspnea with exertion and required supplemental oxygen at 2 L/min via nasal cannula to remain dyspnea free and pain-free even at rest. Chest x-ray showed a right midlung mass suspicious for neoplasm with probable right perihilar lymphadenopathy. Because of the patient's acute respiratory failure, chest/abdominal pain, worsening peripheral edema and dyspnea with exertion he was admitted for further evaluation and treatment. 12/12/2018. Shortness of breath with mild improvement but patient still having dyspnea on exertion associated with pressure-like chest pain. Patient denies any fever, chills, nausea, vomiting, diarrhea, constipation or any urinary symptoms. 12/13/2018. Patient still having dyspnea on exertion, chest pain has not recurred since yesterday. Was able to ambulate to the bathroom having any chest pain. Denies any fever, chills, nausea, vomiting, diarrhea, constipation or any urinary symptoms. 12/14/2018. No acute events overnight. Patient is very pleasant cooperative with physical examination. Shortness of breath has improved since yesterday s till requiring supplemental oxygen. Has not had any more chest pain since yesterday. Able to ambulate to the restroom on supplemental oxygen does not report any chest pain on ambulation. Denies any fever, chills, nausea, vomiting, diarrhea, constipation or any urinary symptoms. 12/15/2018. Patient was having some respiratory distress overnight and was started on BiPAP with significant symptoms. Still complaining of dyspnea on exertion is not had any recurrence of his chest pain. Denies any fever, chills, nausea, vomiting, diarrhea, constipation or any urinary symptoms. Had a venous Doppler of lower extremities which was positive for DVT. 12/16/2018. No acute events overnight. EMR patient has T-max of 100.8 and 2 episodes upon my conversation with him today he denies having any fever or chills, still complaining of dyspnea on exertion, has not had any recurrence of his chest pain, p.o. tolerant, ambulatory, having normal bowel and bladder function. Denies any nausea, vomiting, diarrhea, constipation, urinary symptoms. Scheduled for CT-guided biopsy of lung mass tomorrow. 12/17/2018. No acute events overnight. No recurrence of chest pain. Shortness of breath has improved. Patient gets short of breath only when exerting himself. Denies any fever, chills, nausea, vomiting, diarrhea, constipation or any urinary symptoms. Status post CT-guided right lung biopsy. 12/18/2018. Patient complaining of right-sided pleuritic chest pain at the site of the biopsy. Chest pain exacerbated by breathing, sharp, nonradiating. Repeat chest x-ray was negative for any pneumothorax or hemothorax. Denies any fever, chills, nausea, vomiting, liver, constipation or any other sex. At rest he is not short of breath but is still having dyspnea on exertion. 12/19/2018. No acute events overnight. Has been refusing BiPAP. Denies any chest pain or shortness of breath at rest. Dyspnea on exertion. No fever, chills, nausea, vomiting, diarrhea, constipation or any urinary symptoms. 12/20/2018. No acute events overnight. Has been refusing BiPAP. Denies any chest pain or shortness of breath at rest. Dyspnea on exertion. No fever, chills, nausea, vomiting, diarrhea, constipation or any urinary symptoms. Patient needs supplemental oxygen on discharge. DC tomorrow once that has been taken care of. 12/21/2018. No acute events overnight. Was ready to be DC'd home with oxygen however his lung biopsy result showing small cell carcinoma and oncology would like to keep him until Monday when he will be starting chemotherapy for probably 3 to 4 days and after that he can be discharged home. Patient is still complaining of mild shortness of breath on exertion otherwise does not have any more shortness of breath or chest pain. Denies any fever, chills, nausea, vomiting, diarrhea, constipation or any urinary symptoms. SBP 111-137. T-max 98.3. SPO2 98% on 2 L nasal cannula FiO2 21%. RR 16-20. 12/22/2018. No acute events overnight. Patient very pleasant and cooperative physical examination, staying till next week for her his chemotherapy. pt was started on environmental therapy which he is very happy about. Family is on the bedside. Does not want nebs anymore, ambulatory, shortness of breath has improved, denies any chest pain, p.o. tolerant, having normal bladder and bowel movements. Reason For Visit: N[employer]/ [employer]/CARBO/ IV Physical Exam Vital Signs: Temp Pulse Resp BP Pulse Ox 98.1 F 70 16 105/67 96 12/22/18 15:53 12/22/18 15:53 12/22/18 15:53 12/22/18 15:53 12/22/18 15:53 Intake & Output 12/21/18 12/22/18 12/23/18 06:59 06:59 06:59 Intake Total 708 672 237 Output Total 250 Balance 708 672 -13 Weight 134.5 kg 134.5 kg General appearance: PRESENT: obese Head exam: PRESENT: atraumatic, normocephalic Respiratory exam: PRESENT: clear to auscultation nancy. ABSENT: rales, rhonchi, wheezes Cardiovascular exam: PRESENT: RRR. ABSENT: diastolic murmur, rubs, systolic murmur GI/Abdominal exam: PRESENT: normal bowel sounds, soft. ABSENT: distended, guarding, mass, organolmegaly, rebound, tenderness Neurological exam: PRESENT: alert, awake, oriented to person, oriented to place, oriented to time, oriented to situation, CN II-XII grossly intact. ABSENT: motor sensory deficit Results Laboratory Results: 12/18/18 02:20 12/18/18 02:20 12/22/18 07:09 Urine Color YELLOW Urine Appearance SLIGHTLY-CLOUDY Urine pH 5.0 Ur Specific [place] 1.013 Urine Protein NEGATIVE Urine Glucose (UA) NEGATIVE Urine Ketones NEGATIVE Urine Blood NEGATIVE Urine Nitrite NEGATIVE Ur Leukocyte Esterase NEGATIVE Urine WBC (Auto) 1 Urine RBC (Auto) 0 12/11/18 12/11/18 12/11/18 14:45 17:14 21:07 Creatine Kinase 59 CK-MB (CK-2) Troponin I 0.114 0.150 NT-Pro-B Natriuret Pep 749 12/11/18 12/12/18 12/12/18 21:07 03:00 03:00 Creatine Kinase 56 CK-MB (CK-2) 1.36 1.37 Troponin I 0.111 0.083 NT-Pro-B Natriuret Pep 12/12/18 12/12/18 12/12/18 09:52 09:52 19:50 Creatine Kinase 51 L CK-MB (CK-2) 1.14 Troponin I 0.059 0.066 NT-Pro-B Natriuret Pep Impressions: Chest CT 12/11/18 16:11 IMPRESSION: 1. LOBULATED MASS IN THE LATERAL RIGHT LUNG CONSISTENT WITH MALIGNANCY. ADDITIONAL SMALLER NODULAR MASSES EXTENDING MEDIALLY TO THE RIGHT HILUM. RIGHT HILAR MASS PRESUMED SECONDARY TO ADENOPATHY. PATCHY AIRSPACE DISEASE IN THE ADJACENT RIGHT LUNG. THIS MAY BE DUE TO PNEUMONITIS OR ATELECTASIS ALTHOUGH LYMPHATIC SPREAD OF TUMOR COULD BE ANOTHER POSSIBILITY. RIGHT PLEURAL EFFUSION. LEFT LUNG CLEAR. 2. HETEROGENOUS ENLARGED LEFT LOBE OF THE THYROID WHICH EXTENDS IN A SUBSTERNAL DIRECTION DESCRIBED. Abdomen/Pelvis CT 12/13/18 00:00 IMPRESSION: 1. Partially visualized filling defects in right lower lobe arteries, suspicious for pulmonary embolism. Consider CTA chest. 2. Small right pleural effusion as on prior exam. Right hilar mass is partially visualized, as on 12/11/[address] evidence for metastatic disease in the abdomen or pelvis. 4. No acute findings in the abdomen or pelvis. Venous Doppler Study 12/15/18 00:00 IMPRESSION: No venous thrombosis in the right leg Acute hypoechoic clot in the paired peroneal and posterior tibial veins in the left calf, acute hypoechoic clot in the left lesser saphenous vein in the calf Guidance Needle Placement CT 12/17/18 00:00 IMPRESSION: CT GUIDED BIOPSY OF THE RIGHT UPPER LOBE LUNG MASS PERFORMED WITHOUT IMMEDIATE COMPLICATION. PATHOLOGY PENDING. FLUID OVERLOAD OR CONGESTIVE FAILURE WITH TRACE BILATERAL PLEURAL EFFUSIONS AND BILATERAL ALVEOLAR/INTERSTITIAL PULMONARY EDEMA ON BIOPSY PLANNING CT TODAY Lung Biopsy CT 12/17/18 00:00 IMPRESSION: CT GUIDED BIOPSY OF THE RIGHT UPPER LOBE LUNG MASS PERFORMED WITHOUT IMMEDIATE COMPLICATION. PATHOLOGY PENDING. FLUID OVERLOAD OR CONGESTIVE FAILURE WITH TRACE BILATERAL PLEURAL EFFUSIONS AND BILATERAL ALVEOLAR/INTERSTITIAL PULMONARY EDEMA ON BIOPSY PLANNING CT TODAY Chest X-Ray 12/18/18 00:00 IMPRESSION: Stable AP examination with right upper lobe mass. There is no significant pneumothorax or pleural effusion status post biopsy. Unchanged minimal diffuse interstitial pulmonary opacity and cardiomegaly, likely edema. Body Scan Nuclear Medicine 12/21/18 08:49 IMPRESSION: SMALL FOCAL AREA OF INCREASED ACTIVITY IN THE POSTERIOR RIGHT ACETA BULUM. THIS MAY BE DUE TO DEGENERATIVE CHANGE RECENT CT DEMONSTRATED NO BONY LESION IN THIS AREA. OTHERWISE UNREMARKABLE BONE SCAN. Assessment and Plan - Diagnosis (1) Primary cancer of right middle lobe of lung Is this a current diagnosis for this admission?: Yes Plan: Small cell lung carcinoma. Oncology on board. And to initiate chemotherapy next Monday with carboplatin AUC of 5-day 1 + etoposide 80 mg per metered squared days 1 through 3,[place] day 1 (2) Pulmonary emboli Qualifiers: Chronicity: unspecified Is this a current diagnosis for this admission?: Yes Plan: Eliquis 10 mg twice daily until 12/25/2018. Switch to 5 mg p.o. twice daily on 12/26/2018. This was observed on CT abdomen pelvis with and without contrast for restaging of his lung mass. On admission patient had a CT chest without contrast. 12/14/2018 patient will need a CTA to confirm and localize his pulmonary emboli, but because of the fact that he had received IV contrast yesterday for CT abdom en and pelvis and he may receive IV contrast on Monday for CT-guided biopsy and possible left heart cath on Monday at [facility], would be safer to treat his PE empirically. 12/15/2018 venous Doppler of lower extremities showed acute hypoechoic clock in the paired peroneal and posterior tibial veins in the left calf acute hypoechoic clock in the left lesser saphenous vein in the calf. Day 4 status post right lung biopsy. Repeat chest x-ray negative for any hemopneumothorax. (3) Non-ST elevation myocardial infarction (NSTEMI) Is this a current diagnosis for this admission?: Yes Plan: Right-sided chest pain has resolved still complaining of mild dyspnea on exertion. Patient is positive for acute DVT and PE which may explain his dyspnea on exertion and chest pain. As per cardiology note patient may not have had an NSTEMI I but rather NSTEMI II due to mismatch demand caused by acute PE. History of CAD status post stent placement in 2000. Troponins 0.114, 0.150, 0.11, 0.08, 0.05 Aspirin, Eliquis, beta-blockers, EMORY, high intensity statins. As needed nitrates and morphine. Status post lung biopsy on 12/17/2018. No plan on transferring to tertiary care at this point. Cardiology has signed off at this point. (4) DVT of axillary vein, acute left Is this a current diagnosis for this admission?: Yes Plan: Provoked. High risk due to underlying lung malignancy. 12/15/2018. Venous Doppler of lower extremities showed acute hypoechoic clock in the paired peroneal and posterior tibial veins in the left calf acute hypoechoic clock in the left lesser saphenous vein in the calf. Eliquis 10 mg twice daily until 12/25/2018. Switch to 5 mg p.o. twice daily on 12/26/2018. Patient was initially placed on heparin drip pending lung biopsy. (5) Unstable angina Is this a current diagnosis for this admission?: Yes Plan: Resolved. (6) Mass of upper lobe of right lung Is this a current diagnosis for this admission?: Yes Plan: Status post right lung biopsy on 12/15/2018. Oncology and pulmonary on board. Denies any history of previous malignancy. Former heavy smoker. Status post thyroid mass biopsy as outpatient. Pathology pending. Positive family history of colon cancer. Last colonoscopy 5 years ago status post polypectomy reported as normal per patient. PTHrP pending. CT abdomen and pelvis contrast did not show any abdominal metastasis. (7) CKD (chronic kidney disease) stage 2, GFR 60-89 ml/min Is this a current diagnosis for this admission?: No Plan: Stable. Improving. Monitor electrolytes and volume status. Avoid nephrotoxic meds. (8) Diabetes type 2, uncontrolled Qualifiers: Glycemic state: with hyperglycemia Qualified Code(s): E11.65 - Type 2 diabetes mellitus with hyperglycemia Is this a current diagnosis for this admission?: Yes Plan: Improving. Hx of highly resistant DM. Patient is on highly concentrated insulin form. 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 Not well managed by sliding scale. We do not carry his form of insulin in the hospital. Patient brought his own insulin supplies, verified by pharmacy and restarted. DC insulin drip. Continue sliding scale insulin. Cardiac and diabetic diet. (9) CAD (coronary artery disease) Is this a current diagnosis for this admission?: No Plan: Continue ASA, statins, EMORY, beta-blockers. (10) PADMINI (obstructive sleep apnea) Is this a current diagnosis for this admission?: No Plan: Has not been evaluated by pulmonology. Refuses to wear BiPAP/CPAP. Outpatient nocturnal polysomnography. Pulmonology follow-up. Weight loss advised. (11) Morbid obesity with BMI of 40.0-44.9, adult Is this a current diagnosis for this admission?: No Plan: Diet and lifestyle modifications.
--- NOTE | 2018-12-22 17:12 | EKG REPORT ---
SEVERITY:- ABNORMAL ECG - SINUS RHYTHM FIRST DEGREE AV BLOCK INFERIOR INFARCT, AGE INDETERMINATE EXTENSIVE ANTERIOR INFARCT, AGE INDETERMINATE PROLONGED QT INTERVAL : Confirmed by: Malvin Aguirre MD 22-Dec-2018 17:11:39
[2018-12-22] MEDS: MONTELUKAST SODIUM 10 MG TABLET PO SCH (21:06)
[2018-12-22] MEDS: ATORVASTATIN CALCIUM 40 MG TABLET PO SCH (21:06)
[2018-12-22] MEDS: MELATONIN 5 MG TABLET PO PRN (23:43)
[2018-12-23] MEDS: FUROSEMIDE INJ/PF 40 MG/4 ML SDV IV SCH (05:33)
[2018-12-23] MEDS: GABAPENTIN 300 MG CAPSULE PO SCH ×3 (05:34→22:29)
[2018-12-23] MEDS: INSULIN LISPRO 100 UNIT/ML 3 ML VIAL SUBCUT SCH ×4 (08:02→22:26)
[2018-12-23] MEDS: FLUTICASONE NASAL SPRAY 50 MCG/SPRY 120 SPRAY/16 GM NASL SCH (09:53)
[2018-12-23] MEDS: DOCUSATE SODIUM 100 MG CAPSULE PO SCH ×2 (09:53→17:02)
[2018-12-23] MEDS: FLUTICASONE/VILANTEROL 100-25 MCG/DOSE IH SCH (09:53)
[2018-12-23] MEDS: ISOSORBIDE MONONITRATE 60 MG TAB.ER.24H PO SCH (09:54)
[2018-12-23] MEDS: METOPROLOL SUCCINATE 50 MG TAB.SR.24H PO SCH ×2 (09:54→22:30)
[2018-12-23] MEDS: ASPIRIN 81 MG TABLET, CHEWABLE PO SCH (09:54)
[2018-12-23] MEDS: LOSARTAN POTASSIUM 50 MG TABLET PO SCH (09:54)
[2018-12-23] MEDS: FAMOTIDINE 20 MG TABLET PO SCH ×2 (09:54→22:30)
[2018-12-23] MEDS: LIDOCAINE 5% (700 MG) TRANSDERMAL ADH..PATCH TP SCH (09:54)
[2018-12-23] MEDS: APIXABAN 5 MG TABLET PO SCH ×2 (09:54→17:02)
--- NOTE | 2018-12-23 11:36 | PDOC PROGRESS REPORT ---
Subjective Progress Note for:: 12/23/18 Subjective:: VICTOR MANUEL HALL is a 68 year old male who presented to the emergency room with a 4-day history of episodic dyspnea at rest and on exertion. Patient acknowledges moderate to severe dyspnea episodes worsened with any exertion, several times per day over the weekend but better on Monday. His symptoms returned again early this morning and were much more severe with the dyspnea and abdominal discomfort being present and not resolving with a short period of rest and c ontrolled breathing. His dyspnea was accompanied by a mild to moderate epigastric/lower anterior chest pressure-like discomfort. Patient's dyspnea and chest/abdomen discomfort was relieved by rest after a few minutes until today when it became persistent resulting in his trip to the emergency room. He also admits an associated symptom of bilateral leg swelling which is a little worse than his normal chronic swelling. He denies prior similar episodes. He denies identification of other aggravating or ameliorating factors for his dyspnea and chest/abdominal pain. In the emergency room he was noted to have dyspnea with exertion and required supplemental oxygen at 2 L/min via nasal cannula to remain dyspnea free and pain-free even at rest. Chest x-ray showed a right midlung mass suspicious for neoplasm with probable right perihilar lymphadenopathy. Because of the patient's acute respiratory failure, chest/abdominal pain, worsening peripheral edema and dyspnea with exertion he was admitted for further evaluation and treatment. 12/12/2018. Shortness of breath with mild improvement but patient still having dyspnea on exertion associated with pressure-like chest pain. Patient denies any fever, chills, nausea, vomiting, diarrhea, constipation or any urinary symptoms. 12/13/2018. Patient still having dyspnea on exertion, chest pain has not recurred since yesterday. Was able to ambulate to the bathroom having any chest pain. Denies any fever, chills, nausea, vomiting, diarrhea, constipation or any urinary symptoms. 12/14/2018. No acute events overnight. Patient is very pleasant cooperative with physical examination. Shortness of breath has improved since yesterday s till requiring supplemental oxygen. Has not had any more chest pain since yesterday. Able to ambulate to the restroom on supplemental oxygen does not report any chest pain on ambulation. Denies any fever, chills, nausea, vomiting, diarrhea, constipation or any urinary symptoms. 12/15/2018. Patient was having some respiratory distress overnight and was started on BiPAP with significant symptoms. Still complaining of dyspnea on exertion is not had any recurrence of his chest pain. Denies any fever, chills, nausea, vomiting, diarrhea, constipation or any urinary symptoms. Had a venous Doppler of lower extremities which was positive for DVT. 12/16/2018. No acute events overnight. EMR patient has T-max of 100.8 and 2 episodes upon my conversation with him today he denies having any fever or chills, still complaining of dyspnea on exertion, has not had any recurrence of his chest pain, p.o. tolerant, ambulatory, having normal bowel and bladder function. Denies any nausea, vomiting, diarrhea, constipation, urinary symptoms. Scheduled for CT-guided biopsy of lung mass tomorrow. 12/17/2018. No acute events overnight. No recurrence of chest pain. Shortness of breath has improved. Patient gets short of breath only when exerting himself. Denies any fever, chills, nausea, vomiting, diarrhea, constipation or any urinary symptoms. Status post CT-guided right lung biopsy. 12/18/2018. Patient complaining of right-sided pleuritic chest pain at the site of the biopsy. Chest pain exacerbated by breathing, sharp, nonradiating. Repeat chest x-ray was negative for any pneumothorax or hemothorax. Denies any fever, chills, nausea, vomiting, liver, constipation or any other sex. At rest he is not short of breath but is still having dyspnea on exertion. 12/19/2018. No acute events overnight. Has been refusing BiPAP. Denies any chest pain or shortness of breath at rest. Dyspnea on exertion. No fever, chills, nausea, vomiting, diarrhea, constipation or any urinary symptoms. 12/20/2018. No acute events overnight. Has been refusing BiPAP. Denies any chest pain or shortness of breath at rest. Dyspnea on exertion. No fever, chills, nausea, vomiting, diarrhea, constipation or any urinary symptoms. Patient needs supplemental oxygen on discharge. DC tomorrow once that has been taken care of. 12/21/2018. No acute events overnight. Was ready to be DC'd home with oxygen however his lung biopsy result showing small cell carcinoma and oncology would like to keep him until Monday when he will be starting chemotherapy for probably 3 to 4 days and after that he can be discharged home. Patient is still complaining of mild shortness of breath on exertion otherwise does not have any more shortness of breath or chest pain. Denies any fever, chills, nausea, vomiting, diarrhea, constipation or any urinary symptoms. SBP 111-137. T-max 98.3. SPO2 98% on 2 L nasal cannula FiO2 21%. RR 16-20. 12/22/2018. No acute events overnight. Patient very pleasant and cooperative physical examination, staying till next week for her his chemotherapy. pt was started on environmental therapy which he is very happy about. Family is on the bedside. Does not want nebs anymore, ambulatory, shortness of breath has improved, denies any chest pain, p.o. tolerant, having normal bladder and bowel movements. 12/23/2018. No acute events overnight. Patient went to environmental therapy yesterday. Denies any chest pain, nausea, vomiting, diarrhea, constipation or a ny urinary symptoms. Wants his IV lines removed as he is not receiving occasions. He is pending chemotherapy on Monday next week. 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 ABSENT: rales, rhonchi, wheezes Cardiovascular exam: PRESENT: RRR. ABSENT: diastolic murmur, rubs, systolic murmur Pulses: PRESENT: normal dorsalis pedis pul Vascular exam: PRESENT: normal capillary refill GI/Abdominal exam: PRESENT: normal bowel sounds, soft. ABSENT: distended, guarding, mass, organolmegaly, rebound, tenderness Rectal exam: PRESENT: deferred Extremities exam: PRESENT: full ROM. ABSENT: calf tenderness, clubbing, pedal edema Neurological exam: PRESENT: alert, awake, oriented to person, oriented to place, oriented to time, oriented to situation, CN II-XII grossly intact. ABSENT: motor sensory deficit Psychiatric exam: PRESENT: appropriate affect, normal mood. ABSENT: homicidal ideation, suicidal ideation Skin exam: PRESENT: dry, intact, warm. ABSENT: cyanosis, rash Results Laboratory Results: 12/18/18 02:20 12/18/18 02:20 12/23/18 06:35 Stool Occult Blood NEGATIVE 12/11/18 12/11/18 12/11/18 14:45 17:14 21:07 Creatine Kinase 59 CK-MB (CK-2) Troponin I 0.114 0.150 NT-Pro-B Natriuret Pep 749 12/11/18 12/12/18 12/12/18 21:07 03:00 03:00 Creatine Kinase 56 CK-MB (CK-2) 1.36 1.37 Troponin I 0.111 0.083 NT-Pro-B Natriuret Pep 12/12/18 12/12/18 12/12/18 09:52 09:52 19:50 Creatine Kinase 51 L CK-MB (CK-2) 1.14 Troponin I 0.059 0.066 NT-Pro-B Natriuret Pep Impressions: Chest CT 12/11/18 16:11 IMPRESSION: 1. LOBULATED MASS IN THE LATERAL RIGHT LUNG CONSISTENT WITH MALIGNANCY. ADDITIONAL SMALLER NODULAR MASSES EXTENDING MEDIALLY TO THE RIGHT HILUM. RIGHT HILAR MASS PRESUMED SECONDARY TO ADENOPATHY. PATCHY AIRSPACE DISEASE IN THE ADJACENT RIGHT LUNG. THIS MAY BE DUE TO PNEUMONITIS OR ATELECTASIS ALTHOUGH LYMPHATIC SPREAD OF TUMOR COULD BE ANOTHER POSSIBILITY. RIGHT PLEURAL EFFUSION. LEFT LUNG CLEAR. 2. HETEROGENOUS ENLARGED LEFT LOBE OF THE THYROID WHICH EXTENDS IN A SUBSTERNAL DIRECTION DESCRIBED. Abdomen/Pelvis CT 12/13/18 00:00 IMPRESSION: 1. Partially visualized filling defects in right lower lobe arteries, suspicious for pulmonary embolism. Consider CTA chest. 2. Small right pleural effusion as on prior exam. Right hilar mass is partially visualized, as on 12/11/[address] evidence for metastatic disease in the abdomen or pelvis. 4. No acute findings in the abdomen or pelvis. Venous Doppler Study 12/15/18 00:00 IMPRESSION: No venous thrombosis in the right leg Acute hypoechoic clot in the paired peroneal and posterior tibial veins in the left calf, acute hypoechoic clot in the left lesser saphenous vein in the calf Guidance Needle Placement CT 12/17/18 00:00 IMPRESSION: CT GUIDED BIOPSY OF THE RIGHT UPPER LOBE LUNG MASS PERFORMED WITHOUT IMMEDIATE COMPLICATION. PATHOLOGY PENDING. FLUID OVERLOAD OR CONGESTIVE FAILURE WITH TRACE BILATERAL PLEURAL EFFUSIONS AND BILATERAL ALVEOLAR/INTERSTITIAL PULMONARY EDEMA ON BIOPSY PLANNING CT TODAY Lung Biopsy CT 12/17/18 00:00 IMPRESSION: CT GUIDED BIOPSY OF THE RIGHT UPPER LOBE LUNG MASS PERFORMED WITHOUT IMMEDIATE COMPLICATION. PATHOLOGY PENDING. FLUID OVERLOAD OR CONGESTIVE FAILURE WITH TRACE BILATERAL PLEURAL EFFUSIONS AND BILATERAL ALVEOLAR/INTERSTITIAL PULMONARY EDEMA ON BIOPSY PLANNING CT TODAY Chest X-Ray 12/18/18 00:00 IMPRESSION: Stable AP examination with right upper lobe mass. There is no significant pneumothorax or pleural effusion status post biopsy. Unchanged minimal diffuse interstitial pulmonary opacity and cardiomegaly, likely edema. Body Scan Nuclear Medicine 12/21/18 08:49 IMPRESSION: SMALL FOCAL AREA OF INCREASED ACTIVITY IN THE POSTERIOR RIGHT ACETABULUM. THIS MAY BE DUE TO DEGENERATIVE CHANGE RECENT CT DEMONSTRATED NO BONY LESION IN THIS AREA. OTHERWISE UNREMARKABLE BONE SCAN. Assessment and Plan - Diagnosis (1) Primary cancer of right middle lobe of lung Is this a current diagnosis for this admission?: Yes Plan: Small cell lung carcinoma. Oncology on board. And to initiate chemotherapy next Monday with carboplatin AUC of 5-day 1 + etoposide 80 mg per metered squared days 1 through 3,[place] day 1 (2) Pulmonary emboli Qualifiers: Chronicity: unspecified Is this a current diagnosis for this admission?: Yes Plan: Eliquis 10 mg twice daily until 12/25/2018. Switch to 5 mg p.o. twice daily on 12/26/2018. This was observed on CT abdomen pelvis with and without contrast for restaging of his lung mass. On admission patient had a CT chest without contrast. 12/14/2018 patient will need a CTA to confirm and localize his pulmonary emboli, but because of the fact that he had received IV contrast yesterday for CT abdomen and pelvis and he may receive IV contrast on Monday for CT-guided biopsy and possible left heart cath on Monday at [place], would be safer to treat his PE empirically. 12/15/2018 venous Doppler of lower extremities showed acute hypoechoic clock in the paired peroneal and posterior tibial veins in the left calf acute hypoechoic clock in the left lesser saphenous vein in the calf. Day 4 status post right lung biopsy. Repeat chest x-ray negative for any hemopneumothorax. (3) Non-ST elevation myocardial infarction (NSTEMI) Is this a current diagnosis for this admission?: Yes Plan: Right-sided chest pain has resolved still complaining of mild dyspnea on exertion. Patient is positive for acute DVT and PE which may explain his dyspnea on exertion and chest pain. As per cardiology note patient may not have had an NSTEMI I but rather NSTEMI II due to mismatch demand caused by acute PE. History of CAD status post stent placement in 2000. Troponins 0.114, 0.150, 0.11, 0.08, 0.05 Aspirin, Eliquis, beta-blockers, EMORY, high intensity statins. As needed nitrates and morphine. Status post lung biopsy on 12/17/2018. No plan on transferring to tertiary care at this point. Cardiology has signed off at this point. (4) DVT of axillary vein, acute left Is this a current diagnosis for this admission?: Yes Plan: Provoked. High risk due to underlying lung malignancy. 12/15/2018. Venous Doppler of lower extremities showed acute hypoechoic clock in the paired peroneal and posterior tibial veins in the left calf acute hypoechoic clock in the left lesser saphenous vein in the calf. Eliquis 10 mg twice daily until 12/25/2018. Switch to 5 mg p.o. twice daily on 12/26/2018. Patient was initially placed on heparin drip pending lung biopsy. (5) Unstable angina Is this a current diagnosis for this admission?: Yes Plan: Resolved. (6) Mass of upper lobe of right lung Is this a current diagnosis for this admission?: Yes Plan: Status post right lung biopsy on 12/15/2018. Oncology and pulmonary on board. Denies any history of previous malignancy. Former heavy smoker. Status post thyroid mass biopsy as outpatient. Pathology pending. Positive family history of colon cancer. Last colonoscopy 5 years ago status post polypectomy reported as normal per patient. PTHrP pending. CT abdomen and pelvis contrast did not show any abdominal metastasis. (7) CKD (chronic kidney disease) stage 2, GFR 60-89 ml/min Is this a current diagnosis for this admission?: No Plan: Stable. Improving. Monitor electrolytes and volume status. Avoid nephrotoxic meds. (8) Diabetes type 2, uncontrolled Qualifiers: Glycemic state: with hyperglycemia Qualified Code(s): E11.65 - Type 2 diabetes mellitus with hyperglycemia Is this a current diagnosis for this admission?: Yes Plan: Improving. Hx of highly resistant DM. Patient is on highly concentrated insulin form. 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 Not well managed by sliding scale. We do not carry his form of insulin in the hospital. Patient brought his own insulin supplies, verified by pharmacy and restarted. DC insulin drip. Continue sliding scale insulin. Cardiac and diabetic diet. (9) CAD (coronary artery disease) Is this a current diagnosis for this admission?: No Plan: Continue ASA, statins, EMORY, beta-blockers. (10) PADMINI (obstructive sleep apnea) Is this a current diagnosis for this admission?: No Plan: Has not been evaluated by pulmonology. Refuses to wear BiPAP/CPAP. Outpatient nocturnal polysomnography. Pulmonology follow-up. Weight loss advised. (11) Morbid obesity with BMI of 40.0-44.9, adult Is this a current diagnosis for this admission?: No Plan: Diet and lifestyle modifications.
[2018-12-23] MEDS: CALCITRIOL 0.25 MCG CAPSULE PO SCH (11:45)
[2018-12-23] MEDS: FUROSEMIDE 40 MG TABLET PO SCH (17:02)
[2018-12-23] MEDS ORDERED: FUROSEMIDE 20 MG TABLET PO SCH (18:00)
[2018-12-23] MEDS: ATORVASTATIN CALCIUM 40 MG TABLET PO SCH (22:29)
[2018-12-23] MEDS: MELATONIN 5 MG TABLET PO PRN (22:30)
[2018-12-23] MEDS: MONTELUKAST SODIUM 10 MG TABLET PO SCH (22:30)
[2018-12-24] MEDS: GABAPENTIN 300 MG CAPSULE PO SCH ×3 (05:19→21:41)
[2018-12-24] MEDS: INSULIN LISPRO 100 UNIT/ML 3 ML VIAL SUBCUT SCH ×4 (08:13→21:39)
--- NOTE | 2018-12-24 08:53 | PDOC PROGRESS REPORT ---
Subjective Progress Note for:: 12/24/18 Subjective:: This morning, patient had no complaints. He is looking forward to starting chemo tomorrow. His sore throat has improved and his rash on his bottom has improved. ROS: no dyspnea, No nausea. No constipation. 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 Physical Exam Vital Signs: Temp Pulse Resp BP Pulse Ox 97.5 F 49 L 17 132/58 H 94 12/24/18 03:17 12/24/18 03:17 12/24/18 03:17 12/24/18 03:17 12/24/18 03:17 Intake & Output 12/23/18 12/24/18 12/25/18 06:59 06:59 06:59 Intake Total 1063 829 Output Total 250 Balance 813 829 Weight 143 kg General appearance: PRESENT: obese Head exam: PRESENT: normocephalic Neck exam: ABSENT: lymphadenopathy, tenderness Respiratory exam: PRESENT: clear to auscultation nancy, unlabored Cardiovascular exam: PRESENT: RRR Extremities exam: ABSENT: pedal edema Neurological exam: PRESENT: alert, awake Psychiatric exam: PRESENT: appropriate affect Skin exam: PRESENT: normal color Results Laboratory Results: 12/18/18 02:20 12/18/18 02:20 12/23/18 06:35 Stool Occult Blood NEGATIVE 12/11/18 12/11/18 12/11/18 14:45 17:14 21:07 Creatine Kinase 59 CK-MB (CK-2) Troponin I 0.114 0.150 NT-Pro-B Natriuret Pep 749 12/11/18 12/12/18 12/12/18 21:07 03:00 03:00 Creatine Kinase 56 CK-MB (CK-2) 1.36 1.37 Troponin I 0.111 0.083 NT-Pro-B Natriuret Pep 12/12/18 12/12/18 12/12/18 09:52 09:52 19:50 Creatine Kinase 51 L CK-MB (CK-2) 1.14 Troponin I 0.059 0.066 NT-Pro-B Natriuret Pep Impressions: Chest CT 12/11/18 16:11 IMPRESSION: 1. LOBULATED MASS IN THE LATERAL RIGHT LUNG CONSISTENT WITH MALIGNANCY. ADDITIONAL SMALLER NODULAR MASSES EXTENDING MEDIALLY TO THE RIGHT HILUM. RIGHT HILAR MASS PRESUMED SECONDARY TO ADENOPATHY. PATCHY AIRSPACE DISEASE IN THE ADJACENT RIGHT LUNG. THIS MAY BE DUE TO PNEUMONITIS OR ATELECTASIS ALTHOUGH LYMPHATIC SPREAD OF TUMOR COULD BE ANOTHER POSSIBILITY. RIGHT PLEURAL EFFUSION. LEFT LUNG CLEAR. 2. HETEROGENOUS ENLARGED LEFT LOBE OF THE THYROID WHICH EXTENDS IN A SUBSTERNAL DIRECTION DESCRIBED. Abdomen/Pelvis CT 12/13/18 00:00 IMPRESSION: 1. Partially visualized filling defects in right lower lobe arteries, suspicious for pulmonary embolism. Consider CTA chest. 2. Small right pleural effusion as on prior exam. Right hilar mass is partially visualized, as on 12/11/[address] evidence for metastatic disease in the abdomen or pelvis. 4. No acute findings in the abdomen or pelvis. Venous Doppler Study 12/15/18 00:00 IMPRESSION: No venous thrombosis in the right leg Acute hypoechoic clot in the paired peroneal and posterior tibial veins in the left calf, acute hypoechoic clot in the left lesser saphenous vein in the calf Guidance Needle Placement CT 12/17/18 00:00 IMPRESSION: CT GUIDED BIOPSY OF THE RIGHT UPPER LOBE LUNG MASS PERFORMED WITHOUT IMMEDIATE COMPLICATION. PATHOLOGY PENDING. FLUID OVERLOAD OR CONGESTIVE FAILURE WITH TRACE BILATERAL PLEURAL EFFUSIONS AND BILATERAL ALVEOLAR/INTERSTITIAL PULMONARY EDEMA ON BIOPSY PLANNING CT TODAY Lung Biopsy CT 12/17/18 00:00 IMPRESSION: CT GUIDED BIOPSY OF THE RIGHT UPPER LOBE LUNG MASS PERFORMED WITHOUT IMMEDIATE COMPLICATION. PATHOLOGY PENDING. FLUID OVERLOAD OR CONGESTIVE FAILURE WITH TRACE BILATERAL PLEURAL EFFUSIONS AND BILATERAL ALVEOLAR/INTERSTITIAL PULMONARY EDEMA ON BIOPSY PLANNING CT TODAY Chest X-Ray 12/18/18 00:00 IMPRESSION: Stable AP examination with right upper lobe mass. There is no significant pneumothorax or pleural effusion status post biopsy. Unchanged minimal diffuse interstitial pulmonary opacity and cardiomegaly, likely edema. Body Scan Nuclear Medicine 12/21/18 08:49 IMPRESSION: SMALL FOCAL AREA OF INCREASED ACTIVITY IN THE POSTERIOR RIGHT ACETABULUM. THIS MAY BE DUE TO DEGENERATIVE CHANGE RECENT CT DEMONSTRATED NO BONY LESION IN THIS AREA. OTHERWISE UNREMARKABLE BONE SCAN. Assessment & Plan - Diagnosis (1) Mass of upper lobe of right lung Is this a current diagnosis for this admission?: Yes (2) Non-ST elevation myocardial infarction (NSTEMI) Is this a current diagnosis for this admission?: Yes Plan: As per Cardiology (3) Morbid obesity Is this a current diagnosis for this admission?: Yes (4) Primary cancer of right middle lobe of lung Is this a current diagnosis for this admission?: Yes Plan: Small cell lung cancer to start chemo cycle #1 tomorrow. Will need neulasta Day 4. Then hopefully home. (5) Skin rash Is this a current diagnosis for this admission?: Yes Plan: Improved (6) Other pulmonary embolism without acute cor pulmonale Qualifiers: Chronicity: acute Qualified Code(s): I26.99 - Other pulmonary embolism w ithout acute cor pulmonale Is this a current diagnosis for this admission?: Yes Plan: On appropriate anticoagulation. Will continue thin for at least 6 months. Will follow as outpatient.
[2018-12-24] MEDS: FUROSEMIDE 40 MG TABLET PO SCH ×2 (09:31→17:31)
[2018-12-24] MEDS: FAMOTIDINE 20 MG TABLET PO SCH ×2 (09:31→21:41)
[2018-12-24] MEDS: ISOSORBIDE MONONITRATE 60 MG TAB.ER.24H PO SCH (09:31)
[2018-12-24] MEDS: METOPROLOL SUCCINATE 50 MG TAB.SR.24H PO SCH ×2 (09:31→21:41)
[2018-12-24] MEDS: LOSARTAN POTASSIUM 50 MG TABLET PO SCH (09:31)
[2018-12-24] MEDS: FLUTICASONE/VILANTEROL 100-25 MCG/DOSE IH SCH (09:32)
[2018-12-24] MEDS: LIDOCAINE 5% (700 MG) TRANSDERMAL ADH..PATCH TP SCH (09:32)
[2018-12-24] MEDS: DOCUSATE SODIUM 100 MG CAPSULE PO SCH ×2 (09:32→17:31)
[2018-12-24] MEDS: ASPIRIN 81 MG TABLET, CHEWABLE PO SCH (09:32)
[2018-12-24] MEDS: FLUTICASONE NASAL SPRAY 50 MCG/SPRY 120 SPRAY/16 GM NASL SCH (09:32)
[2018-12-24] MEDS: APIXABAN 5 MG TABLET PO SCH ×2 (09:32→17:31)
[2018-12-24 11:29] LABS: APPEARANCE,URINE CLEAR; BILIRUBIN,URINE NEGATIVE (NEGATIVE); COLOR,URINE YELLOW; GLUCOSE, URINE NEGATIVE (NEGATIVE); KETONES,URINE NEGATIVE (NEGATIVE); LEUKOCYTE ESTERASE,URINE NEGATIVE (NEGATIVE); NITRITE,URINE NEGATIVE (NEGATIVE); PROTEIN,URINE NEGATIVE (NEGATIVE); URINE SPECIFIC GRAVITY 1.015; UROBILINOGEN,URINE NEGATIVE mg/dL (<2.0)
[2018-12-24] MEDS: CALCITRIOL 0.25 MCG CAPSULE PO SCH (13:11)
--- NOTE | 2018-12-24 13:13 | PDOC PROGRESS REPORT ---
Subjective Progress Note for:: 12/24/18 Subjective:: VICTOR MANUEL HALL is a 68 year old male who presented to the emergency room with a 4-day history of episodic dyspnea at rest and on exertion. Patient acknowledges moderate to severe dyspnea episodes worsened with any exertion, several times per day over the weekend but better on Monday. His symptoms returned again early this morning and were much more severe with the dyspnea and abdominal discomfort being present and not resolving with a short period of rest and c ontrolled breathing. His dyspnea was accompanied by a mild to moderate epigastric/lower anterior chest pressure-like discomfort. Patient's dyspnea and chest/abdomen discomfort was relieved by rest after a few minutes until today when it became persistent resulting in his trip to the emergency room. He also admits an associated symptom of bilateral leg swelling which is a little worse than his normal chronic swelling. He denies prior similar episodes. He denies identification of other aggravating or ameliorating factors for his dyspnea and chest/abdominal pain. In the emergency room he was noted to have dyspnea with exertion and required supplemental oxygen at 2 L/min via nasal cannula to remain dyspnea free and pain-free even at rest. Chest x-ray showed a right midlung mass suspicious for neoplasm with probable right perihilar lymphadenopathy. Because of the patient's acute respiratory failure, chest/abdominal pain, worsening peripheral edema and dyspnea with exertion he was admitted for further evaluation and treatment. 12/12/2018. Shortness of breath with mild improvement but patient still having dyspnea on exertion associated with pressure-like chest pain. Patient denies any fever, chills, nausea, vomiting, diarrhea, constipation or any urinary symptoms. 12/13/2018. Patient still having dyspnea on exertion, chest pain has not recurred since yesterday. Was able to ambulate to the bathroom having any chest pain. Denies any fever, chills, nausea, vomiting, diarrhea, constipation or any urinary symptoms. 12/14/2018. No acute events overnight. Patient is very pleasant cooperative with physical examination. Shortness of breath has improved since yesterday s till requiring supplemental oxygen. Has not had any more chest pain since yesterday. Able to ambulate to the restroom on supplemental oxygen does not report any chest pain on ambulation. Denies any fever, chills, nausea, vomiting, diarrhea, constipation or any urinary symptoms. 12/15/2018. Patient was having some respiratory distress overnight and was started on BiPAP with significant symptoms. Still complaining of dyspnea on exertion is not had any recurrence of his chest pain. Denies any fever, chills, nausea, vomiting, diarrhea, constipation or any urinary symptoms. Had a venous Doppler of lower extremities which was positive for DVT. 12/16/2018. No acute events overnight. EMR patient has T-max of 100.8 and 2 episodes upon my conversation with him today he denies having any fever or chills, still complaining of dyspnea on exertion, has not had any recurrence of his chest pain, p.o. tolerant, ambulatory, having normal bowel and bladder function. Denies any nausea, vomiting, diarrhea, constipation, urinary symptoms. Scheduled for CT-guided biopsy of lung mass tomorrow. 12/17/2018. No acute events overnight. No recurrence of chest pain. Shortness of breath has improved. Patient gets short of breath only when exerting himself. Denies any fever, chills, nausea, vomiting, diarrhea, constipation or any urinary symptoms. Status post CT-guided right lung biopsy. 12/18/2018. Patient complaining of right-sided pleuritic chest pain at the site of the biopsy. Chest pain exacerbated by breathing, sharp, nonradiating. Repeat chest x-ray was negative for any pneumothorax or hemothorax. Denies any fever, chills, nausea, vomiting, liver, constipation or any other sex. At rest he is not short of breath but is still having dyspnea on exertion. 12/19/2018. No acute events overnight. Has been refusing BiPAP. Denies any chest pain or shortness of breath at rest. Dyspnea on exertion. No fever, chills, nausea, vomiting, diarrhea, constipation or any urinary symptoms. 12/20/2018. No acute events overnight. Has been refusing BiPAP. Denies any chest pain or shortness of breath at rest. Dyspnea on exertion. No fever, chills, nausea, vomiting, diarrhea, constipation or any urinary symptoms. Patient needs supplemental oxygen on discharge. DC tomorrow once that has been taken care of. 12/21/2018. No acute events overnight. Was ready to be DC'd home with oxygen however his lung biopsy result showing small cell carcinoma and oncology would like to keep him until Monday when he will be starting chemotherapy for probably 3 to 4 days and after that he can be discharged home. Patient is still complaining of mild shortness of breath on exertion otherwise does not have any more shortness of breath or chest pain. Denies any fever, chills, nausea, vomiting, diarrhea, constipation or any urinary symptoms. SBP 111-137. T-max 98.3. SPO2 98% on 2 L nasal cannula FiO2 21%. RR 16-20. 12/22/2018. No acute events overnight. Patient very pleasant and cooperative physical examination, staying till next week for her his chemotherapy. pt was started on environmental therapy which he is very happy about. Family is on the bedside. Does not want nebs anymore, ambulatory, shortness of breath has improved, denies any chest pain, p.o. tolerant, having normal bladder and bowel movements. 12/23/2018. No acute events overnight. Patient went to environmental therapy yesterday. Denies any chest pain, nausea, vomiting, diarrhea, constipation or a ny urinary symptoms. Wants his IV lines removed as he is not receiving occasions. He is pending chemotherapy on Monday next week. 12/24/2018. No acute events overnight. No complaints, patient is very happy with his environmental therapy. Looking forward for his chemotherapy tomorrow. 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 ABSENT: rales, rhonchi, wheezes Cardiovascular exam: PRESENT: RRR. ABSENT: diastolic murmur, rubs, systolic murmur GI/Abdominal exam: PRESENT: normal bowel sounds, soft. ABSENT: distended, guarding, mass, organolmegaly, rebound, tenderness Neurological exam: PRESENT: alert, awake, oriented to person, oriented to place, oriented to time, oriented to situation, CN II-XII grossly intact. ABSENT: motor sensory deficit Results Laboratory Results: 12/18/18 02:20 12/18/18 02:20 12/24/18 11:00 Urine Color YELLOW Urine Appearance CLEAR Urine pH 5.0 Ur Specific [place] 1.015 Urine Protein NEGATIVE Urine Glucose (UA) NEGATIVE Urine Ketones NEGATIVE Urine Blood NEGATIVE Urine Nitrite NEGATIVE Ur Leukocyte Esterase NEGATIVE Urine WBC (Auto) 0 12/11/18 12/11/18 12/11/18 14:45 17:14 21:07 Creatine Kinase 59 CK-MB (CK-2) Troponin I 0.114 0.150 NT-Pro-B Natriuret Pep 749 12/11/18 12/12/18 12/12/18 21:07 03:00 03:00 Creatine Kinase 56 CK-MB (CK-2) 1.36 1.37 Troponin I 0.111 0.083 NT-Pro-B Natriuret Pep 12/12/18 12/12/18 12/12/18 09:52 09:52 19:50 Creatine Kinase 51 L CK-MB (CK-2) 1.14 Troponin I 0.059 0.066 NT-Pro-B Natriuret Pep Impressions: Chest CT 12/11/18 16:11 IMPRESSION: 1. LOBULATED MASS IN THE LATERAL RIGHT LUNG CONSISTENT WITH MALIGNANCY. ADDITIONAL SMALLER NODULAR MASSES EXTENDING MEDIALLY TO THE RIGHT HILUM. RIGHT HILAR MASS PRESUMED SECONDARY TO ADENOPATHY. PATCHY AIRSPACE DISEASE IN THE ADJACENT RIGHT LUNG. THIS MAY BE DUE TO PNEUMONITIS OR ATELECTASIS ALTHOUGH LYMPHATIC SPREAD OF TUMOR COULD BE ANOTHER POSSIBILITY. RIGHT PLEURAL EFFUSION. LEFT LUNG CLEAR. 2. HETEROGENOUS ENLARGED LEFT LOBE OF THE THYROID WHICH EXTENDS IN A SUBSTERNAL DIRECTION DESCRIBED. Abdomen/Pelvis CT 12/13/18 00:00 IMPRESSION: 1. Partially visualized filling defects in right lower lobe arteries, suspicious for pulmonary embolism. Consider CTA chest. 2. Small right pleural effusion as on prior exam. Right hilar mass is partially visualized, as on 12/11/[address] evidence for metastatic disease in the abdomen or pelvis. 4. No acute findings in the abdomen or pelvis. Venous Doppler Study 12/15/18 00:00 IMPRESSION: No venous thrombosis in the right leg Acute hypoechoic clot in the paired peroneal and posterior tibial veins in the left calf, acute hypoechoic clot in the left lesser saphenous vein in the calf Guidance Needle Placement CT 12/17/18 00:00 IMPRESSION: CT GUIDED BIOPSY OF THE RIGHT UPPER LOBE LUNG MASS PERFORMED WITHOUT IMMEDIATE COMPLICATION. PATHOLOGY PENDING. FLUID OVERLOAD OR CONGESTIVE FAILURE WITH TRACE BILATERAL PLEURAL EFFUSIONS AND BILATERAL ALVEOLAR/INTERSTITIAL PULMONARY EDEMA ON BIOPSY PLANNING CT TODAY Lung Biopsy CT 12/17/18 00:00 IMPRESSION: CT GUIDED BIOPSY OF THE RIGHT UPPER LOBE LUNG MASS PERFORMED WITHOUT IMMEDIATE COMPLICATION. PATHOLOGY PENDING. FLUID OVERLOAD OR CONGESTIVE FAILURE WITH TRACE BILATERAL PLEURAL EFFUSIONS AND BILATERAL ALVEOLAR/INTERSTITIAL PULMONARY EDEMA ON BIOPSY PLANNING CT TODAY Chest X-Ray 12/18/18 00:00 IMPRESSION: Stable AP examination with right upper lobe mass. There is no significant pneumothorax or pleural effusion status post biopsy. Unchanged minimal diffuse interstitial pulmonary opacity and cardiomegaly, likely edema. Body Scan Nuclear Medicine 12/21/18 08:49 IMPRESSION: SMALL FOCAL AREA OF INCREASED ACTIVITY IN THE POSTERIOR RIGHT ACETABULUM. THIS MAY BE DUE TO DEGENERATIVE CHANGE RECENT CT DEMONSTRATED NO BONY LESION IN THIS AREA. OTHERWISE UNREMARKABLE BONE SCAN. Assessment and Plan - Diagnosis (1) Primary cancer of right middle lobe of lung Is this a current diagnosis for this admission?: Yes Plan: Small cell lung carcinoma. Oncology on board. And to initiate chemotherapy next Monday12/25/2018 with carboplatin AUC of 5-day 1 + etoposide 80 mg per me tered squared days 1 through 3,[place] day 1 (2) Pulmonary emboli Qualifiers: Chronicity: unspecified Is this a current diagnosis for this admission?: Yes Plan: Eliquis 10 mg twice daily until 12/25/2018. Switch to 5 mg p.o. twice daily on 12/26/2018. This was observed on CT abdomen pelvis with and without contrast for restaging of his lung mass. On admission patient had a CT chest without contrast. 12/14/2018 patient will need a CTA to confirm and localize his pulmonary emboli, but because of the fact that he had received IV contrast yesterday for CT abdomen and pelvis and he may receive IV contrast on Monday for CT-guided biopsy and possible left heart cath on Monday at [place], would be safer to treat his PE empirically. 12/15/2018 venous Doppler of lower extremities showed acute hypoechoic clock in the paired peroneal and posterior tibial veins in the left calf acute hypoechoic clock in the left lesser saphenous vein in the calf. Day 4 status post right lung biopsy. Repeat chest x-ray negative for any hemopneumothorax. (3) Non-ST elevation myocardial infarction (NSTEMI) Is this a current diagnosis for this admission?: Yes Plan: Right-sided chest pain has resolved still complaining of mild dyspnea on exertion. Patient is positive for acute DVT and PE which may explain his dyspnea on exertion and chest pain. As per cardiology note patient may not have had an NSTEMI I but rather NSTEMI II due to mismatch demand caused by acute PE. History of CAD status post stent placement in 2000. Troponins 0.114, 0.150, 0.11, 0.08, 0.05 Aspirin, Eliquis, beta-blockers, EMORY, high intensity statins. As needed nitrates and morphine. Status post lung biopsy on 12/17/2018. No plan on transferring to tertiary care at this point. Cardiology has signed off at this point. (4) DVT of axillary vein, acute left Is this a current diagnosis for this admission?: Yes Plan: Provoked. High risk due to underlying lung malignancy. 12/15/2018. Venous Doppler of lower extremities showed acute hypoechoic clock in the paired peroneal and posterior tibial veins in the left calf acute hypoechoic clock in the left lesser saphenous vein in the calf. Eliquis 10 mg twice daily until 12/25/2018. Switch to 5 mg p.o. twice daily on 12/26/2018. Patient was initially placed on heparin drip pending lung biopsy. (5) Unstable angina Is this a current diagnosis for this admission?: Yes Plan: Resolved. (6) Mass of upper lobe of right lung Is this a current diagnosis for this admission?: Yes Plan: Status post right lung biopsy on 12/15/2018. Oncology and pulmonary on board. Denies any history of previous malignancy. Former heavy smoker. Status post thyroid mass biopsy as outpatient. Pathology pending. Positive family history of colon cancer. Last colonoscopy 5 years ago status post polypectomy reported as normal per patient. PTHrP pending. CT abdomen and pelvis contrast did not show any abdominal metastasis. (7) CKD (chronic kidney disease) stage 2, GFR 60-89 ml/min Is this a current diagnosis for this admission?: No Plan: Stable. Improving. Monitor electrolytes and volume status. Avoid nephrotoxic meds. (8) Diabetes type 2, uncontrolled Qualifiers: Glycemic state: with hyperglycemia Qualified Code(s): E11.65 - Type 2 diabetes mellitus with hyperglycemia Is this a current diagnosis for this admission?: Yes Plan: Improving. Hx of highly resistant DM. Patient is on highly concentrated insulin form. Has been followed by several sales special agent in the past. Not well managed by sliding scale. We do not carry his form of insulin in the hospital. Patient brought his own insulin supplies, verified by pharmacy and restarted. DC insulin drip. Continue sliding scale insulin. Cardiac and diabetic diet. (9) CAD (coronary artery disease) Is this a current diagnosis for this admission?: No Plan: Continue ASA, statins, EMORY, beta-blockers. (10) PADMINI (obstructive sleep apnea) Is this a current diagnosis for this admission?: No Plan: Has not been evaluated by pulmonology. Refuses to wear BiPAP/CPAP. Outpatient nocturnal polysomnography. Pulmonology follow-up. Weight loss advised. (11) Morbid obesity with BMI of 40.0-44.9, adult Is this a current diagnosis for this admission?: No Plan: Diet and lifestyle modifications.
[2018-12-24 14:47] LABS: ALANINE AMINOTRANSFERASE 69 U/L (21-72); ALBUMIN 3.8 g/dL (3.5-5.0); ALKALINE PHOSPHATASE 74 U/L (38-126); ANION GAP 15 (5-19); ASPARTATE AMINO TRANSFERASE 32 U/L (17-59); BILIRUBIN,DIRECT 0.4 mg/dL (0.0-0.4); BILIRUBIN,TOTAL 0.8 mg/dL (0.2-1.3); BLOOD UREA NITROGEN 38 mg/dL (7-20); CALCIUM 9.8 mg/dL (8.4-10.2); CARBON DIOXIDE 27 mmol/L (22-30); CHLORIDE 99 mmol/L (98-107); GLUCOSE 182 mg/dL (75-110); POTASSIUM 5.1 mmol/L (3.6-5.0); SODIUM 140.6 mmol/L (137-145)
[2018-12-24] MEDS: ATORVASTATIN CALCIUM 40 MG TABLET PO SCH (21:41)
[2018-12-24] MEDS: MONTELUKAST SODIUM 10 MG TABLET PO SCH (21:41)
[2018-12-24] MEDS: MELATONIN 5 MG TABLET PO PRN (21:44)
[2018-12-25] MEDS ORDERED: PALONOSETRON 0.25 MG/5 ML SDV IV PRN (05:00)
[2018-12-25] MEDS ORDERED: ATEZOLIZUMAB 1,200 MG in NORMAL SALINE 250 ML IV PRN (05:00)
[2018-12-25] MEDS ORDERED: ETOPOSIDE IV PRN (05:00)
[2018-12-25] MEDS ORDERED: DEXAMETHASONE SOD PHOSPHATE 10 MG in NORMAL SALINE 50 ML IV PRN (05:00)
[2018-12-25] MEDS ORDERED: NORMAL SALINE IV PRN ×3 (05:00→12:19)
[2018-12-25] MEDS ORDERED: CARBOPLATIN IV PRN ×2 (05:00→12:19)
[2018-12-25] MEDS: GABAPENTIN 300 MG CAPSULE PO SCH ×3 (05:06→21:46)
[2018-12-25 06:08] LABS: ABSOLUTE BASOPHILS # (AUTO) 0.1 10^3/uL (0.0-0.2); ABSOLUTE EOSINOPHILS # (AUTO) 0.2 10^3/uL (0.0-0.6); ABSOLUTE LYMPHOCYTES (AUTO) 1.5 10^3/uL (0.5-4.7); ABSOLUTE MONOCYTES (AUTO) 0.5 10^3/uL (0.1-1.4); ABSOLUTE NEUT (AUTO) 4.4 10^3/uL (1.7-8.2); BASOPHILS % (AUTO) 1.2 % (0-2); EOSINOPHILS % (AUTO) 2.4 % (0-6); HEMATOCRIT 42.1 % (37.9-51.0); HEMOGLOBIN 14.2 g/dL (13.5-17.0); LYMPHOCYTES % (AUTO) 22.9 % (13-45); MEAN CORPUSCULAR HEMOGLOBIN 29.2 pg (27.0-33.4); MEAN CORPUSCULAR HGB CONC 33.8 g/dL (32.0-36.0); MEAN CORPUSCULAR VOLUME 87 fl (80-97); MONOCYTES % (AUTO) 7.6 % (3-13); PLATELET COUNT 240 10^3/uL (150-450); RED BLOOD COUNT 4.87 10^6/uL (4.35-5.55); RED CELL DISTRIBUTION WIDTH 14.3 % (11.5-14.0); SEGMENTED NEUTROPHILS % (AUTO) 65.9 % (42-78); TOTAL CELLS COUNTED % (AUTO) 100 %; WHITE BLOOD COUNT 6.7 10^3/uL (4.0-10.5)
[2018-12-25 06:33] LABS: ALANINE AMINOTRANSFERASE 57 U/L (21-72); ALKALINE PHOSPHATASE 76 U/L (38-126); ANION GAP 13 (5-19); ASPARTATE AMINO TRANSFERASE 32 U/L (17-59); BILIRUBIN,DIRECT 0.3 mg/dL (0.0-0.4); BILIRUBIN,TOTAL 0.7 mg/dL (0.2-1.3); BLOOD UREA NITROGEN 39 mg/dL (7-20); CALCIUM 9.7 mg/dL (8.4-10.2); CARBON DIOXIDE 31 mmol/L (22-30); CHLORIDE 100 mmol/L (98-107); GLUCOSE 96 mg/dL (75-110); POTASSIUM 4.4 mmol/L (3.6-5.0); SODIUM 143.5 mmol/L (137-145); TOTAL PROTEIN 7.6 g/dL (6.3-8.2)
[2018-12-25] MEDS: INSULIN LISPRO 100 UNIT/ML 3 ML VIAL SUBCUT SCH ×3 (08:37→18:21)
[2018-12-25] MEDS: NORMAL SALINE 250 ML IV PRN ×2 (10:08→11:11)
--- NOTE | 2018-12-25 11:07 | PDOC PROGRESS REPORT ---
Subjective Progress Note for:: 12/25/18 Subjective:: Patient feeling well. No new complaints. Ready to start chemo. 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 Physical Exam Vital Signs: Temp Pulse Resp BP Pulse Ox 97.9 F 80 18 135/82 H 95 12/25/18 09:29 12/25/18 09:29 12/25/18 09:29 12/25/18 09:29 12/25/18 09:29 Intake & Output 12/24/18 12/25/18 12/26/18 06:59 06:59 06:59 Intake Total 829 490 Balance 829 490 Weight 143 kg 135 kg General appearance: PRESENT: obese, well-developed Head exam: PRESENT: normocephalic Respiratory exam: PRESENT: unlabored Neurological exam: PRESENT: alert, awake Psychiatric exam: PRESENT: appropriate affect Skin exam: PRESENT: normal color Results Laboratory Results: 12/25/18 05:58 12/25/18 05:58 12/24/18 12/24/18 12/25/18 11:00 14:05 05:58 WBC RBC Hgb Hct MCV MCH MCHC RDW Plt Count Seg Neutrophils % Lymphocytes % Monocytes % Eosinophils % Basophils % Absolute Neutrophils Absolute Lymphocytes Absolute Monocytes Absolute Eosinophils Absolute Basophils Sodium 140.6 143.5 Potassium 5.1 H 4.4 Chloride 99 100 Carbon Dioxide 27 31 H Anion Gap 15 13 BUN 38 H 39 H Creatinine 1.51 H 1.69 H Est GFR ( Amer) 56 L 49 L Est GFR (Non-Af Amer) 46 L 40 L Glucose 182 H 96 Calcium 9.8 9.7 Magnesium 2.2 Total Bilirubin 0.8 0.7 AST 32 32 ALT 69 57 Alkaline Phosphatase 74 76 Total Protein 7.0 7.6 Albumin 3.8 4.0 Urine Color YELLOW Urine Appearance CLEAR Urine pH 5.0 Ur Specific [place] 1.015 Urine Protein NEGATIVE Urine Glucose (UA) NEGATIVE Urine Ketones NEGATIVE Urine Blood NEGATIVE Urine Nitrite NEGATIVE Ur Leukocyte Esterase NEGATIVE Urine WBC (Auto) 0 12/25/18 05:58 WBC 6.7 RBC 4.87 Hgb 14.2 Hct 42.1 MCV 87 MCH 29.2 MCHC 33.8 RDW 14.3 H Plt Count 240 Seg Neutrophils % 65.9 Lymphocytes % 22.9 Monocytes % 7.6 Eosinophils % 2.4 Basophils % 1.2 Absolute Neutrophils 4.4 Absolute Lymphocytes 1.5 Absolute Monocytes 0.5 Absolute Eosinophils 0.2 Absolute Basophils 0.1 Sodium Potassium Chloride Carbon Dioxide Anion Gap BUN Creatinine Est GFR ( Amer) Est GFR (Non-Af Amer) Glucose Calcium Magnesium Total Bilirubin AST ALT Alkaline Phosphatase Total Protein Albumin Urine Color Urine Appearance Urine pH Ur Specific [place] Urine Protein Urine Glucose (UA) Urine Ketones Urine Blood Urine Nitrite Ur Leukocyte Esterase Urine WBC (Auto) 12/11/18 12/11/18 12/11/18 14:45 17:14 21:07 Creatine Kinase 59 CK-MB (CK-2) Troponin I 0.114 0.150 NT-Pro-B Natriuret Pep 749 12/11/18 12/12/18 12/12/18 21:07 03:00 03:00 Creatine Kinase 56 CK-MB (CK-2) 1.36 1.37 Troponin I 0.111 0.083 NT-Pro-B Natriuret Pep 12/12/18 12/12/18 12/12/18 09:52 09:52 19:50 Creatine Kinase 51 L CK-MB (CK-2) 1.14 Troponin I 0.059 0.066 NT-Pro-B Natriuret Pep Impressions: Chest CT 12/11/18 16:11 IMPRESSION: 1. LOBULATED MASS IN THE LATERAL RIGHT LUNG CONSISTENT WITH MALIGNANCY. ADDITIONAL SMALLER NODULAR MASSES EXTENDING MEDIALLY TO THE RIGHT HILUM. RIGHT HILAR MASS PRESUMED SECONDARY TO ADENOPATHY. PATCHY AIRSPACE DISEASE IN THE AD JACENT RIGHT LUNG. THIS MAY BE DUE TO PNEUMONITIS OR ATELECTASIS ALTHOUGH LYMPHATIC SPREAD OF TUMOR COULD BE ANOTHER POSSIBILITY. RIGHT PLEURAL EFFUSION. LEFT LUNG CLEAR. 2. HETEROGENOUS ENLARGED LEFT LOBE OF THE THYROID WHICH EXTENDS IN A SUBSTERNAL DIRECTION DESCRIBED. Abdomen/Pelvis CT 12/13/18 00:00 IMPRESSION: 1. Partially visualized filling defects in right lower lobe arteries, suspicious for pulmonary embolism. Consider CTA chest. 2. Small right pleural effusion as on prior exam. Right hilar mass is partially visualized, as on 12/11/[address] evidence for metastatic disease in the abdomen or pelvis. 4. No acute findings in the abdomen or pelvis. Venous Doppler Study 12/15/18 00:00 IMPRESSION: No venous thrombosis in the right leg Acute hypoechoic clot in the paired peroneal and posterior tibial veins in the left calf, acute hypoechoic clot in the left lesser saphenous vein in the calf Guidance Needle Placement CT 12/17/18 00:00 IMPRESSION: CT GUIDED BIOPSY OF THE RIGHT UPPER LOBE LUNG MASS PERFORMED WITHOUT IMMEDIATE COMPLICATION. PATHOLOGY PENDING. FLUID OVERLOAD OR CONGESTIVE FAILURE WITH TRACE BILATERAL PLEURAL EFFUSIONS AND BILATERAL ALVEOLAR/INTERSTITIAL PULMONARY EDEMA ON BIOPSY PLANNING CT TODAY Lung Biopsy CT 12/17/18 00:00 IMPRESSION: CT GUIDED BIOPSY OF THE RIGHT UPPER LOBE LUNG MASS PERFORMED WITHOUT IMMEDIATE COMPLICATION. PATHOLOGY PENDING. FLUID OVERLOAD OR CONGESTIVE FAILURE WITH TRACE BILATERAL PLEURAL EFFUSIONS AND BILATERAL ALVEOLAR/INTERSTITIAL PULMONARY EDEMA ON BIOPSY PLANNING CT TODAY Chest X-Ray 12/18/18 00:00 IMPRESSION: Stable AP examination with right upper lobe mass. There is no significant pneumothorax or pleural effusion status post biopsy. Unchanged min imal diffuse interstitial pulmonary opacity and cardiomegaly, likely edema. Body Scan Nuclear Medicine 12/21/18 08:49 IMPRESSION: SMALL FOCAL AREA OF INCREASED ACTIVITY IN THE POSTERIOR RIGHT ACETABULUM. THIS MAY BE DUE TO DEGENERATIVE CHANGE RECENT CT DEMONSTRATED NO BONY LESION IN THIS AREA. OTHERWISE UNREMARKABLE BONE SCAN. Assessment & Plan - Diagnosis (1) Mass of upper lobe of right lung Is this a current diagnosis for this admission?: Yes (2) Non-ST elevation myocardial infarction (NSTEMI) Is this a current diagnosis for this admission?: Yes (3) Morbid obesity Is this a current diagnosis for this admission?: Yes (4) Primary cancer of right middle lobe of lung Is this a current diagnosis for this admission?: Yes Plan: To begin chemo today. Plan Neulasta after this cycle. (5) Skin rash Is this a current diagnosis for this admission?: Yes (6) Other pulmonary embolism without acute cor pulmonale Qualifiers: Chronicity: acute Qualified Code(s): I26.99 - Other pulmonary embolism without acute cor pulmonale Is this a current diagnosis for this admission?: Yes - Plan Summary Plan Summary: I am a bit concerned about his Cr, but I have explained that although chemo may affect his kidneys, I believe that the need for chemo far outweighs the risk. Patient and understand and are in agreement. I will give an extra 1L NS after chemo today.
[2018-12-25] MEDS: DOCUSATE SODIUM 100 MG CAPSULE PO SCH ×2 (14:15→18:27)
[2018-12-25] MEDS: FUROSEMIDE 40 MG TABLET PO SCH ×2 (14:25→18:27)
[2018-12-25] MEDS: LIDOCAINE 5% (700 MG) TRANSDERMAL ADH..PATCH TP SCH (14:25)
[2018-12-25] MEDS: FAMOTIDINE 20 MG TABLET PO SCH ×2 (14:25→21:46)
[2018-12-25] MEDS: ASPIRIN 81 MG TABLET, CHEWABLE PO SCH (14:26)
[2018-12-25] MEDS: APIXABAN 5 MG TABLET PO SCH (14:26)
[2018-12-25] MEDS: FLUTICASONE/VILANTEROL 100-25 MCG/DOSE IH SCH (14:26)
[2018-12-25] MEDS: FLUTICASONE NASAL SPRAY 50 MCG/SPRY 120 SPRAY/16 GM NASL SCH (14:26)
[2018-12-25] MEDS: ISOSORBIDE MONONITRATE 60 MG TAB.ER.24H PO SCH (14:26)
[2018-12-25] MEDS: LOSARTAN POTASSIUM 50 MG TABLET PO SCH (14:26)
[2018-12-25] MEDS: METOPROLOL SUCCINATE 50 MG TAB.SR.24H PO SCH ×2 (14:26→21:45)
[2018-12-25] MEDS: CALCITRIOL 0.25 MCG CAPSULE PO SCH (14:27)
--- NOTE | 2018-12-25 17:27 | PDOC PROGRESS REPORT ---
Subjective Progress Note for:: 12/25/18 Subjective:: No adverse events overnight. No new complaints. Vital signs been stable. Awaiting initiation of chemotherapy. 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 ABSENT: rales, rhonchi, wheezes Cardiovascular exam: PRESENT: RRR. ABSENT: diastolic murmur, rubs, systolic murmur GI/Abdominal exam: PRESENT: normal bowel sounds, soft. ABSENT: distended, guarding, mass, organolmegaly, rebound, tenderness Neurological exam: PRESENT: alert, awake, oriented to person, oriented to place, oriented to time, oriented to situation Results Laboratory Results: 12/25/18 05:58 12/25/18 05:58 12/25/18 12/25/18 05:58 05:58 WBC 6.7 RBC 4.87 Hgb 14.2 Hct 42.1 MCV 87 MCH 29.2 MCHC 33.8 RDW 14.3 H Plt Count 240 Seg Neutrophils % 65.9 Lymphocytes % 22.9 Monocytes % 7.6 Eosinophils % 2.4 Basophils % 1.2 Absolute Neutrophils 4.4 Absolute Lymphocytes 1.5 Absolute Monocytes 0.5 Absolute Eosinophils 0.2 Absolute Basophils 0.1 Sodium 143.5 Potassium 4.4 Chloride 100 Carbon Dioxide 31 H Anion Gap 13 BUN 39 H Creatinine 1.69 H Est GFR ( Amer) 49 L Est GFR (Non-Af Amer) 40 L Glucose 96 Calcium 9.7 Magnesium 2.2 Total Bilirubin 0.7 AST 32 ALT 57 Alkaline Phosphatase 76 Total Protein 7.6 Albumin 4.0 12/11/18 12/11/18 12/11/18 14:45 17:14 21:07 Creatine Kinase 59 CK-MB (CK-2) Troponin I 0.114 0.150 NT-Pro-B Natriuret Pep 749 12/11/18 12/12/18 12/12/18 21:07 03:00 03:00 Creatine Kinase 56 CK-MB (CK-2) 1.36 1.37 Troponin I 0.111 0.083 NT-Pro-B Natriuret Pep 12/12/18 12/12/18 12/12/18 09:52 09:52 19:50 Creatine Kinase 51 L CK-MB (CK-2) 1.14 Troponin I 0.059 0.066 NT-Pro-B Natriuret Pep Impressions: Chest CT 12/11/18 16:11 IMPRESSION: 1. LOBULATED MASS IN THE LATERAL RIGHT LUNG CONSISTENT WITH MALIGNANCY. ADDITIONAL SMALLER NODULAR MASSES EXTENDING MEDIALLY TO THE RIGHT HILUM. RIGHT HILAR MASS PRESUMED SECONDARY TO ADENOPATHY. PATCHY AIRSPACE DISEASE IN THE ADJACENT RIGHT LUNG. THIS MAY BE DUE TO PNEUMONITIS OR ATELECTASIS ALTHOUGH LYMPHATIC SPREAD OF TUMOR COULD BE ANOTHER POSSIBILITY. RIGHT PLEURAL EFFUSION. LEFT LUNG CLEAR. 2. HETEROGENOUS ENLARGED LEFT LOBE OF THE THYROID WHICH EXTENDS IN A SUBSTERNAL DIRECTION DESCRIBED. Abdomen/Pelvis CT 12/13/18 00:00 IMPRESSION: 1. Partially visualized filling defects in right lower lobe arteries, suspicious for pulmonary embolism. Consider CTA chest. 2. Small right pleural effusion as on prior exam. Right hilar mass is partially visualized, as on 12/11/[address] evidence for metastatic disease in the abdomen or pelvis. 4. No acute findings in the abdomen or pelvis. Venous Doppler Study 12/15/18 00:00 IMPRESSION: No venous thrombosis in the right leg Acute hypoechoic clot in the paired peroneal and posterior tibial veins in the left calf, acute hypoechoic clot in the left lesser saphenous vein in the calf Guidance Needle Placement CT 12/17/18 00:00 IMPRESSION: CT GUIDED BIOPSY OF THE RIGHT UPPER LOBE LUNG MASS PERFORMED WITHOUT IMMEDIATE COMPLICATION. PATHOLOGY PENDING. FLUID OVERLOAD OR CONGESTIVE FAILURE WITH TRACE BILATERAL PLEURAL EFFUSIONS AND BILATERAL ALVEOLAR/INTERSTITIAL PULMONARY EDEMA ON BIOPSY PLANNING CT TODAY Lung Biopsy CT 12/17/18 00:00 IMPRESSION: CT GUIDED BIOPSY OF THE RIGHT UPPER LOBE LUNG MASS PERFORMED WITHOUT IMMEDIATE COMPLICATION. PATHOLOGY PENDING. FLUID OVERLOAD OR CONGESTIVE FAILURE WITH TRACE BILATERAL PLEURAL EFFUSIONS AND BILATERAL ALVEOLAR/INTERSTITIAL PULMONARY EDEMA ON BIOPSY PLANNING CT TODAY Chest X-Ray 12/18/18 00:00 IMPRESSION: Stable AP examination with right upper lobe mass. There is no significant pneumothorax or pleural effusion status post biopsy. Unchanged minimal diffuse interstitial pulmonary opacity and cardiomegaly, likely edema. Body Scan Nuclear Medicine 12/21/18 08:49 IMPRESSION: SMALL FOCAL AREA OF INCREASED ACTIVITY IN THE POSTERIOR RIGHT ACETABULUM. THIS MAY BE DUE TO DEGENERATIVE CHANGE RECENT CT DEMONSTRATED NO BONY LESION IN THIS AREA. OTHERWISE UNREMARKABLE BONE SCAN. Assessment and Plan - Diagnosis (1) CKD (chronic kidney disease) stage 2, GFR 60-89 ml/min Is this a current diagnosis for this admission?: No Plan: Creatinine bumped up a bit today from yesterday, will monitor his volume status and his creatinine especially considering the fact that he is just starting chemotherapy. (2) Mass of upper lobe of right lung Is this a current diagnosis for this admission?: Yes Plan: Oncology consulted, starting chemotherapy today. (3) Morbid obesity with BMI of 40.0-44.9, adult Is this a current diagnosis for this admission?: No Plan: Encouraged lifestyle modification - Time Time Spent with patient: 15-24 minutes
[2018-12-25] MEDS: ATORVASTATIN CALCIUM 40 MG TABLET PO SCH (21:45)
[2018-12-25] MEDS: MONTELUKAST SODIUM 10 MG TABLET PO SCH (21:46)
[2018-12-25] MEDS ORDERED: INSULIN LISPRO 100 UNIT/ML 3 ML VIAL SUBCUT ONE (22:15)
[2018-12-25] MEDS: MELATONIN 5 MG TABLET PO PRN (23:32)
[2018-12-26] MEDS ORDERED: DEXAMETHASONE SOD PHOSPHATE 10 MG in NORMAL SALINE 50 ML IV PRN (05:00)
[2018-12-26] MEDS ORDERED: NORMAL SALINE IV PRN (05:00)
[2018-12-26] MEDS ORDERED: ETOPOSIDE IV PRN (05:00)
[2018-12-26] MEDS ORDERED: NORMAL SALINE 250 ML IV PRN (05:00)
[2018-12-26] MEDS: GABAPENTIN 300 MG CAPSULE PO SCH ×3 (05:44→21:10)
--- NOTE | 2018-12-26 08:56 | PDOC PROGRESS REPORT ---
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 ABSENT: scleral icterus Ear exam: PRESENT: normal external ear exam Mouth exam: PRESENT: moist, tongue midline Neck exam: ABSENT: carotid bruit, JVD, lymphadenopathy, thyromegaly Respiratory exam: PRESENT: clear to auscultation nancy. ABSENT: rales, rhonchi, wheezes Cardiovascular exam: PRESENT: RRR. ABSENT: diastolic murmur, rubs, systolic murmur Pulses: PRESENT: normal dorsalis pedis pul Vascular exam: PRESENT: normal capillary refill GI/Abdominal exam: PRESENT: normal bowel sounds, soft. ABSENT: distended, guarding, mass, organolmegaly, rebound, tenderness Rectal exam: PRESENT: deferred Extremities exam: PRESENT: full ROM. ABSENT: calf tenderness, clubbing, pedal edema Neurological exam: PRESENT: alert, awake, oriented to person, oriented to place, oriented to time, oriented to situation, CN II-XII grossly intact. ABSENT: motor sensory deficit Psychiatric exam: PRESENT: appropriate affect, normal mood. ABSENT: homicidal ideation, suicidal ideation Skin exam: PRESENT: dry, intact, warm. ABSENT: cyanosis, rash Results Laboratory Results: 12/25/18 05:58 12/25/18 05:58 12/11/18 12/11/18 12/11/18 14:45 17:14 21:07 Creatine Kinase 59 CK-MB (CK-2) Troponin I 0.114 0.150 NT-Pro-B Natriuret Pep 749 04/16/19 04/17/19 04/17/19 21:07 03:00 03:00 Creatine Kinase 56 CK-MB (CK-2) 1.36 1.37 Troponin I 0.111 0.083 NT-Pro-B Natriuret Pep 12/12/18 12/12/18 12/12/18 09:52 09:52 19:50 Creatine Kinase 51 L CK-MB (CK-2) 1.14 Troponin I 0.059 0.066 NT-Pro-B Natriuret Pep Impressions: Chest CT 12/11/18 16:11 IMPRESSION: 1. LOBULATED MASS IN THE LATERAL RIGHT LUNG CONSISTENT WITH MALIGNANCY. ADDITIONAL SMALLER NODULAR MASSES EXTENDING MEDIALLY TO THE RIGHT HILUM. RIGHT HILAR MASS PRESUMED SECONDARY TO ADENOPATHY. PATCHY AIRSPACE DISEASE IN THE ADJACENT RIGHT LUNG. THIS MAY BE DUE TO PNEUMONITIS OR ATELECTASIS ALTHOUGH LY MPHATIC SPREAD OF TUMOR COULD BE ANOTHER POSSIBILITY. RIGHT PLEURAL EFFUSION. LEFT LUNG CLEAR. 2. HETEROGENOUS ENLARGED LEFT LOBE OF THE THYROID WHICH EXTENDS IN A SUBSTERNAL DIRECTION DESCRIBED. Abdomen/Pelvis CT 12/13/18 00:00 IMPRESSION: 1. Partially visualized filling defects in right lower lobe arteries, suspicious for pulmonary embolism. Consider CTA chest. 2. Small right pleural effusion as on prior exam. Right hilar mass is partially visualized, as on 12/11/[address] evidence for metastatic disease in the abdomen or pelvis. 4. No acute findings in the abdomen or pelvis. Venous Doppler Study 12/15/18 00:00 IMPRESSION: No venous thrombosis in the right leg Acute hypoechoic clot in the paired peroneal and posterior tibial veins in the left calf, acute hypoechoic clot in the left lesser saphenous vein in the calf Guidance Needle Placement CT 12/17/18 00:00 IMPRESSION: CT GUIDED BIOPSY OF THE RIGHT UPPER LOBE LUNG MASS PERFORMED WITHOUT IMMEDIATE COMPLICATION. PATHOLOGY PENDING. FLUID OVERLOAD OR CONGESTIVE FAILURE WITH TRACE BILATERAL PLEURAL EFFUSIONS AND BILATERAL ALVEOLAR/INTERSTITIAL PULMONARY EDEMA ON BIOPSY PLANNING CT TODAY Lung Biopsy CT 12/17/18 00:00 IMPRESSION: CT GUIDED BIOPSY OF THE RIGHT UPPER LOBE LUNG MASS PERFORMED WITHOUT IMMEDIATE COMPLICATION. PATHOLOGY PENDING. FLUID OVERLOAD OR CONGESTIVE FAILURE WITH TRACE BILATERAL PLEURAL EFFUSIONS AND BILATERAL ALVEOLAR/INTERSTITIAL PULMONARY EDEMA ON BIOPSY PLANNING CT TODAY Chest X-Ray 12/18/18 00:00 IMPRESSION: Stable AP examination with right upper lobe mass. There is no significant pneumothorax or pleural effusion status post biopsy. Unchanged minimal diffuse interstitial pulmonary opacity and cardiomegaly, likely edema. Body Scan Nuclear Medicine 12/21/18 08:49 IMPRESSION: SMALL FOCAL AREA OF INCREASED ACTIVITY IN THE POSTERIOR RIGHT ACETABULUM. THIS MAY BE DUE TO DEGENERATIVE CHANGE RECENT CT DEMONSTRATED NO BONY LESION IN THIS AREA. OTHERWISE UNREMARKABLE BONE SCAN. 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
[2018-12-26] MEDS: INSULIN LISPRO 100 UNIT/ML 3 ML VIAL SUBCUT SCH ×3 (11:19→18:14)
[2018-12-26] MEDS: CALCITRIOL 0.25 MCG CAPSULE PO SCH (11:24)
[2018-12-26] MEDS: FUROSEMIDE 40 MG TABLET PO SCH ×2 (11:24→18:18)
[2018-12-26] MEDS: METOPROLOL SUCCINATE 50 MG TAB.SR.24H PO SCH ×2 (11:24→21:10)
[2018-12-26] MEDS: DOCUSATE SODIUM 100 MG CAPSULE PO SCH ×2 (11:24→18:18)
[2018-12-26] MEDS: FLUTICASONE/VILANTEROL 100-25 MCG/DOSE IH SCH (11:25)
[2018-12-26] MEDS: ISOSORBIDE MONONITRATE 60 MG TAB.ER.24H PO SCH (11:25)
[2018-12-26] MEDS: FAMOTIDINE 20 MG TABLET PO SCH ×2 (11:25→21:10)
[2018-12-26] MEDS: FLUTICASONE NASAL SPRAY 50 MCG/SPRY 120 SPRAY/16 GM NASL SCH (11:25)
[2018-12-26] MEDS: ASPIRIN 81 MG TABLET, CHEWABLE PO SCH (11:25)
[2018-12-26] MEDS: LOSARTAN POTASSIUM 50 MG TABLET PO SCH (11:25)
[2018-12-26] MEDS: LIDOCAINE 5% (700 MG) TRANSDERMAL ADH..PATCH TP SCH (11:26)
--- NOTE | 2018-12-26 15:49 | PDOC PROGRESS REPORT ---
Subjective Progress Note for:: 12/26/18 Subjective:: No adverse events overnight. No new complaints. Vital signs been stable. Eating and drinking without difficulty. Ambulating independently. Tolerating his chemo well thus far. 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 ABSENT: rales, rhonchi, wheezes Cardiovascular exam: PRESENT: RRR. ABSENT: diastolic murmur, rubs, systolic murmur GI/Abdominal exam: PRESENT: normal bowel sounds, soft. ABSENT: distended, guarding, mass, organolmegaly, rebound, tenderness Neurological exam: PRESENT: alert, awake, oriented to person, oriented to place, oriented to time, oriented to situation Results Laboratory Results: 12/25/18 05:58 12/25/18 05:58 12/11/18 12/11/18 12/11/18 14:45 17:14 21:07 Creatine Kinase 59 CK-MB (CK-2) Troponin I 0.114 0.150 NT-Pro-B Natriuret Pep 749 12/11/18 12/12/18 12/12/18 21:07 03:00 03:00 Creatine Kinase 56 CK-MB (CK-2) 1.36 1.37 Troponin I 0.111 0.083 NT-Pro-B Natriuret Pep 12/12/18 12/12/18 12/12/18 09:52 09:52 19:50 Creatine Kinase 51 L CK-MB (CK-2) 1.14 Troponin I 0.059 0.066 NT-Pro-B Natriuret Pep Impressions: Chest CT 12/11/18 16:11 IMPRESSION: 1. LOBULATED MASS IN THE LATERAL RIGHT LUNG CONSISTENT WITH MALIGNANCY. ADDITIONAL SMALLER NODULAR MASSES EXTENDING MEDIALLY TO THE RIGHT HILUM. RIGHT HILAR MASS PRESUMED SECONDARY TO ADENOPATHY. PATCHY AIRSPACE DISEASE IN THE ADJACENT RIGHT LUNG. THIS MAY BE DUE TO PNEUMONITIS OR ATELECTASIS ALTHOUGH LYMPHATIC SPREAD OF TUMOR COULD BE ANOTHER POSSIBILITY. RIGHT PLEURAL EFFUSION. LEFT LUNG CLEAR. 2. HETEROGENOUS ENLARGED LEFT LOBE OF THE THYROID WHICH EXTENDS IN A SUBSTERNAL DIRECTION DESCRIBED. Abdomen/Pelvis CT 12/13/18 00:00 IMPRESSION: 1. Partially visualized filling defects in right lower lobe arteries, suspicious for pulmonary embolism. Consider CTA chest. 2. Small right pleural effusion as on prior exam. Right hilar mass is partially visualized, as on 12/11/[address] evidence for metastatic disease in the abdomen or pelvis. 4. No acute findings in the abdomen or pelvis. Venous Doppler Study 12/15/18 00:00 IMPRESSION: No venous thrombosis in the right leg Acute hypoechoic clot in the paired peroneal and posterior tibial veins in the left calf, acute hypoechoic clot in the left lesser saphenous vein in the calf Guidance Needle Placement CT 12/17/18 00:00 IMPRESSION: CT GUIDED BIOPSY OF THE RIGHT UPPER LOBE LUNG MASS PERFORMED WITHOUT IMMEDIATE COMPLICATION. PATHOLOGY PENDING. FLUID OVERLOAD OR CONGESTIVE FAILURE WITH TRACE BILATERAL PLEURAL EFFUSIONS AND BILATERAL ALVEOLAR/INTERSTITIAL PULMONARY EDEMA ON BIOPSY PLANNING CT TODAY Lung Biopsy CT 12/17/18 00:00 IMPRESSION: CT GUIDED BIOPSY OF THE RIGHT UPPER LOBE LUNG MASS PERFORMED WITHOUT IMMEDIATE COMPLICATION. PATHOLOGY PENDING. FLUID OVERLOAD OR CONGESTIVE FAILURE WITH TRACE BILATERAL PLEURAL EFFUSIONS AND BILATERAL ALVEOLAR/INTERSTITIAL PULMONARY EDEMA ON BIOPSY PLANNING CT TODAY Chest X-Ray 12/18/18 00:00 IMPRESSION: Stable AP examination with right upper lobe mass. There is no significant pneumothorax or pleural effusion status post biopsy. Unchanged minimal diffuse interstitial pulmonary opacity and cardiomegaly, likely edema. Body Scan Nuclear Medicine 12/21/18 08:49 IMPRESSION: SMALL FOCAL AREA OF INCREASED ACTIVITY IN THE POSTERIOR RIGHT ACETABULUM. THIS MAY BE DUE TO DEGENERATIVE CHANGE RECENT CT DEMONSTRATED NO BONY LESION IN THIS AREA. OTHERWISE UNREMARKABLE BONE SCAN. Assessment and Plan - Diagnosis (1) CKD (chronic kidney disease) stage 2, GFR 60-89 ml/min Is this a current diagnosis for this admission?: No Plan: Creatinine bumped up a bit today from yesterday, will monitor his volume status and his creatinine especially considering the fact that he is just starting chemotherapy. (2) Mass of upper lobe of right lung Is this a current diagnosis for this admission?: Yes Plan: Oncology consulted, got his second dose of chemotherapy today. Plan is for him to get it for another day. He will then get a dose of Neulasta on Monday and if he is doing okay at that point he should be able to go home. He has been instructed to make sure he gets authorization from the [facility] to get his treatment with oncology locally. (3) Morbid obesity with BMI of 40.0-44.9, adult Is this a current diagnosis for this admission?: No Plan: Encouraged lifestyle modification - Time Time Spent with patient: 15-24 minutes
[2018-12-26] MEDS: APIXABAN 5 MG TABLET PO SCH (18:18)
[2018-12-26] MEDS: ATORVASTATIN CALCIUM 40 MG TABLET PO SCH (21:10)
[2018-12-26] MEDS: MONTELUKAST SODIUM 10 MG TABLET PO SCH (21:10)
--- NOTE | 2018-12-27 00:29 | PROGRESS NOTE E ---
Progress Note NAME: VICTOR MANUEL HALL : 1950 AGE: 68Y DATE: 12/26/2018 ROOM: 321 SUBJECTIVE: The patient is a 68-year-old male who came in with right upper lobe mass. 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 The patient was started on chemotherapy yesterday and appeared to be doing well with chemo. The patient denies any fever, chills, increased cough, purulent sputum production, hemoptysis, or chest pain. The patient is on BREO 100 mcg 1 puff once daily and has been getting Xopenex and ipratropium nebulizer treatment every 8 hours as needed. No nausea, vomiting, diarrhea. OBJECTIVE: GENERAL: The patient is awake, alert, coherent, oriented x3. VITAL SIGNS: Temperature of 97.6, heart rate of 83, blood pressure is 100/61, respiratory is 20, saturation is 94% on room air. EYES: No jaundice or pallor. EARS, NOSE, AND THROAT: No ear drainage. No nasal discharge. CHEST AND LUNGS: No wheezing, no rhonchi, no coarse crackles. CARDIOVASCULAR: S1, S2 distinct. Normal rate and regular rhythm. ABDOMEN: Flabby, positive bowel sounds, soft, nondistended, nontender. EXTREMITIES: No joint swelling, no cellulitis. LABORATORY DATA: There is no CBC done today. No chemistry done today as well. No chemistry done today. ASSESSMENT: 1. COPD. Currently stable and not in acute bronchospasm/exacerbation. Tolerating the BREO 100 mcg once daily. 2. RIGHT UPPER LOBE SMALL CELL CARCINOMA, CURRENTLY ON CHEMOTHERAPY. PLAN/RECOMMENDATIONS: 1. Recommend to continue the BREO 100 mcg once daily. 2. May have albuterol inhaler 2 puffs four times a day as needed or nebulizer treatment every 8 hours as needed. 3. Recommend pulmonary clinic follow up in 6 weeks following hospital discharge. We will sign off tonight. If you have any questions, please feel free to call me. DICTATING PHYSICIAN: SYDNEE MIRANDA MD,ELLI,MPH [id number] PHY#: [id number] 2019 ID: [id number] JOB#: [id number] ACCT: [id number] cc: > MTDD
[2018-12-27] MEDS ORDERED: ETOPOSIDE IV PRN (05:00)
[2018-12-27] MEDS ORDERED: DEXAMETHASONE SOD PHOSPHATE 10 MG in NORMAL SALINE 50 ML IV PRN (05:00)
[2018-12-27] MEDS ORDERED: NORMAL SALINE IV PRN (05:00)
[2018-12-27] MEDS ORDERED: NORMAL SALINE 250 ML IV PRN (05:00)
[2018-12-27] MEDS: GABAPENTIN 300 MG CAPSULE PO SCH ×3 (06:41→21:19)
[2018-12-27] MEDS: INSULIN LISPRO 100 UNIT/ML 3 ML VIAL SUBCUT SCH ×3 (07:54→16:42)
[2018-12-27] MEDS ORDERED: TIOTROPIUM BROMIDE DPI 5 CAP/KIT (18 MCG/CAP) IH SCH (10:00)
[2018-12-27] MEDS: APIXABAN 5 MG TABLET PO SCH ×2 (11:55→18:25)
[2018-12-27] MEDS: DOCUSATE SODIUM 100 MG CAPSULE PO SCH ×2 (11:55→18:25)
[2018-12-27] MEDS: FLUTICASONE NASAL SPRAY 50 MCG/SPRY 120 SPRAY/16 GM NASL SCH (11:55)
[2018-12-27] MEDS: METOPROLOL SUCCINATE 50 MG TAB.SR.24H PO SCH ×2 (11:55→21:20)
[2018-12-27] MEDS: ISOSORBIDE MONONITRATE 60 MG TAB.ER.24H PO SCH (11:57)
[2018-12-27] MEDS: FAMOTIDINE 20 MG TABLET PO SCH ×2 (11:57→21:20)
[2018-12-27] MEDS: ASPIRIN 81 MG TABLET, CHEWABLE PO SCH (11:57)
[2018-12-27] MEDS: LOSARTAN POTASSIUM 50 MG TABLET PO SCH (11:57)
[2018-12-27] MEDS: FLUTICASONE/VILANTEROL 100-25 MCG/DOSE IH SCH (11:58)
[2018-12-27] MEDS: LIDOCAINE 5% (700 MG) TRANSDERMAL ADH..PATCH TP SCH (11:58)
[2018-12-27] MEDS: FUROSEMIDE 40 MG TABLET PO SCH ×2 (11:58→18:25)
[2018-12-27] MEDS: CALCITRIOL 0.25 MCG CAPSULE PO SCH (12:01)
[2018-12-27] MEDS: MAGNESIUM HYDROXIDE SUSP 30 ML UDCUP PO PRN (12:12)
--- NOTE | 2018-12-27 13:04 | PDOC PROGRESS REPORT ---
Subjective Progress Note for:: 12/27/18 Subjective:: Patient without complaints. Has done well with chemo. He receives his last dose of cycle #1 chemo today. He is anxious for discharge. 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 Physical Exam Vital Signs: Temp Pulse Resp BP Pulse Ox 97.4 F 55 L 16 114/54 L 92 12/27/18 12:29 12/27/18 12:29 12/27/18 12:29 12/27/18 12:29 12/27/18 12:29 Intake & Output 12/26/18 12/27/18 12/28/18 06:59 06:59 06:59 Intake Total 2137.15 1524.95 810.95 Balance 2137.15 1524.95 810.95 Weight 135.5 kg 134.3 kg General appearance: PRESENT: obese, well-developed Head exam: PRESENT: normocephalic Respiratory exam: PRESENT: unlabored Extremities exam: PRESENT: +2 edema Neurological exam: PRESENT: alert, awake Psychiatric exam: PRESENT: appropriate affect Skin exam: PRESENT: normal color Results Laboratory Results: 12/25/18 05:58 12/25/18 05:58 12/11/18 12/11/18 12/11/18 14:45 17:14 21:07 Creatine Kinase 59 CK-MB (CK-2) Troponin I 0.114 0.150 NT-Pro-B Natriuret Pep 749 12/11/18 12/12/18 12/12/18 21:07 03:00 03:00 Creatine Kinase 56 CK-MB (CK-2) 1.36 1.37 Troponin I 0.111 0.083 NT-Pro-B Natriuret Pep 12/12/18 12/12/18 12/12/18 09:52 09:52 19:50 Creatine Kinase 51 L CK-MB (CK-2) 1.14 Troponin I 0.059 0.066 NT-Pro-B Natriuret Pep Impressions: Chest CT 12/11/18 16:11 IMPRESSION: 1. LOBULATED MASS IN THE LATERAL RIGHT LUNG CONSISTENT WITH MALIGNANCY. ADDITIONAL SMALLER NODULAR MASSES EXTENDING MEDIALLY TO THE RIGHT HILUM. RIGHT HILAR MASS PRESUMED SECONDARY TO ADENOPATHY. PATCHY AIRSPACE DISEASE IN THE ADJACENT RIGHT LUNG. THIS MAY BE DUE TO PNEUMONITIS OR ATELECTASIS ALTHOUGH LYMPHATIC SPREAD OF TUMOR COULD BE ANOTHER POSSIBILITY. RIGHT PLEURAL EFFUSION. LEFT LUNG CLEAR. 2. HETEROGENOUS ENLARGED LEFT LOBE OF THE THYROID WHICH EXTENDS IN A SUBSTERNAL DIRECTION DESCRIBED. Abdomen/Pelvis CT 12/13/18 00:00 IMPRESSION: 1. Partially visualized filling defects in right lower lobe arteries, suspicious for pulmonary embolism. Consider CTA chest. 2. Small right pleural effusion as on prior exam. Right hilar mass is partially visualized, as on 12/11/[address] evidence for metastatic disease in the abdomen or pelvis. 4. No acute findings in the abdomen or pelvis. Venous Doppler Study 12/15/18 00:00 IMPRESSION: No venous thrombosis in the right leg Acute hypoechoic clot in the paired peroneal and posterior tibial veins in the left calf, acute hypoechoic clot in the left lesser saphenous vein in the calf Guidance Needle Placement CT 12/17/18 00:00 IMPRESSION: CT GUIDED BIOPSY OF THE RIGHT UPPER LOBE LUNG MASS PERFORMED WITHOUT IMMEDIATE COMPLICATION. PATHOLOGY PENDING. FLUID OVERLOAD OR CONGESTIVE FAILURE WITH TRACE BILATERAL PLEURAL EFFUSIONS AND BILATERAL ALVEOLAR/INTERSTITIAL PULMONARY EDEMA ON BIOPSY PLANNING CT TODAY Lung Biopsy CT 12/17/18 00:00 IMPRESSION: CT GUIDED BIOPSY OF THE RIGHT UPPER LOBE LUNG MASS PERFORMED WITHOUT IMMEDIATE COMPLICATION. PATHOLOGY PENDING. FLUID OVERLOAD OR CONGESTIVE FAILURE WITH TRACE BILATERAL PLEURAL EFFUSIONS AND BILATERAL ALVEOLAR/INTERSTITIAL PULMONARY EDEMA ON BIOPSY PLANNING CT TODAY Chest X-Ray 12/18/18 00:00 IMPRESSION: Stable AP examination with right upper lobe mass. There is no significant pneumothorax or pleural effusion status post biopsy. Unchanged minimal diffuse interstitial pulmonary opacity and cardiomegaly, likely edema. Body Scan Nuclear Medicine 12/21/18 08:49 IMPRESSION: SMALL FOCAL AREA OF INCREASED ACTIVITY IN THE POSTERIOR RIGHT ACETABULUM. THIS MAY BE DUE TO DEGENERATIVE CHANGE RECENT CT DEMONSTRATED NO BONY LESION IN THIS AREA. OTHERWISE UNREMARKABLE BONE SCAN. 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 After further research, neulasta is not recommended currently. Will hold any growth factors and discharge after chemo has completed. He will return for weekly CBCs in my office and these appointments have been added to his discharge plan. (5) Skin rash Is this a current diagnosis for this admission?: Yes (6) Other pulmonary embolism without acute cor pulmonale Qualifiers: Chronicity: acute Qualified Code(s): I26.99 - Other pulmonary embolism without acute cor pulmonale Is this a current diagnosis for this admission?: Yes Plan: Continue oral medications without change and we will follow-up in office. Plan at least 6 months of therapy. - Plan Summary Plan Summary: All questions have been answered. Patient was discussed with Dr. Dominguez today. Please call with any concerns.
--- NOTE | 2018-12-27 16:15 | PDOC PROGRESS REPORT ---
Subjective Progress Note for:: 12/27/18 Subjective:: No adverse events overnight. No new complaints. Vital signs been stable. Eating and drinking without difficulty. Ambulating independently. Tolerating his chemo well thus far. He says he feels pretty good, no fatigue or shortness of breath. 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 ABSENT: rales, rhonchi, wheezes Cardiovascular exam: PRESENT: RRR. ABSENT: diastolic murmur, rubs, systolic murmur GI/Abdominal exam: PRESENT: normal bowel sounds, soft. ABSENT: distended, guarding, mass, organolmegaly, rebound, tenderness Neurological exam: PRESENT: alert, awake, oriented to person, oriented to place, oriented to time, oriented to situation Results Laboratory Results: 12/25/18 05:58 12/25/18 05:58 12/11/18 12/11/18 12/11/18 14:45 17:14 21:07 Creatine Kinase 59 CK-MB (CK-2) Troponin I 0.114 0.150 NT-Pro-B Natriuret Pep 749 12/11/18 12/12/18 12/12/18 21:07 03:00 03:00 Creatine Kinase 56 CK-MB (CK-2) 1.36 1.37 Troponin I 0.111 0.083 NT-Pro-B Natriuret Pep 12/12/18 12/12/18 12/12/18 09:52 09:52 19:50 Creatine Kinase 51 L CK-MB (CK-2) 1.14 Troponin I 0.059 0.066 NT-Pro-B Natriuret Pep Impressions: Chest CT 12/11/18 16:11 IMPRESSION: 1. LOBULATED MASS IN THE LATERAL RIGHT LUNG CONSISTENT WITH MALIGNANCY. ADDITIONAL SMALLER NODULAR MASSES EXTENDING MEDIALLY TO THE RIGHT HILUM. RIGHT HILAR MASS PRESUMED SECONDARY TO ADENOPATHY. PATCHY AIRSPACE DISEASE IN THE ADJACENT RIGHT LUNG. THIS MAY BE DUE TO PNEUMONITIS OR ATELECTASIS ALTHOUGH LYMPHATIC SPREAD OF TUMOR COULD BE ANOTHER POSSIBILITY. RIGHT PLEURAL EFFUSION. LEFT LUNG CLEAR. 2. HETEROGENOUS ENLARGED LEFT LOBE OF THE THYROID WHICH EXTENDS IN A SUBSTERNAL DIRECTION DESCRIBED. Abdomen/Pelvis CT 12/13/18 00:00 IMPRESSION: 1. Partially visualized filling defects in right lower lobe arteries, suspicious for pulmonary embolism. Consider CTA chest. 2. Small right pleural effusion as on prior exam. Right hilar mass is partially visualized, as on 12/11/[address] evidence for metastatic disease in the abdomen or pelvis. 4. No acute findings in the abdomen or pelvis. Venous Doppler Study 12/15/18 00:00 IMPRESSION: No venous thrombosis in the right leg Acute hypoechoic clot in the paired peroneal and posterior tibial veins in the left calf, acute hypoechoic clot in the left lesser saphenous vein in the calf Guidance Needle Placement CT 12/17/18 00:00 IMPRESSION: CT GUIDED BIOPSY OF THE RIGHT UPPER LOBE LUNG MASS PERFORMED WITHOUT IMMEDIATE COMPLICATION. PATHOLOGY PENDING. FLUID OVERLOAD OR CONGESTIVE FAILURE WITH TRACE BILATERAL PLEURAL EFFUSIONS AND BILATERAL ALVEOLAR/INTERSTITIAL PULMONARY EDEMA ON BIOPSY PLANNING CT TODAY Lung Biopsy CT 12/17/18 00:00 IMPRESSION: CT GUIDED BIOPSY OF THE RIGHT UPPER LOBE LUNG MASS PERFORMED WITHOUT IMMEDIATE COMPLICATION. PATHOLOGY PENDING. FLUID OVERLOAD OR CONGESTIVE FAILURE WITH TRACE BILATERAL PLEURAL EFFUSIONS AND BILATERAL ALVEOLAR/INTERSTITIAL PULMONARY EDEMA ON BIOPSY PLANNING CT TODAY Chest X-Ray 12/18/18 00:00 IMPRESSION: Stable AP examination with right upper lobe mass. There is no significant pneumothorax or pleural effusion status post biopsy. Unchanged minimal diffuse interstitial pulmonary opacity and cardiomegaly, likely edema. Body Scan Nuclear Medicine 12/21/18 08:49 IMPRESSION: SMALL FOCAL AREA OF INCREASED ACTIVITY IN THE POSTERIOR RIGHT ACETABULUM. THIS MAY BE DUE TO DEGENERATIVE CHANGE RECENT CT DEMONSTRATED NO BONY LESION IN THIS AREA. OTHERWISE UNREMARKABLE BONE SCAN. Assessment and Plan - Diagnosis (1) CKD (chronic kidney disease) stage 2, GFR 60-89 ml/min Is this a current diagnosis for this admission?: No Plan: Creatinine bumped up a bit today from yesterday, will monitor his volume status and his creatinine especially considering the fact that he is just starting chemotherapy. (2) Mass of upper lobe of right lung Is this a current diagnosis for this admission?: Yes Plan: Oncology consulted, got his third dose of chemotherapy today. We will monitor him overnight if he is doing well he can go home tomorrow. Apparently oncology is said he is not going to need the dose of Neulasta tomorrow. He has been instructed to make [facility] his treatment with onc[facility]. (3) Morbid obesity with BMI of 40.0-44.9, adult Is this a current diagnosis for this admission?: No Plan: Encouraged lifestyle modification - Time Time Spent with patient: 15-24 minutes
[2018-12-27] MEDS: ATORVASTATIN CALCIUM 40 MG TABLET PO SCH (21:19)
[2018-12-27] MEDS: MONTELUKAST SODIUM 10 MG TABLET PO SCH (21:20)
[2018-12-27] MEDS: MELATONIN 5 MG TABLET PO PRN (23:35)
[2018-12-28] MEDS: GABAPENTIN 300 MG CAPSULE PO SCH (06:14)
[2018-12-28] MEDS: INSULIN LISPRO 100 UNIT/ML 3 ML VIAL SUBCUT SCH (09:39)
[2018-12-28] MEDS: MAGNESIUM HYDROXIDE SUSP 30 ML UDCUP PO PRN (09:43)
[2018-12-28] MEDS: FLUTICASONE NASAL SPRAY 50 MCG/SPRY 120 SPRAY/16 GM NASL SCH (09:43)
[2018-12-28] MEDS: APIXABAN 5 MG TABLET PO SCH (09:44)
[2018-12-28] MEDS: FLUTICASONE/VILANTEROL 100-25 MCG/DOSE IH SCH (09:44)
[2018-12-28] MEDS: ASPIRIN 81 MG TABLET, CHEWABLE PO SCH (09:44)
[2018-12-28] MEDS: LOSARTAN POTASSIUM 50 MG TABLET PO SCH (09:44)
[2018-12-28] MEDS: DOCUSATE SODIUM 100 MG CAPSULE PO SCH (09:44)
[2018-12-28] MEDS: FAMOTIDINE 20 MG TABLET PO SCH (09:44)
[2018-12-28] MEDS: FUROSEMIDE 40 MG TABLET PO SCH (09:44)
[2018-12-28] MEDS: ISOSORBIDE MONONITRATE 60 MG TAB.ER.24H PO SCH (09:44)
[2018-12-28] MEDS: METOPROLOL SUCCINATE 50 MG TAB.SR.24H PO SCH (09:44)
[2018-12-28] MEDS: LIDOCAINE 5% (700 MG) TRANSDERMAL ADH..PATCH TP SCH (09:45)
[2018-12-28 10:05] VITALS: BP 108/55
--- NOTE | 2018-12-28 16:18 | PDOC DISCHARGE SUMMARY ---
General - Admit/Disc Date/PCP Admission Date/Primary Care Provider: 12/11/18 19:01 DEYSI KENT, Discharge Date: 12/28/18 - Discharge Diagnosis (1) Mass of upper lobe of right lung Is this a current diagnosis for this admission?: Yes Summary: He had a biopsy showed small cell carcinoma. Oncology wanted to keep him. He got his first 3 chemotherapy treatments as an inpatient. He will follow-up with them in the office early next week. (2) CKD (chronic kidney disease) stage 2, GFR 60-89 ml/min Is this a current diagnosis for this admission?: No Summary: He had a bit of an elevation whenever he first came in but this is responded and is now back in his normal range (3) Morbid obesity with BMI of 40.0-44.9, adult Is this a current diagnosis for this admission?: No Summary: Strongly encouraged lifestyle modification (4) Elevated troponin Is this a current diagnosis for this admission?: Yes Summary: Turned out to be a type II HI from demand ischemia that resolved with treatment of his other medical conditions (5) Other pulmonary embolism without acute cor pulmonale Is this a current diagnosis for this admission?: Yes Summary: This was found on work-up for possible malignancy. He was also found to have a DVT of the right leg. He has been started on Eliquis. - Additional Information Resuscitation Status: Full Code Discharge Diet: Cardiac, Diabetic Discharge Activity: Activity As Tolerated Prescriptions: Apixaban [Eliquis 5 mg Tablet] 10 mg PO BID 30 Days #60 tablet Home Medications: Acetaminophen with Codeine [Tylenol #3 Tablet] 1 each PO Q8HP PRN 12/12/18 Aspirin [Ecotrin] 81 mg PO DAILY 12/12/18 Atorvastatin Calcium [Lipitor 40 mg Tablet] 40 mg PO QHS 12/12/18 Calcitriol [Rocaltrol 0.25 mcg Capsule] 2 cap PO NOON 12/12/18 Cilostazol [Pletal 100 mg Tablet] 50 mg PO BID 12/12/18 Fluticasone Propionate [Flonase Nasal Gipsy 50 Mcg/Gipsy 16 gm] 2 sprays NASL DAILY 12/12/18 Furosemide [Lasix 20 mg Tablet] 60 mg PO QAM 12/12/18 Gabapentin [Neurontin 300 mg Capsule] 300 mg PO Q8 12/12/18 Insulin Regular, Human [Humulin R U-500 Kwikpen] 175 units SQ ACSUPPER 12/12/18 Insulin Regular, Human [Humulin R U-500 Kwikpen] 175 units SQ WLUNCH 12/12/18 Insulin Regular, Human [Humulin R U-500 Kwikpen] 225 unit SQ QAM 12/12/18 Isosorbide Mononitrate [Imdur 30 mg Tablet.er] 30 mg PO DAILY 12/12/18 Loratadine [Claritin 10 mg Tablet] 10 mg PO DAILY 12/12/18 Losartan Potassium [Cozaar 100 mg Tablet] 100 mg PO DAILY 12/12/18 Metoprolol Succinate [Toprol Xl] 200 mg PO BID 12/12/18 Montelukast Sodium [Singulair 10 mg Tablet] 10 mg PO QHS 12/12/18 Potassium Chloride [Klor-Con 10 Meq Capsule ER] 10 meq PO DAILY 12/12/18 Sodium Fluoride [Prevident] 1 applic PO .TO BRUSH TEETH 12/12/18 Apixaban [Eliquis 5 mg Tablet] 10 mg PO BID 30 Days #60 tablet 12/20/18 History of Present Illness History of Present Illness: VICTOR MANUEL HALL is a 68 year old male who presented to the emergency room with a 4-day history of episodic dyspnea at rest and on exertion. Patient acknowledges moderate to severe dyspnea episodes worsened with any exertion, several times per day over the weekend but better on Monday. His symptoms returned again early this morning and were much more severe with the dyspnea and abdominal discomfort being present and not resolving with a short period of rest and cont rolled breathing. His dyspnea was accompanied by a mild to moderate epigastric/lower anterior chest pressure-like discomfort. Patient's dyspnea and chest/abdomen discomfort was relieved by rest after a few minutes until today when it became persistent resulting in his trip to the emergency room. He also admits an associated symptom of bilateral leg swelling which is a little worse than his normal chronic swelling. He denies prior similar episodes. He denies identification of other aggravating or ameliorating factors for his dyspnea and chest/abdominal pain. In the emergency room he was noted to have dyspnea with exertion and required supplemental oxygen at 2 L/min via nasal cannula to remain dyspnea free and pain-free even at rest. Chest x-ray showed a right midlung mass suspicious for neoplasm with probable right perihilar lymphadenopathy. Because of the patient's acute respiratory failure, chest/abdominal pain, worsening peripheral edema and dyspnea with exertion he was admitted for further evaluation and treatment. Hospital Course Hospital Course: He was treated for his respiratory failure was able to come off oxygen. He had been started on treatment for DVT and PE before his biopsy, and his treatment was resumed after lung biopsy was done. He did have a type II HI from demand ischemia and is troponins trended down without incident. The biopsy results were shown to be a small cell carcinoma. Oncology wanted to keep him here to start his chemotherapy as an inpatient. He received his 3 days of chemotherapy and was then discharged home. He has follow-up scheduled with Dr. Estes. He was told to make sure that he gets approval from the [place] to have his treatments done locally so he does not have to go all the way [place] to the [place]. His labs and examination were reassuring and he was discharged in good condition. Physical Exam Vital Signs: Temp Pulse Resp BP Pulse Ox 97.4 F 58 L 16 108/55 L 93 12/28/18 10:02 12/28/18 10:02 12/28/18 10:02 12/28/18 10:02 12/28/18 10:02 Intake & Output 12/27/18 12/28/18 12/29/18 06:59 06:59 06:59 Intake Total 1524.95 2779.95 Balance 1524.95 2779.95 Weight 134.3 kg 133.9 kg General appearance: PRESENT: no acute distress, obese, well-developed, well- nourished Head exam: PRESENT: atraumatic, normocephalic Respiratory exam: PRESENT: clear to auscultation nancy. ABSENT: rales, rhonchi, wheezes Cardiovascular exam: PRESENT: RRR. ABSENT: diastolic murmur, rubs, systolic murmur GI/Abdominal exam: PRESENT: normal bowel sounds, soft. ABSENT: distended, guarding, mass, organolmegaly, rebound, tenderness Neurological exam: PRESENT: alert, awake, oriented to person, oriented to place, oriented to time, oriented to situation Results Laboratory Results: 12/25/18 05:58 12/25/18 05:58 12/11/18 12/11/18 12/11/18 14:45 17:14 21:07 Creatine Kinase 59 CK-MB (CK-2) Troponin I 0.114 0.150 NT-Pro-B Natriuret Pep 749 12/11/18 12/12/18 12/12/18 21:07 03:00 03:00 Creatine Kinase 56 CK-MB (CK-2) 1.36 1.37 Troponin I 0.111 0.083 NT-Pro-B Natriuret Pep 12/12/18 12/12/18 12/12/18 09:52 09:52 19:50 Creatine Kinase 51 L CK-MB (CK-2) 1.14 Troponin I 0.059 0.066 NT-Pro-B Natriuret Pep Impressions: Chest CT 12/11/18 16:11 IMPRESSION: 1. LOBULATED MASS IN THE LATERAL RIGHT LUNG CONSISTENT WITH MALIGNANCY. ADDITIONAL SMALLER NODULAR MASSES EXTENDING MEDIALLY TO THE RIGHT HILUM. RIGHT HILAR MASS PRESUMED SECONDARY TO ADENOPATHY. PATCHY AIRSPACE DISEASE IN THE ADJACENT RIGHT LUNG. THIS MAY BE DUE TO PNEUMONITIS OR ATELECTASIS ALTHOUGH LYMPHATIC SPREAD OF TUMOR COULD BE ANOTHER POSSIBILITY. RIGHT PLEURAL EFFUSION. LEFT LUNG CLEAR. 2. HETEROGENOUS ENLARGED LEFT LOBE OF THE THYROID WHICH EXTENDS IN A SUBSTERNAL DIRECTION DESCRIBED. Abdomen/Pelvis CT 12/13/18 00:00 IMPRESSION: 1. Partially visualized filling defects in right lower lobe arteries, suspicious for pulmonary embolism. Consider CTA chest. 2. Small right pleural effusion as on prior exam. Right hilar mass is partially visualized, as on 12/11/[address] evidence for metastatic disease in the abdomen or pelvis. 4. No acute findings in the abdomen or pelvis. Venous Doppler Study 12/15/18 00:00 IMPRESSION: No venous thrombosis in the right leg Acute hypoechoic clot in the paired peroneal and posterior tibial veins in the left calf, acute hypoechoic clot in the left lesser saphenous vein in the calf Guidance Needle Placement CT 12/17/18 00:00 IMPRESSION: CT GUIDED BIOPSY OF THE RIGHT UPPER LOBE LUNG MASS PERFORMED WITHOUT IMMEDIATE COMPLICATION. PATHOLOGY PENDING. FLUID OVERLOAD OR CONGESTIVE FAILURE WITH TRACE BILATERAL PLEURAL EFFUSIONS AND BILATERAL ALVEOLAR/INTERSTITIAL PULMONARY EDEMA ON BIOPSY PLANNING CT TODAY Lung Biopsy CT 12/17/18 00:00 IMPRESSION: CT GUIDED BIOPSY OF THE RIGHT UPPER LOBE LUNG MASS PERFORMED WITHOUT IMMEDIATE COMPLICATION. PATHOLOGY PENDING. FLUID OVERLOAD OR CONGESTIVE FAILURE WITH TRACE BILATERAL PLEURAL EFFUSIONS AND BILATERAL ALVEOLAR/INTERSTITIAL PULMONARY EDEMA ON BIOPSY PLANNING CT TODAY Chest X-Ray 12/18/18 00:00 IMPRESSION: Stable AP examination with right upper lobe mass. There is no significant pneumothorax or pleural effusion status post biopsy. Unchanged minimal diffuse interstitial pulmonary opacity and cardiomegaly, likely edema. Body Scan Nuclear Medicine 12/21/18 08:49 IMPRESSION: SMALL FOCAL AREA OF INCREASED ACTIVITY IN THE POSTERIOR RIGHT ACETABULUM. THIS MAY BE DUE TO DEGENERATIVE CHANGE RECENT CT DEMONSTRATED NO BONY LESION IN THIS AREA. OTHERWISE UNREMARKABLE BONE SCAN. Qualifiers - * PATIENT BEING DISCHARGED WITH ANY OF THE FOLLOWING DIAGNOSIS: No Acute Heart Failure Is this a Heart Failure Patient?: No
== END 2018-12-28 10:59 | disposition home or self-care (01) | DRG 180 ==
LOC: ER 13:40 → EH 19:01 → 3W 21:45
PROVIDERS: ADMIT Emergency Medicine; ATTEND Internal Medicine
PROC: 0BDC4ZX Extraction of Right Upper Lung Lobe, Percutaneous Endoscopic Approach, Diagnostic (ICD-10-PCS; principal; 2018-12-17)
DX: C34.11 Malignant neoplasm of upper lobe, right bronchus or lung (principal); I21.A1 Myocardial infarction type 2; I26.99 Other pulmonary embolism without acute cor pulmonale; J96.01 Acute respiratory failure with hypoxia; I82.442 Acute embolism and thrombosis of left tibial vein; I82.492 Acute embolism and thrombosis of other specified deep vein of left lower extremity; Z68.41 Body mass index [BMI] 40.0-44.9, adult; E11.65 Type 2 diabetes mellitus with hyperglycemia; E11.22 Type 2 diabetes mellitus with diabetic chronic kidney disease; I12.9 Hypertensive chronic kidney disease with stage 1 through stage 4 chronic kidney disease, or unspecified chronic kidney disease; N18.3 Chronic kidney disease, stage 3 (moderate); I25.10 Atherosclerotic heart disease of native coronary artery without angina pectoris; E78.00 Pure hypercholesterolemia, unspecified; E07.89 Other specified disorders of thyroid; E66.01 Morbid (severe) obesity due to excess calories; G47.33 Obstructive sleep apnea (adult) (pediatric); I25.2 Old myocardial infarction; Z60.2 Problems related to living alone; Z95.5 Presence of coronary angioplasty implant and graft; Z87.891 Personal history of nicotine dependence; Z79.82 Long term (current) use of aspirin; Z79.4 Long term (current) use of insulin; Z79.899 Other long term (current) drug therapy; Z80.0 Family history of malignant neoplasm of digestive organs
CPT/HCPCS: 32405; 36415; 71045; 71046; 71250; 74177; 77012; 78306; 80048; 80053; 80061; 81001; 82150; 82272; 82397; 82550; 82553; 82947; 82962; 83036; 83690; 83735; 83880; 84439; 84443; 84481; 84484; 85025; 85610; 85730; 87040; 88305; 88313; 88341; 88342; 93005; 93010; 93306; 93970; 94640; 94660; 96360; 96367; 96374; 96413; 96415; 99291; A9561; J1100; J1644; J1815; J1940; J2250; J2469; J3010; J3490; J7030; J7040; J7050; J7060; J9022; J9045; J9181; Q9969

== ENCOUNTER → 2019-03-19 | Outpatient (CLI) | payer OTHER ==
--- NOTE | 2019-03-19 12:38 | RADIOLOGY REPORT (SQ) ---
EXAM DESCRIPTION: MRI HEAD COMBO COMPLETED DATE/TIME: 03/19/2019 10:14 am REASON FOR STUDY: (C34.2)MALIGNANT NEOPLASM OF MIDDLE LOBE, BRONCHUS OR LUNG C34.2 MALIGNANT NEOPLA SM OF MIDDLE LOBE, BRONCHUS OR LUNG COMPARISON: None. TECHNIQUE: Multiplanar imaging includes noncontrasted T1, T2, FLAIR, and Diffusion with ADC map seq uences. Contrast enhanced T1 images. Images stored on PACS. CONTRAST TYPE AND DOSE: 20 mL Dotarem. RENAL FUNCTION: Not indicated. ACR Type II contrast agent associated with few, if any, unconfounded cases of NSF LIMITATIONS: None. FINDINGS: ANATOMY: No anomalies. Normal vascular flow voids. Pituitary fossa normal. CSF SPACES: Normal size and contour. No hemorrhage. CEREBRUM: A few high-signal intensity lesions scattered throughout the white matter on FLAIR imaging with distribution suggesting chronic microvascular ischemic change. Sulci and gyri normal in size and contour. No evidence of hemorrhage, mass or extraaxial fluid collection. No enhancing lesions. POSTERIOR FOSSA: No signal alteration. No hemorrhage. No edema, masses or mass effect. Internal audit ory canals, cerebello-pontine angles, mastoids normal. DIFFUSION: Negative for acute or subacute infarction. ORBITS: No masses. Globes normal. PARANASAL SINUSES: No fluid levels. Mucosa normal. OTHER: No other significant finding. IMPRESSION: NO ENHANCING LESIONS. MINIMAL MICROVASCULAR ISCHEMIC CHANGE. OTHERWISE NORMAL STUDY. EVIDENCE OF ACUTE STROKE: NO. TECHNICAL DOCUMENTATION: JOB ID: [id number] [employer]- All Rights Reserved Reading location - IP/workstation name: [email or web address]
== END ==
LOC: RAD 09:09
PROVIDERS: ATTEND Internal Medicine Hematology & Oncology
DX: C34.2 Malignant neoplasm of middle lobe, bronchus or lung (principal)
CPT/HCPCS: 82565; 70553; A9576

== ENCOUNTER → 2019-03-21 | Outpatient (CLI) | payer OTHER ==
--- NOTE | 2019-03-21 11:41 | RADIOLOGY REPORT (SQ) ---
EXAM DESCRIPTION: CT CHEST WITHOUT COMPLETED DATE/TIME: 03/21/2019 10:09 am REASON FOR STUDY: LUNG CANCER C34.2 MALIGNANT NEOPLASM OF MIDDLE LOBE, BRONCHUS OR LUNG COMPARISON: 12/17/2018 12/11/2018 TECHNIQUE: CT scan performed of the chest without intravenous contrast. Images reviewed with lung, soft tissue and bone windows. Reconstructed coronal and sagittal MPR images reviewed. All images st ored on PACS. All CT scanners at this facility use dose modulation, iterative reconstruction, and/or weight based d osing when appropriate to reduce radiation dose to as low as reasonably achievable (ALARA). [facility]: Dose Right [facility]: CareDose [facility]: Dose Right [facility]: Teradose 4D [facility]: [employer] RADIATION DOSE: mGy. LIMITATIONS: No technical limitations. FINDINGS: LUNGS AND PLEURA: Residual right upper lobe lung mass measures 29.7 x 20.6 mm on image 51 series 6. There is significant improvement. There is no new pulmonary mass. There is no infiltrate or effusion. HILAR AND MEDIASTINAL STRUCTURES: Upper mediastinal mass is once again seen and appears to represent a thyroid mass. There are small nonspecific mediastinal nodes. HEART AND VASCULAR STRUCTURES: No aneurysm. No pericardial effusion. UPPER ABDOMEN: No significant findings. Limited exam. THYROID AND OTHER SOFT TISSUES: Large left thyroid mass extends into the upper mediastinum. BONES: No significant finding. HARDWARE: None in the chest. OTHER: No other significant findings. IMPRESSION: 1. Improved disease in the right lung with residual findings as described. 2. Left thyroid mass extends into the upper mediastinum. TECHNICAL DOCUMENTATION: JOB ID: [id number] Quality ID # [id number]: Final reports with documentation of one or more dose reduction techniques (e.g., Au tomated exposure control, adjustment of the mA and/or kV according to patient size, use of iterative reconstruction technique) 2010 [employer]- All Rights Reserved Reading location - IP/workstation name: [email or web address]
--- NOTE | 2019-03-21 11:49 | RADIOLOGY REPORT (SQ) ---
EXAM DESCRIPTION: CT ABD/PELVIS ORAL ONLY COMPLETED DATE/TIME: 03/21/2019 10:09 am REASON FOR STUDY: LUNG CANCER C34.2 MALIGNANT NEOPLASM OF MIDDLE LOBE, BRONCHUS OR LUNG COMPARISON: None. TECHNIQUE: CT scan of the abdomen and pelvis performed without intravenous contrast. Oral contrast was given. Images reviewed with lung, soft tissue, and bone windows. Reconstructed coronal and sagitt al MPR images reviewed. All images stored on PACS. All CT scanners at this facility use dose modulation, iterative reconstruction, and/or weight based d osing when appropriate to reduce radiation dose to as low as reasonably achievable (ALARA). [facility]: Dose Right [facility]: CareDose [facility]: Dose Right [facility]: Teradose 4D [facility]: [employer] RADIATION DOSE: CT Rad equipment meets quality standard of care and radiation dose reduction techniq ues were employed. CTDIvol: 25.1 - 29.6 mGy. DLP: 2799 mGy-cm.mGy. LIMITATIONS: None. FINDINGS: LOWER CHEST: No significant findings. No nodules or infiltrates. NON-CONTRASTED LIVER, SPLEEN, ADRENALS: Evaluation limited by lack of IV contrast. No identified sign ificant masses. PANCREAS: No masses. No peripancreatic inflammatory changes. GALLBLADDER: No identified stones by CT criteria. No inflammatory changes to suggest cholecystitis. RIGHT KIDNEY AND URETER: No suspicious masses. Assessment limited by lack of IV contrast. Small non obstructing middle calyceal calculus. No hydronephrosis or hydroureter. LEFT KIDNEY AND URETER: No suspicious masses. Assessment limited by lack of IV contrast. No signifi cant calcifications. No hydronephrosis or hydroureter. AORTA AND RETROPERITONEUM: No aneurysm. No retroperitoneal masses or adenopathy. BOWEL AND PERITONEAL CAVITY: No obvious masses or inflammatory changes. No free fluid. APPENDIX: Not identified. PELVIS, BLADDER, AND ABDOMINAL WALL:Urinary bladder is normal. No pelvic mass. Uncomplicated right inguinal hernia. Umbilical hernia contains only fat. BONES: No significant findings. OTHER: No other significant finding. IMPRESSION: There is no evidence of metastatic disease in the abdomen or pelvis. No acute finding. Uncomplicated right inguinal hernia. Umbilical hernia. COMMENT: Quality ID # [id number]: Final reports with documentation of one or more dose reduction techniques (e.g., Automated exposure control, adjustment of the mA and/or kV according to patient size, use of iterative reconstruction technique) TECHNICAL DOCUMENTATION: JOB ID: [id number] [employer]- All Rights Reserved Reading location - IP/workstation name: [email or web address]
== END ==
LOC: RAD 09:04
PROVIDERS: ATTEND Internal Medicine Hematology & Oncology
DX: C34.2 Malignant neoplasm of middle lobe, bronchus or lung (principal)
CPT/HCPCS: 71250; 74176; 82565

== ENCOUNTER → 2019-04-21 | Outpatient (CLI) | payer OTHER ==
--- NOTE | 2019-04-22 10:31 | RADIOLOGY REPORT (SQ) ---
EXAM DESCRIPTION: PET CT SKULL/THIGH COMPLETED DATE/TIME: 04/22/2019 1:09 am REASON FOR STUDY: (C34.90)MALIGNANT NEOPLASM OF UNSP PART OF UNSP BRONCHUS OR LUNG C34.90 MALIGNANT NEOPLASM OF UNSP PART OF UNSP BRONCHUS OR L COMPARISON: CT chest abdomen pelvis 03/21/2019, 12/11/2017 Whole-body bone scan 12/21/2018 RADIONUCLIDE AND DOSE: 10.8 mCi F18 FDG The route of agent administration: Intravenous FASTING BLOOD SUGAR: 107 mg/dl CONTRAST TYPE AND DOSE: No CT contrast given. TECHNIQUE: Blood glucose level was verified. Above dose of FDG was injected intravenously. 2-D seg mented attenuation correction images were obtained from the base of the skull to the midthighs. Nonc ontrast CT images were obtained for attenuation correction and fusion with emission images. CT image s were performed without oral or intravenous contrast and are not sensitive for parenchymal lesions. A series of overlapping emission PET images were obtained. [facility] by the radiologist. Images stored on PACS. LIMITATIONS: None. FINDINGS: HEAD AND NECK: No areas of abnormal metabolic activity in the soft tissues of the head and neck. CHEST: The previously biopsied right upper lobe mass currently measures 2.6 x 1.8 cm on axial image , with SUV of 2.6 (was 3 x [address] 03/21/2019). There is adenopathy along the mediastinum, new compared to prior CT 03/21/2019 as follows: Right paratracheal 4R lymph node 3.8 x 1.7 cm with SUV 11.5 (was 2 x 0.7 cm in size 03/21/2019) Sub- carinal 3.8 x 2 cm lymph node with SUV 15.6 (new compared to 03/21/2019) Right upper hilar 1 cm lymph node with SUV of 8 (new compared to 03/21/2019) Right lower hilar conglomerate mass of adenopathy 5 x 3 cm in size with SUV 15 (new compared to 2018) ABDOMEN AND PELVIS: There is a 1 cm hypermetabolic nodule in the left lobe liver subdiaphragmatic gladys face with SUV of 6.7, and a 1 cm hypermetabolic nodule in the left lobe liver anteriorly with SUV of 5.9. PROXIMAL LOWER EXTREMITIES: No areas of abnormal metabolic activity in the soft tissues of the lower extremities. BONES: No abnormal metabolic activity in the visualized skeleton. ADDITIONAL CT FINDINGS: 5 x 5 cm left lower pole thyroid mass with SUV of 3, left vocal cord paralysi s. This is unchanged from prior studies. Fatty umbilical hernia. Degenerative changes throughout t he spine. Heavy atherosclerotic calcification of the coronary arteries and carotid bifurcations. OTHER: Liver background activity 2.8 SUV. Blood pool background activity 1.5 SUV IMPRESSION: Decrease in size of previously biopsied right lung primary mass compared to prior CT jaclyn dy 03/21/2019 Interval development of malignant adenopathy at the right hilum and mediastinum since 03/21/2019 Interval development of tiny hypermetabolic liver lesions worrisome for metastatic disease TECHNICAL DOCUMENTATION: JOB ID: [id number] [employer]- All Rights Reserved Reading location - IP/workstation name: [email or web address]
== END ==
LOC: RAD 18:52
PROVIDERS: ATTEND Radiology Radiation Oncology
DX: C34.11 Malignant neoplasm of upper lobe, right bronchus or lung (principal)
CPT/HCPCS: 78815; A9552

== ENCOUNTER 2019-06-04 18:56 | Inpatient (IN) | payer MEDICARE, OTHER ==
--- NOTE | 2019-06-04 20:00 | ER Document Report ---
ED General - General Stated Complaint: NOT FEELING WELL, ALTERED Time Seen by Provider: 06/04/19 19:26 Primary Care Provider: LEILANI BENSON MD [[facility]] - Follow up as needed Notes: 68-year-old male presents emergency department complaining that he just does not feel right. Patient is currently undergoing radiation treatment for stage III lung cancer with metastases to the liver. Patient states that during his radiation treatment today he felt completely discombobulated and disoriented. States that for the past 3 weeks he has been having worsening memory, increasing difficulty with his balance and increasing unsteadiness. This is associated with a productive cough that has been worsening. He denies any increasing shortness of breath however his daughter states that he appears to have increased short of breath over the past 3 weeks. Has oxygen at home that he refuses to use. Denies fevers, sweats or chills. TRAVEL OUTSIDE OF THE [place] IN LAST 30 DAYS: No - Related Data Allergies/Adverse Reactions: No Known Allergies Allergy (Verified 12/11/18 13:42) Past Medical History - General Information source: Patient, Relative - Social History Smoking Status: Former Smoker Frequency of alcohol use: None Drug Abuse: None Family History: Hypertension, Malignancy - Past Medical History Cardiac Medical History: Reports: Hx Congestive Heart Failure, Hx Coronary Artery Disease, Hx Heart Attack, Hx Hypercholesterolemia, Hx Hypertension Pulmonary Medical History: Denies: Hx Asthma, Hx COPD Neurological Medical History: Denies: Hx Seizures Endocrine Medical History: Reports: Hx Diabetes Mellitus Type 2. Denies: Hx Diabetes Mellitus Type 1, Hx Hyperthyroidism, Hx Hypothyroidism Renal/ Medical History: Denies: Hx Peritoneal Dialysis GI Medical History: Denies: Hx Cirrhosis, Hx Hepatitis Musculoskeletal Medical History: Denies Hx Arthritis, Denies Hx Gout Skin Medical History: Denies Hx Eczema, Denies Hx Psoriasis Infectious Medical History: Denies: Hx Hepatitis Past Surgical History: Reports: Other - Thyroid mass biopsy. Catarct surgery - Immunizations Hx Pneumococcal Vaccination: 08/28/17 Review of Systems - Review of Systems Constitutional: See HPI - Disorientation. EENT: No symptoms reported Cardiovascular: No symptoms reported Respiratory: See HPI, Cough, Sputum Gastrointestinal: No symptoms reported Neurological/Psychological: See HPI -: Yes All other systems reviewed and negative Physical Exam - Vital signs Vitals: Temp Pulse Resp BP Pulse Ox 98.9 F 100 18 122/58 L 90 L 06/04/19 19:01 06/04/19 19:01 06/04/19 19:01 06/04/19 19:01 06/04/19 19:01 Interpretation: Hypoxic - Notes Notes: GENERAL: Alert, interacts well. No acute distress. HEAD: Normocephalic, atraumatic EYES: Pupils equal, round and reactive to light, extraocular movements intact. ENT: Oral mucosa moist, tongue midline. NECK: Full range of motion, supple, trachea midline. LUNGS: Clear to auscultation bilaterally, however he coughs frequently, it is wet sounding, after coughing patient's oxygenation normalizes. It was 88% on room air and returned to 97% on room air. No wheezes, rales or rhonchi, no respiratory distress. HEART: Regular rate and rhythm, no murmurs, gallops, rubs. ABDOMEN: Soft, nontender, nondistended, bowel sounds present in all 4 quadrants. EXTREMITIES: Moves all 4 extremities spontaneously, no edema, radial and dorsalis pedis pulses 2/4 bilaterally. No cyanosis. NEUROLOGICAL: Alert and oriented x3, normal speech. PSYCH: Normal mood, normal affect. SKIN: Warm, Dry, trace pitting edema at the ankle, multiple actinic keratoses. Course - Re-evaluation Re-evalutation: 06/05/19 00:37 CBC shows slight low platelets at 120 otherwise unremarkable, INR slightly prolonged at 1.15, venous blood gas unremarkable, renal failure is actually improved compared to baseline with a BUN of 28 and creatinine 1.46, sodium normal at 138, lactic acid elevated at 2.7, this will be repeated, troponin indeterminate 0.013, urinalysis shows no sign of infection. Chest x-ray shows improved aeration in the right upper lobe. EKG is nonischemic. 06/05/19 00:38 Given the fact that the patient is having some difficulty with his memory, he is having intermittent episodes of hypoxia and increasing cough I do worry about metastases to the brain and I worry about pulmonary embolism, CT of the head as well as CTA of the chest will be ordered. Family is agreeable to this plan. 06/05/19 03:07 CT angiogram of the chest shows known metastases to the liver and multiple nodules throughout the lungs but no pulmonary embolism, CT scan of the head shows 2 new metastases to the brain in the bilateral frontal lobes, one is 1.7 cm in 1 to 7 mm. There is surrounding vasogenic edema but no signs of midline shift. No signs of herniation. Discussed with Dr. Estes who recommended admission to the hospitalist service and starting IV dexamethasone 10 mg now and then scheduling 4 mg every 6 hours. Discussed with hospitalist Dr. Mancilla who agrees to accept the patient to his service. Discussed findings with patient and daughter who are understandably upset by this finding. Agreeable to admission at this time. Aware that there are no beds available in the hospital right now so he will likely spend several hours in the emergency department waiting for discharges and not be placed on an inpatient bed until sometime tomorrow afternoon. - Vital Signs Vital signs: Temp Pulse Resp BP Pulse Ox 98.9 F 100 23 H 122/58 L 96 06/04/19 19:01 06/04/19 19:01 06/04/19 23:00 06/04/19 19:01 06/04/19 23:00 - Laboratory Result Diagrams: 06/04/19 20:22 06/04/19 20:22 Laboratory results interpreted by me: 06/04/19 06/04/19 06/04/19 20:22 20:22 20:22 RBC 4.31 L RDW 15.9 H Plt Count 120 L Lymph % (Auto) 5.3 L Absolute Lymphs (auto) 0.4 L Seg Neutrophils % 87.4 H BUN 28 H Creatinine 1.46 H Est GFR ( Amer) 58 L Est GFR (MDRD) Non-Af 48 L Glucose 138 H Lactic Acid 2.7 H AST 73 H Urine Protein Urine Urobilinogen 06/04/19 23:52 RBC RDW Plt Count Lymph % (Auto) Absolute Lymphs (auto) Seg Neutrophils % BUN Creatinine Est GFR ( Amer) Est GFR (MDRD) Non-Af Glucose Lactic Acid AST Urine Protein 100 H Urine Urobilinogen 2.0 H - EKG Interpretation by Me Additional EKG results interpreted by me: 06/04/19 22:44 EKG shows sinus tachycardia at a rate of 103, left axis deviation, normal inte rvals, no ST segment elevations or depressions, R wave progression, 2 PVCs per my interpretation. Discharge - Discharge Clinical Impression: Lung cancer metastatic to brain, CKD (chronic kidney disease) stage 2, GFR 60- 89 ml/min Condition: Fair Disposition: ADMITTED INPATIENT Admitting Provider: Laurent (Hospitalist) Unit Admitted: Telemetry Referrals: LEILANI BENSON MD [[facility]] - Follow up as needed
--- NOTE | 2019-06-04 20:34 | RADIOLOGY REPORT (SQ) ---
XR CHEST 2 VIEWS CLINICAL STATEMENT: lung CA, worsening cough, SOB, hypoxia COMPARISON: 12/18/2018 FINDINGS: Heart is moderately enlarged. Right upper lobe airspace disease is significantly improved compared to prior study. No pleural effusions. IMPRESSION: Significant interval improvement of previously noted right upper lobe airspace disease. No pleural effusions.
[2019-06-04 20:49] LABS: VENOUS BLOOD BASE EXCESS 2.7 mmol/L; VENOUS BLOOD HCO3 27.5 mmol/L (20-32); VENOUS BLOOD PH 7.42 (7.30-7.42)
[2019-06-04 20:52] LABS: ABSOLUTE LYMPHOCYTES (AUTO) 0.4 10^3/uL (0.5-4.7); ABSOLUTE MONOCYTES (AUTO) 0.5 10^3/uL (0.1-1.4); BASOPHILS % (AUTO) 0.4 % (0-2); EOSINOPHILS % (AUTO) 0.6 % (0-6); HEMATOCRIT 40.3 % (37.9-51.0); HEMOGLOBIN 13.6 g/dL (13.5-17.0); LYMPHOCYTES % (AUTO) 5.3 % (13-45); MEAN CORPUSCULAR HEMOGLOBIN 31.6 pg (27.0-33.4); MEAN CORPUSCULAR HGB CONC 33.8 g/dL (32.0-36.0); MEAN CORPUSCULAR VOLUME 94 fl (80-97); MONOCYTES % (AUTO) 6.3 % (3-13); PLATELET COUNT 120 10^3/uL (150-450); RED BLOOD COUNT 4.31 10^6/uL (4.35-5.55); RED CELL DISTRIBUTION WIDTH 15.9 % (11.5-14.0); SEGMENTED NEUTROPHILS % (AUTO) 87.4 % (42-78); TOTAL CELLS COUNTED % (AUTO) 100 %; WHITE BLOOD COUNT 7.9 10^3/uL (4.0-10.5)
[2019-06-04 20:58] LABS: INTERNATIONAL RATION (INR) 1.15; PROTHROMBIN TIME 14.8 SEC (11.4-15.4)
[2019-06-04 21:06] LABS: ALBUMIN 4.2 g/dL (3.5-5.0); ALKALINE PHOSPHATASE 84 U/L (38-126); ANION GAP 11 (5-19); ASPARTATE AMINO TRANSFERASE 73 U/L (17-59); BILIRUBIN,DIRECT 0.3 mg/dL (0.0-0.4); BILIRUBIN,TOTAL 0.7 mg/dL (0.2-1.3); BLOOD UREA NITROGEN 28 mg/dL (7-20); CARBON DIOXIDE 29 mmol/L (22-30); CHLORIDE 98 mmol/L (98-107); GLUCOSE 138 mg/dL (75-110); POTASSIUM 4.2 mmol/L (3.6-5.0); TOTAL PROTEIN 7.6 g/dL (6.3-8.2)
[2019-06-05 00:08] LABS: APPEARANCE,URINE CLEAR; BILIRUBIN,URINE NEGATIVE (NEGATIVE); COLOR,URINE YELLOW; GLUCOSE, URINE NEGATIVE (NEGATIVE); KETONES,URINE NEGATIVE (NEGATIVE); LEUKOCYTE ESTERASE,URINE NEGATIVE (NEGATIVE); NITRITE,URINE NEGATIVE (NEGATIVE); PROTEIN,URINE 100 mg/dL (NEGATIVE); URINE SPECIFIC GRAVITY 1.019
--- NOTE | 2019-06-05 02:17 | RADIOLOGY REPORT (SQ) ---
CT HEAD WITHOUT IV CONTRAST EXAM DATE: 06/05/2019 12:00 AM CDT HISTORY: Stage 3 lung CA, AMS. COMPARISON: 04/21/2019 TECHNIQUE: CT scan of the brain without IV contrast. This exam was performed according to our departmental dose-optimization program, which includes automated exposure control, adjustment of the mA and/or kV according to patient size and/or use of iterative reconstruction technique. FINDINGS: There is a 1.7 cm hyperdense mass in the left frontal lobe as well as a 7 mm hyperdense mass in the right frontal lobe, with surrounding vasogenic edema in these regions. No evidence of acute intracranial hemorrhage, extra-axial fluid collection, or midline shift. No air-fluid levels are seen in the paranasal sinuses to suggest acute sinusitis. No depressed skull fracture. IMPRESSION: 2 distinct mass lesions in the bilateral frontal lobes with surrounding vasogenic edema, likely representing metastatic disease. Contrast-enhanced MRI is recommended for complete evaluation.
--- NOTE | 2019-06-05 02:30 | RADIOLOGY REPORT (SQ) ---
EXAM DESCRIPTION: CT CHEST ANGIOGRAPHY WITHOUT THEN WITH IV CONTRAST COMPLETED DATE/TME: 06/05/2019 00:00 CLINICAL HISTORY: 68 years, Male, cough, hypoxia, CA, EVAL PE. CREAT 1.46 COMPARISON: 12/11/2018 TECHNIQUE: Axial CT images of the chest were obtained after the administration of IV contrast. Sagittal and coronal reformats were performed and MPR and MIP reconstructions were performed. DLP [id number]. Images stored on PACS. All CT scanners at this facility use dose modulation, iterative reconstruction, and/or weight based dosing when appropriate to reduce radiation dose to as low as reasonably achievable (ALARA). [facility]: Dose Right [facility]: CareDose [facility]: Dose Right [facility]: Teradose 4D [facility]: [employer] LIMITATIONS: None. FINDINGS: No large central pulmonary embolism is detected. 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 The central airways are patent. There are atherosclerotic calcifications of the thoracic aorta without evidence of an aneurysm or dissection. There are atherosclerotic calcifications of the coronary arteries. No pericardial effusion. Mediastinal lymph nodes measure up to 2.2 cm in size. Right hilar lymph nodes measure up to 2.5 cm in size. There is a lobulated right upper lobe mass which measures approximately 2.9 cm in size with stable extension into the hilum. There is mild nodularity along the adjacent pleura, similar to the prior. The left lung is clear. There is no pneumothorax or pleural effusion. There are numerous hypodense masses within the liver. No lytic or blastic bone lesion is identified. IMPRESSION: No CT evidence of acute pulmonary embolism. Findings compatible with metastatic disease with the lobulated right upper lobe mass extending into the right hilum with mediastinal and right hilar lymphadenopathy and multiple hepatic metastatic lesions. TECHNICAL DOCUMENTATION: Quality ID # 436: Final reports with documentation of one or more dose reduction techniques (e.g., Automated exposure control, adjustment of the mA and/or kV according to patient size, use of iterative reconstruction technique) copyright 2011 [employer]- All Rights Reserved
[2019-06-05] MEDS ORDERED: DEXAMETHASONE SOD PHOS INJ 10 MG/1 ML VIAL IV ONE (02:59)
[2019-06-05] MEDS ORDERED: MAG HYDROX/AL HYDROX/SIMETH SUSP 30 ML UDCUP PO PRN (03:28)
[2019-06-05] MEDS ORDERED: ONDANSETRON HCL INJ/PF 4 MG/2 ML SDV IV PRN (03:28)
[2019-06-05] MEDS ORDERED: IPRATROPIUM/ALBUTEROL 0.5-2.5 MG/3 ML AMPUL NEB PRN (03:28)
[2019-06-05] MEDS ORDERED: MAGNESIUM HYDROXIDE SUSP 30 ML UDCUP PO PRN (03:28)
[2019-06-05] MEDS ORDERED: NORMAL SALINE 1000 ML 1,000 ML IV PRN (03:30)
[2019-06-05] MEDS ORDERED: DEXTROSE 40% GEL 15 GM TUBE PO PRN ×2 (03:32)
[2019-06-05] MEDS ORDERED: DEXTROSE 50%-WATER 25 GM/50 ML DISP.SYRIN IV PRN ×2 (03:32)
[2019-06-05] MEDS ORDERED: GLUCAGON,HUMAN RECOMB 1 MG INJ IM PRN (03:32)
[2019-06-05] MEDS ORDERED: DEXAMETHASONE 4 MG TABLET PO SCH ×2 (06:00)
[2019-06-05] MEDS ORDERED: DEXAMETHASONE SOD PHOSPHATE INJ 4 MG/1 ML VIAL IV SCH ×2 (06:00→12:00)
--- NOTE | 2019-06-05 06:19 | PDOC H&P ---
History of Present Illness Admission Date/PCP: 06/05/19 03:20 [facility] Patient complains of: Confusion History of Present Illness: VICTOR MANUEL HALL is a 68 year old male with a past medical history of coronary artery disease, hypertension, stage III lung cancer with mets to liver on palliative chemotherapy and radiation with Dr. Schaffer. He presents with 3 weeks of worsening memory and poor balance prompting evaluation emergency room where he is found to have new bilateral frontal lobe metastasis with edema. He started on Decadron and referred to the hospitalist for admission. Patient's daughter is at bedside. Patient is receptive to hospice consult and requests DNI. Past Medical History Cardiac Medical History: Reports: Congestive Heart Failure, Coronary Artery Disease, Myocardial Infarction, Hyperlipidema, Hypertension Pulmonary Medical History: Denies: Asthma, Chronic Obstructive Pulmonary Disease (COPD) Neurological Medical History: Denies: Seizures Endocrine Medical History: Reports: Diabetes Mellitus Type 2 Denies: Diabetes Mellitus Type 1, Hyperthyroidism, Hypothyroidism GI Medical History: Denies: Cirrhosis, Hepatitis Musculoskeltal Medical History: Denies: Arthritis, Gout Skin Medical History: Denies: Eczema, Psoriasis Psychiatric Medical History: Denies: Tobacco Dependency Hematology: Denies: Anemia, Bleeding Tendencies Past Surgical History Past Surgical History: Reports: Other - Thyroid mass biopsy. Catarct surgery Social History Information Source: Patient, [facility] Records Lives with: Family Smoking Status: Former Smoker Frequency of Alcohol Use: None Hx Recreational Drug Use: No Drugs: None Hx Prescription Drug Abuse: No - Advance Directive Resuscitation Status: Full Code Family History Family History: Hypertension, Malignancy Parental Family History Reviewed: Yes Children Family History Reviewed: Yes Sibling(s) Family History Reviewed.: Yes Medication/Allergy Home Medications: Acetaminophen with Codeine [Tylenol #3 Tablet] 1 each PO Q8HP PRN 12/12/18 Aspirin [Ecotrin] 81 mg PO DAILY 12/12/18 Atorvastatin Calcium [Lipitor 40 mg Tablet] 40 mg PO QHS 12/12/18 Calcitriol [Rocaltrol 0.25 mcg Capsule] 2 cap PO NOON 12/12/18 Cilostazol [Pletal 100 mg Tablet] 50 mg PO BID 12/12/18 Fluticasone Propionate [Flonase Nasal [place] 50 Mcg/[place] 16 gm] 2 sprays NASL DAILY 12/12/18 Furosemide [Lasix 20 mg Tablet] 60 mg PO QAM 12/12/18 Gabapentin [Neurontin 300 mg Capsule] 300 mg PO Q8 12/12/18 Insulin Regular, Human [Humulin R U-500 Kwikpen] 175 units SQ ACSUPPER 12/12/18 Insulin Regular, Human [Humulin R U-500 Kwikpen] 175 units SQ WLUNCH 12/12/18 Insulin Regular, Human [Humulin R U-500 Kwikpen] 225 unit SQ QAM 12/12/18 Isosorbide Mononitrate [Imdur 30 mg Tablet.er] 30 mg PO DAILY 12/12/18 Loratadine [Claritin 10 mg Tablet] 10 mg PO DAILY 12/12/18 Losartan Potassium [Cozaar 100 mg Tablet] 100 mg PO DAILY 12/12/18 Metoprolol Succinate [Toprol Xl] 200 mg PO BID 12/12/18 Montelukast Sodium [Singulair 10 mg Tablet] 10 mg PO QHS 12/12/18 Potassium Chloride [Klor-Con 10 Meq Capsule ER] 10 meq PO DAILY 12/12/18 Sodium Fluoride [Prevident] 1 applic PO .TO BRUSH TEETH 12/12/18 Apixaban [Eliquis 5 mg Tablet] 10 mg PO BID 30 Days #60 tablet 12/20/18 Allergies/Adverse Reactions: No Known Allergies Allergy (Verified 12/11/18 13:42) Review of Systems Constitutional: PRESENT: as per HPI, fatigue, headache(s), weakness. ABSENT: night sweats Eyes: ABSENT: visual disturbances Ears: ABSENT: hearing changes Cardiovascular: ABSENT: chest pain, dyspnea on exertion, edema, orthropnea, palpitations Respiratory: PRESENT: cough. ABSENT: dyspnea, sputum Gastrointestinal: ABSENT: abdominal pain, constipation, diarrhea, hematemesis, hematochezia, nausea, vomiting Genitourinary: ABSENT: dysuria, hematuria Musculoskeletal: ABSENT: joint swelling Integumentary: ABSENT: rash, wounds Neurological: PRESENT: as per HPI, confusion. ABSENT: abnormal gait, abnormal speech, dizziness, focal weakness, syncope Psychiatric: ABSENT: anxiety, depression, homidical ideation, suicidal ideation Endocrine: ABSENT: cold intolerance, heat intolerance, polydipsia, polyuria Hematologic/Lymphatic: ABSENT: easy bleeding, easy bruising Physical Exam Vital Signs: Temp Pulse Resp BP Pulse Ox 98.9 F 100 23 H 122/58 L 96 06/04/19 19:01 06/04/19 19:01 06/04/19 23:00 06/04/19 19:01 06/04/19 23:00 Intake & Output 06/03/19 06/04/19 06/05/19 11:59 11:59 11:59 Weight 141.974 kg General appearance: PRESENT: cooperative, mild distress, morbidly obese, well- developed, well-nourished Head exam: PRESENT: atraumatic, normocephalic Eye exam: PRESENT: conjunctiva pink, EOMI, PERRLA. ABSENT: scleral icterus Ear exam: PRESENT: normal external ear exam Mouth exam: PRESENT: moist, tongue midline Neck exam: ABSENT: carotid bruit, JVD, lymphadenopathy, thyromegaly Respiratory exam: PRESENT: crackles, prolonged expiratory phas, rhonchi - Left side. ABSENT: rales, wheezes Cardiovascular exam: PRESENT: RRR. ABSENT: diastolic murmur, rubs, systolic murmur Pulses: PRESENT: normal dorsalis pedis pul Vascular exam: PRESENT: normal capillary refill GI/Abdominal exam: PRESENT: normal bowel sounds, soft. ABSENT: distended, guarding, mass, organolmegaly, rebound, tenderness Rectal exam: PRESENT: deferred Extremities exam: PRESENT: full ROM. ABSENT: calf tenderness, clubbing, pedal edema Neurological exam: PRESENT: alert, awake, oriented to person, oriented to place, oriented to time, oriented to situation, CN II-XII grossly intact. ABSENT: motor sensory deficit Psychiatric exam: PRESENT: appropriate affect, normal mood. ABSENT: homicidal ideation, suicidal ideation Skin exam: PRESENT: dry, intact, warm. ABSENT: cyanosis, rash Results Laboratory Results: 06/04/19 20:22 06/04/19 20:22 06/04/19 06/04/19 06/04/19 20:22 20:22 20:22 WBC 7.9 RBC 4.31 L Hgb 13.6 Hct 40.3 MCV 94 MCH 31.6 MCHC 33.8 RDW 15.9 H Plt Count 120 L Seg Neutrophils % 87.4 H VBG pH VBG pCO2 VBG HCO3 VBG Base Excess Sodium 138.0 Potassium 4.2 Chloride 98 Carbon Dioxide 29 Anion Gap 11 BUN 28 H Creatinine 1.46 H Est GFR ( Amer) 58 L Glucose 138 H Lactic Acid 2.7 H Calcium 10.0 Total Bilirubin 0.7 AST 73 H Alkaline Phosphatase 84 Total Protein 7.6 Albumin 4.2 Urine Color Urine Appearance Urine pH Ur Specific [place] Urine Protein Urine Glucose (UA) Urine Ketones Urine Blood Urine Nitrite Ur Leukocyte Esterase Urine WBC (Auto) Urine RBC (Auto) 06/04/19 06/04/19 06/05/19 20:22 23:52 00:59 WBC RBC Hgb Hct MCV MCH MCHC RDW Plt Count Seg Neutrophils % VBG pH 7.42 VBG pCO2 43.0 VBG HCO3 27.5 VBG Base Excess 2.7 Sodium Potassium Chloride Carbon Dioxide Anion Gap BUN Creatinine Est GFR ( Amer) Glucose Lactic Acid 1.2 Calcium Total Bilirubin AST Alkaline Phosphatase Total Protein Albumin Urine Color YELLOW Urine Appearance CLEAR Urine pH 7.0 Ur Specific [place] 1.019 Urine Protein 100 H Urine Glucose (UA) NEGATIVE Urine Ketones NEGATIVE Urine Blood NEGATIVE Urine Nitrite NEGATIVE Ur Leukocyte Esterase NEGATIVE Urine WBC (Auto) 0 Urine RBC (Auto) 0 06/04/19 06/05/19 20:22 00:27 Troponin I 0.013 0.013 Impressions: Chest X-Ray 06/04/19 19:49 IMPRESSION: Significant interval improvement of previously noted right upper lobe airspace disease. No pleural effusions. Chest/Abdomen CTA 06/05/19 00:00 IMPRESSION: No CT evidence of acute pulmonary embolism. Findings compatible with metastatic disease with the lobulated right upper lobe mass extending into the right hilum with mediastinal and right hilar lymphadenopathy and multiple hepatic metastatic lesions. TECHNICAL DOCUMENTATION: Quality ID # 436: Final reports with documentation of one or more dose reduction techniques (e.g., Automated exposure control, adjustment of the mA and/or kV according to patient size, use of iterative reconstruction technique) copyright 2011 [employer]- All Rights Reserved Head CT 06/05/19 00:00 IMPRESSION: 2 distinct mass lesions in the bilateral frontal lobes with surrounding vasogenic edema, likely representing metastatic disease. Contrast-enhanced MRI is recommended for complete evaluation. Assessment and Plan - Diagnosis (1) Lung cancer metastatic to brain Is this a current diagnosis for this admission?: Yes Plan: Decadron 4 mg p.o. every 6 hours, Keppra, follow-up hospice and oncology consult, patient requests DNI. (2) CKD (chronic kidney disease) stage 2, GFR 60-89 ml/min Is this a current diagnosis for this admission?: Yes Plan: Avoid nephrotoxic meds and doses, follow-up chemistry (3) Diabetes type 2, uncontrolled Qualifiers: Is this a current diagnosis for this admission?: Yes Plan: Half dosage normal long-acting insulin scheduled, Humalog sliding scale - Time Time Spent with patient: 25-34 minutes - Inpatient Certification Medical Necessity: Need Close Monitoring Due to Risk of Patient Decompensation
[2019-06-05 07:48] LABS: ANION GAP 14 (5-19); BLOOD UREA NITROGEN 26 mg/dL (7-20); CALCIUM 9.9 mg/dL (8.4-10.2); CARBON DIOXIDE 23 mmol/L (22-30); CHLORIDE 99 mmol/L (98-107); GLUCOSE 320 mg/dL (75-110); POTASSIUM 4.6 mmol/L (3.6-5.0)
[2019-06-05] MEDS: IPRATROPIUM/ALBUTEROL 0.5-2.5 MG/3 ML AMPUL NEB SCH ×2 (07:50→16:00)
--- NOTE | 2019-06-05 07:59 | EKG REPORT ---
SEVERITY:- ABNORMAL ECG - SINUS TACHYCARDIA MULTIPLE VENTRICULAR PREMATURE COMPLEXES PROBABLE INFERIOR INFARCT, OLD ANTERIOR INFARCT, OLD : Confirmed by: Malvin Aguirre MD 05-Jun-2019 07:58:37
[2019-06-05] MEDS ORDERED: INSULIN LISPRO 100 UNIT/ML 3 ML VIAL SUBCUT ONE ×3 (09:24→13:39)
--- NOTE | 2019-06-05 09:26 | Progress Note ---
Provider Note Provider Note: Patient was admitted early this morning with altered mental status and trouble with his balance and was found to have new brain metastases secondary most likely to his lung cancer. He is been started on Decadron and said his mental status is feeling a lot better. He still having a little bit of word finding problems. The Decadron also made his blood sugar elevated and he is requiring supplemental doses of insulin. Dr. Schaffer has consulted radiation oncology for whole brain radiation.
[2019-06-05] MEDS ORDERED: INSULIN LISPRO 100 UNIT/ML 3 ML VIAL ONE (09:32)
[2019-06-05] MEDS: INSULIN LISPRO 100 UNIT/ML 3 ML VIAL SUBCUT SCH ×3 (09:36→18:22)
[2019-06-05] MEDS: DOCUSATE SODIUM 100 MG CAPSULE PO SCH ×2 (09:39→17:45)
[2019-06-05] MEDS: DEXAMETHASONE 4 MG TABLET PO SCH ×2 (09:40→17:45)
[2019-06-05] MEDS: LEVETIRACETAM 1000 MG/NACL-ISO 1,000 MG/100 ML RTUPB IV SCH ×2 (09:56→22:02)
[2019-06-05] MEDS ORDERED: INSULIN GLARGINE,HUM.REC.ANLOG 1,000 UNIT/10 ML VIAL SUBCUT SCH (10:00)
[2019-06-05] MEDS: INSULIN GLARGINE,HUM.REC.ANLOG 1,000 UNIT/10 ML VIAL SUBCUT SCH (22:02)
[2019-06-06] MEDS: IPRATROPIUM/ALBUTEROL 0.5-2.5 MG/3 ML AMPUL NEB SCH ×3 (00:57→15:52)
[2019-06-06 05:46] LABS: HEMATOCRIT 38.8 % (37.9-51.0); HEMOGLOBIN 13.3 g/dL (13.5-17.0); MEAN CORPUSCULAR HEMOGLOBIN 31.2 pg (27.0-33.4); MEAN CORPUSCULAR HGB CONC 34.2 g/dL (32.0-36.0); MEAN CORPUSCULAR VOLUME 91 fl (80-97); PLATELET COUNT 120 10^3/uL (150-450); RED BLOOD COUNT 4.25 10^6/uL (4.35-5.55); RED CELL DISTRIBUTION WIDTH 15.9 % (11.5-14.0); WHITE BLOOD COUNT 9.8 10^3/uL (4.0-10.5)
[2019-06-06 05:51] LABS: ANION GAP 11 (5-19); BLOOD UREA NITROGEN 40 mg/dL (7-20); CALCIUM 9.7 mg/dL (8.4-10.2); CARBON DIOXIDE 27 mmol/L (22-30); CHLORIDE 102 mmol/L (98-107); POTASSIUM 3.9 mmol/L (3.6-5.0)
[2019-06-06 05:56] LABS: GLUCOSE 60 mg/dL (75-110)
[2019-06-06 06:09] LABS: ABSOLUTE LYMPHOCYTES# (MANUAL) 0.1 10^3/uL (0.5-4.7); ABSOLUTE MONOCYTES # (MANUAL) 0.3 10^3/uL (0.1-1.4); ANISOCYTOSIS SLIGHT; BASOPHILS % (MANUAL) 0 % (0-2); EOSINOPHILS % (MANUAL) 0 % (0-6); LYMPHOCYTES % (MANUAL) 1 % (13-45); MONOCYTES % (MANUAL) 3 % (3-13); PLATELET COMMENT ADEQUATE; SEGMENTED NEUTROPHILS % (MAN) 96 % (42-78); TOTAL CELLS COUNTED 100
[2019-06-06] MEDS: INSULIN LISPRO 100 UNIT/ML 3 ML VIAL SUBCUT SCH ×3 (08:58→16:46)
[2019-06-06] MEDS: DEXAMETHASONE 4 MG TABLET PO SCH ×2 (10:17→17:19)
[2019-06-06] MEDS: DOCUSATE SODIUM 100 MG CAPSULE PO SCH ×2 (10:18→17:19)
[2019-06-06] MEDS: INSULIN GLARGINE,HUM.REC.ANLOG 1,000 UNIT/10 ML VIAL SUBCUT SCH ×2 (10:18→21:59)
[2019-06-06] MEDS: LEVETIRACETAM 500 MG TABLET PO SCH ×2 (10:18→21:58)
[2019-06-06] MEDS: GUAIFENESIN SYRP 200 MG/10 ML UDC PO PRN ×2 (12:47→18:41)
[2019-06-06] MEDS: FAMOTIDINE 20 MG TABLET PO SCH ×2 (15:26→21:58)
[2019-06-06] MEDS: MAG HYDROX/AL HYDROX/SIMETH SUSP 30 ML UDCUP PO PRN (15:26)
[2019-06-06] MEDS ORDERED: INSULIN REGULAR HUMAN SUBCUT PRN (15:31)
--- NOTE | 2019-06-06 15:41 | PDOC CONSULTATION ---
Consultation Consult Date: 06/05/19 Provider Consulted: MONTY JANG Consult reason:: Hematology/Oncology consultation was requested for patient on active treatment for lung cancer. History of Present Illness Admission Date/PCP: 06/05/19 03:[facility] History of Present Illness: VICTOR MANUEL HALL is a 68 year old male who was diagnosed with metastatic lung cancer earlier this year. He has been receiving treatment with Tecentriq immunotherapy as well as radiation to the lungs. He also has been on Eliquis for his Pulmonary embolism. He presented to the ED with complaints of confusion and difficulty sepaking. Family reports that this has been slowly progressive over the past 2 weeks. He was found to have new brain mets. Past Medical History Cardiac Medical History: Reports: Congestive Heart Failure, Coronary Artery Disease, Myocardial Infarction, Hyperlipidema, Hypertension Pulmonary Medical History: Denies: Asthma, Chronic Obstructive Pulmonary Disease (COPD) Neurological Medical History: Denies: Seizures Endocrine Medical History: Reports: Diabetes Mellitus Type 2 Denies: Diabetes Mellitus Type 1, Hyperthyroidism, Hypothyroidism GI Medical History: Denies: Cirrhosis, Hepatitis Musculoskeltal Medical History: Denies: Arthritis, Gout Skin Medical History: Denies: Eczema, Psoriasis Psychiatric Medical History: Denies: Tobacco Dependency Hematology: Denies: Anemia, Bleeding Tendencies Past Surgical History Past Surgical History: Reports: Other - Thyroid mass biopsy. Catarct surgery Social History Lives with: Family Smoking Status: Former Smoker Electronic Cigarette use?: No Last Time Smoked: 8 yrs ago Frequency of Alcohol Use: None Hx Recreational Drug Use: No Drugs: None Hx Prescription Drug Abuse: No - Advance Directive Resuscitation Status: Full Code Family History Family History: Hypertension, Malignancy Parental Family History Reviewed: Yes - Father of cancer Children Family History Reviewed: Yes Sibling(s) Family History Reviewed.: No Medication/Allergy Home Medications: Atorvastatin Calcium [Lipitor 40 mg Tablet] 40 mg PO QHS 12/12/18 Calcitriol [Rocaltrol 0.25 mcg Capsule] 2 cap PO NOON 12/12/18 Cilostazol [Pletal 100 mg Tablet] 50 mg PO BID 12/12/18 Furosemide [Lasix 20 mg Tablet] 60 mg PO QAM 12/12/18 Gabapentin [Neurontin 300 mg Capsule] 300 mg PO Q8 12/12/18 Insulin Regular, Human [Humulin R U-500 Kwikpen] 175 units SQ ACSUPPER 12/12/18 Insulin Regular, Human [Humulin R U-500 Kwikpen] 175 units SQ WLUNCH 12/12/18 Insulin Regular, Human [Humulin R U-500 Kwikpen] 225 unit SQ QAM 12/12/18 Isosorbide Mononitrate [Imdur 30 mg Tablet.er] 30 mg PO DAILY 12/12/18 Loratadine [Claritin 10 mg Tablet] 10 mg PO DAILY 12/12/18 Losartan Potassium [Cozaar 100 mg Tablet] 100 mg PO DAILY 12/12/18 Metoprolol Succinate [Toprol Xl] 200 mg PO BID 12/12/18 Montelukast Sodium [Singulair 10 mg Tablet] 10 mg PO QHS 12/12/18 Potassium Chloride [Klor-Con 10 Meq Capsule ER] 10 meq PO DAILY 12/12/18 Apixaban [Eliquis 5 mg Tablet] 5 mg PO BID 06/05/19 Aspirin [Aspirin 81 mg Chewable Tablet] 81 mg PO DAILY 06/05/19 Allergies/Adverse Reactions: No Known Allergies Allergy (Verified 12/11/18 13:42) Review of Systems Constitutional: PRESENT: fatigue. ABSENT: headache(s) Eyes: ABSENT: visual disturbances Ears: ABSENT: hearing changes Nose, Mouth, and Throat: ABSENT: sore throat Respiratory: PRESENT: cough Gastrointestinal: ABSENT: nausea Genitourinary: ABSENT: dysuria Neurological: PRESENT: abnormal speech, confusion, lack of coordination Psychiatric: ABSENT: depression Physical Exam Vital Signs: Temp Pulse Resp BP Pulse Ox 97.8 F 113 H 18 139/64 H 99 06/06/19 12:08 06/06/19 14:00 06/06/19 12:08 06/06/19 12:08 06/06/19 12:08 Intake & Output 06/05/19 06/06/19 06/07/19 06:59 06:59 06:59 Intake Total 828 1580 Balance 828 1580 Weight 141.974 kg 141.2 kg General appearance: PRESENT: no acute distress, obese Exam: 68 year old male. Head exam: PRESENT: normocephalic Eye exam: PRESENT: EOMI Mouth exam: PRESENT: tongue midline Neck exam: ABSENT: lymphadenopathy, tenderness Respiratory exam: PRESENT: clear to auscultation nancy, unlabored Cardiovascular exam: PRESENT: RRR GI/Abdominal exam: PRESENT: soft. ABSENT: tenderness Extremities exam: ABSENT: pedal edema Neurological exam: PRESENT: alert, awake, normal gait, other - Some difficulty finding words. Psychiatric exam: PRESENT: appropriate affect Skin exam: PRESENT: normal color Results Laboratory Results: 06/06/19 04:30 06/06/19 04:30 06/06/19 06/06/19 04:30 04:30 WBC 9.8 RBC 4.25 L Hgb 13.3 L Hct 38.8 MCV 91 MCH 31.2 MCHC 34.2 RDW 15.9 H Plt Count 120 L Seg Neutrophils % Not Reportable Sodium 140.1 Potassium 3.9 Chloride 102 Carbon Dioxide 27 Anion Gap 11 BUN 40 H Creatinine 1.52 H Est GFR ( Amer) 55 L Glucose 60 L Calcium 9.7 06/04/19 23:52 Clean Catch Midstream Urine Culture - Final Mixed Urogenital [place] 06/04/19 06/05/19 20:22 00:27 Troponin I 0.013 0.013 Impressions: Chest X-Ray 06/04/19 19:49 IMPRESSION: Significant interval improvement of previously noted right upper lobe airspace disease. No pleural effusions. Chest/Abdomen CTA 06/05/19 00:00 IMPRESSION: No CT evidence of acute pulmonary embolism. Findings compatible with metastatic disease with the lobulated right upper lobe mass extending into the right hilum with mediastinal and right hilar lymphadenopathy and multiple hepatic metastatic lesions. TECHNICAL DOCUMENTATION: Quality ID # 436: Final reports with documentation of one or more dose reduction techniques (e.g., Automated exposure control, adjustment of the mA and/or kV according to patient size, use of iterative reconstruction technique) copyright 2011 [employer]- All Rights Reserved Head CT 06/05/19 00:00 IMPRESSION: 2 distinct mass lesions in the bilateral frontal lobes with surrounding vasogenic edema, likely representing metastatic disease. Contrast-enhanced MRI is recommended for complete evaluation. Status: Image reviewed by me Assessment & Plan - Diagnosis (1) Lung cancer metastatic to brain Is this a current diagnosis for this admission?: Yes Plan: I have explained to the patient and family that I am not sure if this is the only new area of cancer, or if there is other progression elsewhere. However, most recent scans of C/A/P showed stable disease. I have explained that the brain may be a sanctuary area that chemo cannot fully penetrate. For this reason, whole brain radiation therapy is recommended. I discussed his care with Dr. Jack in Radiation oncology and he will start XRT RAKAN. He has been started on Dexamethasone 8 mg PO BID. This will continue for at least a weak and then should be tapered. He was also started on Keppra for seizure prophylaxis. (2) DVT of axillary vein, acute left Is this a current diagnosis for this admission?: No Plan: He should continue Eliquis for DVT/PE prophylaxis. He is at high risk due to his cancer. (3) Morbid obesity Is this a current diagnosis for this admission?: Yes - Time Time Spent: 50 to 70 Minutes Within: within 24 hours - Plan Summary Plan Summary: Hopefully, patient will improve and be ready for discharge in 24-48 hours. He is NOT a candidate for Hospice at this time as he continues active treatment.
--- NOTE | 2019-06-06 15:44 | PDOC PROGRESS REPORT ---
Subjective Progress Note for:: 06/06/19 Subjective:: Patient sleeping peacefully this morning. Daughter is at bedside. States he had a very restless night last night and confusion was worse. He did start his radiation yesterday. Reason For Visit: AMS,LUNG A W BRAIN METS,DM,CAD Physical Exam Vital Signs: Temp Pulse Resp BP Pulse Ox 97.8 F 113 H 18 139/64 H 99 06/06/19 12:08 06/06/19 14:00 06/06/19 12:08 06/06/19 12:08 06/06/19 12:08 Intake & Output 06/05/19 06/06/19 06/07/19 06:59 06:59 06:59 Intake Total 828 1580 Balance 828 1580 Weight 141.974 kg 141.2 kg General appearance: PRESENT: obese Head exam: PRESENT: normocephalic Respiratory exam: PRESENT: unlabored Cardiovascular exam: PRESENT: RRR Skin exam: PRESENT: normal color Results Laboratory Results: 06/06/19 04:30 06/06/19 04:30 06/06/19 06/06/19 04:30 04:30 WBC 9.8 RBC 4.25 L Hgb 13.3 L Hct 38.8 MCV 91 MCH 31.2 MCHC 34.2 RDW 15.9 H Plt Count 120 L Seg Neutrophils % Not Reportable Sodium 140.1 Potassium 3.9 Chloride 102 Carbon Dioxide 27 Anion Gap 11 BUN 40 H Creatinine 1.52 H Est GFR ( Amer) 55 L Glucose 60 L Calcium 9.7 06/04/19 23:52 Clean Catch Midstream Urine Culture - Final Mixed Urogenital [place] 06/04/19 06/05/19 20:22 00:27 Troponin I 0.013 0.013 Impressions: Chest X-Ray 06/04/19 19:49 IMPRESSION: Significant interval improvement of previously noted right upper lobe airspace disease. No pleural effusions. Chest/Abdomen CTA 06/05/19 00:00 IMPRESSION: No CT evidence of acute pulmonary embolism. Findings compatible with metastatic disease with the lobulated right upper lobe mass extending into the right hilum with mediastinal and right hilar lymphadenopathy and multiple hepatic metastatic lesions. TECHNICAL DOCUMENTATION: Quality ID # 436: Final reports with documentation of one or more dose reduction techniques (e.g., Automated exposure control, adjustment of the mA and/or kV according to patient size, use of iterative reconstruction technique) copyright 2011 [employer]- All Rights Reserved Head CT 06/05/19 00:00 IMPRESSION: 2 distinct mass lesions in the bilateral frontal lobes with surrounding vasogenic edema, likely representing metastatic disease. Contrast-enhanced MRI is recommended for complete evaluation. Assessment & Plan - Diagnosis (1) Lung cancer metastatic to brain Is this a current diagnosis for this admission?: Yes Plan: Continue radiation, steroids. (2) DVT of axillary vein, acute left Is this a current diagnosis for this admission?: No Plan: Continue Eliquis at home. (3) Morbid obesity Is this a current diagnosis for this admission?: Yes - Time Time Spent with patient: 15-24 minutes - Plan Summary Plan Summary: Patient was discussed with Dr. Dominguez. Hope to send him home tomorrow after rad iation treatment and follow-up for remainder of treatments as outpatient.
--- NOTE | 2019-06-06 16:27 | PDOC PROGRESS REPORT ---
Subjective Progress Note for:: 06/06/19 Subjective:: No adverse events overnight. We spent some time chasing his blood sugars yesterday because of the Decadron he was getting combined with some dietary indiscretion aided by his family. We have addressed the issue with them. As result his blood sugar was actually low this morning. His daughter brought in his sliding scale from home which she says controls his blood sugars very well so we are going to try that. Reason For Visit: AMS,LUNG A W BRAIN METS,DM,CAD Physical Exam Vital Signs: Temp Pulse Resp BP Pulse Ox 97.8 F 80 18 139/64 H 99 06/06/19 12:08 06/06/19 15:48 06/06/19 15:48 06/06/19 12:08 06/06/19 15:48 Intake & Output 06/05/19 06/06/19 06/07/19 06:59 06:59 06:59 Intake Total 828 1580 Balance 828 1580 Weight 141.974 kg 141.2 kg General appearance: PRESENT: no acute distress, cooperative, disheveled, morbidly obese Respiratory exam: PRESENT: clear to auscultation nancy, symmetrical, unlabored. ABSENT: accessory muscle use, chest wall tenderness, crackles, prolonged expiratory phas, rhonchi, tachypnea, wheezes Cardiovascular exam: PRESENT: RRR, +S1, +S2 Pulses: PRESENT: normal carotid pulses Vascular exam: PRESENT: normal capillary refill GI/Abdominal exam: PRESENT: normal bowel sounds, soft. ABSENT: distended, guarding, rebound, tenderness Extremities exam: ABSENT: clubbing, pedal edema Musculoskeletal exam: PRESENT: normal inspection. ABSENT: deformity Neurological exam: PRESENT: alert, awake, oriented to person, oriented to place, oriented to situation Psychiatric exam: PRESENT: flat affect Skin exam: PRESENT: dry, warm Results Laboratory Results: 06/06/19 04:30 06/06/19 04:30 06/06/19 06/06/19 04:30 04:30 WBC 9.8 RBC 4.25 L Hgb 13.3 L Hct 38.8 MCV 91 MCH 31.2 MCHC 34.2 RDW 15.9 H Plt Count 120 L Seg Neutrophils % Not Reportable Sodium 140.1 Potassium 3.9 Chloride 102 Carbon Dioxide 27 Anion Gap 11 BUN 40 H Creatinine 1.52 H Est GFR ( Amer) 55 L Glucose 60 L Calcium 9.7 06/04/19 23:52 Clean Catch Midstream Urine Culture - Final Mixed Urogenital [place] 06/04/19 06/05/19 20:22 00:27 Troponin I 0.013 0.013 Impressions: Chest X-Ray 06/04/19 19:49 IMPRESSION: Significant interval improvement of previously noted right upper lobe airspace disease. No pleural effusions. Chest/Abdomen CTA 06/05/19 00:00 IMPRESSION: No CT evidence of acute pulmonary embolism. Findings compatible with metastatic disease with the lobulated right upper lobe mass extending into the right hilum with mediastinal and right hilar lymphadenopathy and multiple hepatic metastatic lesions. TECHNICAL DOCUMENTATION: Quality ID # 436: Final reports with documentation of one or more dose reduction techniques (e.g., Automated exposure control, adjustment of the mA and/or kV according to patient size, use of iterative reconstruction technique) copyright 2011 [employer]- All Rights Reserved Head CT 06/05/19 00:00 IMPRESSION: 2 distinct mass lesions in the bilateral frontal lobes with surrounding vasogenic edema, likely representing metastatic disease. Contrast-enhanced MRI is recommended for complete evaluation. Assessment and Plan - Diagnosis (1) Lung cancer metastatic to brain Is this a current diagnosis for this admission?: Yes Plan: He is on Decadron and his started on his radiation therapy. If he feels all right we might be able to get him home tomorrow. He will follow-up with onc ology. (2) CKD (chronic kidney disease) stage 2, GFR 60-89 ml/min Is this a current diagnosis for this admission?: Yes Plan: Creatinine stable in his usual range (3) DVT of axillary vein, acute left Is this a current diagnosis for this admission?: Yes Plan: Present on admission. We will resume his Eliquis. (4) Diabetes type 2, uncontrolled Qualifiers: Is this a current diagnosis for this admission?: Yes Plan: We are going to try him on his home sliding scale to see how his blood sugars do. - Time Time Spent with patient: 25-34 minutes
[2019-06-06] MEDS: APIXABAN 5 MG TABLET PO SCH (17:19)
[2019-06-06] MEDS ORDERED: (PENDING PHARMACY ID) (Metoprolol Succinate [Toprol Xl] 200 MG) PO SCH (18:00)
[2019-06-06] MEDS: CILOSTAZOL 100 MG TABLET PO SCH (18:50)
[2019-06-06] MEDS: GABAPENTIN 300 MG CAPSULE PO SCH (21:58)
[2019-06-06] MEDS: METOPROLOL SUCCINATE 50 MG TAB.SR.24H PO SCH (21:58)
[2019-06-06] MEDS ORDERED: MONTELUKAST SODIUM 10 MG TABLET PO SCH (22:00)
[2019-06-06] MEDS ORDERED: ATORVASTATIN CALCIUM 40 MG TABLET PO SCH (22:00)
[2019-06-07] MEDS: IPRATROPIUM/ALBUTEROL 0.5-2.5 MG/3 ML AMPUL NEB SCH ×2 (00:08→08:18)
[2019-06-07] MEDS: MAG HYDROX/AL HYDROX/SIMETH SUSP 30 ML UDCUP PO PRN ×3 (00:16→09:43)
[2019-06-07] MEDS: GUAIFENESIN SYRP 200 MG/10 ML UDC PO PRN ×2 (00:59→09:43)
[2019-06-07] MEDS: GABAPENTIN 300 MG CAPSULE PO SCH (05:31)
[2019-06-07] MEDS: INSULIN LISPRO 100 UNIT/ML 3 ML VIAL SUBCUT SCH (07:48)
[2019-06-07] MEDS ORDERED: FUROSEMIDE 20 MG TABLET PO SCH (08:00)
[2019-06-07] MEDS ORDERED: TEMAZEPAM 15 MG CAPSULE PO PRN (08:40)
--- NOTE | 2019-06-07 08:45 | PDOC PROGRESS REPORT ---
Subjective Progress Note for:: 06/07/19 Subjective:: Patient states that he is doing much better. He is able to walk safely and his thinking has improved. He did not sleep well last night. His next radiation treatment is scheduled for noon today. Reason For Visit: AMS,LUNG A W BRAIN METS,DM,CAD Physical Exam Vital Signs: Temp Pulse Resp BP Pulse Ox 97.7 F 87 14 153/75 H 92 06/07/19 04:00 06/07/19 08:18 06/07/19 08:18 06/07/19 04:00 06/07/19 08:18 Intake & Output 06/06/19 06/07/19 06/08/19 06:59 06:59 06:59 Intake Total 828 1580 Balance 828 1580 Weight 141.2 kg 141.8 kg General appearance: PRESENT: no acute distress, obese Head exam: PRESENT: normocephalic Respiratory exam: PRESENT: unlabored Extremities exam: ABSENT: pedal edema Neurological exam: PRESENT: alert, awake, other - some difficulty finding words. Psychiatric exam: PRESENT: appropriate affect Skin exam: PRESENT: normal color Results Laboratory Results: 06/06/19 04:30 06/06/19 04:30 06/04/19 23:52 Clean Catch Midstream Urine Culture - Final Mixed Urogenital [place] 06/04/19 06/05/19 20:22 00:27 Troponin I 0.013 0.013 Impressions: Chest X-Ray 06/04/19 19:49 IMPRESSION: Significant interval improvement of previously noted right upper lobe airspace disease. No pleural effusions. Chest/Abdomen CTA 06/05/19 00:00 IMPRESSION: No CT evidence of acute pulmonary embolism. Findings compatible with metastatic disease with the lobulated right upper lobe mass extending into the right hilum with mediastinal and right hilar lymphadenopathy and multiple hepatic metastatic lesions. TECHNICAL DOCUMENTATION: Quality ID # 436: Final reports with documentation of one or more dose reduction techniques (e.g., Automated exposure control, adjustment of the mA and/or kV according to patient size, use of iterative reconstruction technique) copyright 2011 [employer]- All Rights Reserved Head CT 06/05/19 00:00 IMPRESSION: 2 distinct mass lesions in the bilateral frontal lobes with surrounding vasogenic edema, likely representing metastatic disease. Contrast-enhanced MRI is recommended for complete evaluation. Assessment & Plan - Diagnosis (1) Lung cancer metastatic to brain Is this a current diagnosis for this admission?: Yes Plan: Continue radiation to the brain. Plan for discharge after today's treatment. (2) DVT of axillary vein, acute left Is this a current diagnosis for this admission?: Yes Plan: Continue current anticoagulation (3) Morbid obesity Is this a current diagnosis for this admission?: Yes - Time Time Spent with patient: Less than 15 minutes - Plan Summary Plan Summary: I have call in Rx for restoril to his pharmacy. He will continue Dex 8 mg BID for now as outpatient. Continue Keppra as well. I will arrange follow-up in my office. He will finish radiation as outpatient.
[2019-06-07 08:55] VITALS: BP 129/65
[2019-06-07] MEDS: APIXABAN 5 MG TABLET PO SCH (09:42)
[2019-06-07] MEDS: LEVETIRACETAM 500 MG TABLET PO SCH (09:42)
[2019-06-07] MEDS: METOPROLOL SUCCINATE 50 MG TAB.SR.24H PO SCH (09:42)
[2019-06-07] MEDS: DOCUSATE SODIUM 100 MG CAPSULE PO SCH (09:42)
[2019-06-07] MEDS: DEXAMETHASONE 4 MG TABLET PO SCH (09:43)
[2019-06-07] MEDS: FAMOTIDINE 20 MG TABLET PO SCH (09:43)
[2019-06-07] MEDS: CILOSTAZOL 100 MG TABLET PO SCH (09:49)
[2019-06-07] MEDS: INSULIN GLARGINE,HUM.REC.ANLOG 1,000 UNIT/10 ML VIAL SUBCUT SCH (09:49)
[2019-06-07] MEDS ORDERED: LOSARTAN POTASSIUM 50 MG TABLET PO SCH (10:00)
[2019-06-07] MEDS ORDERED: POTASSIUM CHLORIDE 10 MEQ CAPSULE.ER PO SCH (10:00)
[2019-06-07] MEDS ORDERED: ISOSORBIDE MONONITRATE 30 MG TAB.ER.24H PO SCH (10:00)
[2019-06-07] MEDS ORDERED: FLUTICASONE NASAL SPRAY 50 MCG/SPRY 120 SPRAY/16 GM NASL SCH (10:00)
[2019-06-07] MEDS ORDERED: CALCITRIOL 0.25 MCG CAPSULE PO SCH (12:00)
--- NOTE | 2019-06-07 16:26 | PDOC DISCHARGE SUMMARY ---
Impression - Admit/DC Date/PCP Admission Date/Primary Care Provider: 06/05/19 03:[facility] Discharge Date: 06/07/19 - Discharge Diagnosis (1) Lung cancer metastatic to brain Is this a current diagnosis for this admission?: Yes (2) CKD (chronic kidney disease) stage 2, GFR 60-89 ml/min Is this a current diagnosis for this admission?: Yes (3) DVT of axillary vein, acute left Is this a current diagnosis for this admission?: Yes (4) Diabetes type 2, uncontrolled Is this a current diagnosis for this admission?: Yes - Additional Information Resuscitation Status: Full Code Discharge Diet: Diabetic Discharge Activity: Activity As Tolerated, Balance Activity w/Rest Referrals: MONTY SCHAFFER MD [ACTIVE STAFF] - 06/19/19 1:15 pm () Prescriptions: Dexamethasone [Decadron 4 mg Tablet] 8 mg PO BID #60 tablet Levetiracetam [Keppra 500 mg Tablet] 1,000 mg PO Q12 #120 tablet Temazepam [Restoril 15 mg Capsule] 15 mg PO HSP PRN #15 capsule PRN Reason: Home Medications: Atorvastatin Calcium [Lipitor 40 mg Tablet] 40 mg PO QHS 12/12/18 Calcitriol [Rocaltrol 0.25 mcg Capsule] 2 cap PO NOON 12/12/18 Cilostazol [Pletal 100 mg Tablet] 50 mg PO BID 12/12/18 Furosemide [Lasix 20 mg Tablet] 60 mg PO QAM 12/12/18 Gabapentin [Neurontin 300 mg Capsule] 300 mg PO Q8 12/12/18 Insulin Regular, Human [Humulin R U-500 Kwikpen] 175 units SQ ACSUPPER 12/12/18 Insulin Regular, Human [Humulin R U-500 Kwikpen] 175 units SQ WLUNCH 12/12/18 Insulin Regular, Human [Humulin R U-500 Kwikpen] 225 unit SQ QAM 12/12/18 Isosorbide Mononitrate [Imdur 30 mg Tablet.er] 30 mg PO DAILY 12/12/18 Loratadine [Claritin 10 mg Tablet] 10 mg PO DAILY 12/12/18 Losartan Potassium [Cozaar 100 mg Tablet] 100 mg PO DAILY 12/12/18 Metoprolol Succinate [Toprol Xl] 200 mg PO BID 12/12/18 Montelukast Sodium [Singulair 10 mg Tablet] 10 mg PO QHS 12/12/18 Potassium Chloride [Klor-Con 10 Meq Capsule ER] 10 meq PO DAILY 12/12/18 Apixaban [Eliquis 5 mg Tablet] 5 mg PO BID 06/05/19 Dexamethasone [Decadron 4 mg Tablet] 8 mg PO BID #60 tablet 06/07/19 Levetiracetam [Keppra 500 mg Tablet] 1,000 mg PO Q12 #120 tablet 06/07/19 Temazepam [Restoril 15 mg Capsule] 15 mg PO HSP PRN #15 capsule 06/07/19 History of Present Illiness History of Present Illness: VICTOR MANUEL HALL is a 68 year old male with a past medical history of coronary artery disease, hypertension, stage III lung cancer with mets to liver on palliative chemotherapy and radiation with Dr. Schaffer. He presents with 3 weeks of worsening memory and poor balance prompting evaluation emergency room where he is found to have new bilateral frontal lobe metastasis with edema. He started on Decadron and referred to the hospitalist for admission. Patient's daughter is at bedside. Patient is receptive to hospice consult and requests DNI. Hospital Course Hospital Course: He was put on some Decadron and some Keppra and radiation oncology was consulted. He has started his radiation treatments and will continue to resume them as an outpatient. He will continue his other treatments with oncology. We are having some trouble with his blood sugars initially and we told his family that he was going to probably have some trouble with his blood sugar the whole time he was on the steroids and that he is going to have to be very particular with his diet because he takes large doses of insulin and if they are not able to be strict with his diet then his blood sugars are going to be extremely difficult to control likely the other health problems. They verbalized their understanding. His labs and examination were reassuring and he was discharged in good condition. Physical Exam Vital Signs: Temp Pulse Resp BP Pulse Ox 97.7 F 87 14 153/75 H 92 06/07/19 08:46 06/07/19 08:46 06/07/19 08:46 06/07/19 08:46 06/07/19 08:46 Intake & Output 06/06/19 06/07/19 06/08/19 06:59 06:59 06:59 Intake Total 828 1580 Balance 828 1580 Weight 141.2 kg 141.8 kg General appearance: PRESENT: no acute distress, cooperative, disheveled, morbidly obese Respiratory exam: PRESENT: clear to auscultation nanyc, symmetrical, unlabored. ABSENT: accessory muscle use, chest wall tenderness, crackles, prolonged expiratory phas, rhonchi, tachypnea, wheezes Cardiovascular exam: PRESENT: RRR, +S1, +S2 Pulses: PRESENT: normal carotid pulses Vascular exam: PRESENT: normal capillary refill GI/Abdominal exam: PRESENT: normal bowel sounds, soft. ABSENT: distended, guarding, rebound, tenderness Extremities exam: ABSENT: clubbing, pedal edema Musculoskeletal exam: PRESENT: normal inspection. ABSENT: deformity Neurological exam: PRESENT: alert, awake, oriented to person, oriented to place, oriented to situation Psychiatric exam: PRESENT: flat affect Skin exam: PRESENT: dry, warm Results Laboratory Results: WBC 9.8 10^3/uL (4.0-10.5) 06/06/19 04:30 RBC 4.25 10^6/uL (4.35-5.55) L 06/06/19 04:30 Hgb 13.3 g/dL (13.5-17.0) L 06/06/19 04:30 Hct 38.8 % (37.9-51.0) 06/06/19 04:30 MCV 91 fl (80-97) 06/06/19 04:30 MCH 31.2 pg (27.0-33.4) 06/06/19 04:30 MCHC 34.2 g/dL (32.0-36.0) 06/06/19 04:30 RDW 15.9 % (11.5-14.0) H 06/06/19 04:30 Plt Count 120 10^3/uL (150-450) L 06/06/19 04:30 Lymph % (Auto) Not Reportable 06/06/19 04:30 Moore % (Auto) Not Reportable 06/06/19 04:30 Eos % (Auto) Not Reportable 06/06/19 04:30 Baso % (Auto) Not Reportable 06/06/19 04:30 Absolute Neuts (auto) Not Reportable 06/06/19 04:30 Absolute Lymphs (auto) Not Reportable 06/06/19 04:30 Absolute Monos (auto) Not Reportable 06/06/19 04:30 Absolute Eos (auto) Not Reportable 06/06/19 04:30 Absolute Basos (auto) Not Reportable 06/06/19 04:30 Total Counted 100 06/06/19 04:30 Seg Neutrophils % Not Reportable 06/06/19 04:30 Seg Neuts % (Manual) 96 % (42-78) H 06/06/19 04:30 Lymphocytes % (Manual) 1 % (13-45) L 06/06/19 04:30 Monocytes % (Manual) 3 % (3-13) 06/06/19 04:30 Eosinophils % (Manual) 0 % (0-6) 06/06/19 04:30 Basophils % (Manual) 0 % (0-2) 06/06/19 04:30 Abs Neuts (Manual) 9.4 10^3/uL (1.7-8.2) H 06/06/19 04:30 Abs Lymphs (Manual) 0.1 10^3/uL (0.5-4.7) L 06/06/19 04:30 Abs Monocytes (Manual) 0.3 10^3/uL (0.1-1.4) 06/06/19 04:30 Absolute Eos (Manual) 0.0 10^3/uL (0.0-0.6) 06/06/19 04:30 Abs Basophils (Manual) 0.0 10^3/uL (0.0-0.2) 06/06/19 04:30 Platelet Comment ADEQUATE 06/06/19 04:30 Anisocytosis SLIGHT 06/06/19 04:30 PT 14.8 SEC (11.4-15.4) 06/04/19 20:22 INR 1.15 06/04/19 20:22 VBG pH 7.42 (7.30-7.42) 06/04/19 20:22 VBG pCO2 43.0 mmHg (35-63) 06/04/19 20:22 VBG HCO3 27.5 mmol/L (20-32) 06/04/19 20:22 VBG Base Excess 2.7 mmol/L 06/04/19 20:22 Sodium 140.1 mmol/L (137-145) 06/06/19 04:30 Potassium 3.9 mmol/L (3.6-5.0) 06/06/19 04:30 Chloride 102 mmol/L (98-107) 06/06/19 04:30 Carbon Dioxide 27 mmol/L (22-30) 06/06/19 04:30 Anion Gap 11 (5-19) 06/06/19 04:30 BUN 40 mg/dL (7-20) H 06/06/19 04:30 Creatinine 1.52 mg/dL (0.52-1.25) H 06/06/19 04:30 Est GFR ( Amer) 55 (>60) L 06/06/19 04:30 Est GFR (MDRD) Non-Af 46 (>60) L 06/06/19 04:30 Glucose 60 mg/dL (75-110) L 06/06/19 04:30 POC Glucose 264 mg/dL (70-110) H 06/07/19 06:14 Lactic Acid 1.2 mmol/L (0.7-2.1) 06/05/19 00:59 Calcium 9.7 mg/dL (8.4-10.2) 06/06/19 04:30 Total Bilirubin 0.7 mg/dL (0.2-1.3) 06/04/19 20:22 Direct Bilirubin 0.3 mg/dL (0.0-0.4) 06/04/19 20:22 Neonat Total Bilirubin Not Reportable 06/04/19 20:22 Neonat Direct Bilirubin Not Reportable 06/04/19 20:22 Neonat Indirect Bili Not Reportable 06/04/19 20:22 AST 73 U/L (17-59) H 06/04/19 20:22 ALT 53 U/L (<50) 06/04/19 20:22 Alkaline Phosphatase 84 U/L (38-126) 06/04/19 20:22 Troponin I 0.013 ng/mL 06/05/19 00:27 Total Protein 7.6 g/dL (6.3-8.2) 06/04/19 20:22 Albumin 4.2 g/dL (3.5-5.0) 06/04/19 20:22 Urine Color YELLOW 06/04/19 23:52 Urine Appearance CLEAR 06/04/19 23:52 Urine pH 7.0 (5.0-9.0) 06/04/19 23:52 Ur Specific [place] 1.019 06/04/19 23:52 Urine Protein 100 mg/dL (NEGATIVE) H 06/04/19 23:52 Urine Glucose (UA) NEGATIVE mg/dL (NEGATIVE) 06/04/19 23:52 Urine Ketones NEGATIVE mg/dL (NEGATIVE) 06/04/19 23:52 Urine Blood NEGATIVE (NEGATIVE) 06/04/19 23:52 Urine Nitrite NEGATIVE (NEGATIVE) 06/04/19 23:52 Urine Bilirubin NEGATIVE (NEGATIVE) 06/04/19 23:52 Urine Urobilinogen 2.0 mg/dL (<2.0) H 06/04/19 23:52 Ur Leukocyte Esterase NEGATIVE (NEGATIVE) 06/04/19 23:52 Urine WBC (Auto) 0 /HPF 06/04/19 23:52 Urine RBC (Auto) 0 /HPF 06/04/19 23:52 Urine Mucus (Auto) RARE /LPF 06/04/19 23:52 Urine Ascorbic Acid NEGATIVE (NEGATIVE) 06/04/19 23:52 06/04/19 06/05/19 20:22 00:27 Troponin I 0.013 0.013 Impressions: Chest X-Ray 06/04/19 19:49 IMPRESSION: Significant interval improvement of previously noted right upper lobe airspace disease. No pleural effusions. Chest/Abdomen CTA 06/05/19 00:00 IMPRESSION: No CT evidence of acute pulmonary embolism. Findings compatible with metastatic disease with the lobulated right upper lobe mass extending into the right hilum with mediastinal and right hilar lymphadenopathy and multiple hepatic metastatic lesions. TECHNICAL DOCUMENTATION: Quality ID # [id number]: Final reports with documentation of one or more dose reduction techniques (e.g., Automated exposure control, adjustment of the mA and/or kV according to patient size, use of iterative reconstruction technique) copyright 2011 [employer]- All Rights Reserved Head CT 06/05/19 00:00 IMPRESSION: 2 distinct mass lesions in the bilateral frontal lobes with surrounding vasogenic edema, likely representing metastatic disease. Contrast-enhanced MRI is recommended for complete evaluation. Plan Time Spent: Greater than 30 Minutes Stroke Is this a Stroke Patient?: No Acute Heart Failure - Is this a Heart Failure Patient?: No
== END 2019-06-07 11:00 | disposition home or self-care (01) | DRG 55 ==
LOC: ER 18:56 → EH 06-05 03:20 → 4N 06-05 14:43
PROVIDERS: ADMIT Internal Medicine; ATTEND Internal Medicine
DX: C79.31 Secondary malignant neoplasm of brain (principal); C34.90 Malignant neoplasm of unspecified part of unspecified bronchus or lung; C78.7 Secondary malignant neoplasm of liver and intrahepatic bile duct; I13.0 Hypertensive heart and chronic kidney disease with heart failure and stage 1 through stage 4 chronic kidney disease, or unspecified chronic kidney disease; I82.A12 Acute embolism and thrombosis of left axillary vein; E11.22 Type 2 diabetes mellitus with diabetic chronic kidney disease; E11.65 Type 2 diabetes mellitus with hyperglycemia; I50.9 Heart failure, unspecified; N18.2 Chronic kidney disease, stage 2 (mild); T38.0X5A Adverse effect of glucocorticoids and synthetic analogues, initial encounter; I25.10 Atherosclerotic heart disease of native coronary artery without angina pectoris; Z79.899 Other long term (current) drug therapy; I25.2 Old myocardial infarction; Z87.891 Personal history of nicotine dependence; Z79.82 Long term (current) use of aspirin; Z79.4 Long term (current) use of insulin
CPT/HCPCS: 36415; 70450; 71046; 71275; 80048; 80053; 81001; 82803; 82962; 83605; 84484; 85025; 85610; 87040; 87086; 93005; 93010; 94640; 99285; J1100; J1815; J1953; J7030; J7620